=== PATIENT | female | born 1945 | race Caucasian/White ===

== ENCOUNTER 2025-02-18 02:43 | Inpatient (IN) | payer OTHER, MEDICARE, SELFPAY ==
[2025-02-18] VITALS (126 sets, daily range): BP systolic 80–124; BP diastolic 51–85; PULSE 81–142; RESP 12–25; TEMP 35.5–37.1; O2SAT 66–100; BMI 25.2; BMI 28.2
--- NOTE | 2025-02-18 02:51 | EKG_ITS ---
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
--- NOTE | 2025-02-18 03:16 | EDNOTE_ITS ---
ED GI Bleed RME/HPI General Chief complaint: GI Bleed Stated complaint: POSSIBLE GI BLEED Time Seen by Provider: 02/18/25 02:44 Arrival date/time: 02/18/25 02:43 RME / HPI RME / HPI Narrative: Dr. Renae?s Main ED Evaluation: 79yo female with a history of aFib (not on anticoagulants), CHF, HTN BIBA from home presents to the ED for complaints of coffee-ground emesis and rectal bleeding x 1.5 days. Patient states she's been having intermittent episodes of rectal bleeding and coffee-ground emesis for the last day and a half. She denies any abdominal pain, fever, chills or any other associated symptoms. She denies any history of similar symptoms. Related Data Home Medications ?Medication ?Instructions ?Recorded ?Confirmed Cetirizine * (ZYRTEC *) 5 mg PO HS #0 tabs 04/26/16 Chrom Janki/Brindall Mccrary 1 tab PO TID ##0 04/26/16 (Garcinia Cambogia Tablet) Etanercept (Enbrel) 50 mg SQ 2 X WEEKLY ##0 06/04 Fluticasone Propionate 1 spry IH PRN PRN ALLERGY ## 0 04/26/16 amlodipine 5 mg tablet (Norvasc) 5 mg PO QDAY #0 tabs 04/26/16 loratadine 10 mg tablet (Claritin) 10 mg PO QDAY #0 ta bs 04/26/16 triamterene 50 mg capsule 25 mg PO QDAY #0 caps (Dyrenium) Lactobacillus rhamnosus GG 10 1 cap PO QDAY #0 caps billion cell capsule (Culturelle) biotin 800 mcg tablet 800 mcg PO QDAY #0 tabs 01/05 cyanocobalamin (vitamin B-12) 100 100 mcg PO QDAY #0 t abs 09/21/16 mcg tablet (Vitamin B-12) guaifenesin 600 mg tablet, 600 mg PO QDAY ##0 09/21/16 extended release 12 hr (Mucinex) magnesium 30 mg tablet 30 mg PO BID #0 tabs 6 phentermine 37.5 mg capsule 37.5 mg PO QAMAC #0 caps 1 11/21/15 (Adipex-P) prasterone (dhea) 50 mg capsule ##0 09/21/16 (DHEA) thyroid (pork) 195 mg tablet 195 mg PO #0 tabs 6 (Nature-Throid) Allergies Allergy/AdvReac Type Severity Reaction Status Date / Time Dust Allergy Severe ASTHMA Uncoded 08/12/24 10:33 ATTACK Review of Systems Review of Systems Systems Reviewed: All systems reviewed, normal except as documented Past Medical History Past Medical History CARDIAC: Positive Atrial Fibrillation, Congestive Heart Failure and Hypertension; Negative Cardiac Disorders RESPIRATORY: Positive Asthma; Negative Chronic Obstructive Pulmonary Disease (COPD) GENITOURINARY: Negative Renal Disease ENDOCRINE: Negative Diabetes Mellitus Type 1 or Diabetes Mellitus Type 2 HEMATOLOGIC: Negative Sickle Cell Disease OTHER HISTORY: Positive Blood Transfusions Social History SMOKING STATUS: Never smoker ED Exam Narrative Physical exam: GENERAL APPEARANCE: alert and oriented x 4, appears fatigued, no acute distress VITALS: All vitals were reviewed and the pulse ox is 98% on room air, which is normal according to my interpretation. HEENT: Normocephalic, atraumatic; pupils equal, round, reactive to light; EOMI; mucous membranes pink, moist; oropharynx clear NECK: Supple LUNGS: CTABL; no wheezes, no rales, no rhonchi HEART: Irregularly irregular tachycardia, normal S1, S2; no murmurs ABDOMEN: non distended; normal BS; soft, no tenderness, no guarding, no rebound; no masses, no organomegaly, no hernia BACK: no CVA tenderness EXTREMITIES: atraumatic; no edema NEUROLOGIC: awake; alert and oriented x4; cranial nerves II-XII grossly intact; no focal sensory or motor deficits PSYCHIATRIC: appropriate mood and affect SKIN: warm, dry, pale, jaundice; no rashes Course Course Course Narrative: 0252: Sepsis alert initiated. Orders made at this time are congruent with ED Adult Sepsis Order List. Re-evaluation is to be completed. CXR is ordered for determining the etiology of hypothermia. 0437: NS IVF infused. 0507: Sepsis reassessment performed consisting of lab review, vitals, physical exam including auscultation of heart, lungs, and visual evaluation of capillary refills, mucosal membranes and extremities. Quality Measures Possible source: GI tract/intra-abdominal Blood cultures ordered: yes Antibiotic ordered: Yes Pertinent labs: 02/18/25 03:05 Lactic Acid 2.8 H mMol/L (0.4-2.0) Procalcitonin 1.30 H ng/ml (0.0-0.49) sepsis Orders Category Date Time Status Video Editing Internship STAT Care 02/18/25 03:16 Active Continuous Pulse Oximetry STAT Care 02/18/25 03:16 Completed EKG (ED ONLY) *Do not use* NOW Care 02/18/25 02:52 Completed Landa [Urinary Catheter] QS Care 02/18/25 02:59 Active Insert IV STAT Care 02/18/25 03:16 Completed Intake and Output Routine Care 02/18/25 03:16 Ordered NPO STAT Care 02/18/25 03:16 Active Transfuse,blood/blood products NOW Care 02/18/25 03:15 Active Urinary Catheter STAT Care 02/18/25 03:16 Completed Consult to Gastroenterology Stat Cons 02/18/25 05:28 Ordered EKG (ED Only) Stat Exams 02/18/25 02:51 Draft XR chest 1V portable Stat Exams 02/18/25 03:24 Taken Ammonia Stat Lab 02/18/25 03:05 Completed Blood Culture (Lab) Stat Lab 02/18/25 03:40 Received CBC Stat Lab 02/18/25 03:05 Completed Comprehensive Metabolic Panel Stat Lab 02/18/25 03:05 Completed Fresh Frozen Plasma Stat Lab 02/18/25 03:40 Results Lactate (Lactic Acid) Stat Lab 02/18/25 03:05 Results Lipase Stat Lab 02/18/25 03:05 Completed Magnesium Stat Lab 02/18/25 03:05 Completed Partial Thromboplastin Time Stat Lab 02/18/25 03:05 Completed Path Review Blood Smear Stat Lab 02/18/25 03:05 Completed Procalcitonin Stat Lab 02/18/25 03:05 Completed Prothrombin Time with INR Stat Lab 02/18/25 03:05 Completed Troponin I Stat Lab 02/18/25 03:05 Completed Type and Screen Stat Lab 02/18/25 03:40 Results Urinalysis Stat Lab 02/18/25 03:51 Completed Urine Culture Stat Lab 02/18/25 03:51 Received prbc [Red Blood Cells] Stat Lab 02/18/25 03:40 Results Magnesium Sulfate 2 GM Ivpb [Magnesium Sulfate Ivpb] Med 02/18/25 05:04 Active 2 gm in 50 ml IV X1 Octreotide Acet Inj [SandoSTATIN Inj] Med 02/18/25 03:15 Discontinued 50 mcg IV X1 ONE Pantoprazole/Ns 80Mg IV Premix [Protonix/NS 80mg IV Med 02/18/25 03:21 Discontinued Premix] 80 mg in 100 ml IV .Q10H Pantoprazole/Ns 80Mg IV Premix [Protonix/NS 80mg IV Med 02/18/25 03:21 Discontinued Premix] 80 mg in 100 ml IV X1 Sodium Chloride 0.9% 1000 ml [Ns] 1,000 ml Med 02/18/25 03:15 Discontinued IV 999 mls/hr Sodium Chloride 0.9% [Ns] 100 ml Med 02/18/25 03:15 Active Octreotide Acet Inj [SandoSTATIN Inj] 1,000 mcg IV 50 mcg/hr cefTRIAXone/D5w 1gm IV premix [Rocephin/D5w 1gm IV Med 02/18/25 03:23 Discontinued premix] 1 gm in 50 ml IV X1 Vital Signs Vital signs: Vital Signs Temperature 96 F L 02/18/25 02:53 Pulse Rate 130 H 02/18/25 02:53 Respiratory Rate 18 02/18/25 02:53 Blood Pressure 82/66 L 02/18/25 02:53 GI Bleed MDM Narrative MDM Narrative:: Scribe Attestation: 02/18/25 - Susanna Elizondo am scribing for and in the presence of Dr. Renae. 0526: Spoke with the blood bank, who states the patient's FPP and PRBCs will be ready in 6 minutes. Patient data External records reviewed:: [facility] previous records (Per chart review, patient was seen here on 08/12/24 for aortic thrombus.) Clinical information provided by:: patient Social determinants that could affect healthcare access:: none Patient has the following chronic illnesses:: aFib, CHF, HTN How is presenting disease/condition affected by chronic disease/condition?: uneffected by Evaluation data The following diagnostics were reviewed and interpreted by me:: lab results, radiology exam(s) and EKG tracing(s) Lab and/or radiology exams considered but not ordered:: none Interpretation Summary: WBC count is normal, HnH is low at 6.5/19.0, Platelets are low at 76, PT and INR are elevated, PTT is elevated, Sodium is 133, Creatinine is elevated at 2.8, Lactic Acid is elevated at 2.8, Total Bilirubin is 1.9, Troponin is elevated at 0.092, Lipase is normal, Procalcitonin is elevated at 1.30, according to my interpretation. CXR shows left-sided pleural effusion, chronic changes, no air under the diaphragm, cardiomegaly, according to my interpretation. EKG done at 0253, aFib RvR, rate of 132, left axis deviation, Q waves in V1-V4, no STEMI, according to my interpretation. Medications / Prescriptions Medications or Prescriptions considered but not ordered:: none Medication administrations:: Medication Administration History Octreotide Acetate 1,000 mcg/ (Sodium Chloride) 102 mls @ 5.1 mls/hr IV .Q20H ONE; Protocol Stop: 02/18/25 23:14 Last Admin: 02/18/25 03:34 Dose: 50 mcg/hr, 5.1 mls/hr Documented By: EF Magnesium Sulfate (Magnesium Sulfate Ivpb) 2 gm in 50 mls @ 25 mls/hr IV X1 ONE Stop: 02/18/25 07:03 Last Admin: 02/18/25 05:29 Dose: 25 mls/hr Documented By: EF Discontinued Medications Sodium Chloride (Ns) 1,000 mls @ 999 mls/hr IV .Q1H1M ONE Stop: 02/18/25 04:15 Last Infusion: 02/18/25 04:37 Dose: Infused Documented By: Admin: 02/18/25 03:34 Dose: 999 mls/hr Documented By: EF Pantoprazole Sodium (Protonix/Ns 80mg Iv Premix) 80 mg in 100 mls @ 400 mls/hr IV X1 ONE Stop: 02/18/25 03:35 Last Infusion: 02/18/25 04:31 Dose: Infused Documented By: Admin: 02/18/25 04:16 Dose: 400 mls/hr Documented By: EE Pantoprazole Sodium (Protonix/Ns 80mg Iv Premix) 80 mg in 100 mls @ 10 mls/hr IV .Q10H EULALIA Last Admin: 02/18/25 04:57 Dose: 10 mls/hr Documented By: EF Ceftriaxone Sodium/Dextrose (Rocephin/D5w 1gm Iv Premix) 1 gm in 50 mls @ 100 mls/hr IV X1 ONE Stop: 02/18/25 03:52 Last Infusion: 02/18/25 04:46 Dose: Infused Documented By: Admin: 02/18/25 04:16 Dose: 100 mls/hr Documented By: SERGEY Octreotide Acetate (Octreotide Acet Inj 50 Mcg/Ml Vial) 50 mcg IV X1 ONE Stop: 02/18/25 03:16 Last Admin: 02/18/25 03:34 Dose: 50 mcg Documented By: EF see above Consultations Consultation(s) initiated? (list below): Yes Consultation #1 (Physician, Specialty, Details): Discussed case with [the resident ICU physician, attending Dr. Tabares] from Hospitalist service regarding admission. Discussed patients ED course, exam findings, labs, and radiology results. The Hospitalist will evaluate the patient for admission. Time: 04:38 Consultation #2 (Physician, Specialty, Details): Discussed case with [Dr. Mendoza] from [GI] regarding [consultation]. Discussed patients ED course, exam findings, labs, and radiology results. Agrees to consult. Time: 05:27 Diagnosis GI bleed differential diagnosis: esophageal varices, Ramila-Narayan syndrome, Upper gastrointestinal hemorrhage and Lower gastrointestinal hemorrhage Most likely diagnosis given after review of the tests above:: see clinical impression below Admission Indicated Admission indicated?: indicated Admission Request Was there a request for admission?: Yes Admission Attestation Admission request attestation: Discussed case with [] from Hospitalist service regarding admission. Discussed patients ED course, exam findings, labs, and radiology results. The Hospitalist [agrees,declines] to accept the patient for admission. Disposition Plan Disposition Plan: Admit Critical Care Time Critical Care Time Critical Care Time: Yes Total Critical Care Time (min.): 120 Attestation: The high probability of sudden, clinically significant deterioration in the patient?s condition required the highest level of my preparedness to intervene urgently. The services I provided to this patient were to treat and/or prevent clinically significant deterioration. Services included the following: chart data review, reviewing nursing notes and/or old charts, documentation time, senior market intelligence consultant collaboration regarding findings and treatment options, medication orders and management, direct patient care, vital sign assessments and ordering, interpreting and reviewing diagnostic studies and lab tests. Aggregate critical care time includes only time during which I was engaged in work directly related to the patient?s care, as described above, whether at bedside or elsewhere in the Emergency Department. It did not include time spent performing other reported procedures or the services of residents, students, nurses or physician assistants. Discharge Plan Prescriptions/Referrals Prescriptions/Med Rec: No Action amlodipine [Norvasc] 5 MG tablet 5 mg PO QDAY Qty: 0 triamterene [Dyrenium] 50 MG capsule 25 mg PO QDAY Qty: 0 loratadine [Claritin] 10 MG tablet 10 mg PO QDAY Qty: 0 Cetirizine * (ZYRTEC *) 5 MG tablet 5 mg PO HS Qty: 0 Chrom Janki/Brindall Mccrary (Garcinia Cambogia Tablet) 1 EACH tablet 1 tab PO TID Qty: 0 Etanercept (Enbrel) 50 MG/1 ML PEN.INJCTR 50 mg SQ 2 X WEEKLY Qty: 0 Fluticasone Propionate 16 GM SPRAY 1 spry IH PRN PRN (Reason: ALLERGY) Qty: 0 guaifenesin [Mucinex] 600 MG tablet extended release 12hr 600 mg PO QDAY Qty: 0 cyanocobalamin (vitamin B-12) [Vitamin B-12] 100 MCG tablet 100 mcg PO QDAY Qty: 0 biotin 800 MCG tablet 800 mcg PO QDAY Qty: 0 Lactobacillus rhamnosus GG [Culturelle] 1 CAP capsule 1 cap PO QDAY Qty: 0 magnesium 30 MG tablet 30 mg PO BID Qty: 0 phentermine [Adipex-P] 37.5 MG capsule 37.5 mg PO QAMAC Qty: 0 thyroid (pork) [Nature-Throid] 195 MG tablet 195 mg PO Qty: 0 prasterone (dhea) [DHEA] 50 MG capsule Qty: 0 Referrals: Ruth Street MD [Primary Care Provider] - In 1 week Problem List Clinical Impression: Acute renal failure, Hypovolemic shock, Anemia, Coagulopathy, Acidosis, lactic, Acute liver disease, Hypomagnesemia, Non-ST elevation MA (NSTEMI) Patient/Caregiver Discharge Instructions Print Language: Wolof
--- NOTE | 2025-02-18 03:24 | XR_ITS ---
Examination: AP chest single view TECHNIQUE: AP portable upright chest single view Exam date time: February 18, 2025, 0346 hours INDICATIONS: Vomiting and rectal bleeding beginning yesterday FINDINGS: Moderate enlargement cardiac contour Moderate vascular congestion. Pleural-parenchymal opacity left base Left axillary surgical clips Mild pneumonia right base IMPRESSION: Mild heart failure Mild pneumonia right base Pneumonia and pleural disease left base
[2025-02-18 03:28] LABS: Lactate (Lactic Acid) 2.8 mMol/L (0.4-2.0)
[2025-02-18 03:31] LABS: Basophils % (Auto) 0 % (0-2.5); Eosinophils % (Auto) 0 % (0-10); Immature Granulocytes % (Auto) 1 % (0-0); Immature Granulocytes Auto 0.09 Thou/mm3 (0.00-0.00); Lymphocytes # (Auto) 0.6 Thou/mm3 (1.0-4.8); Lymphocytes % (Auto) 6 % (10-50); Mean Corpuscular HGB Conc 34.2 g/dl (31.0-37.0); Mean Corpuscular Hemoglobin 34.2 pg (25.0-35.0); Mean Corpuscular Volume 100 fL (80-100); Monocytes # (Auto) 0.1 Thou/mm3 (0.0-0.8); Monocytes % (Auto) 1 % (0-12); Neutrophils # (Auto) 10.1 Thou/mm3 (1.8-7.7); Neutrophils % (Auto) 92 % (37-80); Nucleated Red Blood Cell # 0.58 Thou/mm3 (0.00-0.00); Nucleated Red Blood Cell % 5 /100 WBC (0); Platelet Count 76 Thou/mm3 (140-440); RDW Standard Deviation 73.3 fL (36.4-46.3); White Blood Count 10.9 Thou/mm3 (3.6-11.0)
[2025-02-18] MEDS: OCTREOTIDE ACET INJ 1,000 MCG in SODIUM CHLORIDE 0.9% 100 ML 5.1 MCG IV ×2 (03:34→23:29)
[2025-02-18] MEDS: SODIUM CHLORIDE 0.9% 1000 ML 1,000 ML 999 ML IV (03:34)
[2025-02-18] MEDS: OCTREOTIDE ACET INJ 50 mCg/ML VIAL IV (03:34)
[2025-02-18 03:36] LABS: Hemoglobin 6.5 g/dL (12.0-16.0)
[2025-02-18 03:49] LABS: INR 1.5 (0.9-1.3); Partial Thromboplastin Time 43.7 Seconds (22.0-36.0); Prothrombin Time 15.8 Seconds (9.0-12.2)
[2025-02-18 03:54] LABS: Ammonia < 10 uMol/L (11-32)
[2025-02-18 04:04] LABS: Collection Type, Urine Catheter
[2025-02-18 04:12] LABS: Alanine Aminotransferase 21 U/L (10-49); Albumin, Serum 2.5 gm/dL (3.4-4.8); Albumin/Globulin Ratio 1.3 (1.2-2.2); Alkaline Phosphatase 98 U/L (46-116); Anion Gap 11 (7-16); Aspartate Amino Transferase 35 U/L (0-34); BUN/Creatinine Ratio 29 Ratio (12-20); Bilirubin,Total 1.9 mg/dL (0.3-1.2); Blood Urea Nitrogen 81 mg/dL (9-23); Calcium 7.8 mg/dL (8.3-10.6); Carbon Dioxide 20.4 mMol/L (20.0-31.0); Chloride 102 mMol/L (98-107); Creatinine (Component) 2.8 mg/dL (0.6-1.3); Estimated Creatinine Clearance 15.6 mL/min (>60); Globulin 1.9 gm/dL (2.3-3.5); Glucose 120 mg/dL (74-106); Lipase 34 U/L (12-53); Magnesium 1.5 mg/dL (1.6-2.6); Osmolality,Calculated 291 (275-295); Potassium 3.5 mMol/L (3.4-5.1); Sodium 133 mMol/L (136-145); Total Protein 4.4 gm/dL (5.7-8.2); eGFR 17 See Note
[2025-02-18 04:13] LABS: Bilirubin,Urine Negative (Negative); Blood,Urine Negative (Negative); Clarity,Urine Clear (Clear/Hazy); Color,Urine Lt-Yellow (Lt Yel-Yel); Glucose, Urine Negative (Negative); Hyaline Casts,Urine 1 /hpf (0-1); Ketones,Urine Negative (Negative); Leukocyte Esterase,Urine Negative (Negative); Nitrite,Urine Negative (Negative); PH,Urine 5.5 (5.0-7.0); Protein,Urine Negative (Neg - Trace); RBC,Urine 1 /hpf (0-3); Specific Gravity,Urine 1.014 (1.001-1.035); Squamous Epithelial Cell,Urine < 1 /hpf (0-5); Urobilinogen,Urine Negative mg/dL (0.0-1.0); WBC,Urine < 1 /hpf (0-5)
[2025-02-18] MEDS: cefTRIAXone/D5w 1gm IV premix 1 GM/50 ML BAG IV (04:16)
[2025-02-18] MEDS: PANTOPRAZOLE/NS 80MG IV PREMIX 80 MG/100 ML BAG 400 MG IV (04:16)
[2025-02-18 04:28] LABS: Troponin I 0.092 ng/mL (0.0-0.045)
[2025-02-18 04:50] LABS: Path Review Blood Smear Sent to Pathologist; Slide Review Platelets confirmed
[2025-02-18] MEDS: PANTOPRAZOLE/NS 80MG IV PREMIX 80 MG/100 ML BAG 10 MG IV (04:57)
[2025-02-18] MEDS: Magnesium Sulfate 2 GM Ivpb 2 GM/50 ML BAG IV ×2 (05:29→12:07)
--- NOTE | 2025-02-18 06:22 | ECHO_ITS ---
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: MAHENDRA Romero^^^^ Indications: Procedure Performed: BP: 95 / 61 HR: 110 Technical Quality: Fair MEASUREMENTS (Male / Female) Normal Values 2D ECHO LV Diastolic Diameter PLAX 4.9 cm 4.2 - 5.9 / 3.9 - 5.3 cm LV Systolic Diameter PLAX 3.2 cm IVS Diastolic Thickness 1.0 cm 0.6 - 1.0 / 0.6 - 0.9 cm LVPW Diastolic Thickness 0.9 cm 0.6 - 1.0 / 0.6 - 0.9 cm LV Relative Wall Thickness 0.4 LVOT Diameter 1.8 cm Aortic Root Diameter 4.0 cm LA Systolic Diameter LX 4.0 cm 3.0 - 4.0 / 2.7 - 3.8 cm Ascending Aorta Diameter 3.2 cm DOPPLER AV Peak Velocity 134.0 cm/s AV Peak Gradient 7.2 mmHg AV Mean Gradient 4.0 mmHg AV Velocity Time Integral 26.0 cm AI Peak Velocity 343.0 cm/s AI Peak Gradient 47.1 mmHg AI Pressure Half Time 404.0 ms LVOT Peak Velocity 89.4 cm/s LVOT Peak Gradient 3.2 mmHg LVOT Velocity Time Integral 20.8 cm LVOT Cardiac Index 3116.0 cm?/min?m? AV Area Cont Eq vti 2.0 cm? AV Area Cont Eq pk 1.7 cm? MV Area PHT 8.1 cm? MR Peak Velocity 478.0 cm/s MR Peak Gradient 91.4 mmHg Mitral E Point Velocity 76.3 cm/s Mitral A Point Velocity 42.5 cm/s Mitral E to A Ratio 1.8 LV E' Lateral Velocity 11.8 cm/s Mitral E to LV E' Lateral Ratio 6.5 LV E' Septal Velocity 9.5 cm/s Mitral E to LV E' Septal Ratio 8.0 TR Peak Velocity 518.7 cm/s TR Peak Gradient 107.6 mmHg PV Peak Velocity 91.2 cm/s PV Peak Gradient 3.3 mmHg RVOT Peak Velocity 65.0 cm/s FINDINGS Left Ventricle The left ventricular ejection fraction is normal, estimated at 55-60%. There is abnormal septal motion. Hypokinetic basal anterior wall motion. There is grade III diastolic dysfunction of the left ventricle (restrictive filling pattern). Right Ventricle The right ventricular size is severely increased. Estimated right ventricular systolic pressure is severely elevated, 135 mmHg. Left Atrium The left atrial cavity size is mildly increased. Right Atrium The right atrial cavity size is severely increased. Atrial Septum The interatrial septum appears normal with no evidence of a shunt. Aorta The aorta is normal by two-dimensional, color flow and Doppler interrogation. Mitral Valve Mild mitral regurgitation. Mild mitral annular calcification. Aortic Valve Aortic valve sclerosis. Mild aortic valve regurgitation. Findings consistent with vegetation on the aortic valve. Tricuspid Valve There is severe tricuspid regurgitation. Pulmonic Valve Trivial pulmonic valve regurgitation. Vessels Dilated inferior vena cava with poor inspiration collapse consistent with elevated right atrial pressure. Pericardium There is a small pericardial effusion. CONCLUSIONS Indication: CHF Normal LV size and function with an ejection fraction of 55 to 60%. Mild LVH Diastolic dysfunction present but cannot be graded. Severely elevated estimated RVSP at around 120-130 mmHg indicating moderate to severe PAH. Moderately dilated RV with significant volume overload Severe open TR. Severely dilated RA. Moderate to severely dilated IVC. Moderate AV sclerosis without stenosis. Mild to moderate MR. Mild MAC. Small pericardial effusion without any evidence of any cardiac tamponade. Pleural effusion present Hector Reyna (Electronically Signed) Final Date: 18 February 2025 19:46
[2025-02-18 06:24] LABS: Reflex Lactate? Y
[2025-02-18] MEDS: ALBUMIN HUMAN 25% IVPB 12.5 GM/50 ML BTL IV ×2 (07:10→10:49)
[2025-02-18] MEDS: AMIODARONE 150 MG IVPB 150 MG/100 ML BAG 600 MG IV (07:11)
[2025-02-18] MEDS: PHYTONADIONE INJ 10 MG/ML AMP SC ×2 (07:11→21:14)
[2025-02-18] MEDS: AMIODARONE 360 MG IVPB 360 MG/200 ML BAG 33.333 MG IV (07:27)
[2025-02-18 08:24] LABS: Lactic Acid, 3 HR 2.7 mMol/L (0.4-2.0)
--- NOTE | 2025-02-18 08:59 | PD.RESHP ---
Documentation for date of: 02/18/25 [facility] History of Present Illness Chief complaint: Diarrhea and weakness History of present illness: Ms. Ayoub is a pleasant 79-year-old female with PMHx of A-fib on ELIQUIS( under Dr. Parrish), CHF, HTN, Hypothyroidism, CKD, RA on Enbrel brought in by ambulance following 1.5 days of dark/watery stool and rectal bleed. She noted 1 week of dark stool, followed by dark and watery diarrhea that approximately 2 days ago. Denied fall or trauma, fever, chills, abnormal weight loss or gain, palpitations, chest pain, shortness of breath, cough, abdominal pain, nausea or vomiting, dysuria or hematuria. She was admitted at [facility] and airlifted to [place] for GLF for which she sustained a right eye injury, currently being followed up by ophthalmology in [place]. She did not report any fracture or other injuries. At the time, endoscopy was done, patient unsure why but state was normal. They had recommended colonoscopy but she states unable to do prep as she lives alone at home. Additionally, she states she takes home LASIX but was discontinued during admission at [facility] for fall risk concerns. She reports 3 weeks of increased bilateral extremity swelling and shortness of breath despite using her home 3 L oxygen. ED COURSE: Afebrile, BP 82/66, HR 121, RR 18, satting 99% on 2 L. Hgb 6.5 (baseline 11.2), HCT 19, WBC 10.9. PT 15.8, INR 1.5, APTT 43.7. Creatinine 2.8 (baseline 1.0), BUN 81, EGFR 15.6 Lactic acid 2.8, troponin 0.092, BNP 1414. Sodium 133, magnesium 1.5, TB 1.9, AST 35, ALT normal 21, ALBUMIN 2.5, ammonia <10. Pro-Calc 1.3. EKG showed A-fib with RVR, HR 132. CXR mild right basilar pneumonia, mild CHF, left-sided pneumonia and pleural disease. ED initiated transfusion with 2 units PRBCs and 1 unit FFP's. Will admit to telemetry, continue OCTREOTIDE and PROTONIX. GI has been consulted. PMHx: A-fib, CHF, HTN PSHx: Unknown MEDS: Pending med rec ALLERGIES: Dust (asthma attacks) FHx: Not relevant. SH: Lives at home. Denies alcohol, drug or tobacco use. Review of Systems Review of Systems Narrative Review of Systems: CONSTITUTIONAL: Patient denies any fever, chills. Complaining of extreme fatigue HEENT: Recent eye trauma. CARDIOVASCULAR: Patient denies any chest pain. c/o shortness of breath, swelling in the lower extremities. PULMONARY: Patient complaining of shortness of breath GASTROINTESTINAL: Patient denies any abdominal pain, constipation, nausea, vomiting++ black stools for the last 1 to 2 weeks GENITOURINARY: Patient denies any urinary symptoms of burning or frequency or hematuria, denies any form in the urine. SKIN: Denies any rash. MUSCULOSKELETAL complaining of gait imbalance NEUROLOGICAL: Denies any neurological problems of strokes, seizures or confusion. Denies any memory problems. PSYCHIATRIC admits depression and anxiety Exam Vital Signs Temp Pulse Resp BP Pulse Ox O2 Del Method O2 Flow Rate 96.6 F L 112 H 18 106/51 L 99 Room Air 2 02/18/25 08:46 02/18/25 08:46 02/18/25 08:46 02/18/25 08:46 02/18/25 08:46 02/18/25 08:40 02/18/25 07:12 Narrative Exam GENERAL Pale appearing elderly female, on 2 L NC, satting well, no apparent distress. In ED HEENT NCAT.?ANA. Oral mucosa is moist. Patent Nares Right eye conjunctivitis with surrounding ecchymosis secondary to GLF 2 months ago. NECK Supple, nontender, no thyromegaly, no meningismus, no JVD, no step offs CHEST Irregularly irregular, tachycardic, no m/g/r Bilateral coarse breath sound with rales, mild wheezing. Symmetrical chest rise. No intercostal subcostal retraction Atraumatic, nontender, no crepitus, symmetrical expansion. ABDOMEN Soft, flat, nontender. No guarding/rebound tenderness/masses. Bowel sounds presents EXTREMITIES Bilateral 3+ lower extremity pitting edema SKIN Pale skin, warm and dry, no jaundice/rashes. NEUROMUSCULAR No lumbar or midline, no CVA, no paraspinal muscle spasm or tenderness. Moves all 4 extremities well, with full ROM and good CSM. WHALEN x4, CN II-XII grossly intact. No focal neurologic deficits. PSYCHIATRY Normal mood and affect, cooperative, no SI or HI or hallucinations. Results: Labs 02/18/25 17:02 02/18/25 17:02 Labs: Short CBC 02/18/25 Range/Units 03:05 WBC 10.9 (3.6-11.0) Thou/mm3 Hgb 6.5 L* (12.0-16.0) g/dL Hct 19.0 L* (36.0-46.0) % Plt Count 76 L (140-440) Thou/mm3 BMP 02/18/25 03:05 Sodium 133 L Potassium 3.5 Chloride 102 Carbon Dioxide 20.4 BUN 81 H Creatinine 2.8 H Glucose 120 H Calcium 7.8 L Cardiac Enzymes 02/18/25 Range/Units 03:05 Troponin I 0.092 H* (0.0-0.045) ng/mL Liver Function 02/18/25 Range/Units 03:05 Total Bilirubin 1.9 H (0.3-1.2) mg/dL AST 35 H (0-34) U/L ALT 21 (10-49) U/L Alkaline Phosphatase 98 (46-116) U/L Albumin 2.5 L (3.4-4.8) gm/dL Urine 02/18/25 Range/Units 03:51 Urine Color Lt-Yellow (Lt Yel-Yel) Urine Clarity Clear (Clear/Hazy) Urine pH 5.5 (5.0-7.0) Ur Specific [place] 1.014 (1.001-1.035) Urine Protein Negative (Neg - Trace) Urine Glucose (UA) Negative (Negative) Quality Measures Quality Measures sepsis Current suspected stage: ruled out Possible source: GI tract/intra-abdominal Blood cultures ordered: yes Antibiotic ordered: No Advance care planning discussed with:: patient Medications Home Medications and Allergies Home Medications ?Medication ?Instructions ?Recorded ?Confirmed ?Type Cetirizine * (ZYRTEC *) 5 mg PO HS #0 tabs 04/26/16 History Chrom Janki/Brindall Mccrary 1 tab PO TID ##0 04/26/16 History (Garcinia Cambogia Tablet) Etanercept (Enbrel) 50 mg SQ 2 X WEEKLY ##0 04/26/16 History Fluticasone Propionate 1 spry IH PRN PRN ALLERGY ##0 04/26/16 History amlodipine 5 mg tablet (Norvasc) 5 mg PO QDAY #0 tabs 04/26/16 History loratadine 10 mg tablet (Claritin) 10 mg PO QDAY #0 tabs 04/26/16 History triamterene 50 mg capsule 25 mg PO QDAY #0 caps 04/26/16 History (Dyrenium) Lactobacillus rhamnosus GG 10 1 cap PO QDAY #0 caps 09/21/16 History billion cell capsule (Culturelle) biotin 800 mcg tablet 800 mcg PO QDAY #0 tabs 09/21/16 History cyanocobalamin (vitamin B-12) 100 100 mcg PO QDAY #0 tabs 09/21/16 History mcg tablet (Vitamin B-12) guaifenesin 600 mg tablet, 600 mg PO QDAY ##0 09/21/16 History extended release 12 hr (Mucinex) magnesium 30 mg tablet 30 mg PO BID #0 tabs 09/21/16 History phentermine 37.5 mg capsule 37.5 mg PO QAMAC #0 caps 09/21/16 History (Adipex-P) prasterone (dhea) 50 mg capsule ##0 09/21/16 History (DHEA) thyroid (pork) 195 mg tablet 195 mg PO #0 tabs 09/21/16 History (Nature-Throid) Allergies Allergy/AdvReac Type Severity Reaction Status Date / Time Dust Allergy Severe ASTHMA Uncoded 08/12/24 10:33 ATTACK Visit Medications Acetaminophen (Acetaminophen Supp 650 Mg Supp) 650 mg NM Q4HR PRN PRN Reason: PAIN SCALE 1-3 (mild Stop: 03/20/25 06:02 Octreotide Acetate 1,000 mcg/ (Sodium Chloride) 102 mls @ 5.1 mls/hr IV .Q20H ONE; Protocol Stop: 02/18/25 23:14 Last Admin: 02/18/25 03:34 Dose: 50 mcg/hr, 5.1 mls/hr Amiodarone HCl/Dextrose (Nexterone Ivpb) 360 mg in 200 mls @ 33.333 mls/hr IV .Q6H ONE Stop: 02/18/25 12:02 Last Admin: 02/18/25 07:27 Dose: 33.333 mls/hr Amiodarone HCl/Dextrose (Nexterone Ivpb) 360 mg in 200 mls @ 16.667 mls/hr IV .Q12H EULALIA Stop: 02/19/25 12:06 Pantoprazole Sodium (Pantoprazole Inj 40 Mg Vial) 40 mg IVP BID EULALIA Stop: 03/20/25 08:59 Discontinued Medications Sodium Chloride (Ns) 1,000 mls @ 999 mls/hr IV .Q1H1M ONE Stop: 02/18/25 04:15 Last Infusion: 02/18/25 04:37 Dose: Infused Pantoprazole Sodium (Protonix/Ns 80mg Iv Premix) 80 mg in 100 mls @ 400 mls/hr IV X1 ONE Stop: 02/18/25 03:35 Last Infusion: 02/18/25 04:31 Dose: Infused Pantoprazole Sodium (Protonix/Ns 80mg Iv Premix) 80 mg in 100 mls @ 10 mls/hr IV .Q10H [facility] Last Admin: 02/18/25 04:57 Dose: 10 mls/hr Ceftriaxone Sodium/Dextrose (Rocephin/D5w 1gm Iv Premix) 1 gm in 50 mls @ 100 mls/hr IV X1 ONE Stop: 02/18/25 03:52 Last Infusion: 02/18/25 04:46 Dose: Infused Magnesium Sulfate (Magnesium Sulfate Ivpb) 2 gm in 50 mls @ 25 mls/hr IV X1 ONE Stop: 02/18/25 07:03 Last Infusion: 02/18/25 07:35 Dose: Infused Amiodarone HCl/Dextrose (Nexterone Ivpb) 150 mg in 100 mls @ 600 mls/hr IV .Q10M ONE Stop: 02/18/25 06:16 Last Infusion: 02/18/25 07:26 Dose: Infused Albumin Human (Albuminar-25 Ivpb) 12.5 gm in 50 mls @ 50 mls/hr IV X1 ONE Stop: 02/18/25 07:07 Last Admin: 02/18/25 07:10 Dose: 50 mls/hr Octreotide Acetate (Octreotide Acet Inj 50 Mcg/Ml Vial) 50 mcg IV X1 ONE Stop: 02/18/25 03:16 Last Admin: 02/18/25 03:34 Dose: 50 mcg Pantoprazole Sodium (Pantoprazole 40 Mg Tablet) 40 mg PO BID [facility] Stop: 03/20/25 08:59 Phytonadione (Phytonadione Inj 10 Mg/Ml Amp) 10 mg SC X1 ONE Stop: 02/18/25 06:21 Last Admin: 02/18/25 07:11 Dose: 10 mg Assessment & Plan Plan In summary: 79-year-old female with PMHx of A-fib, CHF, HTN, presenting with 1 week of dark stool followed by roughly 2 days of black/watery diarrhea. Appreciate recommendations from Cardiology and GI teams. Acute GI bleed anemia Hematochezia Rectal bleed Hypotension, tachycardia Presents with 1 week of rectal bleeding and dark stool. Has 2 days of watery diarrhea that is black, not foul-smelling. Denies fall, trauma, abdominal pain, nausea or vomiting, abnormal weight changes. Had normal endoscopy in December at [facility], recommended colonoscopy but unable to complete prep at home as she lives alone. Hgb 6.5 (baseline 11.2), HCT 19, WBC 10.9. PT 15.8, INR 1.5, APTT 43.7. Patient states she is not on ANTICOAGULANTS. Admission BP 82/163, HR 121. Improving after transfusion and 1 L NS. To complete 2 unit PRBCs and 1 unit FFP. Otherwise asymptomatic, without dizziness, lightheadedness, chest pain, SOB or visual changes. ? Admit to telemetry ? Continue to treat drip ? Continue PROTONIX drip ? Continue n.p.o. ? Posttransfusion H&H ? Transfuse if Hgb less than 8. ? Pending GI recommendations History of CHF, on home 3 L oxygen Lactic acidosis Low suspicion for pneumonia History of CHF, usually takes LASIX at home which was discontinued in December given concern for recurrent falls. Reports 3 weeks of lower extremity edema, has 2/3+ bilateral LE pitting edema and rales on lung exam. Given ALBUMIN X1 in ED. Less likely will tolerate fluids given overload status. Will give another ALBUMEN x1. CXR showed mild CHF, bibasilar pneumonia and left-sided pleural disease. However, low suspicion for pneumonia given she is asymptomatic, afebrile. Elevated PRO-ANGELY likely in setting of ADITYA and decreased clearance. Received CEFTRIAXONE x 1 in ED. Will continue to monitor. Lactic acid 2.8 > 2.7, troponin 0.092, BNP 1414. Likely in settings of volume/blood loss. Anticipate improvement with transfusions and gentle fluids. ? Pending repeat lactic acid Q3H ? Pending echocardiogram ? ANTIBIOTICS NSTEMI, likely type II A-fib with RVR Likely demand ischemia. History of AFIB non ELIQUIS. EKG showed A-fib with RVR, HR 132. Currently HR Currently asymptomatic without chest pain or shortness of breath. ? Hold ELIQUIS in setting of GI bleed. ? Continue AMIODARONE drip. ? Maintain K > 4.0 and Mg > 2.0 ? Pending cardiology recommendations ? Pending repeat troponin Q6H Prerenal ADITYA Secondary to hypotension and acute blood loss. Creatinine 2.8 (baseline 1.0), BUN 81, EGFR 15.6 (baseline 57). ? Continue with transfusion. ? Gentle fluids given volume overload status. ? ALBUMEN as above ? Renally dose meds, avoid overdiuresis and NEPHROTOXINS ? Daily CMP Hypomagnesemia Magnesium 1.5, potassium 3.5, repleted. ? Daily labs, replete as needed. Mild hyponatremia Sodium 133, likely volume loss secondary to diarrhea. ? Daily labs Mild total bilirubinemia Likely secondary to decreased renal clearance. Anticipate improvement with improved renal function. Denies abdominal pain, normal abdominal exam. No scleral icterus or jaundice. ? Daily labs Hypothyroidism Chronic, on home LEVO 200 mcg daily. Currently NPO ? Continue LEVOTHYROXINE 150 mcg IV ACBR Health maintenance Diet: NPO GI prophylaxis: PROTONIX DVT prophylaxis: C/I 2/2 GI bleed, cannot tolerate STDs given LE edema/tenderness. Will monitor closely Antibiotics: Not indicated CODE STATUS: Full Code Disposition: Admitted for GI bleed, ADITYA, CHF exaceration Patient case was discussed with attending, Dr. Street. Belen West DO PGYI Attending Provider Attestation/Addendum Patient seen and examined with the resident physician Dr. Glover. Note reviewed, agree with findings and recommendations with few changes made. Patient admitted with significant weakness, GI bleed and severe blood loss anemia. Received 2 units of blood transfusion. However pressure continues to be hypotensive. So far patient received 5.2 L of fluids and significant amount of blood products. Dr. Mendoza was consulted. Cardiology on board for A-fib and CHF. End of the day-patient continues to have large bloody bowel movements with hemoglobin at 6.7 and hypotension. Spoke to Dr. Oseguera-will upgrade patient to ICU.
[2025-02-18 09:09] LABS: B-Type Natriuretic Peptide 1414 pg/mL (0-100)
[2025-02-18] MEDS: PANTOPRAZOLE INJ 40 MG VIAL IVP ×2 (09:19→21:14)
--- NOTE | 2025-02-18 09:29 | PC.NURSE ---
I spoke to Dr. Brooks pt orders will be change from ICU admit to tele
[2025-02-18 10:37] LABS: Troponin I 0.106 ng/mL (0.0-0.045)
--- NOTE | 2025-02-18 11:21 | PD.IMCONS ---
HPI Data of Consult Requesting Physician: Catherine Tabares MD Primary Care Provider: Ruth Street MD Consult Narrative History of present illness: This is a 79-year-old female with PMHx of A-fib on ELIQUIS, CHF, HTN, Hypothyroidism brought in by ambulance following 1.5 days of dark/watery stool and rectal bleed. H/H dropped 6.5/19 pt denies cardiac symptoms EKG shows afib 132 ; troponin .1 amiodarone started cc:: cc: Catherine Tabares MD Meds Home Medications and Allergies Home Medications ?Medication ?Instructions ?Recorded ?Confirmed ?Type Cetirizine * (ZYRTEC *) 5 mg PO HS #0 tabs 04/26/16 History Chrom Janki/Brindall Mccrary 1 tab PO TID ##0 04/26/16 History (Garcinia Cambogia Tablet) Etanercept (Enbrel) 50 mg SQ 2 X WEEKLY ##0 04/26/16 History Fluticasone Propionate 1 spry IH PRN PRN ALLERGY ##0 04/26/16 History amlodipine 5 mg tablet (Norvasc) 5 mg PO QDAY #0 tabs 04/26/16 History loratadine 10 mg tablet (Claritin) 10 mg PO QDAY #0 tabs 04/26/16 History triamterene 50 mg capsule 25 mg PO QDAY #0 caps 04/26/16 History (Dyrenium) Lactobacillus rhamnosus GG 10 1 cap PO QDAY #0 caps 09/21/16 History billion cell capsule (Culturelle) biotin 800 mcg tablet 800 mcg PO QDAY #0 tabs 09/21/16 History cyanocobalamin (vitamin B-12) 100 100 mcg PO QDAY #0 tabs 09/21/16 History mcg tablet (Vitamin B-12) guaifenesin 600 mg tablet, 600 mg PO QDAY ##0 09/21/16 History extended release 12 hr (Mucinex) magnesium 30 mg tablet 30 mg PO BID #0 tabs 09/21/16 History phentermine 37.5 mg capsule 37.5 mg PO QAMAC #0 caps 09/21/16 History (Adipex-P) prasterone (dhea) 50 mg capsule ##0 09/21/16 History (DHEA) thyroid (pork) 195 mg tablet 195 mg PO #0 tabs 09/21/16 History (Nature-Throid) Allergies Allergy/AdvReac Type Severity Reaction Status Date / Time Dust Allergy Severe ASTHMA Uncoded 08/12/24 10:33 ATTACK Exam Vital Signs Temp Pulse Resp BP Pulse Ox O2 Del Method O2 Flow Rate 97.5 F 99 16 92/59 L 100 Room Air 2 02/18/25 10:59 02/18/25 10:59 02/18/25 10:59 02/18/25 10:59 02/18/25 10:59 02/18/25 10:36 02/18/25 10:59 Routine HEENT Exam Head: Present normocephalic and atraumatic Eye: Present EOMI and PERRL ENT: Present mucous membranes moist Routine Neck Exam Neck: Present supple and trachea midline Routine Respiratory Exam Respiratory: Present chest non-tender, lungs clear, normal breath sounds and no resp distress Routine Cardiovascular Exam Cardiovascular: Present RRR Routine Abdominal Exam Abdominal: Present soft and normoactive bowel sounds Routine Extremities Exam Extremities: Present full ROM Routine Skin Exam Skin: Present intact, dry and warm Routine Neurological Exam Neurological: Present alert, oriented X3 and CN II-XII intact Routine Psychiatric Exam Psychiatric: Present normal affect and normal thought process Results Labs 02/18/25 03:05 02/18/25 03:05 Labs: Short CBC 02/18/25 Range/Units 03:05 WBC 10.9 (3.6-11.0) Thou/mm3 Hgb 6.5 L* (12.0-16.0) g/dL Hct 19.0 L* (36.0-46.0) % Plt Count 76 L (140-440) Thou/mm3 BMP 02/18/25 03:05 Sodium 133 L Potassium 3.5 Chloride 102 Carbon Dioxide 20.4 BUN 81 H Creatinine 2.8 H Glucose 120 H Calcium 7.8 L Cardiac Enzymes 02/18/25 02/18/25 Range/Units 03:05 09:38 Troponin I 0.092 H* 0.106 H* (0.0-0.045) ng/mL Liver Function 02/18/25 Range/Units 03:05 Total Bilirubin 1.9 H (0.3-1.2) mg/dL AST 35 H (0-34) U/L ALT 21 (10-49) U/L Alkaline Phosphatase 98 (46-116) U/L Albumin 2.5 L (3.4-4.8) gm/dL Urine 02/18/25 Range/Units 03:51 Urine Color Lt-Yellow (Lt Yel-Yel) Urine Clarity Clear (Clear/Hazy) Urine pH 5.5 (5.0-7.0) Ur Specific [place] 1.014 (1.001-1.035) Urine Protein Negative (Neg - Trace) Urine Glucose (UA) Negative (Negative) Assessment and Plan Assessment and plan (1) Atrial fibrillation: Status: Acute (2) GI bleed: Status: Acute (3) Elevated troponin: Status: Acute (4) Coagulopathy: Status: Acute Additional Assessment & Plan Additional Plan: Patient was admitted with GI bleed severe anemia Currently being evaluated by gastroenterology Minimal troponin elevation noted No cardiac symptoms reported EKG does not show any acute ST-T wave changes Doubt acute coronary syndrome Agree with amiodarone treatment for rapid atrial fibrillation
[2025-02-18] MEDS: ACETAMINOPHEN 325 MG TABLET 650 MG PO (12:01)
[2025-02-18] MEDS: POTASSIUM CHL 10 mEq IVPB 10 MEQ/100 ML BAG 100 MEQ IV ×2 (12:06→13:08)
--- NOTE | 2025-02-18 12:45 | PC.NURSE ---
Patient brief changed, soiled of dark red stool, clean dry brief applied and patient placed in POC, call light within reach, primary nurse Nelson NICHOLS is aware.
[2025-02-18] MEDS: AMIODARONE 360 MG IVPB 360 MG/200 ML BAG 16.667 MG IV (13:44)
[2025-02-18 15:47] LABS: Hematocrit 19.2 % (36.0-46.0)
[2025-02-18 15:48] LABS: Hemoglobin 6.7 g/dL (12.0-16.0)
--- NOTE | 2025-02-18 15:50 | PC.NURSE ---
Dr. Street aware of pt. H/H after blood products given, COnsulting ICU for transfer for management of bleeding. Pt. will be transferred to ICU 256 with Liz.
--- NOTE | 2025-02-18 16:00 | PD.RESEVENT ---
Documentation for date of: 02/18/25 Event Note Event Note: Post-transfusion Hgb 6.7 after 2 units PRBC and 1 FFP. Nurse reported significant blood per rectum and dark/bloody diarrhea. Patient will transfer to ICU for close monitoring and continued transfusions. Patient case was discussed with attending, Dr. Street. Belen West DO PGYI
--- NOTE | 2025-02-18 16:24 | PC.NURSE ---
Report given to Liz NICHOLS. Pt. is bleeding and h/h is trending down. Pt. to go for EGD tonight, new orders for blood products entered by ICU residents. Pt. reports history of resistance to anesthesia.
--- NOTE | 2025-02-18 16:43 | EKG_ITS ---
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 : 1945 Requested By: Ulises Mendez Order Number: [id number] Reading MD: Ulises Mendez Measurements Intervals [place] Rate: 98 P: IA: QRS: -75 QRSD: 134 T: 121 QT: 384 QTc: 492 Interpretive Statements ATRIAL FIBRILLATION WITH ABERRANT CONDUCTION OR VENTRICULAR PREMATURE COMPLEXES RIGHT BUNDLE BRANCH BLOCK LEFT ANTERIOR FASCICULAR BLOCK ANTEROSEPTAL MYOCARDIAL INFARCTION , OF INDETERMINATE AGE Compared to ECG 02/18/2025 02:53:17 Ventricular premature complex(es) now present Aberrant conduction of supraventricular beat(s) now present Right bundle-branch block now present Myocardial infarct finding still present /store/S0/[id number].pdf
--- NOTE | 2025-02-18 16:45 | PD.IMCONS ---
HPI Data of Consult Requesting Physician: Catherine Tabares MD Primary Care Provider: Ruth Street MD Consult Narrative Reason for consult: Coffee-ground hematemesis History of present illness: 79 years old female presented to the hospital with coffee-ground hematemesis and while on the floor had a very large hematochezic stool Her presenting hemoglobin hematocrit 6.5 and 19.0 and she has been given 2 units of blood her hemoglobin is still at 6.7 and 19.2 with a platelet count of 76,000 and a pro time INR 1.5 Her BUN/creatinine is 81 and 2.8 Patient underlying chronic atrial fibrillation congestive heart failure and hypertension cc:: cc: Catherine Tabares MD Review of Systems Review of Systems Systems Reviewed: All systems reviewed, normal except as documented Past Medical History Surgical History OTHER SURGICAL HX: As in the history of present illness Meds Home Medications and Allergies Home Medications ?Medication ?Instructions ?Recorded ?Confirmed ?Type Cetirizine * (ZYRTEC *) 5 mg PO HS #0 tabs 04/26/16 History Chrom Janki/Brindall Mccrary 1 tab PO TID ##0 04/26/16 History (Garcinia Cambogia Tablet) Etanercept (Enbrel) 50 mg SQ 2 X WEEKLY ##0 04/26/16 History Fluticasone Propionate 1 spry IH PRN PRN ALLERGY ##0 04/26/16 History amlodipine 5 mg tablet (Norvasc) 5 mg PO QDAY #0 tabs 04/26/16 History loratadine 10 mg tablet (Claritin) 10 mg PO QDAY #0 tabs 04/26/16 History triamterene 50 mg capsule 25 mg PO QDAY #0 caps 04/26/16 History (Dyrenium) Lactobacillus rhamnosus GG 10 1 cap PO QDAY #0 caps 09/21/16 History billion cell capsule (Culturelle) biotin 800 mcg tablet 800 mcg PO QDAY #0 tabs 09/21/16 History cyanocobalamin (vitamin B-12) 100 100 mcg PO QDAY #0 tabs 09/21/16 History mcg tablet (Vitamin B-12) guaifenesin 600 mg tablet, 600 mg PO QDAY ##0 09/21/16 History extended release 12 hr (Mucinex) magnesium 30 mg tablet 30 mg PO BID #0 tabs 09/21/16 History phentermine 37.5 mg capsule 37.5 mg PO QAMAC #0 caps 09/21/16 History (Adipex-P) prasterone (dhea) 50 mg capsule ##0 09/21/16 History (DHEA) thyroid (pork) 195 mg tablet 195 mg PO #0 tabs 09/21/16 History (Nature-Throid) Allergies Allergy/AdvReac Type Severity Reaction Status Date / Time Dust Allergy Severe ASTHMA Uncoded 08/12/24 10:33 ATTACK Exam Vital Signs Temp Pulse Resp BP Pulse Ox O2 Del Method O2 Flow Rate 97.4 F 100 22 H 106/68 100 Nasal Cannula 3 02/18/25 15:00 02/18/25 16:00 02/18/25 15:00 02/18/25 15:00 02/18/25 15:00 02/18/25 15:00 02/18/25 15:00 Constitutional Comments: Chronically ill-appearing pale and anemic Routine Respiratory Exam Comments: Scattered rhonchi Routine Abdominal Exam Comments: Soft nontender Results Labs 02/18/25 15:08 02/18/25 03:05 Labs: Short CBC 02/18/25 02/18/25 Range/Units 03:05 15:08 WBC 10.9 (3.6-11.0) Thou/mm3 Hgb 6.5 L* 6.7 L* (12.0-16.0) g/dL Hct 19.0 L* 19.2 L* (36.0-46.0) % Plt Count 76 L (140-440) Thou/mm3 BMP 02/18/25 03:05 Sodium 133 L Potassium 3.5 Chloride 102 Carbon Dioxide 20.4 BUN 81 H Creatinine 2.8 H Glucose 120 H Calcium 7.8 L Cardiac Enzymes 02/18/25 02/18/25 Range/Units 03:05 09:38 Troponin I 0.092 H* 0.106 H* (0.0-0.045) ng/mL Liver Function 02/18/25 Range/Units 03:05 Total Bilirubin 1.9 H (0.3-1.2) mg/dL AST 35 H (0-34) U/L ALT 21 (10-49) U/L Alkaline Phosphatase 98 (46-116) U/L Albumin 2.5 L (3.4-4.8) gm/dL Urine 02/18/25 Range/Units 03:51 Urine Color Lt-Yellow (Lt Yel-Yel) Urine Clarity Clear (Clear/Hazy) Urine pH 5.5 (5.0-7.0) Ur Specific [place] 1.014 (1.001-1.035) Urine Protein Negative (Neg - Trace) Urine Glucose (UA) Negative (Negative) Assessment and Plan Additional Assessment & Plan Additional Plan: # Coffee-ground hematemesis # Hematochezia # Acute posthemorrhagic anemia # Hypotension # Atrial fibrillation with RVR # Chronic liver disease plan Move the patient to ICU as she is on amiodarone drip and critically sick Consent obtained for fiberoptic esophagogastroduodenoscopy for possible therapeutic intervention under intravenous moderate sedation Cannot do a CTA abdomen pelvis because of the elevated BUN/creatinine at 81 and 2.8 If EGD is negative we will consider doing a fiberoptic endoscopy if the patient cannot tolerate the prep Thank you for the opportunity to participate in this patient
--- NOTE | 2025-02-18 16:48 | ESCONSULT_ITS ---
HPI Data of Consult Requesting Physician: Catherine Tabares MD Admitting Provider: Catherine Tabares MD Attending Provider: Catherine Tabares MD Primary Care Provider: Ruth Street MD Consult Narrative Reason for consult: Acute blood loss anemia in the setting of GI bleed History of present illness: 79-year-old female with past medical history of A-fib (on Eliquis), ascending thoracic aorta aneurysm (4 cm on 07/2024), CHF (no echo on file), hypertension, hyperlipidemia, and hypothyroidism was admitted to the hospital on 02/18/2025 due to acute blood loss anemia in the setting of GI bleed. ICU was consulted for closer monitoring of patient's hemoglobin as well as A-fib with RVR. In the ED patient came in with complaints of 1 to 2 weeks of dark stools with worsened to bloody diarrhea for the past 2 days as well as 1 episode of bloody vomiting yesterday. Patient is a very poor historian and stated that in December she was at [facility] due to a ground-level fall and that she had an endoscopy done during this admission, but she does not have any results of these. She mentioned that she was also supposed to have a colonoscopy done, but that she did not have good bowel prep therefore was not done. She denies taking any ibuprofen or any steroids as of recently and has only been taking Tylenol. She did mention that she had a prior endoscopy with a GI specialist, but there is no results from previous endoscopies or colonoscopy. Patient states she had weight gain from 140s to 160s recently. She denied any fever, chest pain, headache, abdominal pain, or history of cancer. In the ED patient was found to have A-fib with RVR on EKG and she was started on amiodarone drip. Patient received a total of 1 FFP, 2 PRBCs, and 2 platelets today, but she had a large bloody bowel movement after the transfusion and on repeat hemoglobin her hemoglobin was 6.7 from 6.5 initially. ED course: Initially was hypotensive, tachycardic, and afebrile. Initial labs were significant for low hemoglobin (6.5), thrombocytopenia (76), increased INR (1.5), ADITYA (BUN 81 and creatinine 2.8), lactic acidosis (2.8), hypomagnesemia (1.5), hyperbilirubinemia (1.9), troponinemia (0.092), elevated BNP (1414), and procalcitonin was elevated to 1.3. Initial imaging included EKG which showed A- fib with RVR and chest x-ray that showed mild heart failure, mild pneumonia of right base, and left pleural effusion. PMH: As above Social Hx: Past smoker and past alcohol use (a few wine glasses every day), denies any drug use Surgical Hx: Heart surgery when she was a child (bad valve) Medications: Eliquis, Bumex, atorvastatin, levothyroxine, and pending other medication reconciliation cc:: cc: Catherine Tabares MD Review of Systems Review of Systems Narrative Review of Systems: Constitutional: Denies sweats, Admits weight gain, Denies fever, Denies chills. HEENT: Denies hearing loss, Denies ear pain, Denies postnasal drip, Denies double vision, Denies blurry vision. Respiratory: Denies shortness of breath, Denies cough, Denies wheezing. Cardiovascular: Denies chest pain, Denies palpitations, Denies sudden loss of consciousness. GI: Admits blood in stool, Denies constipation, Denies abdominal pain, Denies difficulty swallowing, Admits bloody vomit. : Denies urinary incontinence, Denies pain while urinating, Denies increased urinary frequency. MSK: Denies joint pain, Denies joint swelling, Denies numbness. Skin: Denies rash, Denies itching, Denies easy bruising. Neuro: Denies headaches, Denies dizziness, Denies seizures. Past Medical History Past Medical History CARDIAC: Positive Atrial Fibrillation, Congestive Heart Failure and Hypertension; Negative Cardiac Disorders RESPIRATORY: Positive Asthma; Negative Chronic Obstructive Pulmonary Disease (COPD) GENITOURINARY: Negative Renal Disease ENDOCRINE: Negative Diabetes Mellitus Type 1 or Diabetes Mellitus Type 2 HEMATOLOGIC: Negative Sickle Cell Disease OTHER HISTORY: Positive Blood Transfusions Social History SMOKING STATUS: Never smoker Exam Vital Signs Temp Pulse Resp BP Pulse Ox O2 Del Method O2 Flow Rate 97.4 F 100 22 H 106/68 100 Nasal Cannula 3 02/18/25 15:00 02/18/25 16:00 02/18/25 15:02/18/25 15:02/18/25 15:00 02/18/25 15:00 02/18/25 15:00 Narrative Exam General: A/O x3, no acute distress, frail elderly female Eyes: L pupil reactive to light, R pupil unresponsive to light, EOMI. Anicteric, vision grossly intact in L eye, but impaired vision R. Ears: No ear pain, no ear discharge, Hearing grossly intact. Nose: No nasal discharge. Mouth/Throat: Dry mucous membranes, no redness, no lesions. Neck: Neck supple, non-tender, no cervical lymphadenopathy. Lungs: Clear in R side and L upper lobe, but decreased in L lower lobe, No accessory muscle use. Cardio: Normal S1/S2, tachycardic andirregular rhythm, no murmurs, no JVD Abdomen: Soft, but significantly distended with positive fluid wave, no palpable masses, peristalsis present, no guarding or rebound. Extremities: Symmetrical, no significant deformities, 2+ peripheral edema , non-tender, peripheral pulses presents. Skin: No rashes, no lesions, warm to touch. Neuro: No focal neurological deficits. motor and sensory intact Results Labs 03/01/25 04:46 03/01/25 04:46 Labs: Short CBC 02/18/25 02/18/25 Range/Units 03:05 15:08 WBC 10.9 (3.6-11.0) Thou/mm3 Hgb 6.5 L* 6.7 L* (12.0-16.0) g/dL Hct 19.0 L* 19.2 L* (36.0-46.0) % Plt Count 76 L (140-440) Thou/mm3 BMP 02/18/25 03:05 Sodium 133 L Potassium 3.5 Chloride 102 Carbon Dioxide 20.4 BUN 81 H Creatinine 2.8 H Glucose 120 H Calcium 7.8 L Cardiac Enzymes 02/18/25 02/18/25 Range/Units 03:05 09:38 Troponin I 0.092 H* 0.106 H* (0.0-0.045) ng/mL Liver Function 02/18/25 Range/Units 03:05 Total Bilirubin 1.9 H (0.3-1.2) mg/dL AST 35 H (0-34) U/L ALT 21 (10-49) U/L Alkaline Phosphatase 98 (46-116) U/L Albumin 2.5 L (3.4-4.8) gm/dL Urine 02/18/25 Range/Units 03:51 Urine Color Lt-Yellow (Lt Yel-Yel) Urine Clarity Clear (Clear/Hazy) Urine pH 5.5 (5.0-7.0) Ur Specific [place] 1.014 (1.001-1.035) Urine Protein Negative (Neg - Trace) Urine Glucose (UA) Negative (Negative) Quality Measures Quality Measures sepsis Current suspected stage: ruled out Possible source: GI tract/intra- abdominal Blood cultures ordered: yes Antibiotic ordered: Yes Advance care planning discussed with:: patient Medications Home Medications and Allergies Home Medications ?Medication ?Instructions ?Recorded ?Confirmed ?Type Chrom Janki/Brindall Mccrary 1 tab PO TID ##0 04/26/16 H istory (Garcinia Cambogia Tablet) Fluticasone Propionate 1 spry IH PRN PRN ALLERGY ## 0 04/26/16 History amlodipine 5 mg tablet (Norvasc) 5 mg PO QDAY #0 tabs 04/26/16 History loratadine 10 mg tablet (Claritin) 10 mg PO QDAY #0 ta bs 04/26/16 History Lactobacillus rhamnosus GG 10 1 cap PO QDAY #0 caps History billion cell capsule (Culturelle) biotin 800 mcg tablet 800 mcg PO QDAY #0 tabs 01/05 History cyanocobalamin (vitamin B-12) 100 100 mcg PO QDAY #0 t abs 09/21/16 History mcg tablet (Vitamin B-12) Allergies Allergy/AdvReac Type Severity Reaction Status Date / Time Dust Allergy Severe ASTHMA Uncoded 02/27/25 09:44 ATTACK Visit Medications Acetaminophen (Acetaminophen Supp 650 Mg Supp) 650 mg IA Q4HR PRN PRN Reason: PAIN SCALE 1-3 (mild Stop: 03/20/25 06:02 Acetaminophen (Acetaminophen 325 Mg Tablet) 650 mg PO Q6HR PRN PRN Reason: PAIN 1-6 (mild-mod Stop: 03/20/25 09:37 Last Admin: 02/18/25 12:01 Dose: 650 mg Octreotide Acetate 1,000 mcg/ (Sodium Chloride) 102 mls @ 5.1 mls/hr IV .Q20H ONE; Protocol Stop: 02/18/25 23:14 Last Admin: 02/18/25 03:34 Dose: 50 mcg/hr, 5.1 mls/hr Amiodarone HCl/Dextrose (Nexterone Ivpb) 360 mg in 200 mls @ 16.667 mls/hr IV .Q12H [facility] Stop: 02/19/25 12:06 Last Admin: 02/18/25 13:44 Dose: 16.667 mls/hr Octreotide Acetate 1,000 mcg/ (Sodium Chloride) 102 mls @ 5.1 mls/hr IV .Q20H EULALIA; Protocol Stop: 02/23/25 16:47 Levothyroxine Sodium (Levothyroxine Inj 100 Mcg Vial) 150 mcg IV ACBR EULALIA Stop: 03/21/25 05:59 Pantoprazole Sodium (Pantoprazole Inj 40 Mg Vial) 40 mg IVP BID [facility] Stop: 03/20/25 08:59 Last Admin: 02/18/25 09:19 Dose: 40 mg Discontinued Medications Sodium Chloride (Ns) 1,000 mls @ 999 mls/hr IV .Q1H1M ONE Stop: 02/18/25 04:15 Last Infusion: 02/18/25 04:37 Dose: Infused Pantoprazole Sodium (Protonix/Ns 80mg Iv Premix) 80 mg in 100 mls @ 400 mls/hr IV X1 ONE Stop: 02/18/25 03:35 Last Infusion: 02/18/25 04:31 Dose: Infused Pantoprazole Sodium (Protonix/Ns 80mg Iv Premix) 80 mg in 100 mls @ 10 mls/hr IV .Q10H [facility] Last Admin: 02/18/25 04:57 Dose: 10 mls/hr Ceftriaxone Sodium/Dextrose (Rocephin/D5w 1gm Iv Premix) 1 gm in 50 mls @ 100 mls/hr IV X1 ONE Stop: 02/18/25 03:52 Last Infusion: 02/18/25 04:46 Dose: Infused Magnesium Sulfate (Magnesium Sulfate Ivpb) 2 gm in 50 mls @ 25 mls/hr IV X1 ONE Stop: 02/18/25 07:03 Last Infusion: 02/18/25 07:35 Dose: Infused Amiodarone HCl/Dextrose (Nexterone Ivpb) 150 mg in 100 mls @ 600 mls/hr IV .Q10M ONE Stop: 02/18/25 06:16 Last Infusion: 02/18/25 07:26 Dose: Infused Amiodarone HCl/Dextrose (Nexterone Ivpb) 360 mg in 200 mls @ 33.333 mls/hr IV .Q6H ONE Stop: 02/18/25 12:02 Last Infusion: 02/18/25 13:39 Dose: Infused Albumin Human (Albuminar-25 Ivpb) 12.5 gm in 50 mls @ 50 mls/hr IV X1 ONE Stop: 02/18/25 07:07 Last Infusion: 02/18/25 08:15 Dose: Infused Potassium Chloride (Kcl Ivpb) 10 meq in 100 mls @ 100 mls/hr IV Q1H [facility] Stop: 02/18/25 13:59 Last Admin: 02/18/25 11:48 Dose: Not Given Magnesium Sulfate (Magnesium Sulfate Ivpb) 2 gm in 50 mls @ 25 mls/hr IV X1 ONE Stop: 02/18/25 11:59 Last Infusion: 02/18/25 13:45 Dose: Infused Albumin Human (Albuminar-25 Ivpb) 12.5 gm in 50 mls @ 50 mls/hr IV X1 ONE Stop: 02/18/25 11:25 Last Infusion: 02/18/25 11:38 Dose: Infused Potassium Chloride (Kcl Ivpb) 10 meq in 100 mls @ 100 mls/hr IV Q1H [facility] Stop: 02/18/25 13:46 Last Infusion: 02/18/25 14:24 Dose: Infused Octreotide Acetate (Octreotide Acet Inj 50 Mcg/Ml Vial) 50 mcg IV X1 ONE Stop: 02/18/25 03:16 Last Admin: 02/18/25 03:34 Dose: 50 mcg Pantoprazole Sodium (Pantoprazole 40 Mg Tablet) 40 mg PO BID [facility] Stop: 03/20/25 08:59 Phytonadione (Phytonadione Inj 10 Mg/Ml Amp) 10 mg SC X1 ONE Stop: 02/18/25 06:21 Last Admin: 02/18/25 07:11 Dose: 10 mg Assessment & Plan Plan 79-year-old female with past medical history of A-fib (on Eliquis), ascending thoracic aorta aneurysm (4 cm on 07/2024), CHF (no echo on file), hypertension, hyperlipidemia, and hypothyroidism was admitted to the hospital on 02/18/2025 due to acute blood loss anemia in the setting of GI bleed. ICU was consulted for closer monitoring of patient's hemoglobin as well as A-fib with RVR. INVENTORY CHECKER: No active conditions CVS: #A-fib with RVR ? Patient has a history of A-fib with RVR and was on diltiazem as well as Eliquis ? EKG today showed A-fib with RVR in the ER and repeat EKG at this afternoon still showed A-fib with RVR. ?[id number] score of 5 points indicating 7.2% risk of stroke per year ?HAS-BLED score of 4 points indicating high risk of major bleed ?Continue amiodarone drip for now ?Holding off any anticoagulation for now in the setting of active bleed #NSTEMI most likely type II demand ischemia ? Patient came in with troponins of 0.092 and went up to 0.106 ? There is most likely NSTEMI type II in the setting of blood loss ? Nurse Special did not think this is ACS at this time #Hx of CHF ? Patient states that she has a history of heart failure, but there is no echo on file ? Patient appears to be fluid overloaded with bilateral pitting edema ? BNP initially was elevated at 1414 ? Pending echo read ?Holding off diuresis for now to avoid cardiogenic shock at this time in the setting of blood loss #Hx of ascending thoracic aorta aneurysm ? On 07/2024 patient was found to have ascending thoracic aortic aneurysm measuring 4 cm ? Patient states that she follow-up with cardiothoracic surgeon as an outpatient who stated that this could be monitor for now every 6 months to 1-year ?Will order chest CT to monitor aneurysm size #Hx of hypertension ? Patient has been hypotensive likely due to acute blood loss ? Will hold off on antihypertensive medications for now given hypotension and blood loss Respiratory: #Right base pneumonia #Left pleural effusion ? Patient does not have any cough or fevers at this time. ? Chest x-ray that shows some right base pneumonia as well as some left pleural effusion. ? Patient is WBCs are 10.9. ? Will start patient on Rocephin and azithromycin [02/18/2025?] Endo: #Hx of hypothyroidism ? Last TSH was 0.02 on 08/12/2024 ?Order TSH ? Started patient on levothyroxine 150 mcg IV Renal: #ADITYA, prerenal ? Patient came in with creatinine of 2.8 and BUN of 73 from her baseline of creatinine of 1 ?Most likely prerenal in the setting of hypotension and blood loss ? Renally dose medications ? Avoid nephrotoxic agents ? Expect improvement with blood transfusions ? Will hold off on IV fluids given patient's fluid overload status #Hypomagnesemia ? Patient came in with magnesium of 1.5 ? Patient was given 4 g of magnesium GI: #GI bleed #Hematemesis #Hematochezia ?Patient complained of bloody bowel movements and bloody emesis for the past day ? Patient does not know if she has any hemorrhagic gastritis or any esophageal varices in the past. ? GI specialist will perform upper endoscopy this evening ? Continue octreotide drip and pantoprazole 40 mg twice daily #Possible ascites and possible cirrhosis ? Patient's abdomen was significantly distended with positive fluid wave ? Patient does have a history of a few glasses of wine every day in the past ? Patient was not able to tell us if she had any history of cirrhosis or hepatitis in the past ? Ordered liver ultrasound to assess for ascites and cirrhosis Hematology: #Acute blood loss anemia #Thrombocytopenia ? Patient came in with low hemoglobin was 6.5 and platelets of 76 ? This is most likely secondary to GI bleed in the setting of hematochezia and hematemesis ?Patient received 1 FFP, 2 PRBCs and 2 units of platelets ?On repeat hemoglobin this afternoon patient's hemoglobin was still 6.8, but platelets went up to 136. ? Ordered 1 additional PRBC to be transfused today and 1 PRBC to be ready ? Plan for upper endoscopy by GI specialist today #Lactic acidosis, resolved ? Patient came in with lactic acid of 2.8 and down trended to 1.7 Hospital Maintenance: Diet: NPO for procedure DVT ppx: held due to active bleed GI ppx: Pantoprazole 40 mg BID IV lines: PIV Acuña: acuña cath Code status: Full code Dispo: ICU for monitoring A-fib with RVR and Acute blood loss anemia Case disclosed with Attending Dr. Ana Rosa Mendez PGY1 Attending Provider Attestation/Addendum I was contacted by above resident, Ulises Mendez MD on date of service though I did not see the patient on this date myself. Patient transferred due to clinical deterioration due to GI bleed and worsening atrial fibrillation with RVR. Transfusion to maintain her hemoglobin >7 and will hold any AC at this time. GI involved already. Ensure adequate access and will continue on empiric antibiotics for pneumonia and amiodarone for atrial fibrillation. Discussed with primary medicine attending and resident team in ICU. I will be available overnight for any need and assess patient with the team tomorrow on rounds.
[2025-02-18 17:16] LABS: Lactate (Lactic Acid) 1.7 mMol/L (0.4-2.0)
[2025-02-18 17:18] LABS: Basophils % (Auto) 0 % (0-2.5); Eosinophils # (Auto) 0.1 Thou/mm3 (0.0-0.5); Eosinophils % (Auto) 1 % (0-10); Immature Granulocytes % (Auto) 1 % (0-0); Immature Granulocytes Auto 0.05 Thou/mm3 (0.00-0.00); Lymphocytes # (Auto) 0.8 Thou/mm3 (1.0-4.8); Lymphocytes % (Auto) 10 % (10-50); Mean Corpuscular HGB Conc 35.2 g/dl (31.0-37.0); Mean Corpuscular Hemoglobin 31.9 pg (25.0-35.0); Mean Corpuscular Volume 91 fL (80-100); Monocytes # (Auto) 0.1 Thou/mm3 (0.0-0.8); Monocytes % (Auto) 2 % (0-12); Neutrophils # (Auto) 6.5 Thou/mm3 (1.8-7.7); Neutrophils % (Auto) 87 % (37-80); Nucleated Red Blood Cell % 8 /100 WBC (0); Platelet Count 136 Thou/mm3 (140-440); RDW Standard Deviation 62.8 fL (36.4-46.3); Red Blood Count 2.13 Miln/mm3 (4.00-5.20); White Blood Count 7.5 Thou/mm3 (3.6-11.0)
[2025-02-18 17:37] LABS: Alanine Aminotransferase 18 U/L (10-49); Albumin, Serum 2.8 gm/dL (3.4-4.8); Albumin/Globulin Ratio 1.5 (1.2-2.2); Alkaline Phosphatase 79 U/L (46-116); Anion Gap 13 (7-16); Aspartate Amino Transferase 33 U/L (0-34); BUN/Creatinine Ratio 28 Ratio (12-20); Bilirubin,Total 2.2 mg/dL (0.3-1.2); Blood Urea Nitrogen 73 mg/dL (9-23); Calcium 7.6 mg/dL (8.3-10.6); Calcium (Corrected) 8.6 mg/dL (8.5-10.1); Carbon Dioxide 18.8 mMol/L (20.0-31.0); Chloride 102 mMol/L (98-107); Creatinine (Component) 2.6 mg/dL (0.6-1.3); Globulin 1.9 gm/dL (2.3-3.5); Glucose 128 mg/dL (74-106); Osmolality,Calculated 291 (275-295); Potassium 3.9 mMol/L (3.4-5.1); Sodium 134 mMol/L (136-145); Total Protein 4.7 gm/dL (5.7-8.2); eGFR 18 See Note
[2025-02-18 17:51] LABS: Hemoglobin 6.8 g/dL (12.0-16.0)
[2025-02-18 17:52] LABS: Hematocrit 19.3 % (36.0-46.0)
--- NOTE | 2025-02-18 17:53 | XR_ITS ---
Examination: Abdomen sonogram, Limited Date and time of exam: February 18, 2025 at 1829 hours INDICATIONS: Abdominal distention beginning 2 weeks ago Technique: Real-time duran scale transabdominal sonographic images of the upper abdomen obtained. Findings: Abnormally thickened gallbladder wall 12 mm No gallstones Common bile duct 0.6 cm Pancreatic head 2.4 cm Liver 16.8 cm lobular contour fatty infiltration no focal liver lesions, Ascites Normal hepatopedal portal venous flow Patent IVC IMPRESSION: Abnormally thickened gallbladder wall consistent with cholecystitis, consider MRCP follow-up Cirrhosis, no focal liver lesions
[2025-02-18] MEDS: AZITHROMYCIN INJ 500 MG in SODIUM CHLORIDE 0.9% 250 ML 250 ML 250 MG IV (18:50)
--- NOTE | 2025-02-18 19:52 | XR_ITS ---
Examination: Nuclear medicine gastrointestinal bleeding study Exam date and time: February 20, 2025 1504 hours INDICATIONS: Acute blood loss, anemia, clinical diagnosis gastrointestinal bleeding today TECHNIQUE AND FINDINGS: Intravenous administration 22 mCi technetium pertechnetate labeled red blood cells An tear abdomen images obtained 60 frames per second 90 frames Normal heart and vascular activity Normal splenic and liver activity No abnormal isotope activity noted IMPRESSION: No abnormal isotope activity noted
[2025-02-18] MEDS: ONDANSETRON INJ 2 MG/ML INJ 2 ML 4 MG IV (22:20)
--- NOTE | 2025-02-18 23:06 | XR_ITS ---
Examination: Abdomen AP single view Technique: AP portable supine abdomen, single view Exam date and time: February 18, 2025 at 1122 hours INDICATIONS: Abdominal pain today FINDINGS: Mild small bowel ileus Mild colonic ileus No free air Prominent osteopenia 20 mm opacity in the upper right abdomen, clinical correlation is advised IMPRESSION: Mild colonic and small bowel ileus 20 mm opaque foreign body projects in the upper right abdomen, clinical correlation advised
--- NOTE | 2025-02-18 23:18 | XR_ITS ---
Examination: AP chest single view Technique one AP portable upright chest single view Examination time: February 18, 2025 1130 hours Comparison February 18, 2025 0350 hours INDICATIONS: Shortness of breath today. FINDINGS: Acja-tp-[id number] chronic heart failure Moderate enlargement cardiac contour Prominent vascular congestion with perihilar edema Significant left pleural fluid Suspicious for pneumonia at both lung bases IMPRESSION: [id number]-[id number] chronic heart failure. Suspicious for pneumonia both lung bases
[2025-02-18] MEDS: PROMETHAZINE INJ 12.5 MG in SODIUM CHLORIDE 0.9% 50 ML 2.5 MG IV (23:25)
[2025-02-19] VITALS (151 sets, daily range): BP systolic 69–150; BP diastolic 39–103; PULSE 0–139; RESP 6–33; TEMP 33.7–37.2; O2SAT 86–100; BMI 30.1
[2025-02-19 00:36] LABS: Basophils % (Auto) 0 % (0-2.5); Eosinophils # (Auto) 0.1 Thou/mm3 (0.0-0.5); Eosinophils % (Auto) 1 % (0-10); Immature Granulocytes % (Auto) 1 % (0-0); Immature Granulocytes Auto 0.05 Thou/mm3 (0.00-0.00); Lymphocytes # (Auto) 0.7 Thou/mm3 (1.0-4.8); Lymphocytes % (Auto) 11 % (10-50); Mean Corpuscular HGB Conc 36.3 g/dl (31.0-37.0); Mean Corpuscular Hemoglobin 31.8 pg (25.0-35.0); Mean Corpuscular Volume 88 fL (80-100); Monocytes # (Auto) 0.1 Thou/mm3 (0.0-0.8); Monocytes % (Auto) 2 % (0-12); Neutrophils # (Auto) 5.6 Thou/mm3 (1.8-7.7); Neutrophils % (Auto) 85 % (37-80); Nucleated Red Blood Cell # 0.61 Thou/mm3 (0.00-0.00); Nucleated Red Blood Cell % 9 /100 WBC (0); Platelet Count 111 Thou/mm3 (140-440); RDW Standard Deviation 57.7 fL (36.4-46.3); Red Blood Count 1.92 Miln/mm3 (4.00-5.20); White Blood Count 6.5 Thou/mm3 (3.6-11.0)
[2025-02-19 00:39] LABS: Hematocrit 16.8 % (36.0-46.0); Hemoglobin 6.1 g/dL (12.0-16.0)
[2025-02-19] MEDS: AMIODARONE 360 MG IVPB 360 MG/200 ML BAG 16.667 MG IV ×2 (01:11→15:42)
[2025-02-19] MEDS: LORazepam 2 MG/ML VIAL 1 MG IVP (01:28)
[2025-02-19] MEDS: CALCIUM GLUC/NS 1000MG IVPB 1,000 MG/50 ML BAG 50 MG IV (01:29)
[2025-02-19] MEDS: Norepinephrine/D5W 8mg/250ml 8 MG/250 ML BAG 7.656 MG IV (04:01)
[2025-02-19 07:15] LABS: Basophils % (Auto) 0 % (0-2.5); Eosinophils % (Auto) 0 % (0-10); Hematocrit 21.2 % (36.0-46.0); Immature Granulocytes % (Auto) 1 % (0-0); Immature Granulocytes Auto 0.04 Thou/mm3 (0.00-0.00); Lymphocytes # (Auto) 0.4 Thou/mm3 (1.0-4.8); Lymphocytes % (Auto) 7 % (10-50); Mean Corpuscular HGB Conc 35.4 g/dl (31.0-37.0); Mean Corpuscular Volume 85 fL (80-100); Monocytes # (Auto) 0.1 Thou/mm3 (0.0-0.8); Monocytes % (Auto) 1 % (0-12); Neutrophils % (Auto) 91 % (37-80); Nucleated Red Blood Cell # 1.14 Thou/mm3 (0.00-0.00); Nucleated Red Blood Cell % 21 /100 WBC (0); Platelet Count 115 Thou/mm3 (140-440); White Blood Count 5.5 Thou/mm3 (3.6-11.0)
[2025-02-19 07:17] LABS: Hemoglobin 7.5 g/dL (12.0-16.0)
[2025-02-19 07:47] LABS: Alanine Aminotransferase 17 U/L (10-49); Albumin, Serum 2.2 gm/dL (3.4-4.8); Albumin/Globulin Ratio 1.6 (1.2-2.2); Alkaline Phosphatase 52 U/L (46-116); Anion Gap 13 (7-16); Aspartate Amino Transferase 32 U/L (0-34); BUN/Creatinine Ratio 28 Ratio (12-20); Bilirubin,Total 2.8 mg/dL (0.3-1.2); Blood Urea Nitrogen 76 mg/dL (9-23); Calcium 7.5 mg/dL (8.3-10.6); Calcium (Corrected) 8.9 mg/dL (8.5-10.1); Carbon Dioxide 17.8 mMol/L (20.0-31.0); Chloride 105 mMol/L (98-107); Creatinine (Component) 2.7 mg/dL (0.6-1.3); Estimated Creatinine Clearance 18.8 mL/min (>60); Globulin 1.4 gm/dL (2.3-3.5); Glucose 168 mg/dL (74-106); Magnesium 2.1 mg/dL (1.6-2.6); Osmolality,Calculated 298 (275-295); Sodium 136 mMol/L (136-145); Total Protein 3.6 gm/dL (5.7-8.2); eGFR 17 See Note
--- NOTE | 2025-02-19 08:24 | PD.RESEVENT ---
Documentation for date of: 02/19/25 Event Note Event Note: Attempted to reach out to family members for need of Central line placement consent, but was unsuccessful 3 time each member in system. Will have to emergent procedure as patient is actively bleeding and requiring vasopressors to maintain MAp above 65.
--- NOTE | 2025-02-19 08:35 | PD.RESEVENT ---
Documentation for date of: 02/19/25 Event Note Event Note: Attempted to reach out to family members for need of Arterial line placement consent, but was unsuccessful 3 time each member in system. Will have to emergent procedure as patient is actively bleeding and will be on vasopressors, thus requiring close monitoring and more accurate of BP. As well as thoracentesis to r/o esophageal perforation.
[2025-02-19 09:02] LABS: Basophils % (Auto) 0 % (0-2.5); Eosinophils % (Auto) 0 % (0-10); Immature Granulocytes % (Auto) 1 % (0-0); Immature Granulocytes Auto 0.06 Thou/mm3 (0.00-0.00); Lymphocytes # (Auto) 0.4 Thou/mm3 (1.0-4.8); Lymphocytes % (Auto) 9 % (10-50); Mean Corpuscular HGB Conc 36.7 g/dl (31.0-37.0); Mean Corpuscular Hemoglobin 30.3 pg (25.0-35.0); Mean Corpuscular Volume 83 fL (80-100); Monocytes # (Auto) 0.1 Thou/mm3 (0.0-0.8); Monocytes % (Auto) 1 % (0-12); Neutrophils # (Auto) 4.4 Thou/mm3 (1.8-7.7); Neutrophils % (Auto) 89 % (37-80); Nucleated Red Blood Cell # 1.22 Thou/mm3 (0.00-0.00); Nucleated Red Blood Cell % 25 /100 WBC (0); RDW Standard Deviation 41.4 fL (36.4-46.3); Red Blood Count 2.28 Miln/mm3 (4.00-5.20)
[2025-02-19] MEDS: PANTOPRAZOLE INJ 40 MG VIAL IVP ×2 (09:04→21:59)
[2025-02-19] MEDS: PROTHROMBIN COMPLEX CONCENT 2,000 UNIT, Sterile Water 80 ML in CONTAINER,EMPTY 150 ML 1... 320 UNIT IV (09:04)
[2025-02-19 09:10] LABS: Hemoglobin 6.9 g/dL (12.0-16.0)
[2025-02-19 09:11] LABS: Hematocrit 18.8 % (36.0-46.0); Platelet Count 60 Thou/mm3 (140-440)
[2025-02-19 09:42] LABS: INR 1.6 (0.9-1.3); Partial Thromboplastin Time 34.6 Seconds (22.0-36.0); Prothrombin Time 16.6 Seconds (9.0-12.2)
--- NOTE | 2025-02-19 09:47 | XR_ITS ---
Examination: AP chest single view TECHNIQUE: AP portable supine chest single view Exam date and time: February 19, 2025 1009 hours Comparison February 18, 2025 INDICATIONS: Post temporary dialysis catheter placement FINDINGS: Left internal jugular temporary dialysis catheter tip SVC Mild enlargement cardiac contour Significant layering left pleural fluid Prominent vascular congestion Prominent osteopenia Left axillary surgical clips IMPRESSION: Mild heart failure Left internal jugular Tri flow catheter satisfactory position, no pneumothorax Significant left pleural disease
--- NOTE | 2025-02-19 09:53 | PD.RESPROC ---
Procedures Procedure Date / Time 02/19/25 09:18 Procedural Time Out Time out performed: yes Procedure Narrative Procedure Narrative: Attending Attestation: I was present for entire procedure. No immediate complications. Patient tolerated procedure well. Follow up imaging shows adequate placement and no post-procedure PTX. Central Line Placement Left IJ: Indication(s): shock and other (hemodialysis ) Informed consent obtained: other (emergent consent as family members were not reachable ) Time out done, and the following verified: correct patient, side and site, procedure, patient position and implants and/or equipment Patient placed on monitor/pulse ox: Yes Hand Hygiene: alcohol-based hand rub Max Sterile Barrier Techniques used: cap, mask, sterile gown, sterile gloves and sterile full body drape Central line prep: Chlorhexidine scrub Local anesthesia used: lidocaine 1% Amount of anesthesia used (mL): 5 Ultrasound used for placement: Yes Sterile Technique if Ultrasound used, including sterile gel: yes Central line lumen inserted: triple Post procedure: sutured in place, good blood return, all ports aspirated, flushed, capped and sterile dressing applied Post procedure x-ray: tip of catheter in good position and no pneumothorax seen Patient tolerated procedure: well and no complications EBL(ml): 3 Complications: none Procedure comment: The patient was placed in Trendelenburg position. The Left neck was prepped using chlorhexidine scrub ?and draped in sterile fashion. ?Using real-time ultrasound, with sterile probe cover and sterile gel, the introducer needle was inserted into the vein under direct ultrasound visualization. Venous blood was withdrawn. The syringe was removed and a guidewire was advanced into the introducer needle. The guidewire was visualized in the appropriate vein by ultrasound. A small incision was made at the skin surface with a scalpel and the introducer needle was exchanged for a dilator over the guidewire. After appropriate dilation was obtained, the dilator was exchanged over the wire for a central venous catheter. The wire was removed and the catheter was sutured in place. A biopatch was placed at the insertion site. A sterile op-site was placed over the catheter and biopatch. The patient tolerated the procedure without any hemodynamic compromise. At time of procedure completion, all ports aspirated and flushed properly. Chest X Ray afterwards, catheter in good position.? Case disclosed with Attending Dr. Ana Rosa Mendez PGY1
[2025-02-19] MEDS: HEPARIN SOD INJ 1000 UNIT/ML VIAL 10 ML 3000 UNIT INDWELLCAT (10:00)
[2025-02-19 10:02] LABS: Fibrinogen 82 mg/dL (175-375)
[2025-02-19 10:06] LABS: D-Dimer 1690 ng/mL (<600)
--- NOTE | 2025-02-19 10:24 | ESPR_ITS ---
Documentation for date of: 02/19/25 Subjective Subjective Interval history: Ms. Ayoub is a pleasant 79-year-old female with PMHx of A-fib on ELIQUIS( under Dr. Parrish), CHF, HTN, Hypothyroidism, CKD, RA on Enbrel brought in by ambulance following 1.5 days of dark/watery stool and rectal bleed. She noted 1 week of dark stool, followed by dark and watery diarrhea that approximately 2 days ago. Denied fall or trauma, fever, chills, abnormal weight loss or gain, palpitations, chest pain, shortness of breath, cough, abdominal pain, nausea or vomiting, dysuria or hematuria. She was admitted at [facility] and airlifted to [place] for GLF for which she sustained a right eye injury, currently being followed up by ophthalmology in [place]. She did not report any fracture or other injuries. At the time, endoscopy was done, patient unsure why but state was normal. They had recommended colonoscopy but she states unable to do prep as she lives alone at home. Additionally, she states she takes home LASIX but was discontinued during admission at [facility] for fall risk concerns. She reports 3 weeks of increased bilateral extremity swelling and shortness of breath despite using her home 3 L oxygen. ED COURSE: Afebrile, BP 82/66, HR 121, RR 18, satting 99% on 2 L. Hgb 6.5 (baseline 11.2), HCT 19, WBC 10.9. PT 15.8, INR 1.5, APTT 43.7. Creatinine 2.8 (baseline 1.0), BUN 81, EGFR 15.6 Lactic acid 2.8, troponin 0.092, BNP 1414. Sodium 133, magnesium 1.5, TB 1.9, AST 35, ALT normal 21, ALBUMIN 2.5, ammonia <10. Pro-Calc 1.3. EKG showed A-fib with RVR, HR 132. CXR mild right basilar pneumonia, mild CHF, left-sided pneumonia and pleural disease. ED initiated transfusion with 2 units PRBCs and 1 unit FFP's. Will admit to telemetry, continue OCTREOTIDE and PROTONIX. GI has been consulted. 02/19/2025 Patient was seen and examined in the ICU today. EGD was performed yesterday and it showed esophageal ulcers with large amount of blood in the body of the stomach down to the duodenal bulb. With a metallic structure thought to be a safety pin in the duodenal bulb. ICU team made multiple attempts to contact family to discuss goals of care. Patient became hemodynamically unstable needing pressors. Sick looking. Urine output very minimal. BUN and creatinine continues to rise. This morning her hemoglobin was 6.1. Needing more blood transfusions. Renal team decided to proceed with dialysis after talking to Dr. Oseguera. Due to hemodynamic instability decided to proceed with continuous and renal replacement therapy. Medications reviewed. Per Dr. Mendoza- gastrectomy has no role patient has been bleeding from several places. Patient will receive triple-lumen catheter for CRRT. Exam Vital Signs Temp Pulse Resp BP Pulse Ox O2 Del Method O2 Flow Rate 92.7 F L 120 H 20 98/52 L 100 Nasal Cannula 2 02/19/25 08:00 02/19/25 08:08 02/19/25 08:08 02/19/25 08:08 02/19/25 08:08 02/19/25 08:00 02/19/25 08:00 Narrative Exam Constitutional: Elderly female but looks lethargic. Sick looking in ICU. Head: Pale conjunctiva ENMT: Dry mucous Membranes, No trauma or injury. Neck: Supple to palpation, No JVD CVS: Irregular S1 and S2 present, no murmurs, rubs or gallops . RESP: Decreased breath sounds GI: Distended but nontender with no guarding or rebound tenderness. MSK: Full range of motion, No trauma or deformities or masses. 2+ pitting edema bilaterally on lower extremities Skin: Warm to touch, Dry. No rashes or lesions. No hematomas Psych: (AAO) x 1. Barely arousable Objective Labs 02/20/25 06:20 02/19/25 06:40 Labs: Laboratory Results - last 24 hr 02/18/25 02/18/25 02/18/25 03:40 09:38 15:08 WBC RBC Hgb 6.7 L* Hct 19.2 L* MCV MCH MCHC RDW Std Deviation Plt Count Neut % (Auto) Lymph % (Auto) [place] % (Auto) Eos % (Auto) Baso % (Auto) Neut # (Auto) Lymph # (Auto) [place] # (Auto) Eos # (Auto) Baso # (Auto) Immature Gran # (Auto) Absolute Nucleated RBC Immature Gran % Nucleated RBC % PT INR APTT Fibrinogen D-Dimer Sodium Potassium Chloride Carbon Dioxide Anion Gap BUN Creatinine Estim Creat Clear Calc eGFR BUN/Creatinine Ratio Glucose Calculated Osmolality Lactic Acid Calcium Corrected Calcium Magnesium Total Bilirubin AST ALT Alkaline Phosphatase Troponin I 0.106 H* Total Protein Albumin Globulin Albumin/Globulin Ratio Blood Type A Positive Antibody Screen NEGATIVE Crossmatch See Detail Blood Bank Wristband ID Yes Blood Bank Comment PLATP Ready 02/18/25 02/19/25 02/19/25 17:02 00:05 06:40 WBC 7.5 6.5 5.5 RBC 2.13 L 1.92 L* 2.50 L Hgb 6.8 L* 6.1 L* 7.5 L D Hct 19.3 L* 16.8 L* 21.2 L* MCV 91 88 85 MCH 31.9 31.8 30.0 MCHC 35.2 36.3 35.4 RDW Std Deviation 62.8 H 57.7 H 43.0 Plt Count 136 L D 111 L 115 L Neut % (Auto) 87 H 85 H 91 H Lymph % (Auto) 10 11 7 L [place] % (Auto) 2 2 1 Eos % (Auto) 1 1 0 Baso % (Auto) 0 0 0 Neut # (Auto) 6.5 5.6 5.0 Lymph # (Auto) 0.8 L 0.7 L 0.4 L [place] # (Auto) 0.1 0.1 0.1 Eos # (Auto) 0.1 0.1 0.0 Baso # (Auto) 0.0 0.0 0.0 Immature Gran # (Auto) 0.05 H 0.05 H 0.04 H Absolute Nucleated RBC 0.60 H 0.61 H 1.14 H Immature Gran % 1 H 1 H 1 H Nucleated RBC % 8 H 9 H 21 H PT INR APTT Fibrinogen D-Dimer Sodium 134 L 136 Potassium 3.9 4.0 Chloride 102 105 Carbon Dioxide 18.8 L 17.8 L Anion Gap 13 13 BUN 73 H 76 H Creatinine 2.6 H 2.7 H Estim Creat Clear Calc 19.0 L 18.8 L eGFR 18 L 17 L BUN/Creatinine Ratio 28 H 28 H Glucose 128 H 168 H Calculated Osmolality 291 298 H Lactic Acid 1.7 Calcium 7.6 L 7.5 L Corrected Calcium 8.6 8.9 Magnesium 2.1 Total Bilirubin 2.2 H 2.8 H D AST 33 32 ALT 18 17 Alkaline Phosphatase 79 52 D Troponin I Total Protein 4.7 L 3.6 L Albumin 2.8 L 2.2 L D Globulin 1.9 L 1.4 L Albumin/Globulin Ratio 1.5 1.6 Blood Type Antibody Screen Crossmatch Blood Bank Wristband ID Blood Bank Comment 02/19/25 08:40 WBC 5.0 RBC 2.28 L Hgb 6.9 L* Hct 18.8 L* MCV 83 MCH 30.3 MCHC 36.7 RDW Std Deviation 41.4 Plt Count 60 L D Neut % (Auto) 89 H Lymph % (Auto) 9 L [place] % (Auto) 1 Eos % (Auto) 0 Baso % (Auto) 0 Neut # (Auto) 4.4 Lymph # (Auto) 0.4 L [place] # (Auto) 0.1 Eos # (Auto) 0.0 Baso # (Auto) 0.0 Immature Gran # (Auto) 0.06 H Absolute Nucleated RBC 1.22 H Immature Gran % 1 H Nucleated RBC % 25 H PT 16.6 H INR 1.6 H APTT 34.6 Fibrinogen 82 L* D-Dimer 1690 H Sodium Potassium Chloride Carbon Dioxide Anion Gap BUN Creatinine Estim Creat Clear Calc eGFR BUN/Creatinine Ratio Glucose Calculated Osmolality Lactic Acid Calcium Corrected Calcium Magnesium Total Bilirubin AST ALT Alkaline Phosphatase Troponin I Total Protein Albumin Globulin Albumin/Globulin Ratio Blood Type Antibody Screen Crossmatch Blood Bank Wristband ID Blood Bank Comment Quality Measures Quality Measures sepsis Current suspected stage: sepsis Possible source: GI tract/intra-abdominal Blood cultures ordered: yes Antibiotic ordered: Yes Advance care planning discussed with:: patient Assessment & Plan Assessment Current Active Medications: Generic Name Dose Route Start Last Admin Trade Name Freq PRN Reason Stop Dose Admin Acetaminophen 650 mg 02/18/25 06:03 Acetaminophen Supp 650 Mg Supp WA 03/20/25 06:02 Q4HR PRN PAIN SCALE 1-3 (mild Acetaminophen 650 mg 02/18/25 09:38 02/18/25 12:01 Acetaminophen 325 Mg Tablet PO 03/20/25 09:37 650 mg Q6HR PRN Administration PAIN 1-6 (mild-mod Amiodarone HCl/Dextrose 360 mg in 200 mls @ 16.667 mls/hr 02/18/25 12:07 02/19/25 01:11 Nexterone Ivpb IV 02/19/25 12:06 16.667 mls/hr .Q12H EULALIA Administration Octreotide Acetate 1,000 mcg/ 102 mls @ 5.1 mls/hr 02/18/25 23:15 02/18/25 23:29 Sodium Chloride IV 02/23/25 16:47 50 mcg/hr .Q20H EULALIA 5.1 mls/hr Administration Protocol 50 MCG/HR Ceftriaxone Sodium 1 gm/ 50 mls @ 100 mls/hr 02/19/25 09:00 Sodium Chloride IV 02/26/25 08:59 QDAY EULALIA Norepinephrine/Dextrose 8 mg in 250 mls @ 7.656 mls/hr 02/19/25 04:09 02/19/25 07:20 Levophed In D5w 8mg/250ml IV 03/21/25 04:08 0.01 mcg/kg/min .Q24H PRN 1.531 mls/hr PER PROTOCOL Titration Protocol 0.05 MCG/KG/MIN Thiamine HCl 200 mg/ Sodium 52 mls @ 102.97 mls/hr 02/19/25 09:00 Chloride IV 02/22/25 08:59 TID EULALIA Levothyroxine Sodium 150 mcg 02/19/25 06:00 02/19/25 06:25 Levothyroxine Inj 100 Mcg Vial IV 03/21/25 05:59 Not Given ACBR EULALIA Ondansetron HCl 4 mg 02/18/25 22:24 02/18/25 22:20 Ondansetron Inj 2 Mg/Ml Inj 2 Ml IV 03/20/25 22:23 4 mg Q8HR PRN Administration NAUSEA OR VOMITING Protocol Pantoprazole Sodium 40 mg 02/18/25 09:00 02/19/25 09:04 Pantoprazole Inj 40 Mg Vial IVP 03/20/25 08:59 40 mg BID EULALIA Administration Sucralfate 1 gm 02/19/25 14:00 Sucralfate Susp 1 Gm/10 Ml Udc PO 03/21/25 13:59 TID EULALIA Plan In summary: 79-year-old female with PMHx of A-fib, CHF, HTN, presenting with 1 week of dark stool followed by roughly 2 days of black/watery diarrhea. Appreciate recommendations from Cardiology and GI teams. Prerenal ADITYA--ischemic ATN Secondary to hypotension and acute blood loss. Creatinine 2.8 (baseline 1.0), BUN 81, EGFR 15.6 (baseline 57). ? Continue with transfusion. ? Gentle fluids given volume overload status. ? ALBUMEN as above ? Renally dose meds, avoid overdiuresis and NEPHROTOXINS ? Daily CMP ? Azotemia worsens-decreased urinary output. Patient with a significant fluid overload. Decided to proceed with CRRT owing to hemodynamic instability. Triple-lumen line to be inserted for CRRT Acute GI bleed anemia Hematochezia Rectal bleed Hypotension, tachycardia Presents with 1 week of rectal bleeding and dark stool. Has 2 days of watery diarrhea that is black, not foul-smelling. Denies fall, trauma, abdominal pain, nausea or vomiting, abnormal weight changes. Had normal endoscopy in December at [facility], recommended colonoscopy but unable to complete prep at home as she lives alone. A total of 5 units of PRBCs have been transfused with 2 FFP's as well as 3 platelets EGD revealed esophageal ulcers with large amounts of blood as well as a metallic structure embedded in the duodenal bulb. Plan: ? Continue octreotide drip ? Continue PROTONIX drip ? Continue n.p.o. ? Posttransfusion H&H ? Transfuse if Hgb less than 8. ?Appreciate GI recommendations ?Prognosis is guarded History of CHF, on home 3 L oxygen Lactic acidosis Low suspicion for pneumonia History of CHF, usually takes LASIX at home which was discontinued in December given concern for recurrent falls. Reports 3 weeks of lower extremity edema, has 2/3+ bilateral LE pitting edema and rales on lung exam. Given ALBUMIN X1 in ED. Less likely will tolerate fluids given overload status. Will give another ALBUMEN x1. CXR showed mild CHF, bibasilar pneumonia and left-sided pleural disease. However, low suspicion for pneumonia given she is asymptomatic, afebrile. Elevated PRO-ANGELY likely in setting of ADITYA and decreased clearance. Received [id number] x 1 in ED. Will continue to monitor ? Pending repeat lactic acid Q3H ? Pending echocardiogram ? ANTIBIOTICS NSTEMI, likely type II A-fib with RVR Likely demand ischemia. History of AFIB non ELIQUIS. EKG showed A-fib with RVR, HR 132. Currently asymptomatic without chest pain or shortness of breath. ? Hold ELIQUIS in setting of GI bleed. ? Continue AMIODARONE drip. ? Maintain K > 4.0 and Mg > 2.0 ? Pending cardiology recommendations ? Pending repeat troponin Q6H Hypomagnesemia Magnesium 1.5, potassium 3.5, repleted. ? Daily labs, replete as needed. Mild hyponatremia Sodium 133, likely volume loss secondary to diarrhea. ? Daily labs Mild total bilirubinemia Likely secondary to decreased renal clearance. Anticipate improvement with improved renal function. Denies abdominal pain, normal abdominal exam. No scleral icterus or jaundice. ? Daily labs Hypothyroidism Chronic, on home LEVO 200 mcg daily. Currently NPO ? Continue LEVOTHYROXINE 150 mcg IV ACBR Health maintenance Diet: NPO GI prophylaxis: PROTONIX DVT prophylaxis: C/I 2/2 GI bleed, cannot tolerate STDs given LE edema/tenderness. Will monitor closely Antibiotics: Not indicated CODE STATUS: Full Code I discussed patient's care with attending physician, Dr Jad Bourgeois PGY3 Attending Provider Attestation/Addendum Patient seen and examined with resident physician Dr. Bourgeois. Note reviewed, agree with findings and recommendations with the changes made. Extremely sick looking patient currently seen in ICU. Continues blood loss anemia needing blood products. ADITYA in the setting of hypotension needing pressors, Fluid overload. Patient positive by more than 6 L. Hemoglobin this morning 6.1. Needs more blood transfusion. Decided to proceed with CRRT. Unable to find family around. Goals of care to be discussed. Patient barely arousable to make her own decisions. Spoke to ICU team. Dr. Oseguera will do Vas-Cath. CRRT for 12 hours Blood flow 150-200, 2k , 3.5 calcium Dialysate flow 100 Saline flushes 100 Ultrafiltration 1 L Blood products will be given Citrusate+ No heparin. Critical care time spent more than 40 minutes regarding plan of care and disease management. Care discussed with ICU team.
--- NOTE | 2025-02-19 12:03 | PC.SS ---
GEOTHERMAL HEAT PUMP MACHINIST informed by charge nurse need to contact patient's family to obtain consents. Medical team has reached out with no response. GEOTHERMAL HEAT PUMP MACHINIST contacted patient's daughter in law, Nelly Ayoub ; to notify of request. GEOTHERMAL HEAT PUMP MACHINIST transferred daughter in law to ICU medical team.
--- NOTE | 2025-02-19 12:07 | XR_ITS ---
Examination: AP chest single view Technique one AP portable supine chest single view Exam date and time: February 19, 2025 1311 hours Comparison February 19, 2025 10:12 AM INDICATIONS: Post thoracentesis FINDINGS: No pneumothorax Moderate enlargement cardiac contour Left tri flow catheter SVC Left axillary surgical clips Prominent osteopenia IMPRESSION: No pneumothorax post thoracentesis today
--- NOTE | 2025-02-19 12:16 | PC.SS ---
MAKE UP ARTIST conducted phone contact with the patient?s daughter in law, Nelly Ayoub ; to conduct initial assessment. Patient currently admitted to ICU.? Patient resides alone at home.? Patient does not utilize DME to assist with ambulation.? Patient does require the use of oxygen at night.? Patient is able to complete ADL?s independently.? Patient?s surrogate medical decision maker is son, Jerry Ayuob .? Patient?s PCP is Dr. Street.? creative services producer will discuss discharge needs at an appropriate future time.? No further intervention required at this time, social group worker will be available to address any further concerns.? Next of Kin: Uliseslakeshia Anitra D/C Plan: Pending
--- NOTE | 2025-02-19 12:18 | PC.SS ---
Nelly Ayoub is the patient's daugther in law not the patient's daughter. Daughter in law to patient's son, Les Ayoub .
--- NOTE | 2025-02-19 12:20 | EVENTNT_ITS ---
<Statement entered by Ethan Oseguera MD - 03/03/25 05:23> I was notified of and agree with the documentation as per Dr. Jean-Pierre Mendez. No changes. Documentation for date of: 02/19/25 Event Note Event Note: Spoke with patient's son Crispin, to explian the patient's current condition and address the patient's code status as her prognosis remains guarded. I explained procedures and findings that were at hand at the time and answered all his questions. Nurse, Liz, also spoke with the patient's son to confirm his decision on changing the patient's code status from FULL CODE to DNR/DNI. Patient's son stated that he would like to get updates in the afternoon. Case discussed with my attending Dr. Ana Rosa Mendez MD PGY1
--- NOTE | 2025-02-19 12:20 | PD.RESPROC ---
Procedures Procedure Date / Time 02/19/25 10:55 Procedural Time Out Time out performed: yes Procedure Narrative Procedure Narrative: Attending Attestation: I was present for entire procedure. Patient tolerated well with near complete resolution of pleural effusion and no post-procedure PTX on bedside USG. Chest film pending at this time. No significant blood loss. Thoracentesis Indication(s): symptomatic Pleural Effusion and other (r/o esophageal rupture) Informed consent obtained from: other (patient's son ) Time out done, and the following verified: correct patient, side and site, procedure, patient position and implants and/or equipment Ultrasound used: Yes Procedure location: lt. post pleual space Amount pleural fluid removed (ml): 850 EBL(ml): 2 Procedure comment: My hands were washed immediately prior to the procedure. I wore a surgical cap, mask, sterile gown and sterile gloves throughout the procedure. The patient was prepped and draped in a sterile manner using chlorhexidine scrub after the appropriate level was percussed and confirmed by ultrasound. 1% lidocaine was used to anesthesize the skin, subcutaneous tissue, superior aspect of the rib periosteum and parietal pleura. A finder needle was then introduced over the superior aspect of the rib to locate the pleural fluid; straw colored fluid was aspirated. A brant to the skin was made at the insertion site.The thoracentesis catheter was inserted in the same site of finder needle and 850ml of straw colored fluid was removed without difficulty. The catheter was then removed. No immediate complications were noted during the procedure. A post-procedure chest x-ray is pending at the time of this note. Case disclosed with Attending Dr. Ana Rosa Mendez PGY1
--- NOTE | 2025-02-19 12:24 | ESPR_ITS ---
Documentation for date of: 02/19/25 Subjective Subjective Interval history: 79-year-old female with past medical history of A-fib (on Eliquis), ascending thoracic aorta aneurysm (4 cm on 07/2024), CHF (no echo on file), hypertension, hyperlipidemia, and hypothyroidism was admitted to the hospital on 02/18/2025 due to acute blood loss anemia in the setting of GI bleed. ICU was consulted for closer monitoring of patient's hemoglobin as well as A-fib with RVR. In the ED patient came in with complaints of 1 to 2 weeks of dark stools with worsened to bloody diarrhea for the past 2 days as well as 1 episode of bloody vomiting yesterday. Patient is a very poor historian and stated that in December she was at [facility] due to a ground-level fall and that she had an endoscopy done during this admission, but she does not have any results of these. She mentioned that she was also supposed to have a colonoscopy done, but that she did not have good bowel prep therefore was not done. She denies taking any ibuprofen or any steroids as of recently and has only been taking Tylenol. She did mention that she had a prior endoscopy with a GI specialist, but there is no results from previous endoscopies or colonoscopy. Patient states she had weight gain from 140s to 160s recently. She denied any fever, chest pain, headache, abdominal pain, or history of cancer. In the ED patient was found to have A-fib with RVR on EKG and she was started on amiodarone drip. Patient received a total of 1 FFP, 2 PRBCs, and 2 platelets today, but she had a large bloody bowel movement after the transfusion and on repeat hemoglobin her hemoglobin was 6.7 from 6.5 initially. ED course: Initially was hypotensive, tachycardic, and afebrile. Initial labs were significant for low hemoglobin (6.5), thrombocytopenia (76), increased INR (1.5), ADITYA (BUN 81 and creatinine 2.8), lactic acidosis (2.8), hypomagnesemia (1.5), hyperbilirubinemia (1.9), troponinemia (0.092), elevated BNP (1414), and procalcitonin was elevated to 1.3. Initial imaging included EKG which showed A- fib with RVR and chest x-ray that showed mild heart failure, mild pneumonia of right base, and left pleural effusion. 02/19/2025: Patient was seen and examined at bedside this morning. Overnight patient became hypotensive therefore she was placed on low-dose of Levophed peripherally around 4 AM to maintain her MAP above 65. Overnight patient also became a little delirious and combative therefore she was given Ativan 1mg x 1. Upper endoscopy done last night by GI specialist showed that patient had esophageal ulcers, presence of large amounts of blood in the body of the stomach with mucosal oozing of blood as well as a foreign body in the duodenal bulb with ulcer at its base. GI specialist to try to retrieve this foreign body, but it was embedded and was unsuccessful given that there was high risk of perforation. This morning patient was very lethargic and somewhat confused. Given that the patient was on Levophed at this time and that her blood pressures were just hanging around a MAP of 65 and that she had minimal urine output overnight with worsening kidney function, decision was made to place a central line as an access for vasopressors and for CRRT. Given that the patient had ongoing bleed and that it is unknown the last time patient took her Eliquis PCC was given 2000 units x 1, patient also received 10 mg of vitamin K additionally yesterday evening. Given that patient had ongoing bleed DIC panel was ordered and showed elevated D-dimer at 1690, low fibrinogen at 82, and elevated INR at 1.6. At the time of planning to place a central line patient's family members were not reachable to get consent therefore emergent consent was done for central line and central line was successfully placed in the morning. Patient's family members were then reachable and consented to thoracentesis and arterial line. Given that patient had a left pleural effusion and there was suspicion that there could be a esophageal ulcer that had perforated a thoracentesis when needed to rule out. An arterial line at this time was deferred given that patient's blood pressure did improve after central line placement. Account Collector started the patient on CRRT given fluid overload status and worsening kidney function. Throughout the day patient had multiple episodes of bloody emesis as well as bright red blood per rectum. Patient at the time of this note has already had 6 PRBCs, 2 FFP's, and 3 units of platelets transfused and hemoglobin is still below 7 consistently. While patient was undergoing CRRT she will have 1 extra unit of FFP to be transfused. Will plan for PT with INR, fibrinogen, CBC, lactic acid, and VBG at 4 PM today to continue monitoring. Will update patient's family throughout the course. Exam Vital Signs Temp Pulse Resp BP Pulse Ox O2 Del Method O2 Flow Rate 98.5 F 108 H 31 H 107/51 L 100 Nasal Cannula 1 02/19/25 11:55 02/19/25 12:20 02/19/25 11:55 02/19/25 12:20 02/19/25 11:55 02/19/25 08:00 02/19/25 11:55 Narrative Exam General: A/O x2, lethargic, mildly confused pale, frail elderly female Eyes: L pupil reactive to light, R pupil unresponsive to light, EOMI. Anicteric, vision grossly intact in L eye, but impaired vision R. Ears: No ear pain, no ear discharge, Hearing grossly intact. Nose: No nasal discharge. Mouth/Throat: Dry mucous membranes, no redness, no lesions. Neck: Neck supple, non-tender, no cervical lymphadenopathy. Lungs: Clear in R side and L upper lobe, but still decreased in L lower lobe, No accessory muscle use. Cardio: Normal S1/S2, tachycardic and irregular rhythm, no murmurs, no JVD Abdomen: Soft, but significantly distended, no palpable masses, peristalsis present, no guarding or rebound. Extremities: Symmetrical, no significant deformities, 2+ peripheral edema , non-tender, peripheral pulses presents. Skin: Pale, No rashes, no lesions, warm to touch. Neuro: difficult to assess given patient was lethargic likely from blood loss. Objective Labs 03/01/25 04:46 03/01/25 04:46 Labs: Laboratory Results - last 24 hr 02/18/25 02/18/25 02/18/25 03:40 15:08 17:02 WBC 7.5 RBC 2.13 L Hgb 6.7 L* 6.8 L* Hct 19.2 L* 19.3 L* MCV 91 MCH 31.9 MCHC 35.2 RDW Std Deviation 62.8 H Plt Count 136 L D Neut % (Auto) 87 H Lymph % (Auto) 10 [place] % (Auto) 2 Eos % (Auto) 1 Baso % (Auto) 0 Neut # (Auto) 6.5 Lymph # (Auto) 0.8 L [place] # (Auto) 0.1 Eos # (Auto) 0.1 Baso # (Auto) 0.0 Immature Gran # (Auto) 0.05 H Absolute Nucleated RBC 0.60 H Immature Gran % 1 H Nucleated RBC % 8 H PT INR APTT Fibrinogen D-Dimer Sodium 134 L Potassium 3.9 Chloride 102 Carbon Dioxide 18.8 L Anion Gap 13 BUN 73 H Creatinine 2.6 H Estim Creat Clear Calc 19.0 L eGFR 18 L BUN/Creatinine Ratio 28 H Glucose 128 H Calculated Osmolality 291 Lactic Acid 1.7 Calcium 7.6 L Corrected Calcium 8.6 Magnesium Total Bilirubin 2.2 H AST 33 ALT 18 Alkaline Phosphatase 79 Total Protein 4.7 L Albumin 2.8 L Globulin 1.9 L Albumin/Globulin Ratio 1.5 Blood Type A Positive Antibody Screen NEGATIVE Crossmatch See Detail Blood Bank Wristband ID Yes Blood Bank Comment PLATP Ready 02/19/25 02/19/25 02/19/25 00:05 06:40 08:40 WBC 6.5 5.5 5.0 RBC 1.92 L* 2.50 L 2.28 L Hgb 6.1 L* 7.5 L D 6.9 L* Hct 16.8 L* 21.2 L* 18.8 L* MCV 88 85 83 MCH 31.8 30.0 30.3 MCHC 36.3 35.4 36.7 RDW Std Deviation 57.7 H 43.0 41.4 Plt Count 111 L 115 L 60 L D Neut % (Auto) 85 H 91 H 89 H Lymph % (Auto) 11 7 L 9 L [place] % (Auto) 2 1 1 Eos % (Auto) 1 0 0 Baso % (Auto) 0 0 0 Neut # (Auto) 5.6 5.0 4.4 Lymph # (Auto) 0.7 L 0.4 L 0.4 L [place] # (Auto) 0.1 0.1 0.1 Eos # (Auto) 0.1 0.0 0.0 Baso # (Auto) 0.0 0.0 0.0 Immature Gran # (Auto) 0.05 H 0.04 H 0.06 H Absolute Nucleated RBC 0.61 H 1.14 H 1.22 H Immature Gran % 1 H 1 H 1 H Nucleated RBC % 9 H 21 H 25 H PT 16.6 H INR 1.6 H APTT 34.6 Fibrinogen 82 L* D-Dimer 1690 H Sodium 136 Potassium 4.0 Chloride 105 Carbon Dioxide 17.8 L Anion Gap 13 BUN 76 H Creatinine 2.7 H Estim Creat Clear Calc 18.8 L eGFR 17 L BUN/Creatinine Ratio 28 H Glucose 168 H Calculated Osmolality 298 H Lactic Acid Calcium 7.5 L Corrected Calcium 8.9 Magnesium 2.1 Total Bilirubin 2.8 H D AST 32 ALT 17 Alkaline Phosphatase 52 D Total Protein 3.6 L Albumin 2.2 L D Globulin 1.4 L Albumin/Globulin Ratio 1.6 Blood Type Antibody Screen Crossmatch Blood Bank Wristband ID Blood Bank Comment Quality Measures Quality Measures sepsis Current suspected stage: ruled out Possible source: GI tract/intra- abdominal Blood cultures ordered: yes Antibiotic ordered: Yes Advance care planning discussed with:: patient and child Assessment & Plan Assessment Current Active Medications: Generic Name Dose Route Start Last Admin Trade Name Freq PRN Reason Stop Dose Admin Acetaminophen 650 mg 02/18/25 06:03 Acetaminophen Supp 650 Mg Supp MO 03/20/25 06:02 Q4HR PRN PAIN SCALE 1-3 (mild Acetaminophen 650 mg 02/18/25 09:38 02/18/25 12:01 Acetaminophen 325 Mg Tablet PO 03/20/25 09:37 650 mg Q6HR PRN Administration PAIN 1-6 (mild-mod Octreotide Acetate 1,000 mcg/ 102 mls @ 5.1 mls/hr 02/18/25 23:15 02/18/25 23:29 Sodium Chloride IV 02/23/25 16:47 50 mcg/hr .Q20H EULALIA 5.1 mls/hr Administration Protocol 50 MCG/HR Ceftriaxone Sodium 1 gm/ 50 mls @ 100 mls/hr 02/19/25 09:00 Sodium Chloride IV 02/26/25 08:59 QDAY EULALIA Norepinephrine/Dextrose 8 mg in 250 mls @ 7.656 mls/hr 02/19/25 04:09 02/19/25 07:20 Levophed In D5w 8mg/250ml IV 03/21/25 04:08 0.01 mcg/kg/min .Q24H PRN 1.531 mls/hr PER PROTOCOL Titration Protocol 0.05 MCG/KG/MIN Thiamine HCl 200 mg/ Sodium 52 mls @ 102.97 mls/hr 02/19/25 09:00 Chloride IV 02/22/25 08:59 TID EULALIA Levothyroxine Sodium 150 mcg 02/19/25 06:00 02/19/25 06:25 Levothyroxine Inj 100 Mcg Vial IV 03/21/25 05:59 Not Given ACBR EULALIA Ondansetron HCl 4 mg 02/18/25 22:24 02/18/25 22:20 Ondansetron Inj 2 Mg/Ml Inj 2 Ml IV 03/20/25 22:23 4 mg Q8HR PRN Administration NAUSEA OR VOMITING Protocol Pantoprazole Sodium 40 mg 02/18/25 09:00 02/19/25 09:04 Pantoprazole Inj 40 Mg Vial IVP 03/20/25 08:59 40 mg BID EULALIA Administration Sucralfate 1 gm 02/19/25 14:00 Sucralfate Susp 1 Gm/10 Ml Udc PO 03/21/25 13:59 TID EULALIA Plan 79-year-old female with past medical history of A-fib (on Eliquis), ascending thoracic aorta aneurysm (4 cm on 07/2024), CHF (no echo on file), hypertension, hyperlipidemia, and hypothyroidism was admitted to the hospital on 02/18/2025 due to acute blood loss anemia in the setting of GI bleed. ICU was consulted for closer monitoring of patient's hemoglobin as well as A-fib with RVR. CAREER TECHNICAL COUNSELOR: #Delirium ? Patient overnight became a little bit confused, combative, and delirious ? Ativan 1 mg was given x 1 ?Patient AO x 2 today and more lethargic. CVS: #A-fib with RVR ? Patient has a history of A-fib with RVR and was on diltiazem as well as Eliquis ? EKG today showed A-fib with RVR in the ER and repeat EKG at this afternoon still showed A-fib with RVR. ?[id number] score of 5 points indicating 7.2% risk of stroke per year ?HAS-BLED score of 4 points indicating high risk of major bleed ?Continue amiodarone drip for now ?Holding off any anticoagulation for now in the setting of active bleed #NSTEMI most likely type II demand ischemia ? Patient came in with troponins of 0.092 and went up to 0.106 ? There is most likely NSTEMI type II in the setting of blood loss ? Hot Cell Technician did not think this is ACS at this time #Hx of CHF ? Patient states that she has a history of heart failure, but there is no echo on file ? Patient appears to be fluid overloaded with bilateral pitting edema ? BNP initially was elevated at 1414 ? Echo showed EF 55-60% ?Holding off diuresis for now to avoid cardiogenic shock at this time in the setting of blood loss -CRRT to take out fluid #Hypotension -Most likely in the setting of bood loss -Central line inserted for vasopressors -Was placed on Levophed to maintain MAP above 65 #Hx of ascending thoracic aorta aneurysm ? On 07/2024 patient was found to have ascending thoracic aortic aneurysm measuring 4 cm ? Patient states that she follow-up with cardiothoracic surgeon as an outpatient who stated that this could be monitor for now every 6 months to 1-year ?Pending Chest CT #Hx of hypertension ? Patient has been hypotensive likely due to acute blood loss ? Will hold off on antihypertensive medications for now given hypotension and blood loss Respiratory: #Right base pneumonia #Left pleural effusion ? Patient does not have any cough or fevers at this time. ? Chest x-ray that shows some right base pneumonia as well as some left pleural effusion. ? Patient is WBCs are 10.9. ? Will start patient on Rocephin and azithromycin [02/18/2025?] -Successful Thoracentesis today draining 850ml -Ordered cytology and serology. -Ordered serum LDH, but without serum LDH fluid is exudative by light's criteria Endo: #Hx of hypothyroidism ? Last TSH was 0.02 on 08/12/2024 ? Started patient on levothyroxine 150 mcg IV Renal: #ADITYA, prerenal ? Patient came in with creatinine of 2.8 and BUN of 73 from her baseline of creatinine of 1 -Kidney function worsened with Cr 2.7 from 2.6 earlier. Minimal urine output throught out the night ?Most likely prerenal in the setting of hypotension and blood loss vs postrenal due to congestive hepatopathy ? Renally dose medications ? Avoid nephrotoxic agents -Started CRRT #Hypomagnesemia, resolved GI: #Esophageal ulcers #Gastropathy #Unknown foreign body in duodenal bulb with ulcer at base #Hematemesis #Hematochezia ?Patient complained of bloody bowel movements and bloody emesis for the past day -EGD showed esophageal ulcers, bleeding gastropathy, and an unknown foreign body in duodenal bulb with an ulcer at its base. GI specialist tried to retrieve the foreign body, but was unsuccessful as it was embedded in the tissue. ? Continue octreotide drip and pantoprazole 40 mg twice daily #Ascites #Cirrhosis ? Patient's abdomen still significantly distended ? Patient does have a history of a few glasses of wine every day in the past ? Liver ultrasound showed ascites and cirrhosis Hematology: #Acute blood loss anemia #Thrombocytopenia ? Patient came in with low hemoglobin was 6.5 and platelets of 76 ? This is most likely secondary to GI bleed in the setting of hematochezia and hematemesis in the setting of bleeding gastropathy and foreign body in duodenal bulb. ?-Patient continues to lose blood with multiple bowel movements and emesis episodes of bright red blood. Her hemoglobin continues to be below 7. -Patient has received a total of 6 PRBCs, 3 platelets, and 2 FFP as of the time of this note. -Additional FFP is being transfused -Will repeat labs after FFP is transfused. #DIC ? Patient is INR was 1.6, fibrinogen 82, and D-dimer is 1690 ? Patient continues to be uncontrolled will be ? Gave 2000 units of PCC for reversal of Eliquis given that it is unknown time of last dose ? Will repeat INR and fibrinogen after PRBC and FFP are transfused this evening. #Lactic acidosis, resolved ? Patient came in with lactic acid of 2.8 and down trended to 1.7 Hospital Maintenance: Diet: NPO DVT ppx: held due to active bleed GI ppx: Pantoprazole 40 mg BID IV lines: PIV, CIV ([facility]) Acuña: acuña cath Code status: Full code Dispo: ICU for monitoring A-fib with RVR and Acute blood loss anemia Case disclosed with Attending Dr. Ana Rosa Mendez PGY1 Attending Provider Attestation/Addendum Patient seen and examined with the above resident, Ulises Mendez MD. I agree with the findings, assessment, and plan of care as documented except for any differences below. Patient with continue significant hematemesis and hematochezia. Will give PCC to reverse any remaining effect from her Eliquis. Blood products given to ensure appropriate ratio of PRBCs, PLTs, and FFP. Patient remains hemodynamically stable. HR remains elevated in response to pain and nausea/ vomiting/ volume loss from hemorrhage. Tolerating rate with amiodarone on board. Remains on PPI and octreotide. EGD did show foreign object. Will consult general surgery for input as well though too unstable for intervention at this time. Patient will need to be serially assessed and possible repeat attempt at EGD to remove at a later date. She is unable to give meaningful history as she is lethargic and confused. Her children are distant as well and limited at this time but have been agreeable given her guarded prognosis to limit her code status. Patient will continue to be closely monitored in the ICU given risk of instability. Her respiratory status also compromised from all fluid administration, did not respond to diuretics with ADITYA and CRRT initiated to help with ongoing blood product administration. We completed a bedside thoracentesis on th left which also did help with her status though appearance of fluid suggests transudative process. Favor overload of blood products in setting of diastolic dysfunction/ atrial fibrillation as etiology for decompensation overnight more so than brisk bleeding. Total critical care time: I personally spent 55 minutes sonu review of physiologic parameters, directing plan of care, and coordination of care with other specialists. This is exclusive of time spent teaching housestaff or performing any separate billable procedures. Patient remains at significant risk of further morbidity and mortality warranting close monitoring in the ICU. Critical care services for atrail fibrillation with RVR, acte encpehalopathy, GI hemorrhage, and acute renal failure.
[2025-02-19 12:29] LABS: Amylase,Pleural Fluid < 20 IU/L; Glucose,Pleural Fluid 158 mg/dL; LDH,Pleural Fluid 107 IU/L; Protein Total,Pleural Fluid < 2.0 g/dL
[2025-02-19 12:30] LABS: Hepatitis A Antibody IgM Non Reactive (Non React); Hepatitis B Core Antibody IgM Non Reactive (Non React); Hepatitis B Surface Antigen Non Reactive (Non React); Hepatitis C Antibody Non Reactive (Non React)
[2025-02-19] MEDS: THIAMINE INJ 200 MG in SODIUM CHLORIDE 0.9% 50 ML 102.97 MG IV ×2 (12:48→22:00)
[2025-02-19 12:50] LABS: Slide Review Platelets confirmed
--- NOTE | 2025-02-19 12:50 | ESPR_ITS ---
Documentation for date of: 02/19/25 Subjective Subjective Interval history: Patient evaluated continues to bleed Low fibrinogen at 82 High D-dimer patient most likely in DIC Already getting FFP platelets Bleeding scan could not be done as patient is unstable It is mostly mucosal oozing of blood from the entire gastric mucosa and small bowel Clip in the duodenal bulb at the junction descending duodenum is a red lopez and not the source of bleeding although there is an ulcer Exam Vital Signs Temp Pulse Resp BP Pulse Ox O2 Del Method O2 Flow Rate 98.5 F 127 H 31 H 114/54 L 100 Nasal Cannula 1 02/19/25 11:55 02/19/25 12:45 02/19/25 11:55 02/19/25 12:45 02/19/25 11:55 02/19/25 08:00 02/19/25 11:55 Objective Labs 02/19/25 17:02 02/19/25 06:40 Labs: Laboratory Results - last 24 hr 02/18/25 02/18/25 02/18/25 03:40 15:08 17:02 WBC 7.5 RBC 2.13 L Hgb 6.7 L* 6.8 L* Hct 19.2 L* 19.3 L* MCV 91 MCH 31.9 MCHC 35.2 RDW Std Deviation 62.8 H Plt Count 136 L D Neut % (Auto) 87 H Lymph % (Auto) 10 [place] % (Auto) 2 Eos % (Auto) 1 Baso % (Auto) 0 Neut # (Auto) 6.5 Lymph # (Auto) 0.8 L [place] # (Auto) 0.1 Eos # (Auto) 0.1 Baso # (Auto) 0.0 Immature Gran # (Auto) 0.05 H Absolute Nucleated RBC 0.60 H Immature Gran % 1 H Nucleated RBC % 8 H PT INR APTT Fibrinogen D-Dimer Sodium 134 L Potassium 3.9 Chloride 102 Carbon Dioxide 18.8 L Anion Gap 13 BUN 73 H Creatinine 2.6 H Estim Creat Clear Calc 19.0 L eGFR 18 L BUN/Creatinine Ratio 28 H Glucose 128 H Calculated Osmolality 291 Lactic Acid 1.7 Calcium 7.6 L Corrected Calcium 8.6 Magnesium Total Bilirubin 2.2 H AST 33 ALT 18 Alkaline Phosphatase 79 Total Protein 4.7 L Albumin 2.8 L Globulin 1.9 L Albumin/Globulin Ratio 1.5 Pleural Total Protein Pleural LDH Pleural Glucose Pleural Amylase Hepatitis A IgM Ab Hep Bs Antigen Hep B Core IgM Ab Hepatitis C Antibody Misc Test Result Blood Type A Positive Antibody Screen NEGATIVE Crossmatch See Detail Blood Bank Wristband ID Yes Blood Bank Comment PLATP Ready 02/19/25 02/19/25 02/19/25 00:05 06:40 08:40 WBC 6.5 5.5 5.0 RBC 1.92 L* 2.50 L 2.28 L Hgb 6.1 L* 7.5 L D 6.9 L* Hct 16.8 L* 21.2 L* 18.8 L* MCV 88 85 83 MCH 31.8 30.0 30.3 MCHC 36.3 35.4 36.7 RDW Std Deviation 57.7 H 43.0 41.4 Plt Count 111 L 115 L 60 L D Neut % (Auto) 85 H 91 H 89 H Lymph % (Auto) 11 7 L 9 L [place] % (Auto) 2 1 1 Eos % (Auto) 1 0 0 Baso % (Auto) 0 0 0 Neut # (Auto) 5.6 5.0 4.4 Lymph # (Auto) 0.7 L 0.4 L 0.4 L [place] # (Auto) 0.1 0.1 0.1 Eos # (Auto) 0.1 0.0 0.0 Baso # (Auto) 0.0 0.0 0.0 Immature Gran # (Auto) 0.05 H 0.04 H 0.06 H Absolute Nucleated RBC 0.61 H 1.14 H 1.22 H Immature Gran % 1 H 1 H 1 H Nucleated RBC % 9 H 21 H 25 H PT 16.6 H INR 1.6 H APTT 34.6 Fibrinogen 82 L* D-Dimer 1690 H Sodium 136 Potassium 4.0 Chloride 105 Carbon Dioxide 17.8 L Anion Gap 13 BUN 76 H Creatinine 2.7 H Estim Creat Clear Calc 18.8 L eGFR 17 L BUN/Creatinine Ratio 28 H Glucose 168 H Calculated Osmolality 298 H Lactic Acid Calcium 7.5 L Corrected Calcium 8.9 Magnesium 2.1 Total Bilirubin 2.8 H D AST 32 ALT 17 Alkaline Phosphatase 52 D Total Protein 3.6 L Albumin 2.2 L D Globulin 1.4 L Albumin/Globulin Ratio 1.6 Pleural Total Protein Pleural LDH Pleural Glucose Pleural Amylase Hepatitis A IgM Ab Non Reactive Hep Bs Antigen Non Reactive Hep B Core IgM Ab Non Reactive Hepatitis C Antibody Non Reactive Misc Test Result Platelets confirmed Blood Type Antibody Screen Crossmatch Blood Bank Wristband ID Blood Bank Comment 02/19/25 11:50 WBC RBC Hgb Hct MCV MCH MCHC RDW Std Deviation Plt Count Neut % (Auto) Lymph % (Auto) [place] % (Auto) Eos % (Auto) Baso % (Auto) Neut # (Auto) Lymph # (Auto) [place] # (Auto) Eos # (Auto) Baso # (Auto) Immature Gran # (Auto) Absolute Nucleated RBC Immature Gran % Nucleated RBC % PT INR APTT Fibrinogen D-Dimer Sodium Potassium Chloride Carbon Dioxide Anion Gap BUN Creatinine Estim Creat Clear Calc eGFR BUN/Creatinine Ratio Glucose Calculated Osmolality Lactic Acid Calcium Corrected Calcium Magnesium Total Bilirubin AST ALT Alkaline Phosphatase Total Protein Albumin Globulin Albumin/Globulin Ratio Pleural Total Protein < 2.0 Pleural LDH 107 Pleural Glucose 158 Pleural Amylase < 20 Hepatitis A IgM Ab Hep Bs Antigen Hep B Core IgM Ab Hepatitis C Antibody Misc Test Result Blood Type Antibody Screen Crossmatch Blood Bank Wristband ID Blood Bank Comment Impressions Impression: Mucosal oozing of blood Metallic structure at the junction of duodenal bulb and descending duodenum most likely a swallowed safety pin stuck there in this region DIC Renal failure Atrial fibrillation Continue supportive care Patient now DNR/DNI Assessment & Plan A&P Narrative # Coffee-ground hematemesis # Hematochezia # Acute posthemorrhagic anemia # Hypotension # Atrial fibrillation with RVR # Chronic liver disease plan Move the patient to ICU as she is on amiodarone drip and critically sick Consent obtained for fiberoptic esophagogastroduodenoscopy for possible therapeutic intervention under intravenous moderate sedation Cannot do a CTA abdomen pelvis because of the elevated BUN/creatinine at 81 and 2.8 If EGD is negative we will consider doing a fiberoptic endoscopy if the patient cannot tolerate the prep Thank you for the opportunity to participate in this patient Time Spent With Patient Time: Total time spent is greater than 50% in coordination of care (as documented) at patient's floor/unit and/or counseling patient:
[2025-02-19 13:19] LABS: Pleural Fluid Appearance Hazy; Pleural Fluid Color Yellow; Pleural Fluid Mononuclear 30 %; Pleural Fluid Polynuclear 70 %; Pleural Fluid RBC 1000 /cmm; Pleural Fluid WBC 43 /cmm
[2025-02-19] MEDS: cefTRIAXone/D5w 1gm IV premix 1 GM/50 ML BAG IV (14:22)
--- NOTE | 2025-02-19 14:54 | PC.SS ---
Update: Code Status is now DNR. Patient receiving dialysis session today (continuos). Patient is not aligned with outpatient dialysis. Patient transfussed today. Dr. Estrella consulting. Patient receiving IV antibiotics and on pressor support.
--- NOTE | 2025-02-19 16:24 | PC.DIETICIAN ---
Nutrition Prescription: a) If oral intake is feasible, consider clear diet and advance to solids (adjust food/liquids consistency as needed). b) If EN is initiated, consider: Trophic feeds of Vital 1.2 at 20 ml/hr via OG tube. Water flushes of 30 ml every 4 hrs. Once more stable, advance 10 ml every 8 hrs to goal rate of 50 ml/hr x 22 hrs. If no IV fluids, water flushes of 30 ml/hr (or per MD). c) Add Prostat SF TID to meet protein needs. Hold TF for one hour before and after levothyroxine and sucralfate administration Thank you!
[2025-02-19 17:13] LABS: Base Excess, Venous 2 (-3-3); Lactate (Lactic Acid) 1.1 mMol/L (0.4-2.0); O2 Saturation, Venous 95 % (96-97); PCO2, Venous 30 mmHg (36-56); PO2, Venous 65 mmHg (15-58); pH, Venous 7.53 (7.33-7.66)
[2025-02-19 17:17] LABS: Basophils % (Auto) 0 % (0-2.5); Eosinophils % (Auto) 0 % (0-10); Hematocrit 20.6 % (36.0-46.0); Immature Granulocytes % (Auto) 1 % (0-0); Immature Granulocytes Auto 0.06 Thou/mm3 (0.00-0.00); Lymphocytes # (Auto) 0.6 Thou/mm3 (1.0-4.8); Lymphocytes % (Auto) 14 % (10-50); Mean Corpuscular HGB Conc 36.9 g/dl (31.0-37.0); Mean Corpuscular Hemoglobin 30.5 pg (25.0-35.0); Mean Corpuscular Volume 83 fL (80-100); Monocytes # (Auto) 0.1 Thou/mm3 (0.0-0.8); Monocytes % (Auto) 1 % (0-12); Neutrophils # (Auto) 3.6 Thou/mm3 (1.8-7.7); Neutrophils % (Auto) 83 % (37-80); Nucleated Red Blood Cell # 1.14 Thou/mm3 (0.00-0.00); Nucleated Red Blood Cell % 27 /100 WBC (0); RDW Standard Deviation 43.3 fL (36.4-46.3); Red Blood Count 2.49 Miln/mm3 (4.00-5.20); White Blood Count 4.3 Thou/mm3 (3.6-11.0)
[2025-02-19 17:18] LABS: Hemoglobin 7.6 g/dL (12.0-16.0); Platelet Count 64 Thou/mm3 (140-440)
[2025-02-19 17:34] LABS: LDH (Lactate Dehydrogenase) 319 U/L (120-246)
[2025-02-19 17:38] LABS: INR 1.4 (0.9-1.3); Prothrombin Time 14.5 Seconds (9.0-12.2)
[2025-02-19 17:40] LABS: Fibrinogen 98 mg/dL (175-375)
[2025-02-19 17:46] LABS: Slide Review Platelets confirmed
--- NOTE | 2025-02-19 17:52 | PD.SURCONS ---
HPI Consult details Consult date: 02/19/25 Reason for consultation narrative: The patient was seen because of the foreign body in the duodenum History of present illness: Patient apparently has massive upper GI bleed and she was endoscoped and was found to have esophagitis and duodenitis. She was also found to have a foreign body in the duodenum which seems to be stuck in the wall of the duodenum and therefore it was not removed Meds Home Medications and Allergies Home Medications ?Medication ?Instructions ?Recorded ?Confirmed ?Type Cetirizine * (ZYRTEC *) 5 mg PO HS #0 tabs 04/26/16 History Chrom Janki/Brindall Mccrary 1 tab PO TID ##0 04/26/16 History (Garcinia Cambogia Tablet) Etanercept (Enbrel) 50 mg SQ 2 X WEEKLY ##0 04/26/16 History Fluticasone Propionate 1 spry IH PRN PRN ALLERGY ##0 04/26/16 History amlodipine 5 mg tablet (Norvasc) 5 mg PO QDAY #0 tabs 04/26/16 History loratadine 10 mg tablet (Claritin) 10 mg PO QDAY #0 tabs 04/26/16 History triamterene 50 mg capsule 25 mg PO QDAY #0 caps 04/26/16 History (Dyrenium) Lactobacillus rhamnosus GG 10 1 cap PO QDAY #0 caps 09/21/16 History billion cell capsule (Culturelle) biotin 800 mcg tablet 800 mcg PO QDAY #0 tabs 09/21/16 History cyanocobalamin (vitamin B-12) 100 100 mcg PO QDAY #0 tabs 09/21/16 History mcg tablet (Vitamin B-12) guaifenesin 600 mg tablet, 600 mg PO QDAY ##0 09/21/16 History extended release 12 hr (Mucinex) magnesium 30 mg tablet 30 mg PO BID #0 tabs 09/21/16 History phentermine 37.5 mg capsule 37.5 mg PO QAMAC #0 caps 09/21/16 History (Adipex-P) prasterone (dhea) 50 mg capsule ##0 09/21/16 History (DHEA) thyroid (pork) 195 mg tablet 195 mg PO #0 tabs 09/21/16 History (Nature-Throid) Allergies Allergy/AdvReac Type Severity Reaction Status Date / Time Dust Allergy Severe ASTHMA Uncoded 08/12/24 10:33 ATTACK Exam Vital Signs Temp Pulse Resp BP Pulse Ox O2 Del Method O2 Flow Rate 97.2 F 126 H 20 129/56 L 95 Nasal Cannula 2 02/19/25 16:00 02/19/25 17:45 02/19/25 17:00 02/19/25 17:30 02/19/25 17:00 02/19/25 16:00 02/19/25 16:00 Assessment & Plan Additional Assessment Additional comments: Impression: Possible foreign body duodenum Plan Plan: Patient is too sick for any further treatment at this stage including endoscopy. When she stabilizes we can make another attempt by the brine purifier to remove the foreign body. Surgical exploration at this time is not possible and foreign body may not do any harm but exploration would. We would therefore observe and act accordingly
[2025-02-19] MEDS: OCTREOTIDE ACET INJ 1,000 MCG in SODIUM CHLORIDE 0.9% 100 ML 5.1 MCG IV (22:00)
[2025-02-20] VITALS (103 sets, daily range): BP systolic 65–149; BP diastolic 41–109; PULSE 76–123; RESP 6–31; TEMP 36.1–36.8; O2SAT 85–100; BMI 27.9
[2025-02-20] MEDS: HEPARIN SOD INJ 1000 UNIT/ML VIAL 10 ML 3000 UNIT INDWELLCAT (00:37)
[2025-02-20 00:46] LABS: Basophils % (Auto) 0 % (0-2.5); Eosinophils % (Auto) 1 % (0-10); Immature Granulocytes % (Auto) 1 % (0-0); Immature Granulocytes Auto 0.04 Thou/mm3 (0.00-0.00); Lymphocytes # (Auto) 0.4 Thou/mm3 (1.0-4.8); Lymphocytes % (Auto) 13 % (10-50); Mean Corpuscular HGB Conc 37.6 g/dl (31.0-37.0); Mean Corpuscular Hemoglobin 30.9 pg (25.0-35.0); Mean Corpuscular Volume 82 fL (80-100); Monocytes % (Auto) 1 % (0-12); Neutrophils # (Auto) 2.8 Thou/mm3 (1.8-7.7); Neutrophils % (Auto) 84 % (37-80); Nucleated Red Blood Cell # 0.68 Thou/mm3 (0.00-0.00); Nucleated Red Blood Cell % 20 /100 WBC (0); RDW Standard Deviation 43.2 fL (36.4-46.3); White Blood Count 3.3 Thou/mm3 (3.6-11.0)
[2025-02-20 00:55] LABS: Platelet Count 52 Thou/mm3 (140-440)
[2025-02-20 00:56] LABS: Hemoglobin 6.8 g/dL (12.0-16.0)
[2025-02-20 00:57] LABS: Hematocrit 18.1 % (36.0-46.0); Slide Review Platelets confirmed
[2025-02-20] MEDS: AMIODARONE 360 MG IVPB 360 MG/200 ML BAG 16.667 MG IV ×2 (04:16→18:12)
[2025-02-20] MEDS: THIAMINE INJ 200 MG in SODIUM CHLORIDE 0.9% 50 ML 102.97 MG IV ×3 (05:59→23:46)
[2025-02-20] MEDS: LEVOTHYROXINE INJ 100 mCg VIAL 150 MCG IV (06:01)
[2025-02-20 06:43] LABS: Hematocrit 20.7 % (36.0-46.0)
[2025-02-20 06:49] LABS: Hemoglobin 7.4 g/dL (12.0-16.0)
[2025-02-20 07:14] LABS: Alanine Aminotransferase 19 U/L (10-49); Albumin, Serum 2.3 gm/dL (3.4-4.8); Albumin/Globulin Ratio 1.5 (1.2-2.2); Alkaline Phosphatase 54 U/L (46-116); Anion Gap 7 (7-16); Aspartate Amino Transferase 37 U/L (0-34); BUN/Creatinine Ratio 23 Ratio (12-20); Bilirubin,Total 3.4 mg/dL (0.3-1.2); Blood Urea Nitrogen 30 mg/dL (9-23); Calcium 8.1 mg/dL (8.3-10.6); Calcium (Corrected) 9.5 mg/dL (8.5-10.1); Chloride 104 mMol/L (98-107); Creatinine (Component) 1.3 mg/dL (0.6-1.3); Estimated Creatinine Clearance 37.8 mL/min (>60); Globulin 1.5 gm/dL (2.3-3.5); Glucose 123 mg/dL (74-106); Magnesium 1.6 mg/dL (1.6-2.6); Osmolality,Calculated 281 (275-295); Potassium 3.2 mMol/L (3.4-5.1); Sodium 137 mMol/L (136-145); Total Protein 3.8 gm/dL (5.7-8.2); eGFR 42 See Note
--- NOTE | 2025-02-20 07:55 | PC.DIETICIAN ---
*Consider PPN/TPN if the bowel is not functional or cannot be utilized*
--- NOTE | 2025-02-20 08:50 | PD.RESPRO ---
Documentation for date of: 02/20/25 Subjective Subjective Interval history: Ms. Ayoub is a pleasant 79-year-old female with PMHx of A-fib on ELIQUIS( under Dr. Parrish), CHF, HTN, Hypothyroidism, CKD, RA on Enbrel brought in by ambulance following 1.5 days of dark/watery stool and rectal bleed. She noted 1 week of dark stool, followed by dark and watery diarrhea that approximately 2 days ago. Denied fall or trauma, fever, chills, abnormal weight loss or gain, palpitations, chest pain, shortness of breath, cough, abdominal pain, nausea or vomiting, dysuria or hematuria. She was admitted at [facility] and airlifted to [place] for GLF for which she sustained a right eye injury, currently being followed up by ophthalmology in [place]. She did not report any fracture or other injuries. At the time, endoscopy was done, patient unsure why but state was normal. They had recommended colonoscopy but she states unable to do prep as she lives alone at home. Additionally, she states she takes home LASIX but was discontinued during admission at [facility] for fall risk concerns. She reports 3 weeks of increased bilateral extremity swelling and shortness of breath despite using her home 3 L oxygen. ED COURSE: Afebrile, BP 82/66, HR 121, RR 18, satting 99% on 2 L. Hgb 6.5 (baseline 11.2), HCT 19, WBC 10.9. PT 15.8, INR 1.5, APTT 43.7. Creatinine 2.8 (baseline 1.0), BUN 81, EGFR 15.6 Lactic acid 2.8, troponin 0.092, BNP 1414. Sodium 133, magnesium 1.5, TB 1.9, AST 35, ALT normal 21, ALBUMIN 2.5, ammonia <10. Pro-Calc 1.3. EKG showed A-fib with RVR, HR 132. CXR mild right basilar pneumonia, mild CHF, left-sided pneumonia and pleural disease. ED initiated transfusion with 2 units PRBCs and 1 unit FFP's. Will admit to telemetry, continue OCTREOTIDE and PROTONIX. GI has been consulted. 02/19/2025 Patient was seen and examined in the ICU today. EGD was performed yesterday and it showed esophageal ulcers with large amount of blood in the body of the stomach down to the duodenal bulb. With a metallic structure thought to be a safety pin in the duodenal bulb. ICU team made multiple attempts to contact family to discuss goals of care. Patient became hemodynamically unstable needing pressors. Sick looking. Urine output very minimal. BUN and creatinine continues to rise. This morning her hemoglobin was 6.1. Needing more blood transfusions. Renal team decided to proceed with dialysis after talking to Dr. Oseguera. Due to hemodynamic instability decided to proceed with continuous and renal replacement therapy. Medications reviewed. Per Dr. Mendoza-gastrectomy has no role patient has been bleeding from several places. Patient will receive triple-lumen catheter for CRRT. 02/20/25 Patient was seen and examined in the ICU today. Patient tolerated CRRT well yesterday and received an additional 2 units of PRBC and 1 units of FFP. Patient's DIC panel was positive likely from massive blood transfusion. Hgb 7.4 today and patient did not have any more bloody bowel movements overnight. Createnine is 1.3 this morning. Will likely hold off from another session of CRRT for now. Pressor support has decreased. Prognosis is guarded. Patient made a DNR. Family was contacted. Exam Vital Signs Temp Pulse Resp BP Pulse Ox O2 Del Method O2 Flow Rate 97.6 F 98 14 136/108 H 91 L Nasal Cannula 1 02/20/25 02:10 02/20/25 06:15 02/20/25 06:15 02/20/25 06:15 02/20/25 06:15 02/19/25 16:00 02/20/25 06:00 Narrative Exam Constitutional: Elderly female sick looking-more alert today Head: Pale conjunctiva ENMT: Dry mucous Membranes, No trauma or injury. Neck: Supple to palpation, No JVD CVS: Irregular S1 and S2 present, no murmurs, rubs or gallops . RESP: Decreased breath sounds GI: Distended but nontender with no guarding or rebound tenderness. MSK: Full range of motion, No trauma or deformities or masses. 2+ pitting edema bilaterally on lower extremities and upper extremities Skin: Warm to touch, Dry. No rashes or lesions. No hematomas Psych: (AAO) x 2. More awake and alert today, responding to questions. Objective Labs 02/21/25 04:46 02/21/25 04:46 Labs: Laboratory Results - last 24 hr 02/18/25 02/19/25 02/19/25 03:40 06:40 08:40 WBC 5.0 RBC 2.28 L Hgb 6.9 L* Hct 18.8 L* MCV 83 MCH 30.3 MCHC 36.7 RDW Std Deviation 41.4 Plt Count 60 L D Neut % (Auto) 89 H Lymph % (Auto) 9 L [place] % (Auto) 1 Eos % (Auto) 0 Baso % (Auto) 0 Neut # (Auto) 4.4 Lymph # (Auto) 0.4 L [place] # (Auto) 0.1 Eos # (Auto) 0.0 Baso # (Auto) 0.0 Immature Gran # (Auto) 0.06 H Absolute Nucleated RBC 1.22 H Immature Gran % 1 H Nucleated RBC % 25 H PT 16.6 H INR 1.6 H APTT 34.6 Fibrinogen 82 L* D-Dimer 1690 H VBG pH VBG pCO2 VBG pO2 VBG O2 Sat (Pamela) VBG Base Excess Sodium Potassium Chloride Carbon Dioxide Anion Gap BUN Creatinine Estim Creat Clear Calc eGFR BUN/Creatinine Ratio Glucose Calculated Osmolality Lactic Acid Calcium Corrected Calcium Magnesium Total Bilirubin AST ALT Alkaline Phosphatase Lactate Dehydrogenase Total Protein Albumin Globulin Albumin/Globulin Ratio Pleural Color Pleural Appearance Pleural WBC Pleural RBC Pleural Polynuclear WBC Pleural Mononuclear WBC Pleural Total Protein Pleural LDH Pleural Glucose Pleural Amylase Hepatitis A IgM Ab Non Reactive Hep Bs Antigen Non Reactive Hep B Core IgM Ab Non Reactive Hepatitis C Antibody Non Reactive Misc Test Result Platelets confirmed Blood Type A Positive Antibody Screen NEGATIVE Crossmatch See Detail Blood Bank Wristband ID Yes Blood Bank Comment PLATP Ready 02/19/25 02/19/25 02/20/25 11:50 17:02 00:27 WBC 4.3 3.3 L RBC 2.49 L 2.20 L Hgb 7.6 L 6.8 L* Hct 20.6 L* 18.1 L* MCV 83 82 MCH 30.5 30.9 MCHC 36.9 37.6 H RDW Std Deviation 43.3 43.2 Plt Count 64 L 52 L Neut % (Auto) 83 H 84 H Lymph % (Auto) 14 13 [place] % (Auto) 1 1 Eos % (Auto) 0 1 Baso % (Auto) 0 0 Neut # (Auto) 3.6 2.8 Lymph # (Auto) 0.6 L 0.4 L [place] # (Auto) 0.1 0.0 Eos # (Auto) 0.0 0.0 Baso # (Auto) 0.0 0.0 Immature Gran # (Auto) 0.06 H 0.04 H Absolute Nucleated RBC 1.14 H 0.68 H Immature Gran % 1 H 1 H Nucleated RBC % 27 H 20 H PT 14.5 H INR 1.4 H APTT Fibrinogen 98 L* D-Dimer VBG pH 7.53 VBG pCO2 30 L VBG pO2 65 H VBG O2 Sat (Pamela) 95 L VBG Base Excess 2 Sodium Potassium Chloride Carbon Dioxide Anion Gap BUN Creatinine Estim Creat Clear Calc eGFR BUN/Creatinine Ratio Glucose Calculated Osmolality Lactic Acid 1.1 Calcium Corrected Calcium Magnesium Total Bilirubin AST ALT Alkaline Phosphatase Lactate Dehydrogenase 319 H Total Protein Albumin Globulin Albumin/Globulin Ratio Pleural Color Yellow Pleural Appearance Hazy Pleural WBC 43 Pleural RBC 1000 Pleural Polynuclear WBC 70 Pleural Mononuclear WBC 30 Pleural Total Protein < 2.0 Pleural LDH 107 Pleural Glucose 158 Pleural Amylase < 20 Hepatitis A IgM Ab Hep Bs Antigen Hep B Core IgM Ab Hepatitis C Antibody Misc Test Result Platelets confirmed Platelets confirmed Blood Type Antibody Screen Crossmatch Blood Bank Wristband ID Blood Bank Comment 02/20/25 06:20 WBC RBC Hgb 7.4 L Hct 20.7 L* MCV MCH MCHC RDW Std Deviation Plt Count Neut % (Auto) Lymph % (Auto) [place] % (Auto) Eos % (Auto) Baso % (Auto) Neut # (Auto) Lymph # (Auto) [place] # (Auto) Eos # (Auto) Baso # (Auto) Immature Gran # (Auto) Absolute Nucleated RBC Immature Gran % Nucleated RBC % PT INR APTT Fibrinogen D-Dimer VBG pH VBG pCO2 VBG pO2 VBG O2 Sat (Pamela) VBG Base Excess Sodium 137 Potassium 3.2 L D Chloride 104 Carbon Dioxide 26.0 Anion Gap 7 BUN 30 H Creatinine 1.3 D Estim Creat Clear Calc 37.8 L eGFR 42 L BUN/Creatinine Ratio 23 H Glucose 123 H Calculated Osmolality 281 Lactic Acid Calcium 8.1 L Corrected Calcium 9.5 Magnesium 1.6 Total Bilirubin 3.4 H D AST 37 H ALT 19 Alkaline Phosphatase 54 Lactate Dehydrogenase Total Protein 3.8 L Albumin 2.3 L Globulin 1.5 L Albumin/Globulin Ratio 1.5 Pleural Color Pleural Appearance Pleural WBC Pleural RBC Pleural Polynuclear WBC Pleural Mononuclear WBC Pleural Total Protein Pleural LDH Pleural Glucose Pleural Amylase Hepatitis A IgM Ab Hep Bs Antigen Hep B Core IgM Ab Hepatitis C Antibody Misc Test Result Blood Type Antibody Screen Crossmatch Blood Bank Wristband ID Blood Bank Comment ABG Interpretation ABG results: 02/19/25 17:02 VBG pH 7.53 VBG pCO2 30 L VBG pO2 65 H VBG Base Excess 2 Quality Measures Quality Measures sepsis Current suspected stage: sepsis Possible source: GI tract/intra-abdominal Blood cultures ordered: yes Antibiotic ordered: Yes Advance care planning discussed with:: patient Assessment & Plan Assessment Current Active Medications: Generic Name Dose Route Start Last Admin Trade Name Freq PRN Reason Stop Dose Admin Acetaminophen 650 mg 02/18/25 06:03 Acetaminophen Supp 650 Mg Supp [place] 03/20/25 06:02 Q4HR PRN PAIN SCALE 1-3 (mild Acetaminophen 650 mg 02/18/25 09:38 02/18/25 12:01 Acetaminophen 325 Mg Tablet PO 03/20/25 09:37 650 mg Q6HR PRN Administration PAIN 1-6 (mild-mod Heparin Sodium (Porcine) 3,000 unit 02/19/25 12:43 02/20/25 00:37 Heparin Sod Inj 1000 Unit/Ml Vial 10 Ml INDWELLCAT 02/25/25 12:42 3,000 unit X1 PRN Administration DIALYSIS Octreotide Acetate 1,000 mcg/ 102 mls @ 5.1 mls/hr 02/18/25 23:15 02/19/25 22:00 Sodium Chloride IV 02/23/25 16:47 50 mcg/hr .Q20H EULALIA 5.1 mls/hr Administration Protocol 50 MCG/HR Norepinephrine/Dextrose 8 mg in 250 mls @ 7.656 mls/hr 02/19/25 04:09 02/20/25 07:54 Levophed In D5w 8mg/250ml IV 03/21/25 04:08 0.05 mcg/kg/min .Q24H PRN 7.656 mls/hr PER PROTOCOL Titration Protocol 0.05 MCG/KG/MIN Thiamine HCl 200 mg/ Sodium 52 mls @ 102.97 mls/hr 02/19/25 09:00 02/20/25 05:59 Chloride IV 02/22/25 08:59 102.97 mls/hr TID EULALIA Administration Ceftriaxone Sodium/Dextrose 1 gm in 50 mls @ 100 mls/hr 02/19/25 13:00 02/19/25 16:50 Rocephin/D5w 1gm Iv Premix IV 02/26/25 12:59 Infused QDAY EULALIA Infusion Amiodarone HCl/Dextrose 360 mg in 200 mls @ 16.667 mls/hr 02/19/25 15:33 02/20/25 04:16 Nexterone Ivpb IV 02/20/25 15:32 16.667 mls/hr .Q12H EULALIA Administration Potassium Chloride 20 meq in 100 mls @ 50 mls/hr 02/20/25 08:01 Kcl Ivpb IV 02/20/25 12:00 Q2H EULALIA Protocol Levothyroxine Sodium 150 mcg 02/19/25 06:00 02/20/25 06:01 Levothyroxine Inj 100 Mcg Vial IV 03/21/25 05:59 150 mcg ACBR EULALIA Administration Ondansetron HCl 4 mg 02/18/25 22:24 02/18/25 22:20 Ondansetron Inj 2 Mg/Ml Inj 2 Ml IV 03/20/25 22:23 4 mg Q8HR PRN Administration NAUSEA OR VOMITING Protocol Pantoprazole Sodium 40 mg 02/18/25 09:00 02/19/25 21:59 Pantoprazole Inj 40 Mg Vial IVP 03/20/25 08:59 40 mg BID EULALIA Administration Sucralfate 1 gm 02/19/25 14:00 02/20/25 06:00 Sucralfate Susp 1 Gm/10 Ml Udc PO 03/21/25 13:59 Not Given TID EULALIA Plan In summary: 79-year-old female with PMHx of A-fib, CHF, HTN, presenting with 1 week of dark stool followed by roughly 2 days of black/watery diarrhea. Appreciate recommendations from Cardiology and GI teams. Prerenal ADITYA--ischemic ATN Secondary to hypotension and acute blood loss. Creatinine 2.8 (baseline 1.0), BUN 81, EGFR 15.6 (baseline 57). ? Continue with transfusion. ? Gentle fluids given volume overload status. ? ALBUMEN as above ? Renally dose meds, avoid overdiuresis and NEPHROTOXINS ? Daily CMP ? Azotemia worsens-decreased urinary output. Patient with a significant fluid overload. Decided to proceed with CRRT owing to hemodynamic instability. - Triple-lumen line to be inserted for CRRT 02/20/25: Patient did well with CRRT yesterday and Cr improved to 1.3 today. Acute GI bleed anemia Hematochezia Rectal bleed Hypotension, tachycardia Presents with 1 week of rectal bleeding and dark stool. Has 2 days of watery diarrhea that is black, not foul-smelling. Denies fall, trauma, abdominal pain, nausea or vomiting, abnormal weight changes. Had normal endoscopy in December at [facility], recommended colonoscopy but unable to complete prep at home as she lives alone. A total of 5 units of PRBCs have been transfused with 2 FFP's as well as 3 platelets EGD revealed esophageal ulcers with large amounts of blood as well as a metallic structure embedded in the duodenal bulb. Plan: ? Continue octreotide drip ? Continue PROTONIX IV BID ? Continue n.p.o. ? Posttransfusion H&H ? Transfuse if Hgb less than 8. ? Appreciate GI recommendations - Gen surgery does not recommend any intervention at this time until patient is more stable. Will follow up with recommendations ? Prognosis is guarded History of CHF, on home 3 L oxygen Lactic acidosis Low suspicion for pneumonia History of CHF, usually takes LASIX at home which was discontinued in December given concern for recurrent falls. Reports 3 weeks of lower extremity edema, has 2/3+ bilateral LE pitting edema and rales on lung exam. Given ALBUMIN X1 in ED. Less likely will tolerate fluids given overload status. Will give another ALBUMEN x1. CXR showed mild CHF, bibasilar pneumonia and left-sided pleural disease. However, low suspicion for pneumonia given she is asymptomatic, afebrile. Elevated PRO-ANGELY likely in setting of ADITYA and decreased clearance. Received CEFTRIAXONE x 1 in ED. Will continue to monitor ? Pending repeat lactic acid Q3H ? Pending echocardiogram ? ANTIBIOTICS NSTEMI, likely type II A-fib with RVR Likely demand ischemia. History of AFIB non ELIQUIS. EKG showed A-fib with RVR, HR 132. Currently asymptomatic without chest pain or shortness of breath. ? Hold ELIQUIS in setting of GI bleed. ? Continue AMIODARONE drip. ? Maintain K > 4.0 and Mg > 2.0 ? Pending cardiology recommendations ? Pending repeat troponin Q6H Hypomagnesemia Magnesium 1.5, potassium 3.5, repleted. ? Daily labs, replete as needed. Mild hyponatremia Sodium 133, likely volume loss secondary to diarrhea. ? Daily labs Mild total bilirubinemia Likely secondary to decreased renal clearance. Anticipate improvement with improved renal function. Denies abdominal pain, normal abdominal exam. No scleral icterus or jaundice. ? Daily labs Hypothyroidism Chronic, on home LEVO 200 mcg daily. Currently NPO ? Continue LEVOTHYROXINE 150 mcg IV ACBR Health maintenance Diet: NPO GI prophylaxis: PROTONIX DVT prophylaxis: C/I 2/2 GI bleed, cannot tolerate STDs given LE edema/tenderness. Will monitor closely Antibiotics: Not indicated CODE STATUS: Full Code I discussed patient's care with attending physician, Dr Jad Bourgeois PGY3 Attending Provider Attestation/Addendum Patient seen and examined with resident physician Dr. Bourgeois. Note reviewed, agree with findings and recommendations with the changes made. Extremely sick looking patient currently seen in ICU. Continues blood loss anemia needing blood products. ADITYA in the setting of hypotension needing pressors, Fluid overload. Patient positive by more than 6 L. Hemoglobin this morning 7.1. Needs more blood transfusion. Did receive a CRRT yesterday. Noted ICU team discussed goals of care with sons-patient currently DNR. Reviewed labs and medications. Hold dialysis today. Remains on low-dose pressors. Will decide on dialysis in a.m. if needed. Critical care time spent more than 35 minutes regarding plan of care and disease management. Plan of care discussed with ICU team.
[2025-02-20] MEDS: PANTOPRAZOLE INJ 40 MG VIAL IVP ×2 (09:20→21:31)
[2025-02-20] MEDS: cefTRIAXone/D5w 1gm IV premix 1 GM/50 ML BAG IV (09:20)
[2025-02-20] MEDS: POTASSIUM CHL 20 mEq IVPB 20 MEQ/100 ML BAG 50 MEQ IV ×2 (09:21→11:21)
--- NOTE | 2025-02-20 11:14 | ESPR_ITS ---
Documentation for date of: 02/20/25 Subjective Subjective Interval history: 79-year-old female with past medical history of A-fib (on Eliquis), ascending thoracic aorta aneurysm (4 cm on 07/2024), CHF (no echo on file), hypertension, hyperlipidemia, and hypothyroidism was admitted to the hospital on 02/18/2025 due to acute blood loss anemia in the setting of GI bleed. ICU was consulted for closer monitoring of patient's hemoglobin as well as A-fib with RVR. In the ED patient came in with complaints of 1 to 2 weeks of dark stools with worsened to bloody diarrhea for the past 2 days as well as 1 episode of bloody vomiting yesterday. Patient is a very poor historian and stated that in December she was at [facility] due to a ground-level fall and that she had an endoscopy done during this admission, but she does not have any results of these. She mentioned that she was also supposed to have a colonoscopy done, but that she did not have good bowel prep therefore was not done. She denies taking any ibuprofen or any steroids as of recently and has only been taking Tylenol. She did mention that she had a prior endoscopy with a GI specialist, but there is no results from previous endoscopies or colonoscopy. Patient states she had weight gain from 140s to 160s recently. She denied any fever, chest pain, headache, abdominal pain, or history of cancer. In the ED patient was found to have A-fib with RVR on EKG and she was started on amiodarone drip. Patient received a total of 1 FFP, 2 PRBCs, and 2 platelets today, but she had a large bloody bowel movement after the transfusion and on repeat hemoglobin her hemoglobin was 6.7 from 6.5 initially. ED course: Initially was hypotensive, tachycardic, and afebrile. Initial labs were significant for low hemoglobin (6.5), thrombocytopenia (76), increased INR (1.5), ADITYA (BUN 81 and creatinine 2.8), lactic acidosis (2.8), hypomagnesemia (1.5), hyperbilirubinemia (1.9), troponinemia (0.092), elevated BNP (1414), and procalcitonin was elevated to 1.3. Initial imaging included EKG which showed A- fib with RVR and chest x-ray that showed mild heart failure, mild pneumonia of right base, and left pleural effusion. 02/19/2025: Patient was seen and examined at bedside this morning. Overnight patient became hypotensive therefore she was placed on low-dose of Levophed peripherally around 4 AM to maintain her MAP above 65. Overnight patient also became a little delirious and combative therefore she was given Ativan 1mg x 1. Upper endoscopy done last night by GI specialist showed that patient had esophageal ulcers, presence of large amounts of blood in the body of the stomach with mucosal oozing of blood as well as a foreign body in the duodenal bulb with ulcer at its base. GI specialist to try to retrieve this foreign body, but it was embedded and was unsuccessful given that there was high risk of perforation. This morning patient was very lethargic and somewhat confused. Given that the patient was on Levophed at this time and that her blood pressures were just hanging around a MAP of 65 and that she had minimal urine output overnight with worsening kidney function, decision was made to place a central line as an access for vasopressors and for CRRT. Given that the patient had ongoing bleed and that it is unknown the last time patient took her Eliquis PCC was given 2000 units x 1, patient also received 10 mg of vitamin K additionally yesterday evening. Given that patient had ongoing bleed DIC panel was ordered and showed elevated D-dimer at 1690, low fibrinogen at 82, and elevated INR at 1.6. At the time of planning to place a central line patient's family members were not reachable to get consent therefore emergent consent was done for central line and central line was successfully placed in the morning. Patient's family members were then reachable and consented to thoracentesis and arterial line. Given that patient had a left pleural effusion and there was suspicion that there could be a esophageal ulcer that had perforated a thoracentesis when needed to rule out. An arterial line at this time was deferred given that patient's blood pressure did improve after central line placement. 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 Throughout the day patient had multiple episodes of bloody emesis as well as bright red blood per rectum. Patient at the time of this note has already had 6 PRBCs, 2 FFP's, and 3 units of platelets transfused and hemoglobin is still below 7 consistently. While patient was undergoing CRRT she will have 1 extra unit of FFP to be transfused. Will plan for PT with INR, fibrinogen, CBC, lactic acid, and VBG at 4 PM today to continue monitoring. Will update patient's family throughout the course. 02/20/2025: Patient off pressors as of this morning, has one more episode of bloody bowel movement, small yesterday around 7 pm, no more overnight or this AM. Received one more unit of blood last night, totaling 7 thoughout admission, Hemoglobin stable a 7.4, no active signs of bleeding currrently. Upon review of patients medications, realized patient is taking methotrexate for RA, which could be the cause of esophageal ulcers and GI bleed (aggravated by foreign body). 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 We are starting high dose folic acid since the hospital doesnt carry leucovorin. And methorexate needs to be stopped upon DC due to toxicity. DIC yesterday was most likley in the setting of massive transfusions. Exam Vital Signs Temp Pulse Resp BP Pulse Ox O2 Del Method O2 Flow Rate 97.4 F 93 23 H 91/54 L 98 Nasal Cannula 1 02/20/25 08:02 02/20/25 10:15 02/20/25 10:15 02/20/25 10:15 02/20/25 10:15 02/20/25 08:02 02/20/25 08:02 Narrative Exam General: Pale elderly frail woman, Somnolent oriented x2 Eyes: L pupil reactive to light, R pupil unresponsive to light, EOMI. Anicteric, vision grossly intact in L eye, but impaired vision R. Ears: No ear pain, no ear discharge, Hearing grossly intact. Nose: No nasal discharge. Mouth/Throat: Dry mucous membranes, no redness, no lesions. Neck: Neck supple, non-tender, no cervical lymphadenopathy. Lungs: CLTAB Cardio: normal s 1 and 2s, RRR Abdomen: Soft, distended, no palpable masses, peristalsis present, no guarding or rebound. Extremities: Symmetrical, no significant deformities, 1+ peripheral edema , non-tender Skin: Pale, No rashes, no lesions, warm to touch. Objective Labs 03/03/25 04:36 03/03/25 04:36 Labs: Laboratory Results - last 24 hr 02/18/25 02/19/25 02/19/25 03:40 06:40 08:40 WBC RBC Hgb Hct MCV MCH MCHC RDW Std Deviation Plt Count Neut % (Auto) Lymph % (Auto) [place] % (Auto) Eos % (Auto) Baso % (Auto) Neut # (Auto) Lymph # (Auto) [place] # (Auto) Eos # (Auto) Baso # (Auto) Immature Gran # (Auto) Absolute Nucleated RBC Immature Gran % Nucleated RBC % PT INR Fibrinogen VBG pH VBG pCO2 VBG pO2 VBG O2 Sat (Pamela) VBG Base Excess Sodium Potassium Chloride Carbon Dioxide Anion Gap BUN Creatinine Estim Creat Clear Calc eGFR BUN/Creatinine Ratio Glucose Calculated Osmolality Lactic Acid Calcium Corrected Calcium Magnesium Total Bilirubin AST ALT Alkaline Phosphatase Lactate Dehydrogenase Total Protein Albumin Globulin Albumin/Globulin Ratio Pleural Color Pleural Appearance Pleural WBC Pleural RBC Pleural Polynuclear WBC Pleural Mononuclear WBC Pleural Total Protein Pleural LDH Pleural Glucose Pleural Amylase Hepatitis A IgM Ab Non Reactive Hep Bs Antigen Non Reactive Hep B Core IgM Ab Non Reactive Hepatitis C Antibody Non Reactive Misc Test Result Platelets confirmed Blood Type A Positive Antibody Screen NEGATIVE Crossmatch See Detail Blood Bank Wristband ID Yes Blood Bank Comment PLATP Ready 02/19/25 02/19/25 02/20/25 11:50 17:02 00:27 WBC 4.3 3.3 L RBC 2.49 L 2.20 L Hgb 7.6 L 6.8 L* Hct 20.6 L* 18.1 L* MCV 83 82 MCH 30.5 30.9 MCHC 36.9 37.6 H RDW Std Deviation 43.3 43.2 Plt Count 64 L 52 L Neut % (Auto) 83 H 84 H Lymph % (Auto) 14 13 [place] % (Auto) 1 1 Eos % (Auto) 0 1 Baso % (Auto) 0 0 Neut # (Auto) 3.6 2.8 Lymph # (Auto) 0.6 L 0.4 L [place] # (Auto) 0.1 0.0 Eos # (Auto) 0.0 0.0 Baso # (Auto) 0.0 0.0 Immature Gran # (Auto) 0.06 H 0.04 H Absolute Nucleated RBC 1.14 H 0.68 H Immature Gran % 1 H 1 H Nucleated RBC % 27 H 20 H PT 14.5 H INR 1.4 H Fibrinogen 98 L* VBG pH 7.53 VBG pCO2 30 L VBG pO2 65 H VBG O2 Sat (Pamela) 95 L VBG Base Excess 2 Sodium Potassium Chloride Carbon Dioxide Anion Gap BUN Creatinine Estim Creat Clear Calc eGFR BUN/Creatinine Ratio Glucose Calculated Osmolality Lactic Acid 1.1 Calcium Corrected Calcium Magnesium Total Bilirubin AST ALT Alkaline Phosphatase Lactate Dehydrogenase 319 H Total Protein Albumin Globulin Albumin/Globulin Ratio Pleural Color Yellow Pleural Appearance Hazy Pleural WBC 43 Pleural RBC 1000 Pleural Polynuclear WBC 70 Pleural Mononuclear WBC 30 Pleural Total Protein < 2.0 Pleural LDH 107 Pleural Glucose 158 Pleural Amylase < 20 Hepatitis A IgM Ab Hep Bs Antigen Hep B Core IgM Ab Hepatitis C Antibody Misc Test Result Platelets confirmed Platelets confirmed Blood Type Antibody Screen CrossHydrocisiontch Blood Bank Wristband ID Blood Bank Comment 02/20/25 06:20 WBC RBC Hgb 7.4 L Hct 20.7 L* MCV MCH MCHC RDW Std Deviation Plt Count Neut % (Auto) Lymph % (Auto) [place] % (Auto) Eos % (Auto) Baso % (Auto) Neut # (Auto) Lymph # (Auto) [place] # (Auto) Eos # (Auto) Baso # (Auto) Immature Gran # (Auto) Absolute Nucleated RBC Immature Gran % Nucleated RBC % PT INR Fibrinogen VBG pH VBG pCO2 VBG pO2 VBG O2 Sat (Pamela) VBG Base Excess Sodium 137 Potassium 3.2 L D Chloride 104 Carbon Dioxide 26.0 Anion Gap 7 BUN 30 H Creatinine 1.3 D Estim Creat Clear Calc 37.8 L eGFR 42 L BUN/Creatinine Ratio 23 H Glucose 123 H Calculated Osmolality 281 Lactic Acid Calcium 8.1 L Corrected Calcium 9.5 Magnesium 1.6 Total Bilirubin 3.4 H D AST 37 H ALT 19 Alkaline Phosphatase 54 Lactate Dehydrogenase Total Protein 3.8 L Albumin 2.3 L Globulin 1.5 L Albumin/Globulin Ratio 1.5 Pleural Color Pleural Appearance Pleural WBC Pleural RBC Pleural Polynuclear WBC Pleural Mononuclear WBC Pleural Total Protein Pleural LDH Pleural Glucose Pleural Amylase Hepatitis A IgM Ab Hep Bs Antigen Hep B Core IgM Ab Hepatitis C Antibody Misc Test Result Blood Type Antibody Screen CrossHydrocisiontch Blood Bank Wristband ID Blood Bank Comment ABG Interpretation ABG results: 02/19/25 17:02 VBG pH 7.53 VBG pCO2 30 L VBG pO2 65 H VBG Base Excess 2 Quality Measures Quality Measures sepsis Current suspected stage: ruled out Possible source: GI tract/intra- abdominal Blood cultures ordered: yes Antibiotic ordered: No Advance care planning discussed with:: patient Assessment & Plan Assessment Current Active Medications: Generic Name Dose Route Start Last Admin Trade Name Freq PRN Reason Stop Dose Admin Acetaminophen 650 mg 02/18/25 06:03 Acetaminophen Supp 650 Mg Supp NE 03/20/25 06:02 Q4HR PRN PAIN SCALE 1-3 (mild Acetaminophen 650 mg 02/18/25 09:38 02/18/25 12:01 Acetaminophen 325 Mg Tablet PO 03/20/25 09:37 650 mg Q6HR PRN Administration PAIN 1-6 (mild-mod Folic Acid 5 mg 02/20/25 10:30 Folic Acid Inj 1 Mg/0.2 Ml IVP 03/22/25 10:29 QDAY EULALIA Heparin Sodium (Porcine) 3,000 unit 02/19/25 12:43 02/20/25 00:37 Heparin Sod Inj 1000 Unit/Ml Vial 10 Ml INDWELLCAT 02/25/25 12:42 3,000 unit X1 PRN Administration DIALYSIS Octreotide Acetate 1,000 mcg/ 102 mls @ 5.1 mls/hr 02/18/25 23:15 02/19/25 22:00 Sodium Chloride IV 02/23/25 16:47 50 mcg/hr .Q20H EULALIA 5.1 mls/hr Administration Protocol 50 MCG/HR Norepinephrine/Dextrose 8 mg in 250 mls @ 7.656 mls/hr 02/19/25 04:09 02/20/25 10:00 Levophed In D5w 8mg/250ml IV 03/21/25 04:08 0.03 mcg/kg/min .Q24H PRN 4.593 mls/hr PER PROTOCOL Titration Protocol 0.05 MCG/KG/MIN Thiamine HCl 200 mg/ Sodium 52 mls @ 102.97 mls/hr 02/19/25 09:00 02/20/25 05:59 Chloride IV 02/22/25 08:59 102.97 mls/hr TID EULALIA Administration Amiodarone HCl/Dextrose 360 mg in 200 mls @ 16.667 mls/hr 02/19/25 15:33 02/20/25 04:16 Nexterone Ivpb IV 02/20/25 15:32 16.667 mls/hr .Q12H EULALIA Administration Potassium Chloride 20 meq in 100 mls @ 50 mls/hr 02/20/25 08:01 02/20/25 09:21 Kcl Ivpb IV 02/20/25 12:00 50 mls/hr Q2H EULALIA Administration Protocol Levothyroxine Sodium 150 mcg 02/19/25 06:00 02/20/25 06:01 Levothyroxine Inj 100 Mcg Vial IV 03/21/25 05:59 150 mcg ACBR EULALIA Administration Ondansetron HCl 4 mg 02/18/25 22:24 02/18/25 22:20 Ondansetron Inj 2 Mg/Ml Inj 2 Ml IV 03/20/25 22:23 4 mg Q8HR PRN Administration NAUSEA OR VOMITING Protocol Pantoprazole Sodium 40 mg 02/18/25 09:00 02/20/25 09:20 Pantoprazole Inj 40 Mg Vial IVP 03/20/25 08:59 40 mg BID EULALIA Administration Sucralfate 1 gm 02/19/25 14:00 02/20/25 06:00 Sucralfate Susp 1 Gm/10 Ml Udc PO 03/21/25 13:59 Not Given TID EULALIA Plan 79-year-old female with past medical history of A-fib (on Eliquis), ascending thoracic aorta aneurysm (4 cm on 07/2024), CHF (no echo on file), hypertension, hyperlipidemia, and hypothyroidism was admitted to the hospital on 02/18/2025 due to acute blood loss anemia in the setting of GI bleed. 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 s/p CRRT, one liter removed, another liter of fluid removed yesterday from thoracentesis >improved CO #A-fib ? Patient has a history of A-fib, takes Eliquis, stoppped in the setting of acute bleed ?[id number] score of 5 points indicating 7.2% risk of stroke per year - Was on afib with RVR, today she alternates between sinus and rate controlled afib, continue amiodarone drip #Hx of ascending thoracic aorta aneurysm ? On 07/2024 patient was found to have ascending thoracic aortic aneurysm measuring 4 cm ? Patient states that she follow-up with cardiothoracic surgeon as an outpatient who stated that this could be monitor for now every 6 months to 1-year ?Pending Chest CT #Hx of hypertension ? Patient has been hypotensive likely due hypovolemic shock Respiratory: #Pleural effusion ? Patient does not have any cough, fever, leukocytosis at this time -Stop antbiotics as no sgns of infection -Thoracentesis t4/2 draining 850ml -Ordered cytology -Lights criteria: Transudative, likely i the setting of RV failure, as she also has peripheral edema, and ascites likely from hepatic congestion Endo: #Hx of hypothyroidism ? Last TSH was 0.02 on 08/12/2024 ? Started patient on levothyroxine 150 mcg IV Renal: #ADITYA, prerenal ? Patient came in with creatinine of 2.8 and BUN of 73 from her baseline of creatinine of 1 -Minimal urine output, currently negative balance, we will obtain daily weghts ?Most likely prerenal in the setting of shock and blood loss ? Renally dose medications ? Avoid nephrotoxic agents -S/p one session CRRT #Hypomagnesemia, resolved GI: #Esophageal ulcers #Unknown foreign body in duodenal bulb with ulcer at base #Hematemesis #Hematochezia ?Patient complained of bloody bowel movements and bloody emesis for the past day -EGD showed esophageal ulcers, bleeding gastropathy, and an unknown foreign body in duodenal bulb with an ulcer at its base. GI specialist tried to retrieve the foreign body, but was unsuccessful as it was embedded in the tissue. ? Continue octreotide drip and pantoprazole 40 mg twice daily #Ascites #Cirrhosis ? Patient does have a history of a few glasses of wine every day in the past ? Liver ultrasound showed ascites and cirrhosis, evidenced on CT as well Hematology: #Acute blood loss anemia ? Patient came in with low hemoglobin was 6.5 and platelets of 76 ? This is most likely secondary to GI bleed in the setting esophageal ulcers and gastric mucosal bleed from methotrexate toxicity aggravated by duodenal foreign body with ulceration ? Bloody emesis and bowel movements stopped last night, continue to monitor, we will give one mre cryoprecipitate. - Started hgh dose folic acid in abscense of lecovorin availabilty #DIC ? Patient is INR was 1.6, fibrinogen 82, and D-dimer is 1690 -In the setting of massive transfusions #Lactic acidosis, resolved ? Patient came in with lactic acid of 2.8 and down trended to 1.7 Hospital Maintenance: Diet: NPO DVT ppx: held due to active bleed GI ppx: Pantoprazole 40 mg BID IV lines: PIV, CIV ([facility]) Acuña: acuña cath Code status: DNR Dispo: ICU for monitoringcute blood loss anemia Attending Provider Attestation/Addendum Patient seen and examined with the above resident, Deb Kidd MD. I agree with the findings, assessment, and plan of care as documented except for any differences below. Patient with short period of vasopressor requirements. Adequate volume/ blood product resuscitation. Respiratory status improved with thoracentesis ad optimization of cardiac output. Favor mixed cardiac and hypovolemic shocks over true septic shock. Her mentation has significantly improved though her sons have been helping make decisions for her. She continues to rapidly improve and further review of medications suggest that this acute GI bleed may have been related to MTX. She has been on Cosentyx and MTX for years but mucosal disease has been well documented with MTX toxicity. We do not have leucovorin and she has no evidence of gross mucositis or leukopenia warranting rescue therapy but folate supplementation will be done aggressively to help recovery. Suspect that foreign object may not be in fact related to bleed as described by GI. Nonetheless at some point she will need to have this readdressed with improving clinical status in coming days. May need to also transition to HD at some point as well. Favor ADITYA from shock state and hypoperfusion though volume overload lead to acute diastolic dysfunction and congestion. Respiratory status significantly improved now. Total critical care time: I personally spent 40 minutes for review of physiologic parameters, directing plan of care, coordination of care with other subspecialists, and counseling patient at bedside. This is exclusive of time spent teaching housestaff or performing any separate billable procedure. Patient continues to require critical care services for cardiogenic/ hemorrhagic shock, upper GI bleed, and acute renal failure. She remains at significant risk of further morbidity and mortality warranting close monitoring and management only available in the ICU.
[2025-02-20] MEDS: FOLIC ACID INJ 1 MG/0.2 ML 5 MG IVP (11:19)
--- NOTE | 2025-02-20 13:00 | PC.NURSE ---
Notified MD Oseguera of pt dark red bloody stools. Total of 3 since AM. Clarrified if wanted repeat H and H. Per Ana Rosa no need for CBC until AM.
--- NOTE | 2025-02-20 16:03 | PC.SS ---
Update: Patient on 1L nasal cannula. Patient had CT of abdomen today. Patient is NPO. Patient on pressor support. Blood pressure on lower side.
[2025-02-20] MEDS: SUCRALFATE SUSP 1 GM/10 ML UDC PO ×2 (16:28→21:52)
--- NOTE | 2025-02-20 16:43 | XR_ITS ---
Examination: CT chest, without intravenous contrast. CT abdomen, without intravenous contrast. CT pelvis, without intravenous contrast. 2-D sagittal and coronal reconstructions. 3-D reconstructions. Date and time of exam:February 20, 2025 0848 hours Comparison 08/12/2024 INDICATIONS: CT scan chest 08/12/2024 4 cm aneurysmal dilatation ascending thoracic aorta CTDI vol (mgy) 7.71 DLP (MGycm)595 Technique: Multiple CT images, 3.0 mm slice thickness, obtained chest, abdomen, pelvis, with the high-resolution 64 slice scanner.. Sagittal and coronal 2-D reconstructions are obtained. 3-D reconstructions Low dose protocols were performed. One or more of the following dose reduction techniques were used; automated exposure control, adjustment of the mA and/or KV according to patient size, use of iterative reconstruction technique. Findings: AP dimension ascending thoracic aorta 4 cm Again noted fluid around the ascending thoracic aorta measuring up to 12 mm in thickness consistent with intramural hematoma No mediastinal lymphadenopathy Bibasilar opacity consistent with pneumonia with small to moderate right pleural effusion mild left pleural effusion Cirrhosis, liver irregular in contour with moderate ascites Hyperdense gallbladder No pancreatic mass No hydronephrosis IMPRESSION: Mild aneurysmal dilatation ascending thoracic aorta There remains fluid around the ascending thoracic aorta measuring up to 12 mm in thickness, differential again would include intramural hematoma, clinical correlation advised Bibasilar pneumonia with pleural fluid Cirrhosis Moderate ascites
--- NOTE | 2025-02-20 20:39 | PD.IMPROG ---
Documentation for date of: 02/20/25 Subjective Subjective Interval history: Bleeding has slowed down latest hemoglobin 7.4 and 20.7 Exam Vital Signs Temp Pulse Resp BP Pulse Ox O2 Del Method O2 Flow Rate 97.5 F 98 15 106/61 99 Nasal Cannula 1 02/20/25 16:00 02/20/25 18:12 02/20/25 18:00 02/20/25 18:12 02/20/25 18:00 02/20/25 16:00 02/20/25 16:00 Objective Labs 02/20/25 06:20 02/20/25 06:20 Labs: Laboratory Results - last 24 hr 02/18/25 02/20/25 02/20/25 03:40 00:27 06:20 WBC 3.3 L RBC 2.20 L Hgb 6.8 L* 7.4 L Hct 18.1 L* 20.7 L* MCV 82 MCH 30.9 MCHC 37.6 H RDW Std Deviation 43.2 Plt Count 52 L Neut % (Auto) 84 H Lymph % (Auto) 13 [place] % (Auto) 1 Eos % (Auto) 1 Baso % (Auto) 0 Neut # (Auto) 2.8 Lymph # (Auto) 0.4 L [place] # (Auto) 0.0 Eos # (Auto) 0.0 Baso # (Auto) 0.0 Immature Gran # (Auto) 0.04 H Absolute Nucleated RBC 0.68 H Immature Gran % 1 H Nucleated RBC % 20 H Sodium 137 Potassium 3.2 L D Chloride 104 Carbon Dioxide 26.0 Anion Gap 7 BUN 30 H Creatinine 1.3 D Estim Creat Clear Calc 37.8 L eGFR 42 L BUN/Creatinine Ratio 23 H Glucose 123 H Calculated Osmolality 281 Calcium 8.1 L Corrected Calcium 9.5 Magnesium 1.6 Total Bilirubin 3.4 H D AST 37 H ALT 19 Alkaline Phosphatase 54 Total Protein 3.8 L Albumin 2.3 L Globulin 1.5 L Albumin/Globulin Ratio 1.5 Misc Test Result Platelets confirmed Blood Type A Positive Antibody Screen NEGATIVE Crossmatch See Detail Blood Bank Wristband ID Yes Blood Bank Comment PLATP Ready Impressions Impression: Esophageal ulceration Diffuse mucosal oozing of bleeding secondary to DIC improving Continue supportive care ABG Interpretation ABG results: 02/19/25 17:02 VBG pH 7.53 VBG pCO2 30 L VBG pO2 65 H VBG Base Excess 2 Assessment & Plan A&P Narrative # Coffee-ground hematemesis # Hematochezia # Acute posthemorrhagic anemia # Hypotension # Atrial fibrillation with RVR # Chronic liver disease plan Move the patient to ICU as she is on amiodarone drip and critically sick Consent obtained for fiberoptic esophagogastroduodenoscopy for possible therapeutic intervention under intravenous moderate sedation Cannot do a CTA abdomen pelvis because of the elevated BUN/creatinine at 81 and 2.8 If EGD is negative we will consider doing a fiberoptic endoscopy if the patient cannot tolerate the prep Thank you for the opportunity to participate in this patient Time Spent With Patient Time: Total time spent is greater than 50% in coordination of care (as documented) at patient's floor/unit and/or counseling patient:
[2025-02-20] MEDS: OCTREOTIDE ACET INJ 1,000 MCG in SODIUM CHLORIDE 0.9% 100 ML 5.1 MCG IV (21:31)
[2025-02-21] VITALS (103 sets, daily range): BP systolic 91–125; BP diastolic 54–92; PULSE 70–116; RESP 11–32; TEMP 36.1–36.8; O2SAT 95–100; BMI 30.1
[2025-02-21 05:43] LABS: Basophils % (Auto) 0 % (0-2.5); Eosinophils # (Auto) 0.1 Thou/mm3 (0.0-0.5); Eosinophils % (Auto) 3 % (0-10); Hematocrit 20.9 % (36.0-46.0); Immature Granulocytes % (Auto) 1 % (0-0); Immature Granulocytes Auto 0.04 Thou/mm3 (0.00-0.00); Lymphocytes # (Auto) 0.8 Thou/mm3 (1.0-4.8); Lymphocytes % (Auto) 27 % (10-50); Mean Corpuscular HGB Conc 35.9 g/dl (31.0-37.0); Mean Corpuscular Hemoglobin 30.5 pg (25.0-35.0); Mean Corpuscular Volume 85 fL (80-100); Monocytes # (Auto) 0.1 Thou/mm3 (0.0-0.8); Monocytes % (Auto) 2 % (0-12); Neutrophils % (Auto) 67 % (37-80); Nucleated Red Blood Cell # 0.21 Thou/mm3 (0.00-0.00); Nucleated Red Blood Cell % 7 /100 WBC (0); RDW Standard Deviation 46.9 fL (36.4-46.3); Red Blood Count 2.46 Miln/mm3 (4.00-5.20)
[2025-02-21 05:44] LABS: Hemoglobin 7.5 g/dL (12.0-16.0); Platelet Count 35 Thou/mm3 (140-440)
[2025-02-21 05:45] LABS: White Blood Count 2.9 Thou/mm3 (3.6-11.0)
[2025-02-21 05:46] LABS: Slide Review Platelets confirmed
[2025-02-21 06:19] LABS: Alanine Aminotransferase 20 U/L (10-49); Albumin, Serum 2.5 gm/dL (3.4-4.8); Albumin/Globulin Ratio 1.5 (1.2-2.2); Alkaline Phosphatase 61 U/L (46-116); Anion Gap 9 (7-16); Aspartate Amino Transferase 34 U/L (0-34); BUN/Creatinine Ratio 23 Ratio (12-20); Bilirubin,Total 1.9 mg/dL (0.3-1.2); Blood Urea Nitrogen 42 mg/dL (9-23); Calcium 8.1 mg/dL (8.3-10.6); Calcium (Corrected) 9.3 mg/dL (8.5-10.1); Carbon Dioxide 24.9 mMol/L (20.0-31.0); Chloride 102 mMol/L (98-107); Creatinine (Component) 1.8 mg/dL (0.6-1.3); Estimated Creatinine Clearance 26.4 mL/min (>60); Globulin 1.7 gm/dL (2.3-3.5); Glucose 128 mg/dL (74-106); Magnesium 1.6 mg/dL (1.6-2.6); Osmolality,Calculated 284 (275-295); Potassium 3.7 mMol/L (3.4-5.1); Sodium 136 mMol/L (136-145); Total Protein 4.2 gm/dL (5.7-8.2); eGFR 28 See Note
[2025-02-21] MEDS: LEVOTHYROXINE INJ 100 mCg VIAL 150 MCG IV (06:43)
[2025-02-21] MEDS: SUCRALFATE SUSP 1 GM/10 ML UDC PO ×3 (06:44→21:07)
[2025-02-21] MEDS: THIAMINE INJ 200 MG in SODIUM CHLORIDE 0.9% 50 ML 102.97 MG IV ×3 (06:44→21:07)
[2025-02-21] MEDS: AMIODARONE 360 MG IVPB 360 MG/200 ML BAG 16.667 MG IV (07:43)
--- NOTE | 2025-02-21 08:47 | PD.RESPRO ---
Documentation for date of: 02/21/25 Subjective Subjective Interval history: 79-year-old female with past medical history of A-fib (on Eliquis), ascending thoracic aorta aneurysm (4 cm on 07/2024), CHF (no echo on file), hypertension, hyperlipidemia, and hypothyroidism was admitted to the hospital on 02/18/2025 due to acute blood loss anemia in the setting of GI bleed. ICU was consulted for closer monitoring of patient's hemoglobin as well as A-fib with RVR. In the ED patient came in with complaints of 1 to 2 weeks of dark stools with worsened to bloody diarrhea for the past 2 days as well as 1 episode of bloody vomiting yesterday. Patient is a very poor historian and stated that in December she was at [facility] due to a ground-level fall and that she had an endoscopy done during this admission, but she does not have any results of these. She mentioned that she was also supposed to have a colonoscopy done, but that she did not have good bowel prep therefore was not done. She denies taking any ibuprofen or any steroids as of recently and has only been taking Tylenol. She did mention that she had a prior endoscopy with a GI specialist, but there is no results from previous endoscopies or colonoscopy. Patient states she had weight gain from 140s to 160s recently. She denied any fever, chest pain, headache, abdominal pain, or history of cancer. In the ED patient was found to have A-fib with RVR on EKG and she was started on amiodarone drip. Patient received a total of 1 FFP, 2 PRBCs, and 2 platelets today, but she had a large bloody bowel movement after the transfusion and on repeat hemoglobin her hemoglobin was 6.7 from 6.5 initially. ED course: Initially was hypotensive, tachycardic, and afebrile. Initial labs were significant for low hemoglobin (6.5), thrombocytopenia (76), increased INR (1.5), ADITYA (BUN 81 and creatinine 2.8), lactic acidosis (2.8), hypomagnesemia (1.5), hyperbilirubinemia (1.9), troponinemia (0.092), elevated BNP (1414), and procalcitonin was elevated to 1.3. Initial imaging included EKG which showed A-fib with RVR and chest x-ray that showed mild heart failure, mild pneumonia of right base, and left pleural effusion. 02/19/2025: Patient was seen and examined at bedside this morning. Overnight patient became hypotensive therefore she was placed on low-dose of Levophed peripherally around 4 AM to maintain her MAP above 65. Overnight patient also became a little delirious and combative therefore she was given Ativan 1mg x 1. Upper endoscopy done last night by GI specialist showed that patient had esophageal ulcers, presence of large amounts of blood in the body of the stomach with mucosal oozing of blood as well as a foreign body in the duodenal bulb with ulcer at its base. GI specialist to try to retrieve this foreign body, but it was embedded and was unsuccessful given that there was high risk of perforation. This morning patient was very lethargic and somewhat confused. Given that the patient was on Levophed at this time and that her blood pressures were just hanging around a MAP of 65 and that she had minimal urine output overnight with worsening kidney function, decision was made to place a central line as an access for vasopressors and for CRRT. Given that the patient had ongoing bleed and that it is unknown the last time patient took her Eliquis PCC was given 2000 units x 1, patient also received 10 mg of vitamin K additionally yesterday evening. Given that patient had ongoing bleed DIC panel was ordered and showed elevated D-dimer at 1690, low fibrinogen at 82, and elevated INR at 1.6. At the time of planning to place a central line patient's family members were not reachable to get consent therefore emergent consent was done for central line and central line was successfully placed in the morning. Patient's family members were then reachable and consented to thoracentesis and arterial line. Given that patient had a left pleural effusion and there was suspicion that there could be a esophageal ulcer that had perforated a thoracentesis when needed to rule out. An arterial line at this time was deferred given that patient's blood pressure did improve after central line placement. Sweeper Brush Maker Machine started the patient on CRRT given fluid overload status and worsening kidney function. Throughout the day patient had multiple episodes of bloody emesis as well as bright red blood per rectum. Patient at the time of this note has already had 6 PRBCs, 2 FFP's, and 3 units of platelets transfused and hemoglobin is still below 7 consistently. While patient was undergoing CRRT she will have 1 extra unit of FFP to be transfused. Will plan for PT with INR, fibrinogen, CBC, lactic acid, and VBG at 4 PM today to continue monitoring. Will update patient's family throughout the course. 02/20/2025: Patient off pressors as of this morning, has one more episode of bloody bowel movement, small yesterday around 7 pm, no more overnight or this AM. Received one more unit of blood last night, totaling 7 thoughout admission, Hemoglobin stable a 7.4, no active signs of bleeding currrently. Upon review of patients medications, realized patient is taking methotrexate for RA, which could be the cause of esophageal ulcers and GI bleed (aggravated by foreign body). 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 We are starting high dose folic acid since the hospital doesnt carry leucovorin. And methorexate needs to be stopped upon DC due to toxicity. DIC yesterday was most likley in the setting of massive transfusions. 02/21/2025: Patient seen and examined at bedside this morning. Patient was doing a lot better today and was more communicative and was AO x 3. She did have 2 small bowel movements which were bloody today in the morning and notes stated that yesterday she had a total of 4 bowel movements. Hemoglobin was stable today at 7.5 and platelets were low at 35. Otherwise patient's blood pressure has been stable and she has been off pressors since yesterday. Will transfuse 1 unit of PRBC and 1 units of platelets, but at the same time we gave patient Lasix 80 mg to diurese. Patient unfortunately did not produce much urine and therefore will require hemodialysis. Will discontinue amiodarone, octreotide, and will transition to p.o. amiodarone 200 twice daily. Also started patient on diet full liquid diet. Ordered CXR to asses pleural effusion and Abd XR to see if foreign body moved. Exam Vital Signs Temp Pulse Resp BP Pulse Ox O2 Del Method O2 Flow Rate 98.1 F 95 19 107/66 100 Nasal Cannula 2 02/21/25 04:00 02/21/25 07:43 02/21/25 07:15 02/21/25 07:43 02/21/25 07:15 02/21/25 04:00 02/21/25 04:00 Narrative Exam General: A/O x3, pale, frail elderly female Eyes: L pupil reactive to light, R pupil unresponsive to light, EOMI. Anicteric, vision grossly intact in L eye, but impaired vision R. Ears: No ear pain, no ear discharge, Hearing grossly intact. Nose: No nasal discharge. Mouth/Throat: Dry mucous membranes, no redness, no lesions. Neck: Neck supple, non-tender, no cervical lymphadenopathy. Lungs: Clear in R side and L upper lobe, mild crackles in L lower lobe, No accessory muscle use. Cardio: Normal S1/S2, irregular rhythm, no murmurs, no JVD Abdomen: Soft, but significantly distended still, no palpable masses, peristalsis present, no guarding or rebound. Extremities: Symmetrical, no significant deformities, 2+ peripheral edema , non-tender, peripheral pulses presents. Skin: Pale, No rashes, no lesions, warm to touch. Neuro: no focal neurological deficits. motor and sensory intact. Objective Labs 03/03/25 04:36 03/03/25 04:36 Labs: Laboratory Results - last 24 hr 02/18/25 02/20/25 02/21/25 03:40 09:19 04:46 WBC 2.9 L RBC 2.46 L Hgb 7.5 L Hct 20.9 L* MCV 85 MCH 30.5 MCHC 35.9 RDW Std Deviation 46.9 H Plt Count 35 L D Neut % (Auto) 67 Lymph % (Auto) 27 Dewey % (Auto) 2 Eos % (Auto) 3 Baso % (Auto) 0 Neut # (Auto) 2.0 Lymph # (Auto) 0.8 L Dewey # (Auto) 0.1 Eos # (Auto) 0.1 Baso # (Auto) 0.0 Immature Gran # (Auto) 0.04 H Absolute Nucleated RBC 0.21 H Immature Gran % 1 H Nucleated RBC % 7 H Sodium 136 Potassium 3.7 D Chloride 102 Carbon Dioxide 24.9 Anion Gap 9 BUN 42 H Creatinine 1.8 H D Estim Creat Clear Calc 26.4 L eGFR 28 L BUN/Creatinine Ratio 23 H Glucose 128 H Calculated Osmolality 284 Calcium 8.1 L Corrected Calcium 9.3 Magnesium 1.6 Total Bilirubin 1.9 H D AST 34 ALT 20 Alkaline Phosphatase 61 Total Protein 4.2 L Albumin 2.5 L Globulin 1.7 L Albumin/Globulin Ratio 1.5 Misc Test Result Platelets confirmed Blood Type Cancelled Antibody Screen Cancelled Crossmatch See Detail Blood Bank Wristband ID Cancelled Blood Bank Comment PLATP Ready Cancelled ABG Interpretation ABG results: 02/19/25 17:02 VBG pH 7.53 VBG pCO2 30 L VBG pO2 65 H VBG Base Excess 2 Quality Measures Quality Measures sepsis Current suspected stage: ruled out Possible source: GI tract/intra-abdominal Blood cultures ordered: yes Antibiotic ordered: No Advance care planning discussed with:: patient Assessment & Plan Assessment Current Active Medications: Generic Name Dose Route Start Last Admin Trade Name Freq PRN Reason Stop Dose Admin Acetaminophen 650 mg 02/18/25 06:03 Acetaminophen Supp 650 Mg Supp NV 03/20/25 06:02 Q4HR PRN PAIN SCALE 1-3 (mild Acetaminophen 650 mg 02/18/25 09:38 02/18/25 12:01 Acetaminophen 325 Mg Tablet PO 03/20/25 09:37 650 mg Q6HR PRN Administration PAIN 1-6 (mild-mod Folic Acid 5 mg 02/20/25 10:30 02/20/25 11:19 Folic Acid Inj 1 Mg/0.2 Ml IVP 03/22/25 10:29 5 mg QDAY EULALIA Administration Heparin Sodium (Porcine) 3,000 unit 02/19/25 12:43 02/20/25 00:37 Heparin Sod Inj 1000 Unit/Ml Vial 10 Ml INDWELLCAT 02/25/25 12:42 3,000 unit X1 PRN Administration DIALYSIS Octreotide Acetate 1,000 mcg/ 102 mls @ 5.1 mls/hr 02/18/25 23:15 02/20/25 21:31 Sodium Chloride IV 02/23/25 16:47 50 mcg/hr .Q20H EULALIA 5.1 mls/hr Administration Protocol 50 MCG/HR Norepinephrine/Dextrose 8 mg in 250 mls @ 7.656 mls/hr 02/19/25 04:09 02/21/25 04:45 Levophed In D5w 8mg/250ml IV 03/21/25 04:08 0 mcg/kg/min .Q24H PRN 0 mls/hr PER PROTOCOL Titration Protocol 0.05 MCG/KG/MIN Thiamine HCl 200 mg/ Sodium 52 mls @ 102.97 mls/hr 02/19/25 09:00 02/21/25 06:44 Chloride IV 02/22/25 08:59 102.97 mls/hr TID EULALIA Administration Amiodarone HCl/Dextrose 360 mg in 200 mls @ 16.667 mls/hr 02/20/25 16:55 02/21/25 07:43 Nexterone Ivpb IV 02/21/25 16:54 16.667 mls/hr .Q12H EULALIA Administration Albumin Human 12.5 gm in 50 mls @ 100 mls/hr 02/21/25 08:29 Albuminar-25 Ivpb IV 02/23/25 09:29 QDAY EULALIA Levothyroxine Sodium 150 mcg 02/19/25 06:00 02/21/25 06:43 Levothyroxine Inj 100 Mcg Vial IV 03/21/25 05:59 150 mcg ACBR EULALIA Administration Ondansetron HCl 4 mg 02/18/25 22:24 02/18/25 22:20 Ondansetron Inj 2 Mg/Ml Inj 2 Ml IV 03/20/25 22:23 4 mg Q8HR PRN Administration NAUSEA OR VOMITING Protocol Pantoprazole Sodium 40 mg 02/18/25 09:00 02/20/25 21:31 Pantoprazole Inj 40 Mg Vial IVP 03/20/25 08:59 40 mg BID EULALIA Administration Sucralfate 1 gm 02/19/25 14:00 02/21/25 06:44 Sucralfate Susp 1 Gm/10 Ml Udc PO 03/21/25 13:59 1 gm TID EULALIA Administration Plan 79-year-old female with past medical history of A-fib (on Eliquis), ascending thoracic aorta aneurysm (4 cm on 07/2024), CHF (no echo on file), hypertension, hyperlipidemia, and hypothyroidism was admitted to the hospital on 02/18/2025 due to acute blood loss anemia in the setting of GI bleed. ICU was consulted for closer monitoring of patient's hemoglobin as well as A-fib with RVR. 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 -Required levophed for 24 hrs, but now off pressors for the last 24 hours -Low cardiac otput state from RV failure in the setting of volume overload from massive transfusions, and fluids which improved after CRRT 1 L was removed as well as thoracentesis was removed around 1 L as well.. #A-fib with RVR ? Patient has a history of A-fib with RVR and was on diltiazem as well as Eliquis ? EKG today showed A-fib with RVR in the ER and repeat EKG at this afternoon still showed A-fib with RVR. ?[id number] score of 5 points indicating 7.2% risk of stroke per year ?HAS-BLED score of 4 points indicating high risk of major bleed ?Holding off any anticoagulation for now in the setting of active bleed ?Transition to p.o. amiodarone 200 twice daily, but need to reevaluate prior to discharge #NSTEMI most likely type II demand ischemia ? Patient came in with troponins of 0.092 and went up to 0.106 ? There is most likely NSTEMI type II in the setting of blood loss ? Conduit Installer did not think this is ACS at this time #Hx of CHF ? Patient states that she has a history of heart failure, but there is no echo on file ? Patient appears to be fluid overloaded with bilateral pitting edema ? BNP initially was elevated at 1414 ? Echo showed EF 55-60% -CRRT on 02/19/2025 to take out fluid ?Will get hemodialysis to address fluid overload status as patient is not producing urine #Hx of ascending thoracic aorta aneurysm ? On 07/2024 patient was found to have ascending thoracic aortic aneurysm measuring 4 cm ? Patient states that she follow-up with cardiothoracic surgeon as an outpatient who stated that this could be monitor for now every 6 months to 1-year ?CT showed stable aneuryms -Recommend outpatient F/U #Hx of hypertension ? Patient has been hypotensive likely due to acute blood loss ? Will hold off on antihypertensive medications for now given hypotension and blood loss Respiratory: #Right base pneumonia #Left pleural effusion ? Patient does not have any cough or fevers at this time. ? Initial Chest x-ray that shows some right base pneumonia as well as some left pleural effusion. ?Rocephin and azithromycin [02/18/2025?02/20/2025] -Successful Thoracentesis 02/19/2025 draining 850ml -Pending cultures Endo: #Hx of hypothyroidism ? Last TSH was 0.02 on 08/12/2024 ? Continue patient on levothyroxine 150 mcg IV Renal: #ADITYA, prerenal ? Patient came in with creatinine of 2.8 and BUN of 73 from her baseline of creatinine of 1 ?Most likely prerenal in the setting of hypotension and blood loss vs postrenal due to congestive hepatopathy - minimal urine output ? Renally dose medications ? Avoid nephrotoxic agents -S/P CRRT 02/19/2025 ?Patient will undergo hemodialysis today [02/21/2025] #Hypomagnesemia, resolved GI: #Esophageal ulcers #Gastropathy #Unknown foreign body in duodenal bulb with ulcer at base #Hematemesis #Hematochezia ?Patient complained of bloody bowel movements and bloody emesis for the past day -EGD showed esophageal ulcers, bleeding gastropathy, and an unknown foreign body in duodenal bulb with an ulcer at its base. GI specialist tried to retrieve the foreign body, but was unsuccessful as it was embedded in the tissue. ? Continue pantoprazole 40 mg twice daily #Ascites #Cirrhosis ? Patient's abdomen still significantly distended ? Patient does have a history of a few glasses of wine every day in the past ? Liver ultrasound showed ascites and cirrhosis Hematology: #Acute blood loss anemia #Thrombocytopenia ? Patient came in with low hemoglobin was 6.5 and platelets of 76 ? This is most likely secondary to GI bleed in the setting of methotrexate toxicity ?-Patient continues to have some bloody BM, but no more emesis. -Patient has received a total of 7 PRBCs, 3 platelets, and 3 FFP at the time of this note. -Will be transfused 1 platelet and 1 PRBC today #DIC ? Patient is INR was 1.6, fibrinogen 82, and D-dimer is 1690 ? Likely in the setting of massive transfusion #Lactic acidosis, resolved Hospital Maintenance: Diet: full liquid diet DVT ppx: held due to active bleed GI ppx: Pantoprazole 40 mg BID IV lines: PIV, CIV ([facility]) Acuña: acuña cath Code status: DNR Dispo: ICU for monitoring Acute blood loss anemia Case disclosed with Attending Dr. Ana Rosa Mendez PGY1 Attending Provider Attestation/Addendum Patient seen and examined with the above resident, Ulises Mendez MD. I agree with the findings, assessment, and plan of care as documented except for any difference below. Patient with continued slow improvement. Remains off MTX, continue on folate replacement. No further transfusion required at this time. PLTs above 20K with no active bleeding, hold transfusion for now. Allow for BM to replenish. Can give iron supplementation as well now that infection effectively excluded. Start on liquid diet today, tolerated clear liquids this AM. Dark stools still but no BRBPR anymore. Patient off octreotide now, 72 hours and though cirrhosis suggested on imaging clinically less likely. PPI to be continued. Foreign object to be followed by serial imaging now. Atrial fibrillation also improved with ability to transition from gtt to PO amiodarone now. Now lingering EOD appears to be renal, we did challenge today with lasix, second dose given after nephrology attempted this AM. In short-term for fluid management, she will likely remain on intermittent HD. Will perform session in ICU prior to transfer to floor. Best to give blood products during treatments. Off pressors eliminating need for Tablo now. Total critical care time: I personally spent 40 minutes for review of physiologic parameters, directing plan of care, coordination of care with other specialists, and counseling patient at the bedside. This is exclusive of time spent teaching housestaff or performing any seperate billable procedures. Patient continues to require critical care services for atrial fibrillation with RVR, GI hemorrhage, and acute renal failure. She remains at significant risk for further morbidity and mortality warranting close monitoring in the ICU.
[2025-02-21] MEDS: DiphenhydrAMINE 25 MG CAPSULE PO (09:04)
[2025-02-21] MEDS: FUROSEMIDE INJ 10 MG/ML VIAL 2 ML 20 MG IVP (09:04)
[2025-02-21] MEDS: ACETAMINOPHEN 325 MG TABLET 650 MG PO (09:04)
[2025-02-21] MEDS: ALBUMIN HUMAN 25% IVPB 12.5 GM/50 ML BTL IV (09:05)
[2025-02-21] MEDS: PANTOPRAZOLE INJ 40 MG VIAL IVP ×2 (09:05→21:04)
--- NOTE | 2025-02-21 09:59 | XR_ITS ---
Examination: AP chest single view Technique one AP portable upright chest single view Exam date and time: February 21, 2025 1041 hours Comparison February 19, 2025 INDICATIONS: Shortness of breath today. FINDINGS: Mild CHF Mild to moderate enlargement cardiac contour Left internal jugular dialysis catheter tip SVC Opacity right base, consider superimposed pneumonia Prominent osteopenia Left axillary surgical clips IMPRESSION: Mild CHF Probable pneumonia, mild right base
--- NOTE | 2025-02-21 09:59 | XR_ITS ---
Examination: Abdomen AP single view Technique: AP portable supine abdomen, single view Exam date and time: 10/23/2025 1040 hours INDICATIONS: Ingestion foreign body history IMPRESSION: Foreign body remains in the right abdomen Mild small bowel ileus No free air IMPRESSION: Positive for 21 mm opaque foreign body in the right abdomen
[2025-02-21 10:55] LABS: Ferritin 228 ng/mL (7.3-270.7); Iron 175 mcg/dL (50-170); Percent Iron Saturation 75 % (20-55); Total Iron Binding Capacity 233 mcg/dL (250-425); Unsaturated Iron Binding 58 (225-295)
[2025-02-21] MEDS: FOLIC ACID INJ 1 MG/0.2 ML 5 MG IVP (11:42)
[2025-02-21] MEDS: FUROSEMIDE INJ 10 MG/ML 4ML VIAL 80 MG IVP (11:42)
--- NOTE | 2025-02-21 13:15 | PD.RESPRO ---
Documentation for date of: 02/21/25 Subjective Subjective Interval history: Ms. Ayoub is a pleasant 79-year-old female with PMHx of A-fib on ELIQUIS( under Dr. Parrish), CHF, HTN, Hypothyroidism, CKD, RA on Enbrel brought in by ambulance following 1.5 days of dark/watery stool and rectal bleed. She noted 1 week of dark stool, followed by dark and watery diarrhea that approximately 2 days ago. Denied fall or trauma, fever, chills, abnormal weight loss or gain, palpitations, chest pain, shortness of breath, cough, abdominal pain, nausea or vomiting, dysuria or hematuria. She was admitted at [facility] and airlifted to [place] for GLF for which she sustained a right eye injury, currently being followed up by ophthalmology in [place]. She did not report any fracture or other injuries. At the time, endoscopy was done, patient unsure why but state was normal. They had recommended colonoscopy but she states unable to do prep as she lives alone at home. Additionally, she states she takes home LASIX but was discontinued during admission at [facility] for fall risk concerns. She reports 3 weeks of increased bilateral extremity swelling and shortness of breath despite using her home 3 L oxygen. ED COURSE: Afebrile, BP 82/66, HR 121, RR 18, satting 99% on 2 L. Hgb 6.5 (baseline 11.2), HCT 19, WBC 10.9. PT 15.8, INR 1.5, APTT 43.7. Creatinine 2.8 (baseline 1.0), BUN 81, EGFR 15.6 Lactic acid 2.8, troponin 0.092, BNP 1414. Sodium 133, magnesium 1.5, TB 1.9, AST 35, ALT normal 21, ALBUMIN 2.5, ammonia <10. Pro-Calc 1.3. EKG showed A-fib with RVR, HR 132. CXR mild right basilar pneumonia, mild CHF, left-sided pneumonia and pleural disease. ED initiated transfusion with 2 units PRBCs and 1 unit FFP's. Will admit to telemetry, continue OCTREOTIDE and PROTONIX. GI has been consulted. 02/19/2025 Patient was seen and examined in the ICU today. EGD was performed yesterday and it showed esophageal ulcers with large amount of blood in the body of the stomach down to the duodenal bulb. With a metallic structure thought to be a safety pin in the duodenal bulb. ICU team made multiple attempts to contact family to discuss goals of care. Patient became hemodynamically unstable needing pressors. Sick looking. Urine output very minimal. BUN and creatinine continues to rise. This morning her hemoglobin was 6.1. Needing more blood transfusions. Renal team decided to proceed with dialysis after talking to Dr. Oseguera. Due to hemodynamic instability decided to proceed with continuous and renal replacement therapy. Medications reviewed. Per Dr. Mendoza-gastrectomy has no role patient has been bleeding from several places. Patient will receive triple-lumen catheter for CRRT. 02/20/25 Patient was seen and examined in the ICU today. Patient tolerated CRRT well yesterday and received an additional 2 units of PRBC and 1 units of FFP. Patient's DIC panel was positive likely from massive blood transfusion. Hgb 7.4 today and patient did not have any more bloody bowel movements overnight. Createnine is 1.3 this morning. Will likely hold off from another session of CRRT for now. Pressor support has decreased. Prognosis is guarded. Patient made a DNR. Family was contacted. 02/21/2025 Examined at bedside in ICU. Renal function worsening overnight. eGFR 28 and CR 1.8. Likely related to poor perfusion secondary to anemia. Appears euvolemic on exam. Will give 1 unit pRBC, 1 unit PLT, ALBUMEN X1 and LASIX 20 mg X1. Will likely give another unit albumen tomorrow. Remains hemodynamically stable. D/C acuña and continue with purewick. Denies fever, chills, headaches, chest pain, sob, cough, GI or urinary symptoms. Exam Vital Signs Temp Pulse Resp BP Pulse Ox O2 Del Method O2 Flow Rate 97.5 F 95 18 121/71 99 Nasal Cannula 1 02/21/25 12:19 02/21/25 12:19 02/21/25 12:19 02/21/25 12:19 02/21/25 12:19 02/21/25 08:00 02/21/25 12:19 Narrative Exam Constitutional: Elderly female sick looking-more alert today Head: Pale conjunctiva ENMT: Dry mucous Membranes, No trauma or injury. Neck: Supple to palpation, No JVD CVS: Irregular S1 and S2 present, no murmurs, rubs or gallops . RESP: Decreased breath sounds GI: Distended but nontender with no guarding or rebound tenderness. MSK: Full range of motion, No trauma or deformities or masses. trace pitting edema bilaterally on lower extremities and upper extremities Skin: Warm to touch, Dry. No rashes or lesions. No hematomas Psych: (AAO) x 2. More awake and alert today, responding to questions. Objective Labs 02/23/25 04:29 02/23/25 04:29 Labs: Laboratory Results - last 24 hr 02/18/25 02/20/25 02/21/25 03:40 09:19 04:46 WBC 2.9 L RBC 2.46 L Hgb 7.5 L Hct 20.9 L* MCV 85 MCH 30.5 MCHC 35.9 RDW Std Deviation 46.9 H Plt Count 35 L D Neut % (Auto) 67 Lymph % (Auto) 27 [place] % (Auto) 2 Eos % (Auto) 3 Baso % (Auto) 0 Neut # (Auto) 2.0 Lymph # (Auto) 0.8 L [place] # (Auto) 0.1 Eos # (Auto) 0.1 Baso # (Auto) 0.0 Immature Gran # (Auto) 0.04 H Absolute Nucleated RBC 0.21 H Immature Gran % 1 H Nucleated RBC % 7 H Sodium 136 Potassium 3.7 D Chloride 102 Carbon Dioxide 24.9 Anion Gap 9 BUN 42 H Creatinine 1.8 H D Estim Creat Clear Calc 26.4 L eGFR 28 L BUN/Creatinine Ratio 23 H Glucose 128 H Calculated Osmolality 284 Calcium 8.1 L Corrected Calcium 9.3 Magnesium 1.6 Iron 175 H TIBC 233 L Iron Saturation 75 H Unsat Iron Binding 58 L Ferritin 228 Total Bilirubin 1.9 H D AST 34 ALT 20 Alkaline Phosphatase 61 Total Protein 4.2 L Albumin 2.5 L Globulin 1.7 L Albumin/Globulin Ratio 1.5 Misc Test Result Platelets confirmed Blood Type Cancelled Antibody Screen Cancelled Crossmatch See Detail Blood Bank Wristband ID Cancelled Blood Bank Comment PLATP Ready Cancelled 02/21/25 08:50 WBC RBC Hgb Hct MCV MCH MCHC RDW Std Deviation Plt Count Neut % (Auto) Lymph % (Auto) [place] % (Auto) Eos % (Auto) Baso % (Auto) Neut # (Auto) Lymph # (Auto) [place] # (Auto) Eos # (Auto) Baso # (Auto) Immature Gran # (Auto) Absolute Nucleated RBC Immature Gran % Nucleated RBC % Sodium Potassium Chloride Carbon Dioxide Anion Gap BUN Creatinine Estim Creat Clear Calc eGFR BUN/Creatinine Ratio Glucose Calculated Osmolality Calcium Corrected Calcium Magnesium Iron TIBC Iron Saturation Unsat Iron Binding Ferritin Total Bilirubin AST ALT Alkaline Phosphatase Total Protein Albumin Globulin Albumin/Globulin Ratio Misc Test Result Blood Type A Positive Antibody Screen NEGATIVE Crossmatch See Detail Blood Bank Wristband ID Yes Blood Bank Comment PLATP Ready ABG Interpretation ABG results: 02/19/25 17:02 VBG pH 7.53 VBG pCO2 30 L VBG pO2 65 H VBG Base Excess 2 Quality Measures Quality Measures sepsis Current suspected stage: ruled out Possible source: GI tract/intra-abdominal Blood cultures ordered: yes Antibiotic ordered: No Advance care planning discussed with:: patient Assessment & Plan Assessment Current Active Medications: Generic Name Dose Route Start Last Admin Trade Name Freq PRN Reason Stop Dose Admin Acetaminophen 650 mg 02/18/25 06:03 Acetaminophen Supp 650 Mg Supp [place] 03/20/25 06:02 Q4HR PRN PAIN SCALE 1-3 (mild Acetaminophen 650 mg 02/18/25 09:38 02/18/25 12:01 Acetaminophen 325 Mg Tablet PO 03/20/25 09:37 650 mg Q6HR PRN Administration PAIN 1-6 (mild-mod Amiodarone HCl 200 mg 02/21/25 21:00 Amiodarone Hcl 200 Mg Tablet PO 03/23/25 20:59 BID EULALIA Folic Acid 5 mg 02/20/25 10:30 02/21/25 11:42 Folic Acid Inj 1 Mg/0.2 Ml IVP 03/22/25 10:29 5 mg QDAY EULALIA Administration Heparin Sodium (Porcine) 3,000 unit 02/19/25 12:43 02/20/25 00:37 Heparin Sod Inj 1000 Unit/Ml Vial 10 Ml INDWELLCAT 02/25/25 12:42 3,000 unit X1 PRN Administration DIALYSIS Norepinephrine/Dextrose 8 mg in 250 mls @ 7.656 mls/hr 02/19/25 04:09 02/21/25 04:45 Levophed In D5w 8mg/250ml IV 03/21/25 04:08 0 mcg/kg/min .Q24H PRN 0 mls/hr PER PROTOCOL Titration Protocol 0.05 MCG/KG/MIN Thiamine HCl 200 mg/ Sodium 52 mls @ 102.97 mls/hr 02/19/25 09:00 02/21/25 06:44 Chloride IV 02/22/25 08:59 102.97 mls/hr TID EULALIA Administration Albumin Human 12.5 gm in 50 mls @ 100 mls/hr 02/21/25 08:29 02/21/25 09:05 Albuminar-25 Ivpb IV 02/23/25 09:29 100 mls/hr QDAY EULALIA Administration Levothyroxine Sodium 150 mcg 02/19/25 06:00 02/21/25 06:43 Levothyroxine Inj 100 Mcg Vial IV 03/21/25 05:59 150 mcg ACBR EULALIA Administration Ondansetron HCl 4 mg 02/18/25 22:24 02/18/25 22:20 Ondansetron Inj 2 Mg/Ml Inj 2 Ml IV 03/20/25 22:23 4 mg Q8HR PRN Administration NAUSEA OR VOMITING Protocol Pantoprazole Sodium 40 mg 02/18/25 09:00 02/21/25 09:05 Pantoprazole Inj 40 Mg Vial IVP 03/20/25 08:59 40 mg BID EULALIA Administration Sucralfate 1 gm 02/19/25 14:00 02/21/25 06:44 Sucralfate Susp 1 Gm/10 Ml Udc PO 03/21/25 13:59 1 gm TID EULALIA Administration Plan In summary: 79-year-old female with PMHx of A-fib, CHF, HTN, presenting with 1 week of dark stool followed by roughly 2 days of black/watery diarrhea. Appreciate recommendations from Cardiology and GI teams. Worsening renal function today likely low perfusion 2/2 anemia. Will give 1 unit PRBC, 1 unit PLT, ALBUMEN x1, and LASIX 20 mg X1. Continue monitoring renal function. No HD today. Prerenal ADITYA--ischemic ATN Secondary to hypotension and acute blood loss. Creatinine 2.8 (baseline 1.0), BUN 81, EGFR 15.6 (baseline 57). ? Continue with transfusion. ? Gentle fluids given volume overload status. ? ALBUMEN as above ? Renally dose meds, avoid overdiuresis and NEPHROTOXINS ? Daily CMP ? Azotemia worsens-decreased urinary output. Patient with a significant fluid overload. Decided to proceed with CRRT owing to hemodynamic instability. - Triple-lumen line to be inserted for CRRT 02/21/25: Euvolemic on exam, CR slightly up at 1.8. Urine output 600 cc overnight. Will give 1 unit PRBC, 1 unit PLT, ALBUMEN x1, and LASIX 20 mg X1. Continue monitoring renal function. No HD today. Acute GI bleed anemia Hematochezia Rectal bleed Hypotension, tachycardia Presents with 1 week of rectal bleeding and dark stool. Has 2 days of watery diarrhea that is black, not foul-smelling. Denies fall, trauma, abdominal pain, nausea or vomiting, abnormal weight changes. Had normal endoscopy in December at [facility], recommended colonoscopy but unable to complete prep at home as she lives alone. A total of7 units of PRBCs have been transfused with 3 FFP's as well as 3 platelets EGD revealed esophageal ulcers with large amounts of blood as well as a metallic structure embedded in the duodenal bulb. CT showed intramural hematoma near thoracic aortic, old finding. Plan: ? Continue PROTONIX IV BID ? Continue n.p.o. ? Given 1 unit PRBC, 1 unit PLT, and ALBUMEN x1 ? Posttransfusion H&H ? Transfuse if Hgb less than 8. - Gen surgery does not recommend any intervention at this time until patient is more stable. Will follow up with recommendations ? Prognosis is guarded History of CHF, on home 3 L oxygen Lactic acidosis Low suspicion for pneumonia History of CHF, usually takes LASIX at home which was discontinued in December given concern for recurrent falls. Reports 3 weeks of lower extremity edema, has 2/3+ bilateral LE pitting edema and rales on lung exam. Given ALBUMIN X1 in ED. Less likely will tolerate fluids given overload status. Will give another ALBUMEN x1. CXR showed mild CHF, bibasilar pneumonia and left-sided pleural disease. However, low suspicion for pneumonia given she is asymptomatic, afebrile. Elevated PRO-ANGELY likely in setting of ADITYA and decreased clearance. Received CEFTRIAXONE x 1 in ED. Will continue to monitor ? Pending repeat lactic acid Q3H ? Pending echocardiogram ? ANTIBIOTICS NSTEMI, likely type II A-fib with RVR Likely demand ischemia. History of AFIB non ELIQUIS. EKG showed A-fib with RVR, HR 132. Currently asymptomatic without chest pain or shortness of breath. Vitals stable ? Hold ELIQUIS in setting of GI bleed. ? Continue AMIODARONE drip. ? Maintain K > 4.0 and Mg > 2.0 ? Pending cardiology recommendations ? Pending repeat troponin Q6H Hypomagnesemia Magnesium 1.5, potassium 3.5, repleted. ? Daily labs, replete as needed. Mild hyponatremia Sodium 133, likely volume loss secondary to diarrhea. ? Daily labs Mild total bilirubinemia Likely secondary to decreased renal clearance. Anticipate improvement with improved renal function. Denies abdominal pain, normal abdominal exam. No scleral icterus or jaundice. ? Daily labs Hypothyroidism Chronic, on home LEVO 200 mcg daily. Currently NPO ? Continue LEVOTHYROXINE 150 mcg IV ACBR Health maintenance Diet: NPO GI prophylaxis: PROTONIX DVT prophylaxis: C/I 2/2 GI bleed, cannot tolerate STDs given LE edema/tenderness. Will monitor closely Antibiotics: Not indicated CODE STATUS: Full Code Patient case was discussed with attending, Dr. Street. Belen West DO PGYI Attending Provider Attestation/Addendum Patient seen and examined with resident physician Dr. Bourgoeis. Note reviewed, agree with findings and recommendations with the changes made. Extremely sick looking patient currently seen in ICU. Continues blood loss anemia needing blood products. ADITYA in the setting of hypotension needing pressors, Fluid overload. Patient positive by more than 6 L. Hemoglobin this morning 7.1. Needs more blood transfusion. Did receive a CRRT yesterday. Noted ICU team discussed goals of care with sons-patient currently DNR. Reviewed labs and medications. With all the blood products patient went into fluid overload Urine output very minimal. Decided to proceed with the conventional dialysis. Critical care time spent more than 40 minutes regarding plan of care and disease management. Plan of care discussed with ICU team. 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 Patient on many minimal dose of pressor. Patient currently seen on dialysis. Tolerating dialysis without any problems. Hemodialysis for 3 hours, 2K, ultrafiltration 2-3 L, Epogen 6000, no heparin ordered. Plan of care discussed with the dialysis nurse. Please see dialysis flowsheet for further details.
--- NOTE | 2025-02-21 15:47 | PC.SS ---
Update: Patient receiving dialysis today. Patient on full liquid diet, tolerating. Patient is not receiving pressor support.
--- NOTE | 2025-02-21 15:52 | PC.NURSE ---
Toilet overflowing in room 257. Pt rinsed back and moved to room 252.
[2025-02-21 17:07] LABS: Basophils % (Auto) 0 % (0-2.5); Eosinophils # (Auto) 0.1 Thou/mm3 (0.0-0.5); Eosinophils % (Auto) 3 % (0-10); Hematocrit 25.1 % (36.0-46.0); Immature Granulocytes % (Auto) 3 % (0-0); Lymphocytes # (Auto) 0.5 Thou/mm3 (1.0-4.8); Lymphocytes % (Auto) 15 % (10-50); Mean Corpuscular HGB Conc 35.9 g/dl (31.0-37.0); Mean Corpuscular Hemoglobin 29.9 pg (25.0-35.0); Mean Corpuscular Volume 83 fL (80-100); Monocytes % (Auto) 1 % (0-12); Neutrophils # (Auto) 2.5 Thou/mm3 (1.8-7.7); Neutrophils % (Auto) 78 % (37-80); Nucleated Red Blood Cell # 0.16 Thou/mm3 (0.00-0.00); Nucleated Red Blood Cell % 5 /100 WBC (0); RDW Standard Deviation 45.5 fL (36.4-46.3); Red Blood Count 3.01 Miln/mm3 (4.00-5.20); White Blood Count 3.2 Thou/mm3 (3.6-11.0)
[2025-02-21 17:19] LABS: Platelet Count 32 Thou/mm3 (140-440)
[2025-02-21 17:20] LABS: Slide Review Platelets confirmed
[2025-02-21 17:29] LABS: Alanine Aminotransferase 19 U/L (10-49); Albumin, Serum 2.9 gm/dL (3.4-4.8); Albumin/Globulin Ratio 1.6 (1.2-2.2); Alkaline Phosphatase 68 U/L (46-116); Anion Gap 7 (7-16); Aspartate Amino Transferase 31 U/L (0-34); BUN/Creatinine Ratio 20 Ratio (12-20); Bilirubin,Total 2.5 mg/dL (0.3-1.2); Blood Urea Nitrogen 18 mg/dL (9-23); Calcium 7.9 mg/dL (8.3-10.6); Calcium (Corrected) 8.8 mg/dL (8.5-10.1); Carbon Dioxide 29.8 mMol/L (20.0-31.0); Chloride 101 mMol/L (98-107); Creatinine (Component) 0.9 mg/dL (0.6-1.3); Estimated Creatinine Clearance 55.4 mL/min (>60); Globulin 1.8 gm/dL (2.3-3.5); Glucose 125 mg/dL (74-106); Osmolality,Calculated 278 (275-295); Potassium 3.2 mMol/L (3.4-5.1); Sodium 138 mMol/L (136-145); Total Protein 4.7 gm/dL (5.7-8.2); eGFR > 60 See Note
[2025-02-21] MEDS: HEPARIN SOD INJ 1000 UNIT/ML VIAL 10 ML 3000 UNIT INDWELLCAT (17:44)
--- NOTE | 2025-02-21 19:11 | PD.IMPROG ---
Documentation for date of: 02/21/25 Subjective Subjective Interval history: Hemoglobin hematocrit 9.0 and 25.1 Exam Vital Signs Temp Pulse Resp BP Pulse Ox O2 Del Method O2 Flow Rate 97.3 F 90 18 103/64 99 Nasal Cannula 1 02/21/25 18:56 02/21/25 18:56 02/21/25 18:56 02/21/25 18:56 02/21/25 18:56 02/21/25 16:00 02/21/25 16:00 Objective Labs 02/21/25 16:54 02/21/25 16:54 Labs: Laboratory Results - last 24 hr 02/18/25 02/20/25 02/21/25 03:40 09:19 04:46 WBC 2.9 L RBC 2.46 L Hgb 7.5 L Hct 20.9 L* MCV 85 MCH 30.5 MCHC 35.9 RDW Std Deviation 46.9 H Plt Count 35 L D Neut % (Auto) 67 Lymph % (Auto) 27 [place] % (Auto) 2 Eos % (Auto) 3 Baso % (Auto) 0 Neut # (Auto) 2.0 Lymph # (Auto) 0.8 L [place] # (Auto) 0.1 Eos # (Auto) 0.1 Baso # (Auto) 0.0 Immature Gran # (Auto) 0.04 H Absolute Nucleated RBC 0.21 H Immature Gran % 1 H Nucleated RBC % 7 H Sodium 136 Potassium 3.7 D Chloride 102 Carbon Dioxide 24.9 Anion Gap 9 BUN 42 H Creatinine 1.8 H D Estim Creat Clear Calc 26.4 L eGFR 28 L BUN/Creatinine Ratio 23 H Glucose 128 H Calculated Osmolality 284 Calcium 8.1 L Corrected Calcium 9.3 Magnesium 1.6 Iron 175 H TIBC 233 L Iron Saturation 75 H Unsat Iron Binding 58 L Ferritin 228 Total Bilirubin 1.9 H D AST 34 ALT 20 Alkaline Phosphatase 61 Total Protein 4.2 L Albumin 2.5 L Globulin 1.7 L Albumin/Globulin Ratio 1.5 Misc Test Result Platelets confirmed Blood Type Cancelled Antibody Screen Cancelled Crossmatch See Detail Blood Bank Wristband ID Cancelled Blood Bank Comment PLATP Ready Cancelled 02/21/25 02/21/25 08:50 16:54 WBC 3.2 L RBC 3.01 L Hgb 9.0 L Hct 25.1 L MCV 83 MCH 29.9 MCHC 35.9 RDW Std Deviation 45.5 Plt Count 32 L Neut % (Auto) 78 Lymph % (Auto) 15 [place] % (Auto) 1 Eos % (Auto) 3 Baso % (Auto) 0 Neut # (Auto) 2.5 Lymph # (Auto) 0.5 L [place] # (Auto) 0.0 Eos # (Auto) 0.1 Baso # (Auto) 0.0 Immature Gran # (Auto) 0.10 H Absolute Nucleated RBC 0.16 H Immature Gran % 3 H Nucleated RBC % 5 H Sodium 138 Potassium 3.2 L D Chloride 101 Carbon Dioxide 29.8 Anion Gap 7 BUN 18 Creatinine 0.9 D Estim Creat Clear Calc 55.4 L eGFR > 60 BUN/Creatinine Ratio 20 Glucose 125 H Calculated Osmolality 278 Calcium 7.9 L Corrected Calcium 8.8 Magnesium Iron TIBC Iron Saturation Unsat Iron Binding Ferritin Total Bilirubin 2.5 H D AST 31 ALT 19 Alkaline Phosphatase 68 Total Protein 4.7 L Albumin 2.9 L Globulin 1.8 L Albumin/Globulin Ratio 1.6 Misc Test Result Platelets confirmed Blood Type A Positive Antibody Screen NEGATIVE Crossmatch See Detail Blood Bank Wristband ID Yes Blood Bank Comment PLATP Ready Impressions Impression: # Mucosal oozing of blood somewhat stabilizing # DIC Continue to monitor CBC and as needed transfusion if hemoglobin drops below 7 g ABG Interpretation ABG results: 02/19/25 17:02 VBG pH 7.53 VBG pCO2 30 L VBG pO2 65 H VBG Base Excess 2 Assessment & Plan A&P Narrative # Coffee-ground hematemesis # Hematochezia # Acute posthemorrhagic anemia # Hypotension # Atrial fibrillation with RVR # Chronic liver disease plan Move the patient to ICU as she is on amiodarone drip and critically sick Consent obtained for fiberoptic esophagogastroduodenoscopy for possible therapeutic intervention under intravenous moderate sedation Cannot do a CTA abdomen pelvis because of the elevated BUN/creatinine at 81 and 2.8 If EGD is negative we will consider doing a fiberoptic endoscopy if the patient cannot tolerate the prep Thank you for the opportunity to participate in this patient Time Spent With Patient Time: Total time spent is greater than 50% in coordination of care (as documented) at patient's floor/unit and/or counseling patient:
[2025-02-21] MEDS: AMIODARONE HCL 200 MG TABLET PO (21:03)
[2025-02-22] VITALS (56 sets, daily range): BP systolic 93–127; BP diastolic 53–88; PULSE 82–201; RESP 13–29; TEMP 35.9–36.9; O2SAT 96–100; BMI 27.0
[2025-02-22] MEDS: LEVOTHYROXINE INJ 100 mCg VIAL 150 MCG IV (05:35)
[2025-02-22] MEDS: THIAMINE INJ 200 MG in SODIUM CHLORIDE 0.9% 50 ML 102.97 MG IV (05:35)
[2025-02-22] MEDS: SUCRALFATE SUSP 1 GM/10 ML UDC PO ×3 (05:35→21:23)
[2025-02-22 06:32] LABS: Basophils % (Auto) 1 % (0-2.5); Eosinophils # (Auto) 0.2 Thou/mm3 (0.0-0.5); Eosinophils % (Auto) 5 % (0-10); Hematocrit 23.7 % (36.0-46.0); Immature Granulocytes % (Auto) 2 % (0-0); Immature Granulocytes Auto 0.09 Thou/mm3 (0.00-0.00); Lymphocytes # (Auto) 0.7 Thou/mm3 (1.0-4.8); Lymphocytes % (Auto) 17 % (10-50); Mean Corpuscular HGB Conc 34.6 g/dl (31.0-37.0); Mean Corpuscular Hemoglobin 29.9 pg (25.0-35.0); Mean Corpuscular Volume 87 fL (80-100); Monocytes % (Auto) 1 % (0-12); Neutrophils # (Auto) 3.1 Thou/mm3 (1.8-7.7); Neutrophils % (Auto) 75 % (37-80); Nucleated Red Blood Cell % 2 /100 WBC (0); RDW Standard Deviation 48.9 fL (36.4-46.3); Red Blood Count 2.74 Miln/mm3 (4.00-5.20); White Blood Count 4.1 Thou/mm3 (3.6-11.0)
[2025-02-22 06:37] LABS: Hemoglobin 8.2 g/dL (12.0-16.0); Platelet Count 64 Thou/mm3 (140-440)
[2025-02-22 06:55] LABS: Alanine Aminotransferase 17 U/L (10-49); Albumin, Serum 2.7 gm/dL (3.4-4.8); Albumin/Globulin Ratio 1.5 (1.2-2.2); Alkaline Phosphatase 65 U/L (46-116); Anion Gap 8 (7-16); Aspartate Amino Transferase 26 U/L (0-34); BUN/Creatinine Ratio 17 Ratio (12-20); Bilirubin,Total 1.9 mg/dL (0.3-1.2); Blood Urea Nitrogen 27 mg/dL (9-23); Calcium 7.7 mg/dL (8.3-10.6); Calcium (Corrected) 8.7 mg/dL (8.5-10.1); Carbon Dioxide 26.9 mMol/L (20.0-31.0); Chloride 102 mMol/L (98-107); Creatinine (Component) 1.6 mg/dL (0.6-1.3); Estimated Creatinine Clearance 30.2 mL/min (>60); Globulin 1.8 gm/dL (2.3-3.5); Glucose 111 mg/dL (74-106); Magnesium 1.7 mg/dL (1.6-2.6); Osmolality,Calculated 279 (275-295); Potassium 3.8 mMol/L (3.4-5.1); Sodium 137 mMol/L (136-145); Total Protein 4.5 gm/dL (5.7-8.2); eGFR 32 See Note
[2025-02-22 07:08] LABS: Slide Review Platelets confirmed
[2025-02-22] MEDS: AMIODARONE HCL 200 MG TABLET PO ×2 (09:53→21:23)
[2025-02-22] MEDS: PANTOPRAZOLE INJ 40 MG VIAL IVP ×2 (09:53→21:23)
[2025-02-22] MEDS: ALBUMIN HUMAN 25% IVPB 12.5 GM/50 ML BTL IV (09:53)
[2025-02-22] MEDS: FOLIC ACID INJ 1 MG/0.2 ML 5 MG IVP (09:53)
--- NOTE | 2025-02-22 09:58 | PD.RESPRO ---
Documentation for date of: 02/22/25 Subjective Subjective Interval history: 79-year-old female with past medical history of A-fib (on Eliquis), ascending thoracic aorta aneurysm (4 cm on 07/2024), CHF (no echo on file), hypertension, hyperlipidemia, and hypothyroidism was admitted to the hospital on 02/18/2025 due to acute blood loss anemia in the setting of GI bleed. ICU was consulted for closer monitoring of patient's hemoglobin as well as A-fib with RVR. In the ED patient came in with complaints of 1 to 2 weeks of dark stools with worsened to bloody diarrhea for the past 2 days as well as 1 episode of bloody vomiting yesterday. Patient is a very poor historian and stated that in December she was at [facility] due to a ground-level fall and that she had an endoscopy done during this admission, but she does not have any results of these. She mentioned that she was also supposed to have a colonoscopy done, but that she did not have good bowel prep therefore was not done. She denies taking any ibuprofen or any steroids as of recently and has only been taking Tylenol. She did mention that she had a prior endoscopy with a GI specialist, but there is no results from previous endoscopies or colonoscopy. Patient states she had weight gain from 140s to 160s recently. She denied any fever, chest pain, headache, abdominal pain, or history of cancer. In the ED patient was found to have A-fib with RVR on EKG and she was started on amiodarone drip. Patient received a total of 1 FFP, 2 PRBCs, and 2 platelets today, but she had a large bloody bowel movement after the transfusion and on repeat hemoglobin her hemoglobin was 6.7 from 6.5 initially. ED course: Initially was hypotensive, tachycardic, and afebrile. Initial labs were significant for low hemoglobin (6.5), thrombocytopenia (76), increased INR (1.5), ADITYA (BUN 81 and creatinine 2.8), lactic acidosis (2.8), hypomagnesemia (1.5), hyperbilirubinemia (1.9), troponinemia (0.092), elevated BNP (1414), and procalcitonin was elevated to 1.3. Initial imaging included EKG which showed A-fib with RVR and chest x-ray that showed mild heart failure, mild pneumonia of right base, and left pleural effusion. 02/19/2025: Patient was seen and examined at bedside this morning. Overnight patient became hypotensive therefore she was placed on low-dose of Levophed peripherally around 4 AM to maintain her MAP above 65. Overnight patient also became a little delirious and combative therefore she was given Ativan 1mg x 1. Upper endoscopy done last night by GI specialist showed that patient had esophageal ulcers, presence of large amounts of blood in the body of the stomach with mucosal oozing of blood as well as a foreign body in the duodenal bulb with ulcer at its base. GI specialist to try to retrieve this foreign body, but it was embedded and was unsuccessful given that there was high risk of perforation. This morning patient was very lethargic and somewhat confused. Given that the patient was on Levophed at this time and that her blood pressures were just hanging around a MAP of 65 and that she had minimal urine output overnight with worsening kidney function, decision was made to place a central line as an access for vasopressors and for CRRT. Given that the patient had ongoing bleed and that it is unknown the last time patient took her Eliquis PCC was given 2000 units x 1, patient also received 10 mg of vitamin K additionally yesterday evening. Given that patient had ongoing bleed DIC panel was ordered and showed elevated D-dimer at 1690, low fibrinogen at 82, and elevated INR at 1.6. At the time of planning to place a central line patient's family members were not reachable to get consent therefore emergent consent was done for central line and central line was successfully placed in the morning. Patient's family members were then reachable and consented to thoracentesis and arterial line. Given that patient had a left pleural effusion and there was suspicion that there could be a esophageal ulcer that had perforated a thoracentesis when needed to rule out. An arterial line at this time was deferred given that patient's blood pressure did improve after central line placement. Buffing Machine Operator Semiautomatic started the patient on CRRT given fluid overload status and worsening kidney function. Throughout the day patient had multiple episodes of bloody emesis as well as bright red blood per rectum. Patient at the time of this note has already had 6 PRBCs, 2 FFP's, and 3 units of platelets transfused and hemoglobin is still below 7 consistently. While patient was undergoing CRRT she will have 1 extra unit of FFP to be transfused. Will plan for PT with INR, fibrinogen, CBC, lactic acid, and VBG at 4 PM today to continue monitoring. Will update patient's family throughout the course. 02/20/2025: Patient off pressors as of this morning, has one more episode of bloody bowel movement, small yesterday around 7 pm, no more overnight or this AM. Received one more unit of blood last night, totaling 7 thoughout admission, Hemoglobin stable a 7.4, no active signs of bleeding currrently. Upon review of patients medications, realized patient is taking methotrexate for RA, which could be the cause of esophageal ulcers and GI bleed (aggravated by foreign body). 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 We are starting high dose folic acid since the hospital doesnt carry leucovorin. And methorexate needs to be stopped upon DC due to toxicity. DIC yesterday was most likley in the setting of massive transfusions. 02/21/2025: Patient seen and examined at bedside this morning. Patient was doing a lot better today and was more communicative and was AO x 3. She did have 2 small bowel movements which were bloody today in the morning and notes stated that yesterday she had a total of 4 bowel movements. Hemoglobin was stable today at 7.5 and platelets were low at 35. Otherwise patient's blood pressure has been stable and she has been off pressors since yesterday. Will transfuse 1 unit of PRBC and 1 units of platelets, but at the same time we gave patient Lasix 80 mg to diurese. Patient unfortunately did not produce much urine and therefore will require hemodialysis. Will discontinue amiodarone, octreotide, and will transition to p.o. amiodarone 200 twice daily. Also started patient on diet full liquid diet. Ordered CXR to asses pleural effusion and Abd XR to see if foreign body moved. 02/22/2025: Patient was seen and examined at bedside this morning. No acute overnight events. Yesterday patient tolerated hemodialysis well therefore she will get hemodialysis again today. Patient is doing a lot better and only had 1 dark stool yesterday. At this time patient is stable enough to be downgraded to the medical floors. Would recommend to speak with patient's enterprise software developer to see if any further imaging is needed to address her right eye trauma. Also recommend to speak with cardiology for possibility of right heart cath in the future to assess patient's right heart function and pressures as well. Would also recommend to speak with construction site crossing guard to stop methotrexate for now and see monoclonal antibody for patient psoriatic arthritis. Exam Vital Signs Temp Pulse Resp BP Pulse Ox O2 Del Method O2 Flow Rate 98.5 F 94 16 115/70 97 Room Air 2 02/22/25 08:00 02/22/25 09:53 02/22/25 08:30 02/22/25 09:53 02/22/25 08:30 02/22/25 08:00 02/22/25 04:01 Narrative Exam General: A/O x3, pale, frail elderly female Eyes: L pupil reactive to light, R pupil unresponsive to light, EOMI. Anicteric, vision grossly intact in L eye, but impaired vision R. Ears: No ear pain, no ear discharge, Hearing grossly intact. Nose: No nasal discharge. Mouth/Throat: Dry mucous membranes, no redness, no lesions. Neck: Neck supple, non-tender, no cervical lymphadenopathy. Lungs: Clear in R side and L upper lobe, still mild crackles in L lower lobe, No accessory muscle use. Cardio: Normal S1/S2, irregular rhythm, no murmurs, no JVD Abdomen: Soft, but significantly distended still, no palpable masses, peristalsis present, no guarding or rebound. Extremities: Symmetrical, no significant deformities, 2+ peripheral edema , non-tender, peripheral pulses presents. Skin: Pale, No rashes, no lesions, warm to touch. Neuro: no focal neurological deficits. motor and sensory intact. Objective Labs 03/03/25 04:36 03/03/25 04:36 Labs: Laboratory Results - last 24 hr 02/18/25 02/21/25 02/21/25 03:40 04:46 08:50 WBC RBC Hgb Hct MCV MCH MCHC RDW Std Deviation Plt Count Neut % (Auto) Lymph % (Auto) Forest % (Auto) Eos % (Auto) Baso % (Auto) Neut # (Auto) Lymph # (Auto) Forest # (Auto) Eos # (Auto) Baso # (Auto) Immature Gran # (Auto) Absolute Nucleated RBC Immature Gran % Nucleated RBC % Sodium Potassium Chloride Carbon Dioxide Anion Gap BUN Creatinine Estim Creat Clear Calc eGFR BUN/Creatinine Ratio Glucose Calculated Osmolality Calcium Corrected Calcium Magnesium Iron 175 H TIBC 233 L Iron Saturation 75 H Unsat Iron Binding 58 L Ferritin 228 Total Bilirubin AST ALT Alkaline Phosphatase Total Protein Albumin Globulin Albumin/Globulin Ratio Misc Test Result Blood Type A Positive Antibody Screen NEGATIVE Crossmatch See Detail See Detail Blood Bank Wristband ID Yes Blood Bank Comment PLATP Ready PLATP Ready 02/21/25 02/22/25 16:54 05:10 WBC 3.2 L 4.1 RBC 3.01 L 2.74 L Hgb 9.0 L 8.2 L Hct 25.1 L 23.7 L MCV 83 87 MCH 29.9 29.9 MCHC 35.9 34.6 RDW Std Deviation 45.5 48.9 H Plt Count 32 L 64 L D Neut % (Auto) 78 75 Lymph % (Auto) 15 17 Forest % (Auto) 1 1 Eos % (Auto) 3 5 Baso % (Auto) 0 1 Neut # (Auto) 2.5 3.1 Lymph # (Auto) 0.5 L 0.7 L Forest # (Auto) 0.0 0.0 Eos # (Auto) 0.1 0.2 Baso # (Auto) 0.0 0.0 Immature Gran # (Auto) 0.10 H 0.09 H Absolute Nucleated RBC 0.16 H 0.10 H Immature Gran % 3 H 2 H Nucleated RBC % 5 H 2 H Sodium 138 137 Potassium 3.2 L D 3.8 D Chloride 101 102 Carbon Dioxide 29.8 26.9 Anion Gap 7 8 BUN 18 27 H Creatinine 0.9 D 1.6 H D Estim Creat Clear Calc 55.4 L 30.2 L eGFR > 60 32 L BUN/Creatinine Ratio 20 17 Glucose 125 H 111 H Calculated Osmolality 278 279 Calcium 7.9 L 7.7 L Corrected Calcium 8.8 8.7 Magnesium 1.7 Iron TIBC Iron Saturation Unsat Iron Binding Ferritin Total Bilirubin 2.5 H D 1.9 H D AST 31 26 ALT 19 17 Alkaline Phosphatase 68 65 Total Protein 4.7 L 4.5 L Albumin 2.9 L 2.7 L Globulin 1.8 L 1.8 L Albumin/Globulin Ratio 1.6 1.5 Misc Test Result Platelets confirmed Platelets confirmed Blood Type Antibody Screen Crossmatch Blood Bank Wristband ID Blood Bank Comment ABG Interpretation ABG results: 02/19/25 17:02 VBG pH 7.53 VBG pCO2 30 L VBG pO2 65 H VBG Base Excess 2 Quality Measures Quality Measures sepsis Current suspected stage: ruled out Possible source: GI tract/intra-abdominal Blood cultures ordered: yes Antibiotic ordered: No Advance care planning discussed with:: patient Assessment & Plan Assessment Current Active Medications: Generic Name Dose Route Start Last Admin Trade Name Freq PRN Reason Stop Dose Admin Acetaminophen 650 mg 02/18/25 06:03 Acetaminophen Supp 650 Mg Supp GA 03/20/25 06:02 Q4HR PRN PAIN SCALE 1-3 (mild Acetaminophen 650 mg 02/18/25 09:38 02/18/25 12:01 Acetaminophen 325 Mg Tablet PO 03/20/25 09:37 650 mg Q6HR PRN Administration PAIN 1-6 (mild-mod Amiodarone HCl 200 mg 02/21/25 21:00 02/22/25 09:53 Amiodarone Hcl 200 Mg Tablet PO 03/23/25 20:59 200 mg BID EULALIA Administration Epoetin [place]y 10,000 unit 02/22/25 15:00 Epoetin Timothy-Epbx Inj 10,000 Unit/Ml Vial (Esrd) SC 02/22/25 15:01 X1 ONE Folic Acid 5 mg 02/20/25 10:30 02/22/25 09:53 Folic Acid Inj 1 Mg/0.2 Ml IVP 03/22/25 10:29 5 mg QDAY EULALIA Administration Heparin Sodium (Porcine) 3,000 unit 02/19/25 12:43 02/21/25 17:44 Heparin Sod Inj 1000 Unit/Ml Vial 10 Ml INDWELLCAT 02/25/25 12:42 3,000 unit X1 PRN Administration DIALYSIS Norepinephrine/Dextrose 8 mg in 250 mls @ 7.656 mls/hr 02/19/25 04:09 02/21/25 04:45 Levophed In D5w 8mg/250ml IV 03/21/25 04:08 0 mcg/kg/min .Q24H PRN 0 mls/hr PER PROTOCOL Titration Protocol 0.05 MCG/KG/MIN Albumin Human 12.5 gm in 50 mls @ 100 mls/hr 02/21/25 08:29 02/22/25 09:53 Albuminar-25 Ivpb IV 02/23/25 09:29 100 mls/hr QDAY EULALIA Administration Levothyroxine Sodium 150 mcg 02/19/25 06:00 02/22/25 05:35 Levothyroxine Inj 100 Mcg Vial IV 03/21/25 05:59 150 mcg ACBR EULALIA Administration Ondansetron HCl 4 mg 02/18/25 22:24 02/18/25 22:20 Ondansetron Inj 2 Mg/Ml Inj 2 Ml IV 03/20/25 22:23 4 mg Q8HR PRN Administration NAUSEA OR VOMITING Protocol Pantoprazole Sodium 40 mg 02/18/25 09:00 02/22/25 09:53 Pantoprazole Inj 40 Mg Vial IVP 03/20/25 08:59 40 mg BID EULALIA Administration Sucralfate 1 gm 02/19/25 14:00 02/22/25 05:35 Sucralfate Susp 1 Gm/10 Ml Udc PO 03/21/25 13:59 1 gm TID EULALIA Administration Plan 79-year-old female with past medical history of A-fib (on Eliquis), ascending thoracic aorta aneurysm (4 cm on 07/2024), CHF (no echo on file), hypertension, hyperlipidemia, and hypothyroidism was admitted to the hospital on 02/18/2025 due to acute blood loss anemia in the setting of GI bleed. ICU was consulted for closer monitoring of patient's hemoglobin as well as A-fib with RVR. CODING TEAM LEAD: #Delirium, resolved -A/O x3 CVS: #Hypovolemic Shock, Resolved #RV failure -Patient presented with acute GI bleed, bright red blood per rectum and hematochezia, hisotry of 2 weeks back stools before that -Bleeding could be due to methotrexate toxicity aggravated by the foreign body in duodenum. -Required levophed for 24 hrs, but now off pressors for the last 24 hours -Low cardiac output state from RV failure in the setting of volume overload from massive transfusions, and fluids which improved after CRRT 1 L was removed as well as thoracentesis was removed around 1 L as well. -Recommend to continue hemodialysis for now 2 to achieve euvolemic state. -Recommend to follow-up patient's convention manager for possible right heart cath in the future to assess right heart function. #A-fib with RVR ? Patient has a history of A-fib with RVR and was on diltiazem as well as Eliquis ? EKG today showed A-fib with RVR in the ER and repeat EKG at this afternoon still showed A-fib with RVR. ?[id number] score of 5 points indicating 7.2% risk of stroke per year ?HAS-BLED score of 4 points indicating high risk of major bleed ?Holding off any anticoagulation for now in the setting of active bleed ?Transition to p.o. amiodarone 200 twice daily, but need to reevaluate prior to discharge #NSTEMI most likely type II demand ischemia ? Patient came in with troponins of 0.092 and went up to 0.106 ? There is most likely NSTEMI type II in the setting of blood loss ? Grease Remover did not think this is ACS at this time #Hx of CHF ? Patient states that she has a history of heart failure, but there is no echo on file ? Patient appears to be fluid overloaded with bilateral pitting edema ? BNP initially was elevated at 1414 ? Echo showed EF 55-60% -CRRT on 02/19/2025 to take out fluid ?Continue with HD to achieve euvolemic state #Hx of ascending thoracic aorta aneurysm ? On 07/2024 patient was found to have ascending thoracic aortic aneurysm measuring 4 cm ? Patient states that she follow-up with cardiothoracic surgeon as an outpatient who stated that this could be monitor for now every 6 months to 1-year ?CT showed stable aneuryms -Recommend outpatient F/U #Hx of hypertension ? Will hold off on antihypertensive medications for now given hypotension and blood loss Respiratory: #Right base pneumonia #Left pleural effusion ? Patient does not have any cough or fevers at this time. ? Initial Chest x-ray that shows some right base pneumonia as well as some left pleural effusion. ?Rocephin and azithromycin [02/18/2025?02/20/2025] -Successful Thoracentesis 02/19/2025 draining 850ml -Pending cultures Endo: #Hx of hypothyroidism ? Last TSH was 0.02 on 08/12/2024 ? Continue patient on levothyroxine 150 mcg IV Renal: #ADITYA, prerenal ? Patient came in with creatinine of 2.8 and BUN of 73 from her baseline of creatinine of 1 ?Most likely prerenal in the setting of hypotension and blood loss vs postrenal due to congestive hepatopathy - minimal urine output ? Renally dose medications ? Avoid nephrotoxic agents -S/P CRRT 02/19/2025 ?Continue HD #Hypomagnesemia, resolved GI: #Esophageal ulcers #Gastropathy #Unknown foreign body in duodenal bulb with ulcer at base #Hematemesis #Hematochezia ?Patient complained of bloody bowel movements and bloody emesis for the past day -EGD showed esophageal ulcers, bleeding gastropathy, and an unknown foreign body in duodenal bulb with an ulcer at its base. GI specialist tried to retrieve the foreign body, but was unsuccessful as it was embedded in the tissue. ?Continue protonix 40 BID #Ascites #Cirrhosis ? Patient's abdomen still significantly distended ? Patient does have a history of a few glasses of wine every day in the past ? Liver ultrasound showed ascites and cirrhosis Hematology: #Acute blood loss anemia #Thrombocytopenia ? Patient came in with low hemoglobin was 6.5 and platelets of 76 ? This is most likely secondary to GI bleed in the setting of methotrexate toxicity ?-Patient continues to have some bloody BM, but no more emesis. -Patient has received a total of 8 PRBCs, 4 platelets, and 3 FFP at the time of this note. #DIC ? Patient is INR was 1.6, fibrinogen 82, and D-dimer is 1690 ? Likely in the setting of massive transfusion #Lactic acidosis, resolved Hospital Maintenance: Diet: Pureed diet DVT ppx: held due to active bleed GI ppx: Pantoprazole 40 mg BID IV lines: PIV, CIV ([facility]) Landa: purewick cath Code status: DNR Dispo: Downgraded to medical floors Case disclosed with Attending Dr. Ana Rosa Mendez PGY1 Attending Provider Attestation/Addendum Patient seen and examined with the above resident, Ulises Mendez MD. I agree with the findings, assessment, and plan of care as documented. Patient hemodynamically stable. Fluid removal went well with HD. Will plan to transfer to the floor today. Remaining issues to be addressed as use of MTX and Cosentyx. I favor stopping MTX completely but this should be discussed with her construction site crossing guard prior to discharge. In interim she will remain off and can resume on Cosentyx. Also needs to follow up with opthalmology for right eye trauma, can facilitate imaging if required prior to her discharge. Lastly, to be determined short term need for HD or longer standing need for tunneled catheter placement. No need for repeat transfusion at this time. Plan for continued PPI BID with completion of octreotide as no significant varices form liver disease. Patient is tolerating a diet now, advance as able. Patient counseled on plan of care and agreeable. Will transfer back to Dr. Street who is also her PCP and core manager. Total critical care time: I personally spent 30 minutes for review pf physiologic parameters, directing plan of care, coordination of care with other specialists, and counseling patient at bedside. This is exclusive of time spent teaching housestaff or performing any separate billable procedures. Patient remained at significant risk of further morbidity and mortality warranting close monitoring and care only available in the ICU. Critical care services required for acute renal failure, hemorrhagic/ hypovolemic shock, upper GI bleed.
--- NOTE | 2025-02-22 12:30 | ESPR_ITS ---
Documentation for date of: 02/22/25 Subjective Subjective Interval history: Ms. Ayoub is a pleasant 79-year-old female with PMHx of A-fib on ELIQUIS( under Dr. Parrish), CHF, HTN, Hypothyroidism, CKD, RA on Enbrel brought in by ambulance following 1.5 days of dark/watery stool and rectal bleed. She noted 1 week of dark stool, followed by dark and watery diarrhea that approximately 2 days ago. Denied fall or trauma, fever, chills, abnormal weight loss or gain, palpitations, chest pain, shortness of breath, cough, abdominal pain, nausea or vomiting, dysuria or hematuria. She was admitted at [facility] and airlifted to [place] for GLF for which she sustained a right eye injury, currently being followed up by ophthalmology in [place]. She did not report any fracture or other injuries. At the time, endoscopy was done, patient unsure why but state was normal. They had recommended colonoscopy but she states unable to do prep as she lives alone at home. Additionally, she states she takes home LASIX but was discontinued during admission at [facility] for fall risk concerns. She reports 3 weeks of increased bilateral extremity swelling and shortness of breath despite using her home 3 L oxygen. ED COURSE: Afebrile, BP 82/66, HR 121, RR 18, satting 99% on 2 L. Hgb 6.5 (baseline 11.2), HCT 19, WBC 10.9. PT 15.8, INR 1.5, APTT 43.7. Creatinine 2.8 (baseline 1.0), BUN 81, EGFR 15.6 Lactic acid 2.8, troponin 0.092, BNP 1414. Sodium 133, magnesium 1.5, TB 1.9, AST 35, ALT normal 21, ALBUMIN 2.5, ammonia <10. Pro-Calc 1.3. EKG showed A-fib with RVR, HR 132. CXR mild right basilar pneumonia, mild CHF, left-sided pneumonia and pleural disease. ED initiated transfusion with 2 units PRBCs and 1 unit FFP's. Will admit to telemetry, continue OCTREOTIDE and PROTONIX. GI has been consulted. 02/19/2025 Patient was seen and examined in the ICU today. EGD was performed yesterday and it showed esophageal ulcers with large amount of blood in the body of the stomach down to the duodenal bulb. With a metallic structure thought to be a safety pin in the duodenal bulb. ICU team made multiple attempts to contact family to discuss goals of care. Patient became hemodynamically unstable needing pressors. Sick looking. Urine output very minimal. BUN and creatinine continues to rise. This morning her hemoglobin was 6.1. Needing more blood transfusions. Renal team decided to proceed with dialysis after talking to Dr. Oseguera. Due to hemodynamic instability decided to proceed with continuous and renal replacement therapy. Medications reviewed. Per Dr. Mendoza- gastrectomy has no role patient has been bleeding from several places. Patient will receive triple-lumen catheter for CRRT. 02/20/25 Patient was seen and examined in the ICU today. Patient tolerated CRRT well yesterday and received an additional 2 units of PRBC and 1 units of FFP. Patient's DIC panel was positive likely from massive blood transfusion. Hgb 7.4 today and patient did not have any more bloody bowel movements overnight. Createnine is 1.3 this morning. Will likely hold off from another session of CRRT for now. Pressor support has decreased. Prognosis is guarded. Patient made a DNR. Family was contacted. 02/21/2025 Examined at bedside in ICU. Renal function worsening overnight. eGFR 28 and CR 1.8. Likely related to poor perfusion secondary to anemia. Appears euvolemic on exam. Will give 1 unit pRBC, 1 unit PLT, ALBUMEN X1 and LASIX 20 mg X1. Will likely give another unit albumen tomorrow. Remains hemodynamically stable. D/C acuña and continue with purewick. Denies fever, chills, headaches, chest pain, sob, cough, GI or urinary symptoms. 02/22/25 examined at bedside in ICU. No acute overnight events. Renal function showing creatinine 1.6, BUN 27, GFR 32. In total she has received PRBCs 8 units, FFP 3 units, PLT 4 units, with Hgb currently stable at 8.2, although still having dark/bloody bowel movements. Remains asymptomatic. Vitals stable. Denies fever, chills, headaches, chest pain, sob, cough, GI or urinary symptoms. Will plan for hemodialysis today, goal to remove 2-3 L of fluids. If tolerating, will order 1 unit PRBCs as well. Exam Vital Signs Temp Pulse Resp BP Pulse Ox O2 Del Method O2 Flow Rate 98.5 F 114 H 29 H 111/75 99 Nasal Cannula 2 02/22/25 08:00 02/22/25 11:00 02/22/25 11:00 02/22/25 11:00 02/22/25 11:00 02/22/25 11:00 02/22/25 11:00 Narrative Exam Constitutional: Elderly female sick looking-more alert today Head: Pale conjunctiva ENMT: Dry mucous Membranes, No trauma or injury. Neck: Supple to palpation, No JVD CVS: Irregular S1 and S2 present, no murmurs, rubs or gallops . RESP: Decreased breath sounds GI: Distended but nontender with no guarding or rebound tenderness. MSK: Full range of motion, No trauma or deformities or masses. 2+ pitting edema bilaterally on lower extremities and upper extremities Skin: Warm to touch, Dry. No rashes or lesions. No hematomas Psych: (AAO) x 2. More awake and alert today, responding to questions. Objective Labs 02/23/25 04:29 02/23/25 04:29 Labs: Laboratory Results - last 24 hr 02/21/25 02/21/25 02/22/25 08:50 16:54 05:10 WBC 3.2 L 4.1 RBC 3.01 L 2.74 L Hgb 9.0 L 8.2 L Hct 25.1 L 23.7 L MCV 83 87 MCH 29.9 29.9 MCHC 35.9 34.6 RDW Std Deviation 45.5 48.9 H Plt Count 32 L 64 L D Neut % (Auto) 78 75 Lymph % (Auto) 15 17 [place] % (Auto) 1 1 Eos % (Auto) 3 5 Baso % (Auto) 0 1 Neut # (Auto) 2.5 3.1 Lymph # (Auto) 0.5 L 0.7 L [place] # (Auto) 0.0 0.0 Eos # (Auto) 0.1 0.2 Baso # (Auto) 0.0 0.0 Immature Gran # (Auto) 0.10 H 0.09 H Absolute Nucleated RBC 0.16 H 0.10 H Immature Gran % 3 H 2 H Nucleated RBC % 5 H 2 H Sodium 138 137 Potassium 3.2 L D 3.8 D Chloride 101 102 Carbon Dioxide 29.8 26.9 Anion Gap 7 8 BUN 18 27 H Creatinine 0.9 D 1.6 H D Estim Creat Clear Calc 55.4 L 30.2 L eGFR > 60 32 L BUN/Creatinine Ratio 20 17 Glucose 125 H 111 H Calculated Osmolality 278 279 Calcium 7.9 L 7.7 L Corrected Calcium 8.8 8.7 Magnesium 1.7 Total Bilirubin 2.5 H D 1.9 H D AST 31 26 ALT 19 17 Alkaline Phosphatase 68 65 Total Protein 4.7 L 4.5 L Albumin 2.9 L 2.7 L Globulin 1.8 L 1.8 L Albumin/Globulin Ratio 1.6 1.5 Misc Test Result Platelets confirmed Platelets confirmed Blood Type A Positive Antibody Screen NEGATIVE Crossmatch See Detail Blood Bank Wristband ID Yes Blood Bank Comment PLATP Ready ABG Interpretation ABG results: 02/19/25 17:02 VBG pH 7.53 VBG pCO2 30 L VBG pO2 65 H VBG Base Excess 2 Quality Measures Quality Measures sepsis Current suspected stage: ruled out Possible source: GI tract/intra- abdominal Blood cultures ordered: yes Antibiotic ordered: Yes Advance care planning discussed with:: patient Assessment & Plan Assessment Current Active Medications: Generic Name Dose Route Start Last Admin Trade Name Freq PRN Reason Stop Dose Admin Acetaminophen 650 mg 02/18/25 06:03 Acetaminophen Supp 650 Mg Supp SD 03/20/25 06:02 Q4HR PRN PAIN SCALE 1-3 (mild Acetaminophen 650 mg 02/18/25 09:38 02/18/25 12:01 Acetaminophen 325 Mg Tablet PO 03/20/25 09:37 650 mg Q6HR PRN Administration PAIN 1-6 (mild-mod Amiodarone HCl 200 mg 02/21/25 21:00 02/22/25 09:53 Amiodarone Hcl 200 Mg Tablet PO 03/23/25 20:59 200 mg BID EULALIA Administration Epoetin Timothy 10,000 unit 02/22/25 15:00 Epoetin Timothy-Epbx Inj 10,000 Unit/Ml Vial (Esrd) SC 02/22/25 15:01 X1 ONE Folic Acid 5 mg 02/20/25 10:30 02/22/25 09:53 Folic Acid Inj 1 Mg/0.2 Ml IVP 03/22/25 10:29 5 mg QDAY EULALIA Administration Heparin Sodium (Porcine) 3,000 unit 02/19/25 12:43 04/04/25 17:44 Heparin Sod Inj 1000 Unit/Ml Vial 10 Ml INDWELLCAT 02/25/25 12:42 3,000 unit X1 PRN Administration DIALYSIS Norepinephrine/Dextrose 8 mg in 250 mls @ 7.656 mls/hr 02/19/25 04:09 02/21/25 04:45 Levophed In D5w 8mg/250ml IV 03/21/25 04:08 0 mcg/kg/min .Q24H PRN 0 mls/hr PER PROTOCOL Titration Protocol 0.05 MCG/KG/MIN Albumin Human 12.5 gm in 50 mls @ 100 mls/hr 02/21/25 08:29 02/22/25 09:53 Albuminar-25 Ivpb IV 02/23/25 09:29 100 mls/hr QDAY EULALIA Administration Levothyroxine Sodium 150 mcg 02/19/25 06:00 02/22/25 05:35 Levothyroxine Inj 100 Mcg Vial IV 03/21/25 05:59 150 mcg ACBR EULALIA Administration Ondansetron HCl 4 mg 02/18/25 22:24 02/18/25 22:20 Ondansetron Inj 2 Mg/Ml Inj 2 Ml IV 03/20/25 22:23 4 mg Q8HR PRN Administration NAUSEA OR VOMITING Protocol Pantoprazole Sodium 40 mg 02/18/25 09:00 02/22/25 09:53 Pantoprazole Inj 40 Mg Vial IVP 03/20/25 08:59 40 mg BID EULALIA Administration Sucralfate 1 gm 02/19/25 14:00 02/22/25 05:35 Sucralfate Susp 1 Gm/10 Ml Udc PO 03/21/25 13:59 1 gm TID EULALIA Administration Plan In summary: 79-year-old female with PMHx of A-fib, CHF, HTN, presenting with 1 week of dark stool followed by roughly 2 days of black/watery diarrhea. Appreciate recommendations from Cardiology, GI, and bank worker team. Renal function is steady but not much improved. Appears volume overloaded today with 2+ pitting edema. Lung exam is clear. Vital stable. Will plan for hemodialysis today with goal to remove 2-3 L of fluids if tolerated. Will also give 1 unit PRBCs given persistent bloody stool. Prerenal ADITYA--ischemic ATN Secondary to hypotension and acute blood loss. Creatinine 2.8 (baseline 1.0), BUN 81, EGFR 15.6 (baseline 57). ? Continue with transfusion. ? Gentle fluids given volume overload status. ? ALBUMEN as above ? Renally dose meds, avoid overdiuresis and NEPHROTOXINS ? Daily CMP ? Azotemia worsens-decreased urinary output. Patient with a significant fluid overload. Decided to proceed with CRRT owing to hemodynamic instability. - Triple-lumen line to be inserted for CRRT 02/21/25: Hypervolemic on exam, CR 1.6, EGFR 32, BUN 27. Continue ALBUMIN for now. Plan for HD today to remove 2-3 L of fluids. Will give 1 PRBC during HD. Acute GI bleed anemia Hematochezia Rectal bleed Hypotension, tachycardia Presents with 1 week of rectal bleeding and dark stool. Has 2 days of watery diarrhea that is black, not foul-smelling. Denies fall, trauma, abdominal pain, nausea or vomiting, abnormal weight changes. Had normal endoscopy in December at [facility], recommended colonoscopy but unable to complete prep at home as she lives alone. A total of 8 units of PRBCs have been transfused with 3 FFP's as well as 4 platelets. EGD revealed esophageal ulcers with large amounts of blood as well as a metallic structure embedded in the duodenal bulb. CT showed intramural hematoma near thoracic aortic, old finding. Plan: ? Ordered 1 unit PRBCs with HD today/ ? Continue PROTONIX IV BID ? Continue n.p.o. ? Posttransfusion H&H ? Transfuse if Hgb less than 8. - Gen surgery does not recommend any intervention at this time until patient is more stable. Will follow up with recommendations ? Prognosis is guarded History of CHF, on home 3 L oxygen Lactic acidosis (resolved) Low suspicion for pneumonia History of CHF, usually takes LASIX at home which was discontinued in December given concern for recurrent falls. Reports 3 weeks of lower extremity edema, has 2/3+ bilateral LE pitting edema and rales on lung exam. Given ALBUMIN X1 in ED. Less likely will tolerate fluids given overload status. Will give another ALBUMEN x1. CXR showed mild CHF, bibasilar pneumonia and left-sided pleural disease. However, low suspicion for pneumonia given she is asymptomatic, afebrile. Elevated PRO-ANGELY likely in setting of ADITYA and decreased clearance. Received [id number] x 1 in ED. Will continue to monitor Echo showed EF 55 to 60%, mild LVH. CXR showing RV dilation. ? Continue LEVAQUIN (02/19 to present) NSTEMI, likely type II A-fib with RVR Likely demand ischemia. History of AFIB non ELIQUIS. EKG showed A-fib with RVR, HR 132. Currently asymptomatic without chest pain or shortness of breath. Vitals stable Troponin peaked at 0.106 ? Hold ELIQUIS in setting of GI bleed. ? Continue AMIODARONE drip. ? Maintain K > 4.0 and Mg > 2.0 ? May benefit from right heart cath. Hypomagnesemia (resolved) Magnesium 1.5, potassium 3.5, repleted. ? Daily labs, replete as needed. Mild hyponatremia (resolved) Sodium 133, likely volume loss secondary to diarrhea. ? Daily labs Mild total bilirubinemia Likely secondary to decreased renal clearance. Anticipate improvement with improved renal function. Denies abdominal pain, normal abdominal exam. No scleral icterus or jaundice. ? Daily labs Hypothyroidism Chronic, on home LEVO 200 mcg daily. Currently NPO ? Continue LEVOTHYROXINE 150 mcg IV ACBR Health maintenance Diet: NPO GI prophylaxis: PROTONIX DVT prophylaxis: C/I 2/2 GI bleed, cannot tolerate STDs given LE edema/tenderness. Will monitor closely Antibiotics: Not indicated CODE STATUS: Full Code Patient case was discussed with attending, Dr. Street. Belen West DO PGYI Attending Provider Attestation/Addendum Patient seen and examined with resident physician Dr. Bourgeois. Note reviewed, agree with findings and recommendations with the changes made. Extremely sick looking patient currently seen in ICU. Continues blood loss anemia needing blood products. ADITYA in the setting of hypotension needing pressors, Fluid overload. Patient positive by more than 6 L. Hemoglobin this morning 7.1. Needs more blood transfusion. Did receive a CRRT yesterday. 02/22/2025 Noted ICU team discussed goals of care with sons-patient currently DNR. Reviewed labs and medications. With all the blood products patient went into fluid overload Urine output very minimal. Decided to proceed with the conventional dialysis. Critical care time spent more than 40 minutes regarding plan of care and disease management. Plan of care discussed with ICU team. 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 Patient off pressors Patient currently seen on dialysis. Tolerating dialysis without any problems. Hemodialysis for 3 hours, 2K, ultrafiltration 2-3 L, Epogen 6000, no heparin ordered. Plan of care discussed with the dialysis nurse. Please see dialysis flowsheet for further details.
--- NOTE | 2025-02-22 12:45 | PD.SURPROG ---
Documentation for date of: 02/22/25 Subjective Subjective Brief History: Patient apparently has massive upper GI bleed and she was endoscoped and was found to have esophagitis and duodenitis. She was also found to have a foreign body in the duodenum which seems to be stuck in the wall of the duodenum and therefore it was not removed Exam Vital Signs Temp Pulse Resp BP Pulse Ox O2 Del Method O2 Flow Rate 98.5 F 114 H 29 H 111/75 99 Nasal Cannula 2 02/22/25 08:00 02/22/25 11:02/22/25 11:02/22/25 11:00 02/22/25 11:00 02/22/25 11:00 02/22/25 11:00 Assessment & Plan Assessment Additional comments: Patient does not seem to have any bleeding now. An x-ray of the abdomen showed foreign body on the right side of the abdomen which is most likely lodged in the duodenum Plan Plan: This foreign body is not going to do any harm. If it is in the lumen it would pass down into the GI tract if it is scratch that. If it is lodged in the duodenum there is no need for any attempt to remove it because it may be doing more harm than good. Whether endoscopically could be removed will be left to the GI specialist
--- NOTE | 2025-02-22 13:47 | PC.NURSE ---
TRANSFUSED I UNIT OF PRBC PER MD ORDER. UF GOAL INCREASED TO ACCOUNT FOR TRANSFUSION TOLERATED WILL CONT. TO MONITOR
--- NOTE | 2025-02-22 13:50 | ESPR_ITS ---
Documentation for date of: 02/22/25 Subjective Subjective Interval history: Patient evaluated Hemoglobin hematocrit 8.2 and 23.7 Exam Vital Signs Temp Pulse Resp BP Pulse Ox O2 Del Method O2 Flow Rate 97.0 F 99 16 107/68 99 Nasal Cannula 2 02/22/25 13:48 02/22/25 13:48 02/22/25 13:48 02/22/25 13:48 02/22/25 13:48 02/22/25 11:00 02/22/25 11:00 Objective Labs 02/22/25 05:10 02/22/25 05:10 Labs: Laboratory Results - last 24 hr 02/21/25 02/21/25 02/22/25 08:50 16:54 05:10 WBC 3.2 L 4.1 RBC 3.01 L 2.74 L Hgb 9.0 L 8.2 L Hct 25.1 L 23.7 L MCV 83 87 MCH 29.9 29.9 MCHC 35.9 34.6 RDW Std Deviation 45.5 48.9 H Plt Count 32 L 64 L D Neut % (Auto) 78 75 Lymph % (Auto) 15 17 [place] % (Auto) 1 1 Eos % (Auto) 3 5 Baso % (Auto) 0 1 Neut # (Auto) 2.5 3.1 Lymph # (Auto) 0.5 L 0.7 L [place] # (Auto) 0.0 0.0 Eos # (Auto) 0.1 0.2 Baso # (Auto) 0.0 0.0 Immature Gran # (Auto) 0.10 H 0.09 H Absolute Nucleated RBC 0.16 H 0.10 H Immature Gran % 3 H 2 H Nucleated RBC % 5 H 2 H Sodium 138 137 Potassium 3.2 L D 3.8 D Chloride 101 102 Carbon Dioxide 29.8 26.9 Anion Gap 7 8 BUN 18 27 H Creatinine 0.9 D 1.6 H D Estim Creat Clear Calc 55.4 L 30.2 L eGFR > 60 32 L BUN/Creatinine Ratio 20 17 Glucose 125 H 111 H Calculated Osmolality 278 279 Calcium 7.9 L 7.7 L Corrected Calcium 8.8 8.7 Magnesium 1.7 Total Bilirubin 2.5 H D 1.9 H D AST 31 26 ALT 19 17 Alkaline Phosphatase 68 65 Total Protein 4.7 L 4.5 L Albumin 2.9 L 2.7 L Globulin 1.8 L 1.8 L Albumin/Globulin Ratio 1.6 1.5 Misc Test Result Platelets confirmed Platelets confirmed Blood Type A Positive Antibody Screen NEGATIVE Crossmatch See Detail Blood Bank Wristband ID Yes Blood Bank Comment PLATP Ready Impressions Impression: # Mucosal oozing of blood as a source of bleeding # DIC complicated the picture # Downward trending hemoglobin hematocrit Continue to monitor CBC Continue Protonix ABG Interpretation ABG results: 02/19/25 17:02 VBG pH 7.53 VBG pCO2 30 L VBG pO2 65 H VBG Base Excess 2 Assessment & Plan A&P Narrative # Coffee-ground hematemesis # Hematochezia # Acute posthemorrhagic anemia # Hypotension # Atrial fibrillation with RVR # Chronic liver disease plan Move the patient to ICU as she is on amiodarone drip and critically sick Consent obtained for fiberoptic esophagogastroduodenoscopy for possible therapeutic intervention under intravenous moderate sedation Cannot do a CTA abdomen pelvis because of the elevated BUN/creatinine at 81 and 2.8 If EGD is negative we will consider doing a fiberoptic endoscopy if the patient cannot tolerate the prep Thank you for the opportunity to participate in this patient Time Spent With Patient Time: Total time spent is greater than 50% in coordination of care (as documented) at patient's floor/unit and/or counseling patient:
[2025-02-22] MEDS: EPOETIN ALFA INJ 1,000 UNIT/0.05 ML UNIT 10000 UNIT SC (15:50)
[2025-02-22] MEDS: HEPARIN SOD INJ 1000 UNIT/ML VIAL 10 ML 3000 UNIT INDWELLCAT (16:05)
--- NOTE | 2025-02-22 18:19 | PC.NURSE ---
report was received from ICU nurse and pt was transferred to [facility], she is alert and oriented, no complaints at this time
[2025-02-22] MEDS: ACETAMINOPHEN 325 MG TABLET 650 MG PO (23:47)
[2025-02-23] VITALS (13 sets, daily range): BP systolic 102–122; BP diastolic 66–75; PULSE 81–113; RESP 15–97; TEMP 35.9–36.4; O2SAT 93–100; BMI 26.9
[2025-02-23] MEDS: SUCRALFATE SUSP 1 GM/10 ML UDC PO ×3 (05:36→22:17)
[2025-02-23] MEDS: LEVOTHYROXINE INJ 100 mCg VIAL 150 MCG IV (05:36)
[2025-02-23 05:39] LABS: Basophils % (Auto) 0 % (0-2.5); Eosinophils # (Auto) 0.3 Thou/mm3 (0.0-0.5); Eosinophils % (Auto) 6 % (0-10); Hematocrit 27.9 % (36.0-46.0); Hemoglobin 9.7 g/dL (12.0-16.0); Immature Granulocytes % (Auto) 2 % (0-0); Immature Granulocytes Auto 0.08 Thou/mm3 (0.00-0.00); Lymphocytes # (Auto) 0.8 Thou/mm3 (1.0-4.8); Lymphocytes % (Auto) 18 % (10-50); Mean Corpuscular HGB Conc 34.8 g/dl (31.0-37.0); Mean Corpuscular Hemoglobin 30.1 pg (25.0-35.0); Mean Corpuscular Volume 87 fL (80-100); Monocytes % (Auto) 1 % (0-12); Neutrophils # (Auto) 3.3 Thou/mm3 (1.8-7.7); Neutrophils % (Auto) 73 % (37-80); Nucleated Red Blood Cell # 0.09 Thou/mm3 (0.00-0.00); Nucleated Red Blood Cell % 2 /100 WBC (0); RDW Standard Deviation 49.7 fL (36.4-46.3); Red Blood Count 3.22 Miln/mm3 (4.00-5.20); White Blood Count 4.5 Thou/mm3 (3.6-11.0)
[2025-02-23 05:40] LABS: Platelet Count 41 Thou/mm3 (140-440); Slide Review Platelets confirmed
[2025-02-23 05:59] LABS: Alanine Aminotransferase 15 U/L (10-49); Albumin, Serum 2.8 gm/dL (3.4-4.8); Albumin/Globulin Ratio 1.4 (1.2-2.2); Alkaline Phosphatase 72 U/L (46-116); Anion Gap 8 (7-16); Aspartate Amino Transferase 22 U/L (0-34); BUN/Creatinine Ratio 15 Ratio (12-20); Bilirubin,Total 2.4 mg/dL (0.3-1.2); Blood Urea Nitrogen 22 mg/dL (9-23); Calcium 7.8 mg/dL (8.3-10.6); Calcium (Corrected) 8.8 mg/dL (8.5-10.1); Chloride 100 mMol/L (98-107); Creatinine (Component) 1.5 mg/dL (0.6-1.3); Estimated Creatinine Clearance 32.2 mL/min (>60); Glucose 103 mg/dL (74-106); Magnesium 1.5 mg/dL (1.6-2.6); Osmolality,Calculated 277 (275-295); Potassium 3.9 mMol/L (3.4-5.1); Sodium 137 mMol/L (136-145); Total Protein 4.8 gm/dL (5.7-8.2); eGFR 35 See Note
[2025-02-23] MEDS: PANTOPRAZOLE INJ 40 MG VIAL IVP ×2 (08:39→22:17)
[2025-02-23] MEDS: FOLIC ACID INJ 1 MG/0.2 ML 5 MG IVP (08:39)
[2025-02-23] MEDS: AMIODARONE HCL 200 MG TABLET PO ×2 (08:46→22:16)
[2025-02-23] MEDS: ALBUMIN HUMAN 25% IVPB 12.5 GM/50 ML BTL IV (08:47)
--- NOTE | 2025-02-23 11:09 | ESPR_ITS ---
Documentation for date of: 02/23/25 Subjective Subjective Interval history: Ms. Ayoub is a pleasant 79-year-old female with PMHx of A-fib on ELIQUIS( under Dr. Parrish), CHF, HTN, Hypothyroidism, CKD, RA on Enbrel brought in by ambulance following 1.5 days of dark/watery stool and rectal bleed. She noted 1 week of dark stool, followed by dark and watery diarrhea that approximately 2 days ago. Denied fall or trauma, fever, chills, abnormal weight loss or gain, palpitations, chest pain, shortness of breath, cough, abdominal pain, nausea or vomiting, dysuria or hematuria. She was admitted at [facility] and airlifted to [place] for GLF for which she sustained a right eye injury, currently being followed up by ophthalmology in [place]. She did not report any fracture or other injuries. At the time, endoscopy was done, patient unsure why but state was normal. They had recommended colonoscopy but she states unable to do prep as she lives alone at home. Additionally, she states she takes home LASIX but was discontinued during admission at [facility] for fall risk concerns. She reports 3 weeks of increased bilateral extremity swelling and shortness of breath despite using her home 3 L oxygen. 02/19/2025 Patient was seen and examined in the ICU today. EGD was performed yesterday and it showed esophageal ulcers with large amount of blood in the body of the stomach down to the duodenal bulb. With a metallic structure thought to be a safety pin in the duodenal bulb. ICU team made multiple attempts to contact family to discuss goals of care. Patient became hemodynamically unstable needing pressors. Sick looking. Urine output very minimal. BUN and creatinine continues to rise. This morning her hemoglobin was 6.1. Needing more blood transfusions. Renal team decided to proceed with dialysis after talking to Dr. Oseguera. Due to hemodynamic instability decided to proceed with continuous and renal replacement therapy. Medications reviewed. Per Dr. Mendoza- gastrectomy has no role patient has been bleeding from several places. Patient will receive triple-lumen catheter for CRRT. 02/20/25 Patient was seen and examined in the ICU today. Patient tolerated CRRT well yesterday and received an additional 2 units of PRBC and 1 units of FFP. Patient's DIC panel was positive likely from massive blood transfusion. Hgb 7.4 today and patient did not have any more bloody bowel movements overnight. Createnine is 1.3 this morning. Will likely hold off from another session of CRRT for now. Pressor support has decreased. Prognosis is guarded. Patient made a DNR. Family was contacted. 02/21/2025 Examined at bedside in ICU. Renal function worsening overnight. eGFR 28 and CR 1.8. Likely related to poor perfusion secondary to anemia. Appears euvolemic on exam. Will give 1 unit pRBC, 1 unit PLT, ALBUMEN X1 and LASIX 20 mg X1. Will likely give another unit albumen tomorrow. Remains hemodynamically stable. D/C acuña and continue with purewick. Denies fever, chills, headaches, chest pain, sob, cough, GI or urinary symptoms. 02/22/25 examined at bedside in ICU. No acute overnight events. Renal function showing creatinine 1.6, BUN 27, GFR 32. In total she has received PRBCs 8 units, FFP 3 units, PLT 4 units, with Hgb currently stable at 8.2, although still having dark/bloody bowel movements. Remains asymptomatic. Vitals stable. Denies fever, chills, headaches, chest pain, sob, cough, GI or urinary symptoms. Will plan for hemodialysis today, goal to remove 2-3 L of fluids. If tolerating, will order 1 unit PRBCs as well. 02/23/2025 patient got downgraded from ICU to telemetry. Patient had 1 black stool. Denies any chest pain. Requesting to get physical therapy. Blood pressure 115/73, heart rate 84. Hemoglobin stable at 9.7, platelets 41,000. Sodium 137, potassium 3.9, bicarbonate 29, BUN 22, creatinine 1.5, glucose 103, calcium 8.8, magnesium 1.5, total bilirubin 2.4, albumin 2.8. Urine output still seems marginal. Review of Systems Review of Systems Narrative Review of Systems: CONSTITUTIONAL: Patient denies any fever, chills. Complaining of fatigue HEENT: Right eye blind CARDIOVASCULAR: Patient denies any chest pain, shortness of breath. c/o swelling in the lower extremities. PULMONARY: Patient denies any shortness of breath, cough. GASTROINTESTINAL: Patient denies any abdominal pain, constipation, nausea, vomiting. Complaining of black stool GENITOURINARY: Patient denies any urinary symptoms of burning or frequency or hematuria, denies any foam in the urine. Decreased urination SKIN: Denies any rash. MUSCULOSKELETAL: Complaining of gait imbalance NEUROLOGICAL: Denies any neurological problems of strokes, seizures or confusion. Denies any memory problems. Exam Vital Signs Temp Pulse Resp BP Pulse Ox O2 Del Method O2 Flow Rate 36.3 C 106 H 20 111/70 97 Room Air 2 02/23/25 08:00 02/23/25 08:46 02/23/25 08:00 02/23/25 08:46 02/23/25 08:00 02/23/25 08:00 02/22/25 16:00 Narrative Exam GENERAL APPEARANCE: Patient seems to be comfortable, adequately hydrated and nourished. HEENT: Right eyelid patched. Cannot see from the right eye. Pale conjunctiva. NECK: Neck supple, no JVD or bruit CARDIOVASCULAR: Heart regular, no murmurs LUNGS/CHEST: Chest clear to auscultation. No rales, rhonchi, wheezing ABDOMEN: Soft, nontender, nondistended. No masses. Normal bowel sounds. EXTREMITIES 2+ edema in the lower extremities SKIN: Skin exam normal without any rashes MUSCULOSKELETAL: in bed NEUROLOGICAL : No neurological deficits. Alert and awake Objective Labs 02/23/25 04:29 02/23/25 04:29 Labs: Laboratory Results - last 24 hr 02/21/25 02/23/25 08:50 04:29 WBC 4.5 RBC 3.22 L Hgb 9.7 L Hct 27.9 L MCV 87 MCH 30.1 MCHC 34.8 RDW Std Deviation 49.7 H Plt Count 41 L D Neut % (Auto) 73 Lymph % (Auto) 18 [place] % (Auto) 1 Eos % (Auto) 6 Baso % (Auto) 0 Neut # (Auto) 3.3 Lymph # (Auto) 0.8 L [place] # (Auto) 0.0 Eos # (Auto) 0.3 Baso # (Auto) 0.0 Immature Gran # (Auto) 0.08 H Absolute Nucleated RBC 0.09 H Immature Gran % 2 H Nucleated RBC % 2 H Sodium 137 Potassium 3.9 Chloride 100 Carbon Dioxide 29.0 Anion Gap 8 BUN 22 Creatinine 1.5 H Estim Creat Clear Calc 32.2 L eGFR 35 L BUN/Creatinine Ratio 15 Glucose 103 Calculated Osmolality 277 Calcium 7.8 L Corrected Calcium 8.8 Magnesium 1.5 L Total Bilirubin 2.4 H D AST 22 ALT 15 Alkaline Phosphatase 72 Total Protein 4.8 L Albumin 2.8 L Globulin 2.0 L Albumin/Globulin Ratio 1.4 Misc Test Result Platelets confirmed Blood Type A Positive Antibody Screen NEGATIVE Crossmatch See Detail Blood Bank Wristband ID Yes Blood Bank Comment PLATP Ready ABG Interpretation ABG results: 02/19/25 17:02 VBG pH 7.53 VBG pCO2 30 L VBG pO2 65 H VBG Base Excess 2 Assessment & Plan Assessment and plan (1) Atrial fibrillation: Status: Acute (2) GI bleed: Status: Acute (3) Elevated troponin: Status: Acute (4) Coagulopathy: Status: Acute Additional Assessment & Plan Additional Plan: 79-year-old female with PMHx of A-fib, CHF, HTN, presenting with 1 week of dark stool followed by roughly 2 days of black/watery diarrhea. Prerenal ADITYA--ischemic ATN-needing dialysis. Hold dialysis today. Noted edema- 1 dose of Lasix given. Acute GI bleed anemia Hematochezia Rectal bleed A total of 9 units of PRBCs have been transfused with 3 FFP's as well as 4 platelets. EGD revealed esophageal ulcers with large amounts of blood as well as a metallic structure embedded in the duodenal bulb. CT showed intramural hematoma near thoracic aortic, old finding. Noted Dr hTomas did not recommend any surgical intervention. History of CHF, on home 3 L oxygen Lactic acidosis (resolved) Low suspicion for pneumonia History of CHF, usually takes LASIX at home which was discontinued in December given concern for recurrent falls. Reports 3 weeks of lower extremity edema, has 2/3+ bilateral LE pitting edema and rales on lung exam. Given ALBUMIN X1 in ED. Less likely will tolerate fluids given overload status. Will give another ALBUMEN x1. CXR showed mild CHF, bibasilar pneumonia and left-sided pleural disease. However, low suspicion for pneumonia given she is asymptomatic, afebrile. Elevated PRO-ANGELY likely in setting of ADITYA and decreased clearance. Received CEFTRIAXONE x 1 in ED. Will continue to monitor Echo showed EF 55 to 60%, mild LVH. CXR showing RV dilation. ? Continue LEVAQUIN (02/19 to present) NSTEMI, likely type II A-fib with RVR Likely demand ischemia. History of AFIB non ELIQUIS. EKG showed A-fib with RVR, HR 132. Currently asymptomatic without chest pain or shortness of breath. Vitals stable Troponin peaked at 0.106 ? Hold ELIQUIS in setting of GI bleed. ? Continue AMIODARONE drip. ? Maintain K > 4.0 and Mg > 2.0 ? May benefit from right heart cath. Hypomagnesemia (resolved) Magnesium 1.5, potassium 3.5, repleted. ? Daily labs, replete as needed. Hypothyroidism Chronic, on home LEVO 200 mcg daily. ? Continue LEVOTHYROXINE 150 mcg IV ACBR
[2025-02-23] MEDS: ACETAMINOPHEN 325 MG TABLET 650 MG PO (19:31)
--- NOTE | 2025-02-23 19:39 | PC.NURSE ---
Pt seen and examined by Dr. Mendoza.
--- NOTE | 2025-02-23 20:22 | ESPR_ITS ---
Documentation for date of: 02/23/25 Subjective Subjective Interval history: Patient evaluated Hemoglobin hematocrit 9.7 and 27.9 No active bleeding at this time Exam Vital Signs Temp Pulse Resp BP Pulse Ox O2 Del Method O2 Flow Rate 96.6 F L 84 20 115/75 98 Room Air 2 02/23/25 19:34 02/23/25 19:34 02/23/25 19:34 02/23/25 19:34 02/23/25 19:34 02/23/25 19:34 02/22/25 16:00 Objective Labs 02/23/25 04:29 02/23/25 04:29 Labs: Laboratory Results - last 24 hr 02/23/25 04:29 WBC 4.5 RBC 3.22 L Hgb 9.7 L Hct 27.9 L MCV 87 MCH 30.1 MCHC 34.8 RDW Std Deviation 49.7 H Plt Count 41 L D Neut % (Auto) 73 Lymph % (Auto) 18 [place] % (Auto) 1 Eos % (Auto) 6 Baso % (Auto) 0 Neut # (Auto) 3.3 Lymph # (Auto) 0.8 L [place] # (Auto) 0.0 Eos # (Auto) 0.3 Baso # (Auto) 0.0 Immature Gran # (Auto) 0.08 H Absolute Nucleated RBC 0.09 H Immature Gran % 2 H Nucleated RBC % 2 H Sodium 137 Potassium 3.9 Chloride 100 Carbon Dioxide 29.0 Anion Gap 8 BUN 22 Creatinine 1.5 H Estim Creat Clear Calc 32.2 L eGFR 35 L BUN/Creatinine Ratio 15 Glucose 103 Calculated Osmolality 277 Calcium 7.8 L Corrected Calcium 8.8 Magnesium 1.5 L Total Bilirubin 2.4 H D AST 22 ALT 15 Alkaline Phosphatase 72 Total Protein 4.8 L Albumin 2.8 L Globulin 2.0 L Albumin/Globulin Ratio 1.4 Misc Test Result Platelets confirmed Impressions Impression: # mucosal oozing of blood improved # DIC resolved Continue current treatment ABG Interpretation ABG results: 02/19/25 17:02 VBG pH 7.53 VBG pCO2 30 L VBG pO2 65 H VBG Base Excess 2 Assessment & Plan A&P Narrative # Coffee-ground hematemesis # Hematochezia # Acute posthemorrhagic anemia # Hypotension # Atrial fibrillation with RVR # Chronic liver disease plan Move the patient to ICU as she is on amiodarone drip and critically sick Consent obtained for fiberoptic esophagogastroduodenoscopy for possible therapeutic intervention under intravenous moderate sedation Cannot do a CTA abdomen pelvis because of the elevated BUN/creatinine at 81 and 2.8 If EGD is negative we will consider doing a fiberoptic endoscopy if the patient cannot tolerate the prep Thank you for the opportunity to participate in this patient Time Spent With Patient Time: Total time spent is greater than 50% in coordination of care (as documented) at patient's floor/unit and/or counseling patient:
[2025-02-23] MEDS: FUROSEMIDE INJ 10 MG/ML 4ML VIAL 40 MG IVP (22:17)
[2025-02-23] MEDS: Magnesium Sulfate 2 GM Ivpb 2 GM/50 ML BAG IV (22:17)
--- NOTE | 2025-02-23 23:19 | PC.NURSE ---
530ml urine via bladder scan- Per pt does not have the urge to void. Applied warm compress on bladder area.
--- NOTE | 2025-02-23 23:46 | PC.NURSE ---
Pt refused acuña cath insertion at this time. Why do I need a acuña, it will eventually come out. Pt wants to wait.
[2025-02-24] VITALS (26 sets, daily range): BP systolic 92–120; BP diastolic 61–79; PULSE 75–99; RESP 14–96; TEMP 35.9–37; O2SAT 94–100; BMI 26.7
--- NOTE | 2025-02-24 00:20 | PC.NURSE ---
has not voided- applied cold compress to bladder area.
[2025-02-24 05:55] LABS: Basophils % (Auto) 0 % (0-2.5); Eosinophils # (Auto) 0.2 Thou/mm3 (0.0-0.5); Eosinophils % (Auto) 5 % (0-10); Hematocrit 27.4 % (36.0-46.0); Hemoglobin 9.2 g/dL (12.0-16.0); Immature Granulocytes % (Auto) 1 % (0-0); Immature Granulocytes Auto 0.02 Thou/mm3 (0.00-0.00); Lymphocytes # (Auto) 0.7 Thou/mm3 (1.0-4.8); Lymphocytes % (Auto) 18 % (10-50); Mean Corpuscular HGB Conc 33.6 g/dl (31.0-37.0); Mean Corpuscular Hemoglobin 29.6 pg (25.0-35.0); Mean Corpuscular Volume 88 fL (80-100); Monocytes # (Auto) 0.1 Thou/mm3 (0.0-0.8); Monocytes % (Auto) 2 % (0-12); Neutrophils # (Auto) 2.8 Thou/mm3 (1.8-7.7); Neutrophils % (Auto) 75 % (37-80); Nucleated Red Blood Cell # 0.07 Thou/mm3 (0.00-0.00); Nucleated Red Blood Cell % 2 /100 WBC (0); RDW Standard Deviation 51.3 fL (36.4-46.3); Red Blood Count 3.11 Miln/mm3 (4.00-5.20); White Blood Count 3.7 Thou/mm3 (3.6-11.0)
[2025-02-24 06:10] LABS: Alanine Aminotransferase 15 U/L (10-49); Albumin, Serum 2.8 gm/dL (3.4-4.8); Albumin/Globulin Ratio 1.5 (1.2-2.2); Alkaline Phosphatase 75 U/L (46-116); Anion Gap 8 (7-16); Aspartate Amino Transferase 18 U/L (0-34); BUN/Creatinine Ratio 19 Ratio (12-20); Bilirubin,Total 2.3 mg/dL (0.3-1.2); Blood Urea Nitrogen 30 mg/dL (9-23); Calcium 8.2 mg/dL (8.3-10.6); Calcium (Corrected) 9.2 mg/dL (8.5-10.1); Carbon Dioxide 28.8 mMol/L (20.0-31.0); Chloride 101 mMol/L (98-107); Creatinine (Component) 1.6 mg/dL (0.6-1.3); Estimated Creatinine Clearance 30.5 mL/min (>60); Globulin 1.9 gm/dL (2.3-3.5); Glucose 90 mg/dL (74-106); Magnesium 1.7 mg/dL (1.6-2.6); Osmolality,Calculated 281 (275-295); Potassium 3.5 mMol/L (3.4-5.1); Sodium 138 mMol/L (136-145); Total Protein 4.7 gm/dL (5.7-8.2); eGFR 32 See Note
[2025-02-24 06:19] LABS: Platelet Count 37 Thou/mm3 (140-440)
[2025-02-24] MEDS: SUCRALFATE SUSP 1 GM/10 ML UDC PO ×2 (06:26→21:10)
[2025-02-24] MEDS: LEVOTHYROXINE INJ 100 mCg VIAL 150 MCG IV (06:26)
--- NOTE | 2025-02-24 07:15 | PC.NURSE ---
cleansed with wound cleanser, pat dry, zinc paste applied to incontinent dermatitis to medial buttocks and perineal area.
[2025-02-24 08:10] LABS: Slide Review Platelets confirmed
--- NOTE | 2025-02-24 08:24 | ESPR_ITS ---
Documentation for date of: 02/24/25 Subjective Subjective Interval history: echo shows sever Pulmonary HTN will plan for right heart cath Exam Vital Signs Temp Pulse Resp BP Pulse Ox O2 Del Method O2 Flow Rate 97.4 F 83 14 100/66 98 Room Air 2 02/24/25 04:00 02/24/25 04:00 02/24/25 04:00 02/24/25 04:00 02/24/25 04:00 02/24/25 04:00 02/22/25 16:00 Routine HEENT Exam Head: Present normocephalic and atraumatic Eye: Present EOMI and PERRL ENT: Present mucous membranes moist Routine Neck Exam Neck: Present supple and trachea midline Routine Respiratory Exam Respiratory: Present chest non-tender, lungs clear, normal breath sounds and no resp distress Routine Cardiovascular Exam Cardiovascular: Present RRR Routine Abdominal Exam Abdominal: Present soft and normoactive bowel sounds Routine Extremities Exam Extremities: Present full ROM Routine Skin Exam Skin: Present intact, dry and warm Routine Neurological Exam Neurological: Present alert, oriented X3 and CN II-XII intact Routine Psychiatric Exam Psychiatric: Present normal affect and normal thought process Objective Labs 02/24/25 05:20 02/24/25 05:20 Labs: Laboratory Results - last 24 hr 02/24/25 05:20 WBC 3.7 RBC 3.11 L Hgb 9.2 L Hct 27.4 L MCV 88 MCH 29.6 MCHC 33.6 RDW Std Deviation 51.3 H Plt Count 37 L Neut % (Auto) 75 Lymph % (Auto) 18 [place] % (Auto) 2 Eos % (Auto) 5 Baso % (Auto) 0 Neut # (Auto) 2.8 Lymph # (Auto) 0.7 L [place] # (Auto) 0.1 Eos # (Auto) 0.2 Baso # (Auto) 0.0 Immature Gran # (Auto) 0.02 H Absolute Nucleated RBC 0.07 H Immature Gran % 1 H Nucleated RBC % 2 H Sodium 138 Potassium 3.5 Chloride 101 Carbon Dioxide 28.8 Anion Gap 8 BUN 30 H Creatinine 1.6 H Estim Creat Clear Calc 30.5 L eGFR 32 L BUN/Creatinine Ratio 19 Glucose 90 Calculated Osmolality 281 Calcium 8.2 L Corrected Calcium 9.2 Magnesium 1.7 Total Bilirubin 2.3 H AST 18 ALT 15 Alkaline Phosphatase 75 Total Protein 4.7 L Albumin 2.8 L Globulin 1.9 L Albumin/Globulin Ratio 1.5 Misc Test Result Platelets confirmed ABG Interpretation ABG results: 02/19/25 17:02 VBG pH 7.53 VBG pCO2 30 L VBG pO2 65 H VBG Base Excess 2 Assessment & Plan A&P Narrative pulmonary HTN plan for Right heart cath stable hemodynamics Time Spent With Patient Time: Total time spent is greater than 50% in coordination of care (as documented) at patient's floor/unit and/or counseling patient:
[2025-02-24] MEDS: AMIODARONE HCL 200 MG TABLET PO ×2 (08:26→20:28)
[2025-02-24] MEDS: PANTOPRAZOLE INJ 40 MG VIAL IVP ×2 (08:27→20:28)
[2025-02-24] MEDS: FOLIC ACID INJ 1 MG/0.2 ML 5 MG IVP (08:27)
[2025-02-24] MEDS: ACETAMINOPHEN 325 MG TABLET 650 MG PO ×2 (08:37→20:28)
--- NOTE | 2025-02-24 08:45 | ESPR_ITS ---
Documentation for date of: 02/24/25 Subjective Subjective Interval history: Ms. Ayoub is a pleasant 79-year-old female with PMHx of A-fib on ELIQUIS( under Dr. Parrish), CHF, HTN, Hypothyroidism, CKD, RA on Enbrel brought in by ambulance following 1.5 days of dark/watery stool and rectal bleed. She noted 1 week of dark stool, followed by dark and watery diarrhea that approximately 2 days ago. Denied fall or trauma, fever, chills, abnormal weight loss or gain, palpitations, chest pain, shortness of breath, cough, abdominal pain, nausea or vomiting, dysuria or hematuria. She was admitted at [facility] and airlifted to [place] for GLF for which she sustained a right eye injury, currently being followed up by ophthalmology in [place]. She did not report any fracture or other injuries. At the time, endoscopy was done, patient unsure why but state was normal. They had recommended colonoscopy but she states unable to do prep as she lives alone at home. Additionally, she states she takes home LASIX but was discontinued during admission at [facility] for fall risk concerns. She reports 3 weeks of increased bilateral extremity swelling and shortness of breath despite using her home 3 L oxygen. ED COURSE: Afebrile, BP 82/66, HR 121, RR 18, satting 99% on 2 L. Hgb 6.5 (baseline 11.2), HCT 19, WBC 10.9. PT 15.8, INR 1.5, APTT 43.7. Creatinine 2.8 (baseline 1.0), BUN 81, EGFR 15.6 Lactic acid 2.8, troponin 0.092, BNP 1414. Sodium 133, magnesium 1.5, TB 1.9, AST 35, ALT normal 21, ALBUMIN 2.5, ammonia <10. Pro-Calc 1.3. EKG showed A-fib with RVR, HR 132. CXR mild right basilar pneumonia, mild CHF, left-sided pneumonia and pleural disease. ED initiated transfusion with 2 units PRBCs and 1 unit FFP's. Will admit to telemetry, continue OCTREOTIDE and PROTONIX. GI has been consulted. 02/19/2025 Patient was seen and examined in the ICU today. EGD was performed yesterday and it showed esophageal ulcers with large amount of blood in the body of the stomach down to the duodenal bulb. With a metallic structure thought to be a safety pin in the duodenal bulb. ICU team made multiple attempts to contact family to discuss goals of care. Patient became hemodynamically unstable needing pressors. Sick looking. Urine output very minimal. BUN and creatinine continues to rise. This morning her hemoglobin was 6.1. Needing more blood transfusions. Renal team decided to proceed with dialysis after talking to Dr. Oseguera. Due to hemodynamic instability decided to proceed with continuous and renal replacement therapy. Medications reviewed. Per Dr. Mendoza- gastrectomy has no role patient has been bleeding from several places. Patient will receive triple-lumen catheter for CRRT. 02/20/25 Patient was seen and examined in the ICU today. Patient tolerated CRRT well yesterday and received an additional 2 units of PRBC and 1 units of FFP. Patient's DIC panel was positive likely from massive blood transfusion. Hgb 7.4 today and patient did not have any more bloody bowel movements overnight. Createnine is 1.3 this morning. Will likely hold off from another session of CRRT for now. Pressor support has decreased. Prognosis is guarded. Patient made a DNR. Family was contacted. 02/21/2025 Examined at bedside in ICU. Renal function worsening overnight. eGFR 28 and CR 1.8. Likely related to poor perfusion secondary to anemia. Appears euvolemic on exam. Will give 1 unit pRBC, 1 unit PLT, ALBUMEN X1 and LASIX 20 mg X1. Will likely give another unit albumen tomorrow. Remains hemodynamically stable. D/C acuña and continue with purewick. Denies fever, chills, headaches, chest pain, sob, cough, GI or urinary symptoms. 02/22/25 examined at bedside in ICU. No acute overnight events. Renal function showing creatinine 1.6, BUN 27, GFR 32. In total she has received PRBCs 8 units, FFP 3 units, PLT 4 units, with Hgb currently stable at 8.2, although still having dark/bloody bowel movements. Remains asymptomatic. Vitals stable. Denies fever, chills, headaches, chest pain, sob, cough, GI or urinary symptoms. Will plan for hemodialysis today, goal to remove 2-3 L of fluids. If tolerating, will order 1 unit PRBCs as well. 02/23/2025 patient got downgraded from ICU to telemetry. Patient had 1 black stool. Denies any chest pain. Requesting to get physical therapy. Blood pressure 115/73, heart rate 84. Hemoglobin stable at 9.7, platelets 41,000. Sodium 137, potassium 3.9, bicarbonate 29, BUN 22, creatinine 1.5, glucose 103, calcium 8.8, magnesium 1.5, total bilirubin 2.4, albumin 2.8. Urine output still seems marginal. 02/2025 examined at bedside, on telemetry. GI bleed appears to be controlled, currently brown stools, hemoglobin stable at 9.2 today. PLT 37. Vital stable. Renal function stable with CR 1.6, BUN 30, GFR 32. Electrolytes are normal. She had 400 cc urine output overnight. Bladder scan showed residual 700 cc. Will need Acuña catheter. 2+ bilateral LE edema on exam. Dr. Urena following, echo showing severe pulmonary hypertension. Planning for right heart cath. Exam Vital Signs Temp Pulse Resp BP Pulse Ox O2 Del Method O2 Flow Rate 97.2 F 94 16 105/72 98 Room Air 2 02/24/25 08:00 02/24/25 08:26 02/24/25 08:00 02/24/25 08:26 02/24/25 08:00 02/24/25 08:00 02/22/25 16:00 Narrative Exam GENERAL APPEARANCE: Patient seems to be comfortable, adequately hydrated and nourished. HEENT: Right eyelid patched. Cannot see from the right eye. Pale conjunctiva. NECK: Neck supple, no JVD or bruit CARDIOVASCULAR: Heart regular, no murmurs LUNGS/CHEST: Chest clear to auscultation. No rales, rhonchi, wheezing ABDOMEN: Soft, nontender, nondistended. No masses. Normal bowel sounds. EXTREMITIES 2+ edema in the lower extremities SKIN: Skin exam normal without any rashes MUSCULOSKELETAL: in bed NEUROLOGICAL : No neurological deficits. Alert and awake Objective Labs 02/25/25 17:30 02/25/25 04:44 Labs: Laboratory Results - last 24 hr 02/24/25 05:20 WBC 3.7 RBC 3.11 L Hgb 9.2 L Hct 27.4 L MCV 88 MCH 29.6 MCHC 33.6 RDW Std Deviation 51.3 H Plt Count 37 L Neut % (Auto) 75 Lymph % (Auto) 18 [place] % (Auto) 2 Eos % (Auto) 5 Baso % (Auto) 0 Neut # (Auto) 2.8 Lymph # (Auto) 0.7 L [place] # (Auto) 0.1 Eos # (Auto) 0.2 Baso # (Auto) 0.0 Immature Gran # (Auto) 0.02 H Absolute Nucleated RBC 0.07 H Immature Gran % 1 H Nucleated RBC % 2 H Sodium 138 Potassium 3.5 Chloride 101 Carbon Dioxide 28.8 Anion Gap 8 BUN 30 H Creatinine 1.6 H Estim Creat Clear Calc 30.5 L eGFR 32 L BUN/Creatinine Ratio 19 Glucose 90 Calculated Osmolality 281 Calcium 8.2 L Corrected Calcium 9.2 Magnesium 1.7 Total Bilirubin 2.3 H AST 18 ALT 15 Alkaline Phosphatase 75 Total Protein 4.7 L Albumin 2.8 L Globulin 1.9 L Albumin/Globulin Ratio 1.5 Misc Test Result Platelets confirmed ABG Interpretation ABG results: 02/19/25 17:02 VBG pH 7.53 VBG pCO2 30 L VBG pO2 65 H VBG Base Excess 2 Quality Measures Quality Measures sepsis Current suspected stage: ruled out Possible source: GI tract/intra- abdominal Blood cultures ordered: yes Antibiotic ordered: No Advance care planning discussed with:: patient Assessment & Plan Assessment Current Active Medications: Generic Name Dose Route Start Last Admin Trade Name Freq PRN Reason Stop Dose Admin Acetaminophen 650 mg 02/18/25 06:03 Acetaminophen Supp 650 Mg Supp NM 03/20/25 06:02 Q4HR PRN PAIN SCALE 1-3 (mild Acetaminophen 650 mg 02/18/25 09:38 02/24/25 08:37 Acetaminophen 325 Mg Tablet PO 03/20/25 09:37 650 mg Q6HR PRN Administration PAIN 1-6 (mild-mod Amiodarone HCl 200 mg 02/21/25 21:00 02/24/25 08:26 Amiodarone Hcl 200 Mg Tablet PO 03/23/25 20:59 200 mg BID EULALIA Administration Folic Acid 5 mg 02/20/25 10:30 02/24/25 08:27 Folic Acid Inj 1 Mg/0.2 Ml IVP 03/22/25 10:29 5 mg QDAY EULALIA Administration Heparin Sodium (Porcine) 3,000 unit 02/19/25 12:43 02/22/25 16:05 Heparin Sod Inj 1000 Unit/Ml Vial 10 Ml INDWELLCAT 02/25/25 12:42 3,000 unit X1 PRN Administration DIALYSIS Norepinephrine/Dextrose 8 mg in 250 mls @ 7.656 mls/hr 02/19/25 04:09 02/21/25 04:45 Levophed In D5w 8mg/250ml IV 03/21/25 04:08 0 mcg/kg/min .Q24H PRN 0 mls/hr PER PROTOCOL Titration Protocol 0.05 MCG/KG/MIN Albumin Human 25 gm in 100 mls @ 100 mls/min 02/22/25 13:52 Albuminar-25 Ivpb IV PRN PRN DIALYSIS Levothyroxine Sodium 150 mcg 02/19/25 06:00 02/24/25 06:26 Levothyroxine Inj 100 Mcg Vial IV 03/21/25 05:59 150 mcg ACBR EULALIA Administration Ondansetron HCl 4 mg 02/18/25 22:24 02/18/25 22:20 Ondansetron Inj 2 Mg/Ml Inj 2 Ml IV 03/20/25 22:23 4 mg Q8HR PRN Administration NAUSEA OR VOMITING Protocol Pantoprazole Sodium 40 mg 02/18/25 09:00 02/24/25 08:27 Pantoprazole Inj 40 Mg Vial IVP 03/20/25 08:59 40 mg BID EULALIA Administration Sucralfate 1 gm 02/19/25 14:00 02/24/25 06:26 Sucralfate Susp 1 Gm/10 Ml Udc PO 03/21/25 13:59 1 gm TID EULALIA Administration Plan 79-year-old female with PMHx of A-fib, CHF, HTN, presenting with 1 week of dark stool followed by roughly 2 days of black/watery diarrhea. Prerenal ADITYA Ischemic ATN Needing HD 2+ kenan LE edema on exam. Marginal urine output 400cc despite LASIX x1, bladder scan 700 cc, will proceed with Acuña. ? Will consider another HD session if indicated ? Renally dose meds, avoid overdiuresis and NEPHROTOXINS ? Daily CMP Acute GI bleed anemia Hematochezia Rectal bleed A total of 9 units of PRBCs have been transfused with 3 FFP's as well as 4 platelets. EGD revealed esophageal ulcers with large amounts of blood as well as a metallic structure embedded in the duodenal bulb. CT showed intramural hematoma near thoracic aortic, old finding. Noted Dr Thomas did not recommend any surgical intervention. Hemoglobin stable, currently 9.2. No signs of active GI bleed, having brown stools. ? Transfusion if Hgb less than 8 ? Daily labs History of CHF, on home 3 L oxygen Severe pulmonary hypertension Echo showing severe pulmonary hypertension. Recurrent bilateral extremity edema, currently 2+. Dr. Urena following, appreciate recommendations. Currently asymptomatic without chest pain or shortness of breath. ? Plan for right heart cath. Lactic acidosis (resolved) Low suspicion for pneumonia History of CHF, usually takes LASIX at home which was discontinued in December given concern for recurrent falls. Reports 3 weeks of lower extremity edema, has 2/3+ bilateral LE pitting edema and rales on lung exam. Given ALBUMIN X1 in ED. Less likely will tolerate fluids given overload status. Will give another ALBUMEN x1. CXR showed mild CHF, bibasilar pneumonia and left-sided pleural disease. However, low suspicion for pneumonia given she is asymptomatic, afebrile. Elevated PRO-ANGELY likely in setting of ADITYA and decreased clearance. Received CEFTRIAXONE x 1 in ED. Will continue to monitor Echo showed EF 55 to 60%, mild LVH. CXR showing RV dilation. ? Continue LEVAQUIN (02/19 to present) NSTEMI, likely type II A-fib with RVR Likely demand ischemia. History of AFIB non ELIQUIS. EKG showed A-fib with RVR, HR 132. Currently asymptomatic without chest pain or shortness of breath. Vitals stable Troponin peaked at 0.106 ? Hold ELIQUIS in setting of GI bleed. ? Continue AMIODARONE 200 BID. ? Maintain K > 4.0 and Mg > 2.0 ? May benefit from right heart cath. Hypomagnesemia (resolved) ? Daily labs, replete as needed. Hypothyroidism Chronic, on home LEVO 200 mcg daily. ? Continue LEVOTHYROXINE 150 mcg IV ACBR Health maintenance Diet: NPO GI prophylaxis: PROTONIX DVT prophylaxis: C/I 2/2 GI bleed, cannot tolerate STDs given LE edema/tenderness. Will monitor closely Antibiotics: Not indicated CODE STATUS: Full Code Attending Provider Attestation/Addendum Patient seen and examined with resident physician Dr. Glover. Note reviewed, agree with findings and recommendations with the changes made. Noted ICU team discussed goals of care with sons-patient currently DNR. Reviewed labs and medications. Urine output very minimal. Patient currently seems to be ischemic ATN from hypotension. Noted to have significant fluid overload. Sequential ultrafiltration ordered. 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 Patient currently seen on dialysis. Tolerating dialysis without any problems. Sequential ultrafiltration 2-3 L, Epogen 6000, no heparin ordered. Plan of care discussed with the dialysis nurse. Please see dialysis flowsheet for further details. Outpatient dialysis will be arranged. Hemoglobin stable. Still having black bowel movements
[2025-02-24] MEDS: POTASSIUM CHLORIDE 20 mEq TABCR 40 MEQ PO (10:09)
[2025-02-24] MEDS: Magnesium Sulfate 2 GM Ivpb 2 GM/50 ML BAG IV (10:09)
--- NOTE | 2025-02-24 11:55 | PC.SS ---
Follow up note: Patient last dialysis treatment was on 02/22. Patient is an ICU downgrade. Cardiology consulted and mentioned patient will need right heart cath. PT eval pending for patient. Patient resides alone. Possible d/c to SNF once stable. PT recommendations pending.
[2025-02-24] MEDS: ALBUMIN HUMAN 25% IVPB 25 GM/100 ML BTL IV (13:06)
--- NOTE | 2025-02-24 13:08 | PC.NURSE ---
BP TRENDING DOWN PT REMAINS RECLINED AND DENIES ALL S/S OF HYPOTENSION WILL ADMIN PRN ALBUMIN AND CONT. TO MONITOR
--- NOTE | 2025-02-24 13:21 | PC.NURSE ---
Addendum entered by Yazmin Livingston RN 02/24/25 13:45: CORRECTION UF GOAL LOWERED TO 1.5L TOLERATED WILL MONITOR Original Note: BP CONT. TO DROP PT REMAINS ASYMPTOMATIC. UF GOAL LOWERED TO 1L TOLERATED PER MD NGUYEN, WILL CONT. TO MONITOR
--- NOTE | 2025-02-24 14:47 | PC.NURSE ---
BP TRENDING DOWN, PT REMAINS ASYMPTOMATIC. UF GOAL LOWERED TO 1.3L TOLERATED WILL CONT. TO MONITOR
[2025-02-24] MEDS: HEPARIN SOD INJ 1000 UNIT/ML VIAL 10 ML 3000 UNIT INDWELLCAT (16:27)
[2025-02-24] MEDS: TUBERCULIN PPD INJ 5 UNIT/0.1 ML DOSE ID (17:07)
[2025-02-24] MEDS: DiphenhydrAMINE 25 MG CAPSULE PO ×2 (17:31→23:40)
--- NOTE | 2025-02-24 17:53 | PC.NURSE ---
1700- patient is complaining of generalized itching, patient developed generalized rashes to chest and back, called dr. santiago and made aware, new order to give benadryl 25mg po [id number] prn for itching first dose now.
--- NOTE | 2025-02-24 18:51 | PD.IMPROG ---
Documentation for date of: 02/24/25 Subjective Subjective Interval history: Patient evaluated hemoglobin hematocrit 9.2 and 27.4 Platelet count is 37,000 Exam Vital Signs Temp Pulse Resp BP Pulse Ox O2 Del Method O2 Flow Rate 98.6 F 88 19 113/70 97 Room Air 2 02/24/25 16:15 02/24/25 16:15 02/24/25 16:15 02/24/25 16:15 02/24/25 16:15 02/24/25 16:15 02/22/25 16:00 Objective Labs 02/24/25 05:20 02/24/25 05:20 Labs: Laboratory Results - last 24 hr 02/24/25 05:20 WBC 3.7 RBC 3.11 L Hgb 9.2 L Hct 27.4 L MCV 88 MCH 29.6 MCHC 33.6 RDW Std Deviation 51.3 H Plt Count 37 L Neut % (Auto) 75 Lymph % (Auto) 18 [place] % (Auto) 2 Eos % (Auto) 5 Baso % (Auto) 0 Neut # (Auto) 2.8 Lymph # (Auto) 0.7 L [place] # (Auto) 0.1 Eos # (Auto) 0.2 Baso # (Auto) 0.0 Immature Gran # (Auto) 0.02 H Absolute Nucleated RBC 0.07 H Immature Gran % 1 H Nucleated RBC % 2 H Sodium 138 Potassium 3.5 Chloride 101 Carbon Dioxide 28.8 Anion Gap 8 BUN 30 H Creatinine 1.6 H Estim Creat Clear Calc 30.5 L eGFR 32 L BUN/Creatinine Ratio 19 Glucose 90 Calculated Osmolality 281 Calcium 8.2 L Corrected Calcium 9.2 Magnesium 1.7 Total Bilirubin 2.3 H AST 18 ALT 15 Alkaline Phosphatase 75 Total Protein 4.7 L Albumin 2.8 L Globulin 1.9 L Albumin/Globulin Ratio 1.5 Misc Test Result Platelets confirmed Impressions Impression: Mucosal oozing of blood due to DIC improving continue to monitor CBC ABG Interpretation ABG results: 02/19/25 17:02 VBG pH 7.53 VBG pCO2 30 L VBG pO2 65 H VBG Base Excess 2 Assessment & Plan A&P Narrative pulmonary HTN plan for Right heart cath stable hemodynamics Time Spent With Patient Time: Total time spent is greater than 50% in coordination of care (as documented) at patient's floor/unit and/or counseling patient:
[2025-02-25] VITALS (17 sets, daily range): BP systolic 99–132; BP diastolic 63–84; PULSE 83–118; RESP 13–26; TEMP 36.1–36.6; O2SAT 95–100; BMI 26.9
[2025-02-25] MEDS: LEVOTHYROXINE INJ 100 mCg VIAL 150 MCG IV (05:24)
[2025-02-25 05:53] LABS: Basophils % (Auto) 0 % (0-2.5); Eosinophils # (Auto) 0.1 Thou/mm3 (0.0-0.5); Eosinophils % (Auto) 3 % (0-10); Hematocrit 25.2 % (36.0-46.0); Immature Granulocytes % (Auto) 1 % (0-0); Immature Granulocytes Auto 0.03 Thou/mm3 (0.00-0.00); Lymphocytes # (Auto) 0.4 Thou/mm3 (1.0-4.8); Lymphocytes % (Auto) 16 % (10-50); Mean Corpuscular HGB Conc 34.1 g/dl (31.0-37.0); Mean Corpuscular Hemoglobin 29.8 pg (25.0-35.0); Mean Corpuscular Volume 87 fL (80-100); Monocytes # (Auto) 0.1 Thou/mm3 (0.0-0.8); Monocytes % (Auto) 3 % (0-12); Neutrophils # (Auto) 2.2 Thou/mm3 (1.8-7.7); Neutrophils % (Auto) 78 % (37-80); Nucleated Red Blood Cell # 0.05 Thou/mm3 (0.00-0.00); Nucleated Red Blood Cell % 2 /100 WBC (0); RDW Standard Deviation 49.9 fL (36.4-46.3); Red Blood Count 2.89 Miln/mm3 (4.00-5.20)
[2025-02-25 05:56] LABS: Hemoglobin 8.6 g/dL (12.0-16.0)
[2025-02-25 05:57] LABS: Platelet Count 30 Thou/mm3 (140-440)
[2025-02-25 05:58] LABS: White Blood Count 2.8 Thou/mm3 (3.6-11.0)
[2025-02-25 06:25] LABS: Alanine Aminotransferase 11 U/L (10-49); Albumin, Serum 2.7 gm/dL (3.4-4.8); Albumin/Globulin Ratio 1.6 (1.2-2.2); Alkaline Phosphatase 83 U/L (46-116); Anion Gap 8 (7-16); Aspartate Amino Transferase 16 U/L (0-34); BUN/Creatinine Ratio 18 Ratio (12-20); Bilirubin,Total 2.1 mg/dL (0.3-1.2); Blood Urea Nitrogen 31 mg/dL (9-23); Calcium 7.5 mg/dL (8.3-10.6); Calcium (Corrected) 8.5 mg/dL (8.5-10.1); Carbon Dioxide 23.9 mMol/L (20.0-31.0); Chloride 102 mMol/L (98-107); Creatinine (Component) 1.7 mg/dL (0.6-1.3); Estimated Creatinine Clearance 28.4 mL/min (>60); Globulin 1.7 gm/dL (2.3-3.5); Glucose 116 mg/dL (74-106); Magnesium 1.9 mg/dL (1.6-2.6); Osmolality,Calculated 275 (275-295); Potassium 3.9 mMol/L (3.4-5.1); Sodium 134 mMol/L (136-145); Total Protein 4.4 gm/dL (5.7-8.2); eGFR 30 See Note
--- NOTE | 2025-02-25 07:40 | PD.IMPROG ---
Documentation for date of: 02/25/25 Subjective Subjective Interval history: No further bleeding Stable hemodynamics Right heart catheter Today Exam Vital Signs Temp Pulse Resp BP Pulse Ox O2 Del Method O2 Flow Rate 97.1 F 84 14 109/63 96 Room Air 2 02/25/25 04:00 02/25/25 04:00 02/25/25 04:00 02/25/25 04:00 02/25/25 04:00 02/24/25 20:00 02/22/25 16:00 Routine HEENT Exam Head: Present normocephalic and atraumatic Eye: Present EOMI and PERRL ENT: Present mucous membranes moist Routine Neck Exam Neck: Present supple and trachea midline Routine Respiratory Exam Respiratory: Present chest non-tender, lungs clear, normal breath sounds and no resp distress Routine Cardiovascular Exam Cardiovascular: Present RRR Routine Abdominal Exam Abdominal: Present soft and normoactive bowel sounds Routine Extremities Exam Extremities: Present full ROM Routine Skin Exam Skin: Present intact, dry and warm Routine Neurological Exam Neurological: Present alert, oriented X3 and CN II-XII intact Routine Psychiatric Exam Psychiatric: Present normal affect and normal thought process Objective Labs 02/25/25 04:44 02/25/25 04:44 Labs: Laboratory Results - last 24 hr 02/24/25 02/25/25 05:20 04:44 WBC 2.8 L RBC 2.89 L Hgb 8.6 L Hct 25.2 L MCV 87 MCH 29.8 MCHC 34.1 RDW Std Deviation 49.9 H Plt Count 30 L Neut % (Auto) 78 Lymph % (Auto) 16 [place] % (Auto) 3 Eos % (Auto) 3 Baso % (Auto) 0 Neut # (Auto) 2.2 Lymph # (Auto) 0.4 L [place] # (Auto) 0.1 Eos # (Auto) 0.1 Baso # (Auto) 0.0 Immature Gran # (Auto) 0.03 H Absolute Nucleated RBC 0.05 H Immature Gran % 1 H Nucleated RBC % 2 H Sodium 134 L Potassium 3.9 Chloride 102 Carbon Dioxide 23.9 Anion Gap 8 BUN 31 H Creatinine 1.7 H Estim Creat Clear Calc 28.4 L eGFR 30 L BUN/Creatinine Ratio 18 Glucose 116 H Calculated Osmolality 275 Calcium 7.5 L Corrected Calcium 8.5 Magnesium 1.9 Total Bilirubin 2.1 H AST 16 ALT 11 Alkaline Phosphatase 83 Total Protein 4.4 L Albumin 2.7 L Globulin 1.7 L Albumin/Globulin Ratio 1.6 Misc Test Result Platelets confirmed ABG Interpretation ABG results: 02/19/25 17:02 VBG pH 7.53 VBG pCO2 30 L VBG pO2 65 H VBG Base Excess 2 Assessment & Plan A&P Narrative pulmonary HTN plan for Right heart cath stable hemodynamics Time Spent With Patient Time: Total time spent is greater than 50% in coordination of care (as documented) at patient's floor/unit and/or counseling patient:
[2025-02-25 08:32] LABS: Slide Review Platelets confirmed
[2025-02-25] MEDS: PANTOPRAZOLE INJ 40 MG VIAL IVP ×2 (08:51→21:21)
[2025-02-25] MEDS: FOLIC ACID INJ 1 MG/0.2 ML 5 MG IVP (08:52)
--- NOTE | 2025-02-25 09:09 | ESPR_ITS ---
Documentation for date of: 02/25/25 Subjective Subjective Interval history: Ms. Ayoub is a pleasant 79-year-old female with PMHx of A-fib on ELIQUIS( under Dr. Parrish), CHF, HTN, Hypothyroidism, CKD, RA on Enbrel brought in by ambulance following 1.5 days of dark/watery stool and rectal bleed. She noted 1 week of dark stool, followed by dark and watery diarrhea that approximately 2 days ago. Denied fall or trauma, fever, chills, abnormal weight loss or gain, palpitations, chest pain, shortness of breath, cough, abdominal pain, nausea or vomiting, dysuria or hematuria. She was admitted at [facility] and airlifted to [place] for GLF for which she sustained a right eye injury, currently being followed up by ophthalmology in [place]. She did not report any fracture or other injuries. At the time, endoscopy was done, patient unsure why but state was normal. They had recommended colonoscopy but she states unable to do prep as she lives alone at home. Additionally, she states she takes home LASIX but was discontinued during admission at [facility] for fall risk concerns. She reports 3 weeks of increased bilateral extremity swelling and shortness of breath despite using her home 3 L oxygen. ED COURSE: Afebrile, BP 82/66, HR 121, RR 18, satting 99% on 2 L. Hgb 6.5 (baseline 11.2), HCT 19, WBC 10.9. PT 15.8, INR 1.5, APTT 43.7. Creatinine 2.8 (baseline 1.0), BUN 81, EGFR 15.6 Lactic acid 2.8, troponin 0.092, BNP 1414. Sodium 133, magnesium 1.5, TB 1.9, AST 35, ALT normal 21, ALBUMIN 2.5, ammonia <10. Pro-Calc 1.3. EKG showed A-fib with RVR, HR 132. CXR mild right basilar pneumonia, mild CHF, left-sided pneumonia and pleural disease. ED initiated transfusion with 2 units PRBCs and 1 unit FFP's. Will admit to telemetry, continue OCTREOTIDE and PROTONIX. GI has been consulted. 02/19/2025 Patient was seen and examined in the ICU today. EGD was performed yesterday and it showed esophageal ulcers with large amount of blood in the body of the stomach down to the duodenal bulb. With a metallic structure thought to be a safety pin in the duodenal bulb. ICU team made multiple attempts to contact family to discuss goals of care. Patient became hemodynamically unstable needing pressors. Sick looking. Urine output very minimal. BUN and creatinine continues to rise. This morning her hemoglobin was 6.1. Needing more blood transfusions. Renal team decided to proceed with dialysis after talking to Dr. Oseguera. Due to hemodynamic instability decided to proceed with continuous and renal replacement therapy. Medications reviewed. Per Dr. Mendoza- gastrectomy has no role patient has been bleeding from several places. Patient will receive triple-lumen catheter for CRRT. 02/20/25 Patient was seen and examined in the ICU today. Patient tolerated CRRT well yesterday and received an additional 2 units of PRBC and 1 units of FFP. Patient's DIC panel was positive likely from massive blood transfusion. Hgb 7.4 today and patient did not have any more bloody bowel movements overnight. Createnine is 1.3 this morning. Will likely hold off from another session of CRRT for now. Pressor support has decreased. Prognosis is guarded. Patient made a DNR. Family was contacted. 02/21/2025 Examined at bedside in ICU. Renal function worsening overnight. eGFR 28 and CR 1.8. Likely related to poor perfusion secondary to anemia. Appears euvolemic on exam. Will give 1 unit pRBC, 1 unit PLT, ALBUMEN X1 and LASIX 20 mg X1. Will likely give another unit albumen tomorrow. Remains hemodynamically stable. D/C acuña and continue with purewick. Denies fever, chills, headaches, chest pain, sob, cough, GI or urinary symptoms. 02/22/25 examined at bedside in ICU. No acute overnight events. Renal function showing creatinine 1.6, BUN 27, GFR 32. In total she has received PRBCs 8 units, FFP 3 units, PLT 4 units, with Hgb currently stable at 8.2, although still having dark/bloody bowel movements. Remains asymptomatic. Vitals stable. Denies fever, chills, headaches, chest pain, sob, cough, GI or urinary symptoms. Will plan for hemodialysis today, goal to remove 2-3 L of fluids. If tolerating, will order 1 unit PRBCs as well. 02/23/2025 patient got downgraded from ICU to telemetry. Patient had 1 black stool. Denies any chest pain. Requesting to get physical therapy. Blood pressure 115/73, heart rate 84. Hemoglobin stable at 9.7, platelets 41,000. Sodium 137, potassium 3.9, bicarbonate 29, BUN 22, creatinine 1.5, glucose 103, calcium 8.8, magnesium 1.5, total bilirubin 2.4, albumin 2.8. Urine output still seems marginal. 02/24/2025 examined at bedside, on telemetry. GI bleed appears to be controlled, currently brown stools, hemoglobin stable at 9.2 today. PLT 37. Vital stable. Renal function stable with CR 1.6, BUN 30, GFR 32. Electrolytes are normal. She had 400 cc urine output overnight. Bladder scan showed residual 700 cc. Will need Acuña catheter. 2+ bilateral LE edema on exam. Dr. Romel granda, echo showing severe pulmonary hypertension. Planning for right heart cath. 02/25/2025 examined at bedside. No new symptoms or worsening of symptoms. Denies fever, chills, headaches, chest pain, sob, cough, GI or urinary symptoms. Has been n.p.o. for cath today which apparently postponed given low platelets. Ordered 1 unit platelets to be transfused today. Will need PermCath for outpatient hemodialysis. Hemoglobin 8.6, has black stool today as well. Ordered 1 unit pRBC. Exam Vital Signs Temp Pulse Resp BP Pulse Ox O2 Del Method O2 Flow Rate 97.1 F 102 H 14 99/73 96 Room Air 2 02/25/25 04:00 02/25/25 08:16 02/25/25 04:00 02/25/25 08:16 02/25/25 04:00 02/24/25 20:00 02/22/25 16:00 Narrative Exam GENERAL APPEARANCE: Patient seems to be comfortable, adequately hydrated and nourished. HEENT: Right eyelid patched. Cannot see from the right eye. Pale conjunctiva. NECK: Neck supple, no JVD or bruit CARDIOVASCULAR: Heart regular, no murmurs LUNGS/CHEST: Chest clear to auscultation. No rales, rhonchi, wheezing ABDOMEN: Soft, nontender, nondistended. No masses. Normal bowel sounds. EXTREMITIES 2+ edema in the lower extremities SKIN: Skin exam normal without any rashes MUSCULOSKELETAL: in bed NEUROLOGICAL : No neurological deficits. Alert and awake Objective Labs 02/25/25 17:30 02/25/25 04:44 Labs: Laboratory Results - last 24 hr 02/25/25 04:44 WBC 2.8 L RBC 2.89 L Hgb 8.6 L Hct 25.2 L MCV 87 MCH 29.8 MCHC 34.1 RDW Std Deviation 49.9 H Plt Count 30 L Neut % (Auto) 78 Lymph % (Auto) 16 [place] % (Auto) 3 Eos % (Auto) 3 Baso % (Auto) 0 Neut # (Auto) 2.2 Lymph # (Auto) 0.4 L [place] # (Auto) 0.1 Eos # (Auto) 0.1 Baso # (Auto) 0.0 Immature Gran # (Auto) 0.03 H Absolute Nucleated RBC 0.05 H Immature Gran % 1 H Nucleated RBC % 2 H Sodium 134 L Potassium 3.9 Chloride 102 Carbon Dioxide 23.9 Anion Gap 8 BUN 31 H Creatinine 1.7 H Estim Creat Clear Calc 28.4 L eGFR 30 L BUN/Creatinine Ratio 18 Glucose 116 H Calculated Osmolality 275 Calcium 7.5 L Corrected Calcium 8.5 Magnesium 1.9 Total Bilirubin 2.1 H AST 16 ALT 11 Alkaline Phosphatase 83 Total Protein 4.4 L Albumin 2.7 L Globulin 1.7 L Albumin/Globulin Ratio 1.6 Misc Test Result Platelets confirmed ABG Interpretation ABG results: 02/19/25 17:02 VBG pH 7.53 VBG pCO2 30 L VBG pO2 65 H VBG Base Excess 2 Quality Measures Quality Measures sepsis Current suspected stage: ruled out Possible source: GI tract/intra- abdominal Blood cultures ordered: yes Antibiotic ordered: No Advance care planning discussed with:: patient Assessment & Plan Assessment Current Active Medications: Generic Name Dose Route Start Last Admin Trade Name Freq PRN Reason Stop Dose Admin Acetaminophen 650 mg 02/18/25 06:03 Acetaminophen Supp 650 Mg Supp RI 03/20/25 06:02 Q4HR PRN PAIN SCALE 1-3 (mild Acetaminophen 650 mg 02/18/25 09:38 02/24/25 20:28 Acetaminophen 325 Mg Tablet PO 03/20/25 09:37 650 mg Q6HR PRN Administration PAIN 1-6 (mild-mod Amiodarone HCl 200 mg 02/21/25 21:00 02/25/25 08:16 Amiodarone Hcl 200 Mg Tablet PO 03/23/25 20:59 Not Given BID EULALIA Diphenhydramine HCl 25 mg 02/24/25 17:21 02/24/25 23:40 Diphenhydramine 25 Mg Capsule PO 03/26/25 17:20 25 mg Q6HR PRN Administration ITCHING Folic Acid 5 mg 02/20/25 10:30 02/25/25 08:52 Folic Acid Inj 1 Mg/0.2 Ml IVP 03/22/25 10:29 5 mg QDAY EULALIA Administration Heparin Sodium (Porcine) 3,000 unit 02/19/25 12:43 02/24/25 16:27 Heparin Sod Inj 1000 Unit/Ml Vial 10 Ml INDWELLCAT 02/25/25 12:42 3,000 unit X1 PRN Administration DIALYSIS Norepinephrine/Dextrose 8 mg in 250 mls @ 7.656 mls/hr 02/19/25 04:09 02/21/25 04:45 Levophed In D5w 8mg/250ml IV 03/21/25 04:08 0 mcg/kg/min .Q24H PRN 0 mls/hr PER PROTOCOL Titration Protocol 0.05 MCG/KG/MIN Albumin Human 25 gm in 100 mls @ 100 mls/min 02/22/25 13:52 02/24/25 13:06 Albuminar-25 Ivpb IV 100 mls/min PRN PRN Administration DIALYSIS Levothyroxine Sodium 150 mcg 02/19/25 06:00 02/25/25 05:24 Levothyroxine Inj 100 Mcg Vial IV 03/21/25 05:59 150 mcg ACBR EULALIA Administration Ondansetron HCl 4 mg 02/18/25 22:24 02/18/25 22:20 Ondansetron Inj 2 Mg/Ml Inj 2 Ml IV 03/20/25 22:23 4 mg Q8HR PRN Administration NAUSEA OR VOMITING Protocol Pantoprazole Sodium 40 mg 02/18/25 09:00 02/25/25 08:51 Pantoprazole Inj 40 Mg Vial IVP 03/20/25 08:59 40 mg BID EULALIA Administration Sucralfate 1 gm 02/19/25 14:00 02/25/25 05:08 Sucralfate Susp 1 Gm/10 Ml Udc PO 03/21/25 13:59 Not Given TID EULALIA Plan 79-year-old female with PMHx of A-fib, CHF, HTN, presenting with 1 week of dark stool followed by roughly 2 days of black/watery diarrhea. Apprecaite recommendations from cardiology. Cath was delayed today secondary to low PLT. Had 1 dark BM this AM. Hgb slightly down 9.4 > 8.6. Overall stable, no new symptoms or worsening of symptoms. Will give 1 unit PLT and 1 unit pRBC. Attempt cath and perm-cath tomorrow. Prerenal ADITYA Ischemic ATN Needing HD 2+ kenan LE edema on exam. Urine output improved. Renal function stable. Will need temp renal replacement therapy outpatient. ? Ordered perm-cath to be done during cath tomorrow ? Renally dose meds, avoid overdiuresis and NEPHROTOXINS ? Daily CMP Acute GI bleed anemia Hematochezia Rectal bleed A total of 9 units of PRBCs have been transfused with 3 FFP's as well as 4 platelets. EGD revealed esophageal ulcers with large amounts of blood as well as a metallic structure embedded in the duodenal bulb. CT showed intramural hematoma near thoracic aortic, old finding. Noted Dr Thomas did not recommend any surgical intervention. Hemoglobin stable, currently 8.6. Had 1 dark BM this morning. ? Ordere 1 unit PLT and 1 unit PRBC ? Transfusion if Hgb less than 8 ? Daily labs History of CHF, on home 3 L oxygen Severe pulmonary hypertension Echo showing severe pulmonary hypertension. Recurrent bilateral extremity edema, currently 2+. Dr. Urena following, appreciate recommendations. Currently asymptomatic without chest pain or shortness of breath. ? Plan for right heart cath tomrrow Lactic acidosis (resolved) Low suspicion for pneumonia History of CHF, usually takes LASIX at home which was discontinued in December given concern for recurrent falls. Reports 3 weeks of lower extremity edema, has 2/3+ bilateral LE pitting edema and rales on lung exam. Given ALBUMIN X1 in ED. Less likely will tolerate fluids given overload status. Will give another ALBUMEN x1. CXR showed mild CHF, bibasilar pneumonia and left-sided pleural disease. However, low suspicion for pneumonia given she is asymptomatic, afebrile. Elevated PRO-ANGELY likely in setting of ADITYA and decreased clearance. Received CEFTRIAXONE x 1 in ED. Will continue to monitor Echo showed EF 55 to 60%, mild LVH. CXR showing RV dilation. ? Continue LEVAQUIN (02/19 to present) NSTEMI, likely type II A-fib with RVR Likely demand ischemia. History of AFIB non ELIQUIS. EKG showed A-fib with RVR, HR 132. Troponin peaked at 0.106 Currently asymptomatic without chest pain or shortness of breath. Vitals stable. ? Hold ELIQUIS in setting of GI bleed. ? Continue AMIODARONE 200 BID. ? Maintain K > 4.0 and Mg > 2.0 ? May benefit from right heart cath. Hypomagnesemia (resolved) ? Daily labs, replete as needed. Hypothyroidism Chronic, on home LEVO 200 mcg daily. ? Continue LEVOTHYROXINE 150 mcg IV ACBR Health maintenance Diet: NPO midnight GI prophylaxis: PROTONIX DVT prophylaxis: SCDs Antibiotics: Not indicated CODE STATUS: DNR Patient case was discussed with attending, Dr. Jad West DO PGYI Attending Provider Attestation/Addendum Patient seen and examined with resident physician Dr. Glover. Note reviewed, agree with findings and recommendations with the changes made. Noted ICU team discussed goals of care with sons-patient currently DNR. Reviewed labs and medications. Urine output very minimal. Patient currently seems to be ischemic ATN from hypotension. Noted to have significant fluid overload. Sequential ultrafiltration ordered. 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 Patient received dialysis yesterday. Outpatient dialysis will be arranged. Hemoglobin still on the lower side along with platelets. Will give packed red blood cells and platelets. Right heart catheterization, right IJ permanent dialysis catheter pending. Still having black bowel movements
[2025-02-25 09:10] LABS: INR 1.1 (0.9-1.3); Partial Thromboplastin Time 37.6 Seconds (22.0-36.0); Prothrombin Time 12.4 Seconds (9.0-12.2)
[2025-02-25] MEDS: DiphenhydrAMINE 25 MG CAPSULE PO (10:14)
[2025-02-25] MEDS: ACETAMINOPHEN 325 MG TABLET 650 MG PO ×2 (10:14→21:26)
[2025-02-25] MEDS: FUROSEMIDE INJ 10 MG/ML VIAL 2 ML 40 MG IVP (12:20)
[2025-02-25] MEDS: SUCRALFATE SUSP 1 GM/10 ML UDC PO ×2 (14:26→21:22)
[2025-02-25 17:48] LABS: Hematocrit 27.6 % (36.0-46.0); Hemoglobin 9.3 g/dL (12.0-16.0)
--- NOTE | 2025-02-25 20:31 | ESPR_ITS ---
Documentation for date of: 02/25/25 Subjective Subjective Interval history: Patient evaluated Hemoglobin hematocrit 9.3 and 27.6 Exam Vital Signs Temp Pulse Resp BP Pulse Ox O2 Del Method O2 Flow Rate 97.8 F 104 H 16 122/79 100 Nasal Cannula 1 02/25/25 18:35 02/25/25 18:35 02/25/25 18:35 02/25/25 18:35 02/25/25 18:35 02/25/25 16:00 02/25/25 18:35 Objective Labs 02/25/25 17:30 02/25/25 04:44 Labs: Laboratory Results - last 24 hr 02/21/25 02/25/25 02/25/25 08:50 04:44 08:34 WBC 2.8 L RBC 2.89 L Hgb 8.6 L Hct 25.2 L MCV 87 MCH 29.8 MCHC 34.1 RDW Std Deviation 49.9 H Plt Count 30 L Neut % (Auto) 78 Lymph % (Auto) 16 [place] % (Auto) 3 Eos % (Auto) 3 Baso % (Auto) 0 Neut # (Auto) 2.2 Lymph # (Auto) 0.4 L [place] # (Auto) 0.1 Eos # (Auto) 0.1 Baso # (Auto) 0.0 Immature Gran # (Auto) 0.03 H Absolute Nucleated RBC 0.05 H Immature Gran % 1 H Nucleated RBC % 2 H PT 12.4 H INR 1.1 APTT 37.6 H Sodium 134 L Potassium 3.9 Chloride 102 Carbon Dioxide 23.9 Anion Gap 8 BUN 31 H Creatinine 1.7 H Estim Creat Clear Calc 28.4 L eGFR 30 L BUN/Creatinine Ratio 18 Glucose 116 H Calculated Osmolality 275 Calcium 7.5 L Corrected Calcium 8.5 Magnesium 1.9 Total Bilirubin 2.1 H AST 16 ALT 11 Alkaline Phosphatase 83 Total Protein 4.4 L Albumin 2.7 L Globulin 1.7 L Albumin/Globulin Ratio 1.6 Misc Test Result Platelets confirmed Blood Type Antibody Screen Crossmatch See Detail Blood Bank Wristband ID Blood Bank Comment 02/25/25 02/25/25 10:51 17:30 WBC RBC Hgb 9.3 L Hct 27.6 L MCV MCH MCHC RDW Std Deviation Plt Count Neut % (Auto) Lymph % (Auto) [place] % (Auto) Eos % (Auto) Baso % (Auto) Neut # (Auto) Lymph # (Auto) [place] # (Auto) Eos # (Auto) Baso # (Auto) Immature Gran # (Auto) Absolute Nucleated RBC Immature Gran % Nucleated RBC % PT INR APTT Sodium Potassium Chloride Carbon Dioxide Anion Gap BUN Creatinine Estim Creat Clear Calc eGFR BUN/Creatinine Ratio Glucose Calculated Osmolality Calcium Corrected Calcium Magnesium Total Bilirubin AST ALT Alkaline Phosphatase Total Protein Albumin Globulin Albumin/Globulin Ratio Misc Test Result Blood Type A Positive Antibody Screen NEGATIVE Crossmatch See Detail Blood Bank Wristband ID Yes Blood Bank Comment PLATP Ready Impressions Impression: Mucosal oozing of blood while patient was in DIC Hemoglobin hematocrit stabilized Continue current management ABG Interpretation ABG results: 02/19/25 17:02 VBG pH 7.53 VBG pCO2 30 L VBG pO2 65 H VBG Base Excess 2 Assessment & Plan A&P Narrative pulmonary HTN plan for Right heart cath stable hemodynamics Time Spent With Patient Time: Total time spent is greater than 50% in coordination of care (as documented) at patient's floor/unit and/or counseling patient:
[2025-02-25] MEDS: AMIODARONE HCL 200 MG TABLET PO (21:22)
--- NOTE | 2025-02-25 21:50 | PC.NURSE ---
attempted to do central line dressing change left neck, pt refused to complete it. partial removal of tegaderm dressing done, reinforced with window dressing. pt tolerated fairly.
[2025-02-26] VITALS (34 sets, daily range): BP systolic 96–126; BP diastolic 63–87; PULSE 60–115; RESP 13–20; TEMP 35.8–36.8; O2SAT 95–99; BMI 26.9
--- NOTE | 2025-02-26 | XR_ITS ---
. Exam: Fluoroscopic and ultrasound-guided right internal jugular vein dual-lumen tunneled dialysis catheter placement. Date: 02/26/2025, 1:16 PM Indication: Renal failure. Fluoroscopy time: 5.4 minutes Dose: 26.54 mGy Technique: After a discussion of risks and benefits informed consent was obtained. Patient was brought to the angiography suite and placed supine on the exam table. Preliminary ultrasound evaluation demonstrated right internal jugular vein to be patent. This was targeted for dialysis catheter placement. The skin overlying the right IJ was cleaned and draped in normal sterile surgical fashion.20 cc's of 1% lidocaine was used for local anesthesia. Conscious sedation was begun with direct continuous nursing supervision. Using ultrasound guidance access to the right internal jugular vein was obtained with a micropuncture needle. An 0.018 wire was advanced through the needle into the SVC and the needle was withdrawn. A 5 [place] micropuncture change sheath was advanced over the wire, and the wire removed. The sheath was capped. A 5 cm subcutaneous tunnel was created from the right anterior lateral chest wall and exiting at the right IJ access site. . A 23 cm cuff to tip, 15.5 [place] dual lumen dialysis catheter was attached to the tunneling device and pulled through the tunnel exiting the skin at the right IJ vein access site. A 0.035 stiff Amplatz wire was advanced through the IJ sheath into the IVC. The 5 [place] sheath was removed. The tract was serially dilated and a 16 [place] peel-away sheath was placed. Catheter was advanced through the peel-away sheath and peel-away sheath removed. Distal catheter tips were appropriately positioned in the right atrium. Both ports flushed and aspirated normally and were filled with the appropriate amount of 1000:1 heparinize saline. Catheter was sutured in place with a 2-0 silk suture and covered with sterile dressing. The IJ access site was closed with 2-0 Vicryl suture and Dermabond glue and Steri-Strips. There were no immediate complications. Impression: Successful placement of right IJ vein 23 cm cuff to tip dual-lumen dialysis catheter as above. Catheter is ready for use.
[2025-02-26 05:12] LABS: Basophils % (Auto) 1 % (0-2.5); Eosinophils # (Auto) 0.1 Thou/mm3 (0.0-0.5); Eosinophils % (Auto) 2 % (0-10); Monocytes # (Auto) 0.1 Thou/mm3 (0.0-0.8)
[2025-02-26 05:14] LABS: Hematocrit 28.8 % (36.0-46.0); Hemoglobin 9.4 g/dL (12.0-16.0); Immature Granulocytes % (Auto) 1 % (0-0); Immature Granulocytes Auto 0.02 Thou/mm3 (0.00-0.00); Lymphocytes # (Auto) 0.3 Thou/mm3 (1.0-4.8); Lymphocytes % (Auto) 15 % (10-50); Mean Corpuscular HGB Conc 32.6 g/dl (31.0-37.0); Mean Corpuscular Hemoglobin 29.2 pg (25.0-35.0); Mean Corpuscular Volume 89 fL (80-100); Monocytes % (Auto) 4 % (0-12); Neutrophils # (Auto) 1.6 Thou/mm3 (1.8-7.7); Neutrophils % (Auto) 77 % (37-80); Nucleated Red Blood Cell # 0.05 Thou/mm3 (0.00-0.00); Nucleated Red Blood Cell % 2 /100 WBC (0); RDW Standard Deviation 54.1 fL (36.4-46.3); Red Blood Count 3.22 Miln/mm3 (4.00-5.20)
[2025-02-26 05:25] LABS: Platelet Count 73 Thou/mm3 (140-440); White Blood Count 2.1 Thou/mm3 (3.6-11.0)
[2025-02-26 05:28] LABS: INR 1.2 (0.9-1.3); Partial Thromboplastin Time 36.7 Seconds (22.0-36.0); Prothrombin Time 12.5 Seconds (9.0-12.2)
[2025-02-26 05:48] LABS: Alanine Aminotransferase 10 U/L (10-49); Albumin, Serum 2.9 gm/dL (3.4-4.8); Albumin/Globulin Ratio 1.6 (1.2-2.2); Alkaline Phosphatase 102 U/L (46-116); Anion Gap 7 (7-16); Aspartate Amino Transferase 15 U/L (0-34); BUN/Creatinine Ratio 19 Ratio (12-20); Bilirubin,Total 2.7 mg/dL (0.3-1.2); Blood Urea Nitrogen 34 mg/dL (9-23); Calcium 7.5 mg/dL (8.3-10.6); Calcium (Corrected) 8.4 mg/dL (8.5-10.1); Carbon Dioxide 28.1 mMol/L (20.0-31.0); Chloride 101 mMol/L (98-107); Creatinine (Component) 1.8 mg/dL (0.6-1.3); Estimated Creatinine Clearance 26.8 mL/min (>60); Globulin 1.8 gm/dL (2.3-3.5); Glucose 95 mg/dL (74-106); Magnesium 1.7 mg/dL (1.6-2.6); Osmolality,Calculated 279 (275-295); Potassium 3.7 mMol/L (3.4-5.1); Sodium 136 mMol/L (136-145); Total Protein 4.7 gm/dL (5.7-8.2); eGFR 28 See Note
--- NOTE | 2025-02-26 06:35 | PD.RESPRO ---
Documentation for date of: 02/26/25 Subjective Subjective Interval history: Ms. Ayoub is a pleasant 79-year-old female with PMHx of A-fib on ELIQUIS( under Dr. Parrish), CHF, HTN, Hypothyroidism, CKD, RA on Enbrel brought in by ambulance following 1.5 days of dark/watery stool and rectal bleed. She noted 1 week of dark stool, followed by dark and watery diarrhea that approximately 2 days ago. Denied fall or trauma, fever, chills, abnormal weight loss or gain, palpitations, chest pain, shortness of breath, cough, abdominal pain, nausea or vomiting, dysuria or hematuria. She was admitted at [facility] and airlifted to [place] for GLF for which she sustained a right eye injury, currently being followed up by ophthalmology in [place]. She did not report any fracture or other injuries. At the time, endoscopy was done, patient unsure why but state was normal. They had recommended colonoscopy but she states unable to do prep as she lives alone at home. Additionally, she states she takes home LASIX but was discontinued during admission at [facility] for fall risk concerns. She reports 3 weeks of increased bilateral extremity swelling and shortness of breath despite using her home 3 L oxygen. ED COURSE: Afebrile, BP 82/66, HR 121, RR 18, satting 99% on 2 L. Hgb 6.5 (baseline 11.2), HCT 19, WBC 10.9. PT 15.8, INR 1.5, APTT 43.7. Creatinine 2.8 (baseline 1.0), BUN 81, EGFR 15.6 Lactic acid 2.8, troponin 0.092, BNP 1414. Sodium 133, magnesium 1.5, TB 1.9, AST 35, ALT normal 21, ALBUMIN 2.5, ammonia <10. Pro-Calc 1.3. EKG showed A-fib with RVR, HR 132. CXR mild right basilar pneumonia, mild CHF, left-sided pneumonia and pleural disease. ED initiated transfusion with 2 units PRBCs and 1 unit FFP's. Will admit to telemetry, continue OCTREOTIDE and PROTONIX. GI has been consulted. 02/19/2025 Patient was seen and examined in the ICU today. EGD was performed yesterday and it showed esophageal ulcers with large amount of blood in the body of the stomach down to the duodenal bulb. With a metallic structure thought to be a safety pin in the duodenal bulb. ICU team made multiple attempts to contact family to discuss goals of care. Patient became hemodynamically unstable needing pressors. Sick looking. Urine output very minimal. BUN and creatinine continues to rise. This morning her hemoglobin was 6.1. Needing more blood transfusions. Renal team decided to proceed with dialysis after talking to Dr. Oseguera. Due to hemodynamic instability decided to proceed with continuous and renal replacement therapy. Medications reviewed. Per Dr. Mendoza-gastrectomy has no role patient has been bleeding from several places. Patient will receive triple-lumen catheter for CRRT. 02/25/2025 examined at bedside. No new symptoms or worsening of symptoms. Denies fever, chills, headaches, chest pain, sob, cough, GI or urinary symptoms. Has been n.p.o. for cath today which apparently postponed given low platelets. Ordered 1 unit platelets to be transfused today. Will need PermCath for outpatient hemodialysis. Hemoglobin 8.6, has black stool today as well. Ordered 1 unit pRBC. 02/26/2025 Patient is seen and examined in telemetry. There were no major overnight events and patient is doing okay well this morning. The catheter will be replaced today as her Plts was 73 this morning. Patient produced one litter of urine overnight. Will order another unit of platelets and attempt dialysis today again. Patient also has a pruritic rash throughout her torso and abdomen, Gave one time dose of Dexamethasone 6mg IV. Exam Vital Signs Temp Pulse Resp BP Pulse Ox O2 Del Method O2 Flow Rate 97.3 F 93 16 106/73 97 Nasal Cannula 2 02/26/25 04:00 02/26/25 04:00 02/26/25 04:00 02/26/25 04:00 02/26/25 04:00 02/26/25 04:00 02/26/25 04:00 Narrative Exam Constitutional: Elderly female in no acute distress Head: Pale conjunctiva ENMT: Dry mucous Membranes, No trauma or injury. Neck: Supple to palpation, No JVD CVS: RRR, S1 and S2 present, no murmurs, rubs or gallops . RESP: Decreased breath sounds GI: Distended but nontender with no guarding or rebound tenderness. MSK: Full range of motion, No trauma or deformities or masses. 2+ pitting edema bilaterally on lower extremities and upper extremities Skin: Warm to touch, Dry. There is a diffused erythematous rash that is blanching throughout her trunk and abdomen and on her back Psych: (AAO) x 3. awkae and alert and answering questions Objective Labs 02/27/25 04:30 02/27/25 04:30 Labs: Laboratory Results - last 24 hr 02/21/25 02/25/25 02/25/25 08:50 04:44 08:34 WBC RBC Hgb Hct MCV MCH MCHC RDW Std Deviation Plt Count PT 12.4 H INR 1.1 APTT 37.6 H Sodium Potassium Chloride Carbon Dioxide Anion Gap BUN Creatinine Estim Creat Clear Calc eGFR BUN/Creatinine Ratio Glucose Calculated Osmolality Calcium Corrected Calcium Phosphorus Magnesium Total Bilirubin AST ALT Alkaline Phosphatase Total Protein Albumin Globulin Albumin/Globulin Ratio Misc Test Result Platelets confirmed Blood Type Antibody Screen Crossmatch See Detail Blood Bank Wristband ID Blood Bank Comment 02/25/25 02/25/25 02/26/25 10:51 17:30 04:23 WBC 2.1 L RBC 3.22 L Hgb 9.3 L 9.4 L Hct 27.6 L 28.8 L MCV 89 MCH 29.2 MCHC 32.6 RDW Std Deviation 54.1 H Plt Count 73 L D PT 12.5 H INR 1.2 APTT 36.7 H Sodium 136 Potassium 3.7 Chloride 101 Carbon Dioxide 28.1 Anion Gap 7 BUN 34 H Creatinine 1.8 H Estim Creat Clear Calc 26.8 L eGFR 28 L BUN/Creatinine Ratio 19 Glucose 95 Calculated Osmolality 279 Calcium 7.5 L Corrected Calcium 8.4 L Phosphorus 1.0 L Magnesium 1.7 Total Bilirubin 2.7 H D AST 15 ALT 10 Alkaline Phosphatase 102 D Total Protein 4.7 L Albumin 2.9 L Globulin 1.8 L Albumin/Globulin Ratio 1.6 Misc Test Result Blood Type A Positive Antibody Screen NEGATIVE Crossmatch See Detail Blood Bank Wristband ID Yes Blood Bank Comment PLATP Ready ABG Interpretation ABG results: 02/19/25 17:02 VBG pH 7.53 VBG pCO2 30 L VBG pO2 65 H VBG Base Excess 2 Quality Measures Quality Measures sepsis Current suspected stage: ruled out Possible source: GI tract/intra-abdominal Blood cultures ordered: yes Antibiotic ordered: No Advance care planning discussed with:: patient Assessment & Plan Assessment Current Active Medications: Generic Name Dose Route Start Last Admin Trade Name Freq PRN Reason Stop Dose Admin Acetaminophen 650 mg 02/18/25 06:03 Acetaminophen Supp 650 Mg Supp ME 03/20/25 06:02 Q4HR PRN PAIN SCALE 1-3 (mild Acetaminophen 650 mg 02/18/25 09:38 02/25/25 21:26 Acetaminophen 325 Mg Tablet PO 03/20/25 09:37 650 mg Q6HR PRN Administration PAIN 1-6 (mild-mod Amiodarone HCl 200 mg 02/21/25 21:00 02/25/25 21:22 Amiodarone Hcl 200 Mg Tablet PO 03/23/25 20:59 200 mg BID EULALIA Administration Diphenhydramine HCl 25 mg 02/24/25 17:21 02/25/25 10:14 Diphenhydramine 25 Mg Capsule PO 03/26/25 17:20 25 mg Q6HR PRN Administration ITCHING Folic Acid 5 mg 02/20/25 10:30 02/25/25 08:52 Folic Acid Inj 1 Mg/0.2 Ml IVP 03/22/25 10:29 5 mg QDAY EULALIA Administration Norepinephrine/Dextrose 8 mg in 250 mls @ 7.656 mls/hr 02/19/25 04:09 02/21/25 04:45 Levophed In D5w 8mg/250ml IV 03/21/25 04:08 0 mcg/kg/min .Q24H PRN 0 mls/hr PER PROTOCOL Titration Protocol 0.05 MCG/KG/MIN Albumin Human 25 gm in 100 mls @ 100 mls/min 02/22/25 13:52 02/24/25 13:06 Albuminar-25 Ivpb IV 100 mls/min PRN PRN Administration DIALYSIS Levothyroxine Sodium 150 mcg 02/19/25 06:00 02/26/25 05:38 Levothyroxine Inj 100 Mcg Vial IV 03/21/25 05:59 Not Given ACBR EULALIA Ondansetron HCl 4 mg 02/18/25 22:24 02/18/25 22:20 Ondansetron Inj 2 Mg/Ml Inj 2 Ml IV 03/20/25 22:23 4 mg Q8HR PRN Administration NAUSEA OR VOMITING Protocol Pantoprazole Sodium 40 mg 02/18/25 09:00 04/08/25 21:21 Pantoprazole Inj 40 Mg Vial IVP 03/20/25 08:59 40 mg BID EULALIA Administration Sucralfate 1 gm 02/19/25 14:00 02/26/25 05:39 Sucralfate Susp 1 Gm/10 Ml Udc PO 03/21/25 13:59 Not Given TID EULALIA Plan 79-year-old female with PMHx of A-fib, CHF, HTN, presenting with 1 week of dark stool followed by roughly 2 days of black/watery diarrhea. Apprecaite recommendations from cardiology. Cath was delayed today secondary to low PLT. Had 1 dark BM this AM. Hgb slightly down 9.4 > 8.6. Overall stable, no new symptoms or worsening of symptoms. Will give 1 unit PLT and 1 unit pRBC. Attempt cath and perm-cath tomorrow. Prerenal ADITYA Ischemic ATN Needing HD 2+ kenan LE edema on exam. Urine output improved. Renal function stable. Will need temp renal replacement therapy outpatient. ? Ordered perm-cath to be placed today ? Renally dose meds, avoid overdiuresis and NEPHROTOXINS ? Daily CMP Acute GI bleed anemia - Stable Hematochezia Rectal bleed A total of 9 units of PRBCs have been transfused with 3 FFP's as well as 4 platelets. EGD revealed esophageal ulcers with large amounts of blood as well as a metallic structure embedded in the duodenal bulb. CT showed intramural hematoma near thoracic aortic, old finding. Noted Dr Thomas did not recommend any surgical intervention. Hemoglobin stable, currently 8.6. Had 1 dark BM this morning. ? Ordere 1 unit PLT and 1 unit PRBC ? Transfusion if Hgb less than 8 ? Daily labs History of CHF, on home 3 L oxygen Severe pulmonary hypertension Echo showing severe pulmonary hypertension. Recurrent bilateral extremity edema, currently 2+. Dr. Urena following, appreciate recommendations. Currently asymptomatic without chest pain or shortness of breath. ? Plan for right heart cath tomrrow Lactic acidosis (resolved) Low suspicion for pneumonia History of CHF, usually takes LASIX at home which was discontinued in December given concern for recurrent falls. Reports 3 weeks of lower extremity edema, has 2/3+ bilateral LE pitting edema and rales on lung exam. Given ALBUMIN X1 in ED. Less likely will tolerate fluids given overload status. Will give another ALBUMEN x1. CXR showed mild CHF, bibasilar pneumonia and left-sided pleural disease. However, low suspicion for pneumonia given she is asymptomatic, afebrile. Elevated PRO-ANGELY likely in setting of ADITYA and decreased clearance. Received CEFTRIAXONE x 1 in ED. Will continue to monitor Echo showed EF 55 to 60%, mild LVH. CXR showing RV dilation. ? Continue LEVAQUIN (02/19 to present) NSTEMI, likely type II A-fib with RVR Likely demand ischemia. History of AFIB non ELIQUIS. EKG showed A-fib with RVR, HR 132. Troponin peaked at 0.106 Currently asymptomatic without chest pain or shortness of breath. Vitals stable. ? Hold ELIQUIS in setting of GI bleed. ? Continue AMIODARONE 200 BID. ? Maintain K > 4.0 and Mg > 2.0 ? May benefit from right heart cath. Hypomagnesemia (resolved) ? Daily labs, replete as needed. Hypothyroidism Chronic, on home LEVO 200 mcg daily. ? Continue LEVOTHYROXINE 150 mcg IV ACBR Health maintenance Diet: NPO midnight GI prophylaxis: PROTONIX DVT prophylaxis: SCDs Antibiotics: Not indicated CODE STATUS: DNR I discussed patient's care with attending physician, Dr Jad Bourgeois PGY3 Attending Provider Attestation/Addendum Patient seen and examined with resident physician Dr. Bourgeois. Note reviewed, agree with findings and recommendations with the changes made. Noted ICU team discussed goals of care with sons-patient currently DNR. Reviewed labs and medications. Urine output very minimal. Patient currently seems to be ischemic ATN from hypotension. Noted to have significant fluid overload. 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 Outpatient dialysis will be arranged. Hemoglobin still on the lower side along with platelets. Will give packed red blood cells and platelets. s/p right IJ permanent dialysis catheter .Still having black bowel movements Significant edema noted. Patient currently seen on dialysis. Tolerating dialysis without any problems. Sequential ultrafiltration for 3 hours, UF 2-3 L, Epogen 6000, no heparin ordered. Plan of care discussed with the dialysis nurse. Please see dialysis flowsheet for further details. Pending right heart catheterization,
[2025-02-26 08:03] LABS: Slide Review Platelets confirmed
--- NOTE | 2025-02-26 08:10 | PC.SS ---
MIKE confirmed with [facility] dialysis staff, Divya; that dialysis center has obtained documentation to initiate patient's outpatient dialysis schedule. Following are pending: TB reading and dialysis cath placement. Cath placement planned for today. Unable to obtain on 02-25-25 due to the patient's low platelet count.
[2025-02-26] MEDS: FOLIC ACID INJ 1 MG/0.2 ML 5 MG IVP (08:30)
[2025-02-26] MEDS: DEXAMETHASONE SOD PHOS INJ 10 MG/ML VIAL 6 MG IV (08:30)
[2025-02-26] MEDS: PANTOPRAZOLE INJ 40 MG VIAL IVP ×2 (08:30→20:33)
--- NOTE | 2025-02-26 08:39 | PC.SS ---
[facility] confirmed with patient, discharge plan is for the patient to transition to SNF. No preferred SNF identified. In addition patient has changed her point of contact to step son, Crispin Alonzo; cell and home. Patient's biological son's are Jerry (Y[place]) and Les (MD).
--- NOTE | 2025-02-26 13:37 | PC.SS ---
SNF referral submitted on [facility] platform. Responses are pending.
[2025-02-26] MEDS: ceFAZolin 1 GM in SODIUM CHLORIDE 0.9% 100 ML IV (14:00)
[2025-02-26] MEDS: HEPARIN SOD LOCK SYR 100 UNIT/ML 500 UNIT STFIELD (14:00)
[2025-02-26] MEDS: LIDOCAINE INJ PF 1% 5 ML VIAL 30 ML INFL (14:15)
[2025-02-26] MEDS: MIDAZOLAM INJ 1 MG/ML VIAL 2 ML 0.5 MG IV (14:15)
[2025-02-26] MEDS: fentaNYL CIT INJ 50 mCg/ML AMP 2ML 75 MCG IVP (14:15)
[2025-02-26] MEDS: HEPARIN SOD INJ 1000 UNIT/ML VIAL 3500 UNIT INDWELLCAT (14:50)
--- NOTE | 2025-02-26 15:23 | PC.SS ---
Patient received permanent dialysis catheter. Patient to participate with dialysis session today.
[2025-02-26] MEDS: EPOETIN ALFA INJ 1,000 UNIT/0.05 ML UNIT 10000 UNIT SC (17:05)
[2025-02-26] MEDS: DiphenhydrAMINE 25 MG CAPSULE PO (20:32)
[2025-02-26] MEDS: AMIODARONE HCL 200 MG TABLET PO (20:33)
[2025-02-26] MEDS: ACETAMINOPHEN 325 MG TABLET 650 MG PO (20:34)
--- NOTE | 2025-02-26 22:19 | ESPR_ITS ---
Documentation for date of: 02/26/25 Subjective Subjective Interval history: Hemoglobin hematocrit 9.4 and 28.8 Exam Vital Signs Temp Pulse Resp BP Pulse Ox O2 Del Method O2 Flow Rate 97.2 F 90 19 114/78 97 Nasal Cannula 3 02/26/25 20:00 02/26/25 20:33 02/26/25 20:00 02/26/25 20:33 02/26/25 20:00 02/26/25 20:00 02/26/25 20:00 Objective Labs 02/26/25 04:23 02/26/25 04:23 Labs: Laboratory Results - last 24 hr 02/25/25 02/26/25 10:51 04:23 WBC 2.1 L RBC 3.22 L Hgb 9.4 L Hct 28.8 L MCV 89 MCH 29.2 MCHC 32.6 RDW Std Deviation 54.1 H Plt Count 73 L D Neut % (Auto) 77 Lymph % (Auto) 15 [place] % (Auto) 4 Eos % (Auto) 2 Baso % (Auto) 1 Neut # (Auto) 1.6 L Lymph # (Auto) 0.3 L [place] # (Auto) 0.1 Eos # (Auto) 0.1 Baso # (Auto) 0.0 Immature Gran # (Auto) 0.02 H Absolute Nucleated RBC 0.05 H Immature Gran % 1 H Nucleated RBC % 2 H PT 12.5 H INR 1.2 APTT 36.7 H Sodium 136 Potassium 3.7 Chloride 101 Carbon Dioxide 28.1 Anion Gap 7 BUN 34 H Creatinine 1.8 H Estim Creat Clear Calc 26.8 L eGFR 28 L BUN/Creatinine Ratio 19 Glucose 95 Calculated Osmolality 279 Calcium 7.5 L Corrected Calcium 8.4 L Phosphorus 1.0 L Magnesium 1.7 Total Bilirubin 2.7 H D AST 15 ALT 10 Alkaline Phosphatase 102 D Total Protein 4.7 L Albumin 2.9 L Globulin 1.8 L Albumin/Globulin Ratio 1.6 Misc Test Result Platelets confirmed Blood Type A Positive Antibody Screen NEGATIVE Crossmatch See Detail Blood Bank Wristband ID Yes Blood Bank Comment PLATP Ready Impressions Impression: Upper GI bleed secondary to mucosal oozing of blood Continue current management ABG Interpretation ABG results: 02/19/25 17:02 VBG pH 7.53 VBG pCO2 30 L VBG pO2 65 H VBG Base Excess 2 Assessment & Plan A&P Narrative pulmonary HTN plan for Right heart cath stable hemodynamics Time Spent With Patient Time: Total time spent is greater than 50% in coordination of care (as documented) at patient's floor/unit and/or counseling patient:
[2025-02-27] VITALS (19 sets, daily range): BP systolic 93–113; BP diastolic 57–95; PULSE 79–99; RESP 10–97; TEMP 35.9–36.6; O2SAT 93–100; BMI 26.9
[2025-02-27] MEDS: SUCRALFATE SUSP 1 GM/10 ML UDC PO ×3 (05:07→21:08)
[2025-02-27] MEDS: LEVOTHYROXINE INJ 100 mCg VIAL 150 MCG IV (05:07)
[2025-02-27] MEDS: ACETAMINOPHEN 325 MG TABLET 650 MG PO ×2 (05:15→20:06)
[2025-02-27 05:39] LABS: Basophils % (Auto) 0 % (0-2.5); Eosinophils % (Auto) 0 % (0-10); Hematocrit 27.7 % (36.0-46.0); Hemoglobin 9.3 g/dL (12.0-16.0); Immature Granulocytes % (Auto) 1 % (0-0); Immature Granulocytes Auto 0.03 Thou/mm3 (0.00-0.00); Lymphocytes # (Auto) 0.5 Thou/mm3 (1.0-4.8); Lymphocytes % (Auto) 20 % (10-50); Mean Corpuscular HGB Conc 33.6 g/dl (31.0-37.0); Mean Corpuscular Hemoglobin 29.6 pg (25.0-35.0); Mean Corpuscular Volume 88 fL (80-100); Monocytes # (Auto) 0.1 Thou/mm3 (0.0-0.8); Monocytes % (Auto) 6 % (0-12); Neutrophils # (Auto) 1.8 Thou/mm3 (1.8-7.7); Neutrophils % (Auto) 72 % (37-80); Nucleated Red Blood Cell # 0.03 Thou/mm3 (0.00-0.00); Nucleated Red Blood Cell % 1 /100 WBC (0); Platelet Count 110 Thou/mm3 (140-440); RDW Standard Deviation 53.6 fL (36.4-46.3); Red Blood Count 3.14 Miln/mm3 (4.00-5.20)
[2025-02-27 05:42] LABS: White Blood Count 2.4 Thou/mm3 (3.6-11.0)
[2025-02-27 06:27] LABS: Alanine Aminotransferase 7 U/L (10-49); Albumin, Serum 2.8 gm/dL (3.4-4.8); Albumin/Globulin Ratio 1.4 (1.2-2.2); Alkaline Phosphatase 95 U/L (46-116); Anion Gap 8 (7-16); Aspartate Amino Transferase 14 U/L (0-34); BUN/Creatinine Ratio 20 Ratio (12-20); Bilirubin,Total 2.2 mg/dL (0.3-1.2); Blood Urea Nitrogen 36 mg/dL (9-23); Calcium 7.6 mg/dL (8.3-10.6); Calcium (Corrected) 8.6 mg/dL (8.5-10.1); Carbon Dioxide 23.8 mMol/L (20.0-31.0); Chloride 102 mMol/L (98-107); Creatinine (Component) 1.8 mg/dL (0.6-1.3); Estimated Creatinine Clearance 26.3 mL/min (>60); Glucose 142 mg/dL (74-106); Magnesium 1.7 mg/dL (1.6-2.6); Osmolality,Calculated 278 (275-295); Phosphorous 1.3 mg/dL (2.4-5.1); Sodium 134 mMol/L (136-145); Total Protein 4.8 gm/dL (5.7-8.2); eGFR 28 See Note
--- NOTE | 2025-02-27 08:38 | PC.NURSE ---
Patient taken to labor custodian via gurney.
--- NOTE | 2025-02-27 08:40 | ESPR_ITS ---
Documentation for date of: 02/27/25 Subjective Subjective Interval history: Ms. Ayoub is a pleasant 79-year-old female with PMHx of A-fib on ELIQUIS( under Dr. Parrish), CHF, HTN, Hypothyroidism, CKD, RA on Enbrel brought in by ambulance following 1.5 days of dark/watery stool and rectal bleed. She noted 1 week of dark stool, followed by dark and watery diarrhea that approximately 2 days ago. Denied fall or trauma, fever, chills, abnormal weight loss or gain, palpitations, chest pain, shortness of breath, cough, abdominal pain, nausea or vomiting, dysuria or hematuria. She was admitted at [facility] and airlifted to [place] for GLF for which she sustained a right eye injury, currently being followed up by ophthalmology in [place]. She did not report any fracture or other injuries. At the time, endoscopy was done, patient unsure why but state was normal. They had recommended colonoscopy but she states unable to do prep as she lives alone at home. Additionally, she states she takes home LASIX but was discontinued during admission at [facility] for fall risk concerns. She reports 3 weeks of increased bilateral extremity swelling and shortness of breath despite using her home 3 L oxygen. ED COURSE: Afebrile, BP 82/66, HR 121, RR 18, satting 99% on 2 L. Hgb 6.5 (baseline 11.2), HCT 19, WBC 10.9. PT 15.8, INR 1.5, APTT 43.7. Creatinine 2.8 (baseline 1.0), BUN 81, EGFR 15.6 Lactic acid 2.8, troponin 0.092, BNP 1414. Sodium 133, magnesium 1.5, TB 1.9, AST 35, ALT normal 21, ALBUMIN 2.5, ammonia <10. Pro-Calc 1.3. EKG showed A-fib with RVR, HR 132. CXR mild right basilar pneumonia, mild CHF, left-sided pneumonia and pleural disease. ED initiated transfusion with 2 units PRBCs and 1 unit FFP's. Will admit to telemetry, continue OCTREOTIDE and PROTONIX. GI has been consulted. 02/19/2025 Patient was seen and examined in the ICU today. EGD was performed yesterday and it showed esophageal ulcers with large amount of blood in the body of the stomach down to the duodenal bulb. With a metallic structure thought to be a safety pin in the duodenal bulb. ICU team made multiple attempts to contact family to discuss goals of care. Patient became hemodynamically unstable needing pressors. Sick looking. Urine output very minimal. BUN and creatinine continues to rise. This morning her hemoglobin was 6.1. Needing more blood transfusions. Renal team decided to proceed with dialysis after talking to Dr. Oseguera. Due to hemodynamic instability decided to proceed with continuous and renal replacement therapy. Medications reviewed. Per Dr. Mendoza- gastrectomy has no role patient has been bleeding from several places. Patient will receive triple-lumen catheter for CRRT. 02/20/25 Patient was seen and examined in the ICU today. Patient tolerated CRRT well yesterday and received an additional 2 units of PRBC and 1 units of FFP. Patient's DIC panel was positive likely from massive blood transfusion. Hgb 7.4 today and patient did not have any more bloody bowel movements overnight. Createnine is 1.3 this morning. Will likely hold off from another session of CRRT for now. Pressor support has decreased. Prognosis is guarded. Patient made a DNR. Family was contacted. 02/25/2025 examined at bedside. No new symptoms or worsening of symptoms. Denies fever, chills, headaches, chest pain, sob, cough, GI or urinary symptoms. Has been n.p.o. for cath today which apparently postponed given low platelets. Ordered 1 unit platelets to be transfused today. Will need PermCath for outpatient hemodialysis. Hemoglobin 8.6, has black stool today as well. Ordered 1 unit pRBC. 02/27/2025 Patient seen and examined in telemetry. There were no major overnight events and patient feels well this morning. Tunneled catheter is on the right chest well without tenderness and she received dialysis and removed 2.1 L of fluids. She will receive heart cath today with Dr Urena today. Will follow up with the results and plan for likely dc tomorrow. The rash on her body is much better today. Exam Vital Signs Temp Pulse Resp BP Pulse Ox O2 Del Method O2 Flow Rate 97.0 F 94 20 110/72 97 Room Air 2 02/27/25 08:00 02/27/25 08:00 02/27/25 08:00 02/27/25 08:00 02/27/25 08:00 02/27/25 08:00 02/27/25 07:59 Narrative Exam Constitutional: Elderly female in no acute distress Head: Pale conjunctiva CVS: RRR, S1 and S2 present, no murmurs, rubs or gallops . Tunneled cath on the right chest wall. RESP: Decreased breath sounds GI: Distended but nontender with no guarding or rebound tenderness. MSK: Full range of motion, No trauma or deformities or masses. trace pitting edema bilaterally on lower extremities and upper extremities Skin: Warm to touch, Dry. There is a diffused erythematous rash that has improved Psych: (AAO) x 3. awake and alert and answering questions Objective Labs 02/27/25 04:30 02/27/25 04:30 Labs: Laboratory Results - last 24 hr 02/25/25 02/27/25 10:51 04:30 WBC 2.4 L RBC 3.14 L Hgb 9.3 L Hct 27.7 L MCV 88 MCH 29.6 MCHC 33.6 RDW Std Deviation 53.6 H Plt Count 110 L D Neut % (Auto) 72 Lymph % (Auto) 20 [place] % (Auto) 6 Eos % (Auto) 0 Baso % (Auto) 0 Neut # (Auto) 1.8 Lymph # (Auto) 0.5 L [place] # (Auto) 0.1 Eos # (Auto) 0.0 Baso # (Auto) 0.0 Immature Gran # (Auto) 0.03 H Absolute Nucleated RBC 0.03 H Immature Gran % 1 H Nucleated RBC % 1 H Sodium 134 L Potassium 4.0 Chloride 102 Carbon Dioxide 23.8 Anion Gap 8 BUN 36 H Creatinine 1.8 H Estim Creat Clear Calc 26.3 L eGFR 28 L BUN/Creatinine Ratio 20 Glucose 142 H Calculated Osmolality 278 Calcium 7.6 L Corrected Calcium 8.6 Phosphorus 1.3 L Magnesium 1.7 Total Bilirubin 2.2 H D AST 14 ALT 7 L Alkaline Phosphatase 95 Total Protein 4.8 L Albumin 2.8 L Globulin 2.0 L Albumin/Globulin Ratio 1.4 Blood Type A Positive Antibody Screen NEGATIVE Crossmatch See Detail Blood Bank Wristband ID Yes Blood Bank Comment PLATP Ready ABG Interpretation ABG results: 02/19/25 17:02 VBG pH 7.53 VBG pCO2 30 L VBG pO2 65 H VBG Base Excess 2 Quality Measures Quality Measures sepsis Current suspected stage: ruled out Possible source: GI tract/intra- abdominal Blood cultures ordered: yes Antibiotic ordered: No Advance care planning discussed with:: patient Assessment & Plan Assessment Current Active Medications: Generic Name Dose Route Start Last Admin Trade Name Freq PRN Reason Stop Dose Admin Acetaminophen 650 mg 02/18/25 06:03 Acetaminophen Supp 650 Mg Supp OH 03/20/25 06:02 Q4HR PRN PAIN SCALE 1-3 (mild Acetaminophen 650 mg 02/18/25 09:38 02/27/25 05:15 Acetaminophen 325 Mg Tablet PO 03/20/25 09:37 650 mg Q6HR PRN Administration PAIN 1-6 (mild-mod Amiodarone HCl 200 mg 02/21/25 21:00 02/26/25 20:33 Amiodarone Hcl 200 Mg Tablet PO 03/23/25 20:59 200 mg BID EULALIA Administration Diphenhydramine HCl 25 mg 02/24/25 17:21 02/26/25 20:32 Diphenhydramine 25 Mg Capsule PO 03/26/25 17:20 25 mg Q6HR PRN Administration ITCHING Folic Acid 5 mg 02/20/25 10:30 02/26/25 08:30 Folic Acid Inj 1 Mg/0.2 Ml IVP 03/22/25 10:29 5 mg QDAY EULALIA Administration Heparin Sodium (Porcine) 3,500 unit 02/26/25 17:48 Heparin Sod Inj 1000 Unit/Ml Vial 10 Ml INDWELLCAT 03/12/25 17:47 X1 PRN DIALYSIS Albumin Human 25 gm in 100 mls @ 100 mls/min 02/22/25 13:52 02/24/25 13:06 Albuminar-25 Ivpb IV 100 mls/min PRN PRN Administration DIALYSIS Sodium Phosphate 30 mmol/ 510 mls @ 62.5 mls/hr 02/27/25 07:20 Sodium Chloride IV 02/27/25 15:29 X1 ONE Levothyroxine Sodium 150 mcg 02/19/25 06:00 02/27/25 05:07 Levothyroxine Inj 100 Mcg Vial IV 03/21/25 05:59 150 mcg ACBR EULALIA Administration Ondansetron HCl 4 mg 02/18/25 22:24 02/18/25 22:20 Ondansetron Inj 2 Mg/Ml Inj 2 Ml IV 03/20/25 22:23 4 mg Q8HR PRN Administration NAUSEA OR VOMITING Protocol Pantoprazole Sodium 40 mg 02/18/25 09:00 02/26/25 20:33 Pantoprazole Inj 40 Mg Vial IVP 03/20/25 08:59 40 mg BID EULALIA Administration Sucralfate 1 gm 02/19/25 14:00 02/27/25 05:07 Sucralfate Susp 1 Gm/10 Ml Udc PO 03/21/25 13:59 1 gm TID EULALIA Administration Plan 79-year-old female with PMHx of A-fib, CHF, HTN, presenting with 1 week of dark stool followed by roughly 2 days of black/watery diarrhea. Apprecaite recommendations from cardiology. Prerenal ADITYA Ischemic ATN Needing HD 2+ kenan LE edema on exam. Urine output improved. Renal function stable. Will need temp renal replacement therapy outpatient. Perm-cath in place on right chest wall and received HD ? Renally dose meds, avoid overdiuresis and NEPHROTOXINS ? Daily CMP Acute GI bleed anemia - Stable Hematochezia Rectal bleed A total of 9 units of PRBCs have been transfused with 3 FFP's as well as 4 platelets. EGD revealed esophageal ulcers with large amounts of blood as well as a metallic structure embedded in the duodenal bulb. CT showed intramural hematoma near thoracic aortic, old finding. Noted Dr Thomas did not recommend any surgical intervention. Hemoglobin stable, currently 8.6. Had 1 dark BM this morning. ? Transfusion if Hgb less than 8 ? Daily labs History of CHF, on home 3 L oxygen Severe pulmonary hypertension Echo showing severe pulmonary hypertension. Recurrent bilateral extremity edema, currently 2+. Dr. Urena following, appreciate recommendations. Currently asymptomatic without chest pain or shortness of breath. ? Plan for right heart cath today Lactic acidosis (resolved) Low suspicion for pneumonia History of CHF, usually takes LASIX at home which was discontinued in December given concern for recurrent falls. Reports 3 weeks of lower extremity edema, has 2/3+ bilateral LE pitting edema and rales on lung exam. Given ALBUMIN X1 in ED. Less likely will tolerate fluids given overload status. Will give another ALBUMEN x1. CXR showed mild CHF, bibasilar pneumonia and left-sided pleural disease. However, low suspicion for pneumonia given she is asymptomatic, afebrile. Elevated PRO-ANGELY likely in setting of ADITYA and decreased clearance. Received CEFTRIAXONE x 1 in ED. Will continue to monitor Echo showed EF 55 to 60%, mild LVH. CXR showing RV dilation. Completed 3 days of antibiotics for suspected underlying pneumonia NSTEMI, likely type II A-fib with RVR Likely demand ischemia. History of AFIB non ELIQUIS. EKG showed A-fib with RVR, HR 132. Troponin peaked at 0.106 Currently asymptomatic without chest pain or shortness of breath. Vitals stable. ? Hold ELIQUIS in setting of GI bleed. ? Continue AMIODARONE 200 BID. ? Maintain K > 4.0 and Mg > 2.0 ? Receiving heart cath today with Dr Urena Hypomagnesemia (resolved) ? Daily labs, replete as needed. Hypothyroidism Chronic, on home LEVO 200 mcg daily. ? Continue LEVOTHYROXINE 150 mcg IV ACBR Health maintenance Diet: Will restart diet after heart cath today GI prophylaxis: PROTONIX DVT prophylaxis: SCDs Antibiotics: Not indicated CODE STATUS: DNR I discussed patient's care with attending physician, Dr Jad Bourgeois PGY3 Attending Provider Attestation/Addendum Patient seen and examined with resident physician Dr. Bourgeois. Note reviewed, agree with findings and recommendations with the changes made. Noted ICU team discussed goals of care with sons-patient currently DNR. Reviewed labs and medications. Urine output very minimal. Patient currently seems to be ischemic ATN from hypotension. Noted to have significant fluid overload. 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 Outpatient dialysis will be arranged. Hemoglobin stable status post packed red blood cells and platelets. s/p right IJ permanent dialysis catheter .Still having black bowel movements Significant edema noted. Next dialysis scheduled for tomorrow. Right heart catheterization showed moderate pulmonary hypertension. Will DC temporary dialysis catheter and plan for discharge tomorrow to rehab.
--- NOTE | 2025-02-27 08:57 | ESOP_ITS ---
Cardiac Cath Procedure Procedure Narrative Procedure date 02/27/2025 Title of the procedure Right heart catheterization Indication for procedure Evaluate right-sided pressures Procedure This is done in the cardiac lab under current electrocardiographic monitoring intermittent blood pressure monitoring right femoral arterial access using modified Seldinger technique and 7 [place] sheath was placed Subsequently Wheeler-Aris catheter was placed in the right atrial right ventricular pulmonary artery positions and pressures were measured Findings Pulmonary artery pressure was 62/35 Right ventricular pressure was 63/12 Right atrial pressure was 14/5 Conclusion Moderate to severe pulmonary hypertension
--- NOTE | 2025-02-27 10:41 | PC.SS ---
Patient have heart cath placed today.
--- NOTE | 2025-02-27 11:11 | PC.NURSE ---
0911 patient is sleepy and arousable, breathing unlabored. S/P RHC by Dr Urena, dressing to right groin dry with no bleeding or hematoma. Report received from Alaina NICHOLS, patient to recovery for 2hrs then go back to tele room. 1015 patient is more awake, drank sips of water with no nausea or vomiting. 1047 report given to María NICHOLS 1111 patient is awake, alert, breathing unlabored, dressing to right groin dry with no bleeding or hematoma, patient transfered back to [place] [id number] with tele box
[2025-02-27] MEDS: SOD PHOS ADDITIVE 30 MMOL in SODIUM CHLORIDE 0.9% 500 ML 500 ML 62.5 MMOL IV (11:55)
[2025-02-27] MEDS: PANTOPRAZOLE INJ 40 MG VIAL IVP ×2 (11:56→20:06)
[2025-02-27] MEDS: AMIODARONE HCL 200 MG TABLET PO ×2 (11:56→20:05)
[2025-02-27] MEDS: FOLIC ACID INJ 1 MG/0.2 ML 5 MG IVP (11:56)
--- NOTE | 2025-02-27 12:31 | PC.PT ---
PT eval witheld, patient had a procedure today in the labor utilization superintendent.
--- NOTE | 2025-02-27 15:47 | PC.SS ---
REGULATORY AFFAIRS ASSOCIATE contacted [facility] Benedict) to confirm chair time for the patient. Chair time pending per staff.
[2025-02-27] MEDS: ONDANSETRON INJ 2 MG/ML INJ 2 ML 4 MG IV (18:06)
--- NOTE | 2025-02-27 18:18 | PC.NURSE ---
Pt had episode of emesis, she stated that she was eating her dinner that contains meat that was too tough and threw up.
--- NOTE | 2025-02-27 19:23 | PD.IMPROG ---
Documentation for date of: 02/27/25 Subjective Subjective Interval history: Hemoglobin hematocrit 29.3 and 27.7 Exam Vital Signs Temp Pulse Resp BP Pulse Ox O2 Del Method O2 Flow Rate 96.7 F L 81 17 105/67 97 Room Air 2 02/27/25 16:00 02/27/25 16:00 02/27/25 16:00 02/27/25 16:00 02/27/25 16:00 02/27/25 16:00 02/27/25 07:59 Objective Labs 02/27/25 04:30 02/27/25 04:30 Labs: Laboratory Results - last 24 hr 02/27/25 04:30 WBC 2.4 L RBC 3.14 L Hgb 9.3 L Hct 27.7 L MCV 88 MCH 29.6 MCHC 33.6 RDW Std Deviation 53.6 H Plt Count 110 L D Neut % (Auto) 72 Lymph % (Auto) 20 [place] % (Auto) 6 Eos % (Auto) 0 Baso % (Auto) 0 Neut # (Auto) 1.8 Lymph # (Auto) 0.5 L [place] # (Auto) 0.1 Eos # (Auto) 0.0 Baso # (Auto) 0.0 Immature Gran # (Auto) 0.03 H Absolute Nucleated RBC 0.03 H Immature Gran % 1 H Nucleated RBC % 1 H Sodium 134 L Potassium 4.0 Chloride 102 Carbon Dioxide 23.8 Anion Gap 8 BUN 36 H Creatinine 1.8 H Estim Creat Clear Calc 26.3 L eGFR 28 L BUN/Creatinine Ratio 20 Glucose 142 H Calculated Osmolality 278 Calcium 7.6 L Corrected Calcium 8.6 Phosphorus 1.3 L Magnesium 1.7 Total Bilirubin 2.2 H D AST 14 ALT 7 L Alkaline Phosphatase 95 Total Protein 4.8 L Albumin 2.8 L Globulin 2.0 L Albumin/Globulin Ratio 1.4 Impressions Impression: Hemorrhagic gastritis with mucosal oozing of blood. hemoglobin hematocrit stabilized Continue to monitor CBC ABG Interpretation ABG results: 02/19/25 17:02 VBG pH 7.53 VBG pCO2 30 L VBG pO2 65 H VBG Base Excess 2 Assessment & Plan A&P Narrative pulmonary HTN plan for Right heart cath stable hemodynamics Time Spent With Patient Time: Total time spent is greater than 50% in coordination of care (as documented) at patient's floor/unit and/or counseling patient:
[2025-02-27] MEDS: DiphenhydrAMINE 25 MG CAPSULE PO (20:05)
[2025-02-28] VITALS (24 sets, daily range): BP systolic 98–142; BP diastolic 57–120; PULSE 68–105; RESP 12–19; TEMP 36.1–36.5; O2SAT 96–100; BMI 26.8
[2025-02-28] MEDS: LEVOTHYROXINE INJ 100 mCg VIAL 150 MCG IV (05:15)
[2025-02-28 05:41] LABS: Basophils % (Auto) 1 % (0-2.5); Eosinophils # (Auto) 0.2 Thou/mm3 (0.0-0.5); Eosinophils % (Auto) 9 % (0-10); Hematocrit 28.5 % (36.0-46.0); Hemoglobin 9.3 g/dL (12.0-16.0); Immature Granulocytes % (Auto) 1 % (0-0); Immature Granulocytes Auto 0.02 Thou/mm3 (0.00-0.00); Lymphocytes # (Auto) 0.9 Thou/mm3 (1.0-4.8); Lymphocytes % (Auto) 40 % (10-50); Mean Corpuscular HGB Conc 32.6 g/dl (31.0-37.0); Mean Corpuscular Hemoglobin 29.2 pg (25.0-35.0); Mean Corpuscular Volume 89 fL (80-100); Monocytes # (Auto) 0.2 Thou/mm3 (0.0-0.8); Monocytes % (Auto) 9 % (0-12); Neutrophils # (Auto) 0.9 Thou/mm3 (1.8-7.7); Neutrophils % (Auto) 40 % (37-80); Nucleated Red Blood Cell # 0.03 Thou/mm3 (0.00-0.00); Nucleated Red Blood Cell % 1 /100 WBC (0); Platelet Count 168 Thou/mm3 (140-440); RDW Standard Deviation 55.4 fL (36.4-46.3); Red Blood Count 3.19 Miln/mm3 (4.00-5.20)
[2025-02-28 05:42] LABS: White Blood Count 2.2 Thou/mm3 (3.6-11.0)
[2025-02-28 06:22] LABS: Alanine Aminotransferase < 7 U/L (10-49); Albumin, Serum 2.8 gm/dL (3.4-4.8); Albumin/Globulin Ratio 1.6 (1.2-2.2); Alkaline Phosphatase 104 U/L (46-116); Anion Gap 9 (7-16); Aspartate Amino Transferase 14 U/L (0-34); BUN/Creatinine Ratio 20 Ratio (12-20); Blood Urea Nitrogen 34 mg/dL (9-23); Calcium 7.7 mg/dL (8.3-10.6); Calcium (Corrected) 8.7 mg/dL (8.5-10.1); Carbon Dioxide 23.8 mMol/L (20.0-31.0); Chloride 102 mMol/L (98-107); Creatinine (Component) 1.7 mg/dL (0.6-1.3); Estimated Creatinine Clearance 27.8 mL/min (>60); Globulin 1.8 gm/dL (2.3-3.5); Glucose 86 mg/dL (74-106); Magnesium 1.6 mg/dL (1.6-2.6); Osmolality,Calculated 276 (275-295); Phosphorous 2.2 mg/dL (2.4-5.1); Potassium 3.9 mMol/L (3.4-5.1); Sodium 135 mMol/L (136-145); Total Protein 4.6 gm/dL (5.7-8.2); eGFR 30 See Note
--- NOTE | 2025-02-28 07:17 | PC.SS ---
CONCRETE ENGINEERING TECHNICIAN conducted phone contact with [facility] dialysis ([facility]) staff, Karime to inquire about chair time. Per staffKarime; no chair time scheduled for the patient. CONCRETE ENGINEERING TECHNICIAN informed that charge nurse that schedules chair times will not be in until Monday. Second shift requested to allow for SNF to provide transport on behalf of the patient.
--- NOTE | 2025-02-28 09:05 | PC.SS ---
BUSINESS SERVICES SPECIALIST SALES received phone call from [facility] staff, Karime; informing BUSINESS SERVICES SPECIALIST SALES that chair schedule for patient is T, TH, S first shift (5:00 am). BUSINESS SERVICES SPECIALIST SALES informed [facility] staff that request was for M,W,F due to patient transitioning to SNF upon discharge. Per staff, only available schedule.
--- NOTE | 2025-02-28 09:30 | PC.NURSE ---
BP TRENDING DOWN PT DENIES ALL S/S OF HYPOTENSION WILL ADMIN PRN ALBUMIN PER MD ORDERS AND CONT. TO MONITOR
[2025-02-28] MEDS: ALBUMIN HUMAN 25% IVPB 25 GM/100 ML BTL IV (09:31)
--- NOTE | 2025-02-28 10:37 | ESPR_ITS ---
Documentation for date of: 02/28/25 Subjective Subjective Interval history: Ms. Ayoub is a pleasant 79-year-old female with PMHx of A-fib on ELIQUIS( under Dr. Parrish), CHF, HTN, Hypothyroidism, CKD, RA on Enbrel brought in by ambulance following 1.5 days of dark/watery stool and rectal bleed. She noted 1 week of dark stool, followed by dark and watery diarrhea that approximately 2 days ago. Denied fall or trauma, fever, chills, abnormal weight loss or gain, palpitations, chest pain, shortness of breath, cough, abdominal pain, nausea or vomiting, dysuria or hematuria. She was admitted at [facility] and airlifted to [place] for GLF for which she sustained a right eye injury, currently being followed up by ophthalmology in [place]. She did not report any fracture or other injuries. At the time, endoscopy was done, patient unsure why but state was normal. They had recommended colonoscopy but she states unable to do prep as she lives alone at home. Additionally, she states she takes home LASIX but was discontinued during admission at [facility] for fall risk concerns. She reports 3 weeks of increased bilateral extremity swelling and shortness of breath despite using her home 3 L oxygen. ED COURSE: Afebrile, BP 82/66, HR 121, RR 18, satting 99% on 2 L. Hgb 6.5 (baseline 11.2), HCT 19, WBC 10.9. PT 15.8, INR 1.5, APTT 43.7. Creatinine 2.8 (baseline 1.0), BUN 81, EGFR 15.6 Lactic acid 2.8, troponin 0.092, BNP 1414. Sodium 133, magnesium 1.5, TB 1.9, AST 35, ALT normal 21, ALBUMIN 2.5, ammonia <10. Pro-Calc 1.3. EKG showed A-fib with RVR, HR 132. CXR mild right basilar pneumonia, mild CHF, left-sided pneumonia and pleural disease. ED initiated transfusion with 2 units PRBCs and 1 unit FFP's. Will admit to telemetry, continue OCTREOTIDE and PROTONIX. GI has been consulted. 02/19/2025 Patient was seen and examined in the ICU today. EGD was performed yesterday and it showed esophageal ulcers with large amount of blood in the body of the stomach down to the duodenal bulb. With a metallic structure thought to be a safety pin in the duodenal bulb. ICU team made multiple attempts to contact family to discuss goals of care. Patient became hemodynamically unstable needing pressors. Sick looking. Urine output very minimal. BUN and creatinine continues to rise. This morning her hemoglobin was 6.1. Needing more blood transfusions. Renal team decided to proceed with dialysis after talking to Dr. Oseguera. Due to hemodynamic instability decided to proceed with continuous and renal replacement therapy. Medications reviewed. Per Dr. Mendoza- gastrectomy has no role patient has been bleeding from several places. Patient will receive triple-lumen catheter for CRRT. 02/20/25 Patient was seen and examined in the ICU today. Patient tolerated CRRT well yesterday and received an additional 2 units of PRBC and 1 units of FFP. Patient's DIC panel was positive likely from massive blood transfusion. Hgb 7.4 today and patient did not have any more bloody bowel movements overnight. Createnine is 1.3 this morning. Will likely hold off from another session of CRRT for now. Pressor support has decreased. Prognosis is guarded. Patient made a DNR. Family was contacted. 02/25/2025 examined at bedside. No new symptoms or worsening of symptoms. Denies fever, chills, headaches, chest pain, sob, cough, GI or urinary symptoms. Has been n.p.o. for cath today which apparently postponed given low platelets. Ordered 1 unit platelets to be transfused today. Will need PermCath for outpatient hemodialysis. Hemoglobin 8.6, has black stool today as well. Ordered 1 unit pRBC. 02/27/2025 Patient seen and examined in telemetry. There were no major overnight events and patient feels well this morning. Tunneled catheter is on the right chest well without tenderness and she received dialysis and removed 2.1 L of fluids. She will receive heart cath today with Dr Urena today. Will follow up with the results and plan for likely dc tomorrow. The rash on her body is much better today. 02/28/2025 examined at bedside in dialysis room. Feels well today. Denies new symptoms or worsening of symptoms. Cath was done yesterday showing moderate pulmonary hypertension. Cardiology recommended discharging on diuresis, oxygen. Currently coordinating SNF placement with outpatient hemodialysis. Exam Vital Signs Temp Pulse Resp BP Pulse Ox O2 Del Method O2 Flow Rate 97.3 F 83 16 104/57 L 100 Nasal Cannula 1 02/28/25 10:06 02/28/25 10:30 02/28/25 10:06 02/28/25 10:30 02/28/25 10:06 02/28/25 07:20 02/28/25 10:06 Narrative Exam Constitutional: Elderly female in no acute distress Head: Pale conjunctiva CVS: RRR, S1 and S2 present, no murmurs, rubs or gallops . Tunneled cath on the right chest wall. RESP: Decreased breath sounds GI: Distended but nontender with no guarding or rebound tenderness. MSK: Full range of motion, No trauma or deformities or masses. trace pitting edema bilaterally on lower extremities and upper extremities Skin: Warm to touch, Dry. There is a diffused erythematous rash that has improved Psych: (AAO) x 3. awake and alert and answering questions Objective Labs 03/01/25 04:46 03/01/25 04:46 Labs: Laboratory Results - last 24 hr 02/28/25 04:34 WBC 2.2 L RBC 3.19 L Hgb 9.3 L Hct 28.5 L MCV 89 MCH 29.2 MCHC 32.6 RDW Std Deviation 55.4 H Plt Count 168 D Neut % (Auto) 40 Lymph % (Auto) 40 [place] % (Auto) 9 Eos % (Auto) 9 Baso % (Auto) 1 Neut # (Auto) 0.9 L Lymph # (Auto) 0.9 L [place] # (Auto) 0.2 Eos # (Auto) 0.2 Baso # (Auto) 0.0 Immature Gran # (Auto) 0.02 H Absolute Nucleated RBC 0.03 H Immature Gran % 1 H Nucleated RBC % 1 H Sodium 135 L Potassium 3.9 Chloride 102 Carbon Dioxide 23.8 Anion Gap 9 BUN 34 H Creatinine 1.7 H Estim Creat Clear Calc 27.8 L eGFR 30 L BUN/Creatinine Ratio 20 Glucose 86 D Calculated Osmolality 276 Calcium 7.7 L Corrected Calcium 8.7 Phosphorus 2.2 L Magnesium 1.6 Total Bilirubin 2.0 H AST 14 ALT < 7 L Alkaline Phosphatase 104 Total Protein 4.6 L Albumin 2.8 L Globulin 1.8 L Albumin/Globulin Ratio 1.6 ABG Interpretation ABG results: 02/19/25 17:02 VBG pH 7.53 VBG pCO2 30 L VBG pO2 65 H VBG Base Excess 2 Quality Measures Quality Measures sepsis Current suspected stage: ruled out Possible source: GI tract/intra- abdominal Blood cultures ordered: yes Antibiotic ordered: No Advance care planning discussed with:: patient Assessment & Plan Assessment Current Active Medications: Generic Name Dose Route Start Last Admin Trade Name Freq PRN Reason Stop Dose Admin Acetaminophen 650 mg 02/18/25 06:03 Acetaminophen Supp 650 Mg Supp MT 03/20/25 06:02 Q4HR PRN PAIN SCALE 1-3 (mild Acetaminophen 650 mg 02/18/25 09:38 02/27/25 20:06 Acetaminophen 325 Mg Tablet PO 03/20/25 09:37 650 mg Q6HR PRN Administration PAIN 1-6 (mild-mod Amiodarone HCl 200 mg 02/21/25 21:00 02/27/25 20:05 Amiodarone Hcl 200 Mg Tablet PO 03/23/25 20:59 200 mg BID EULALIA Administration Diphenhydramine HCl 25 mg 02/24/25 17:21 02/27/25 20:05 Diphenhydramine 25 Mg Capsule PO 03/26/25 17:20 25 mg Q6HR PRN Administration ITCHING Folic Acid 5 mg 02/28/25 09:00 Folic Acid 1 Mg Tablet PO 03/22/25 10:29 QDAY EULALIA Heparin Sodium (Porcine) 3,500 unit 02/26/25 17:48 Heparin Sod Inj 1000 Unit/Ml Vial 10 Ml INDWELLCAT 03/12/25 17:47 X1 PRN DIALYSIS Albumin Human 25 gm in 100 mls @ 100 mls/min 02/22/25 13:52 02/28/25 09:31 Albuminar-25 Ivpb IV 100 mls/min PRN PRN Administration DIALYSIS Levothyroxine Sodium 150 mcg 02/19/25 06:00 02/28/25 05:15 Levothyroxine Inj 100 Mcg Vial IV 03/21/25 05:59 150 mcg ACBR EULALIA Administration Ondansetron HCl 4 mg 02/18/25 22:24 02/27/25 18:06 Ondansetron Inj 2 Mg/Ml Inj 2 Ml IV 03/20/25 22:23 4 mg Q8HR PRN Administration NAUSEA OR VOMITING Protocol Pantoprazole Sodium 40 mg 02/18/25 09:00 02/27/25 20:06 Pantoprazole Inj 40 Mg Vial IVP 03/20/25 08:59 40 mg BID EULALIA Administration Sucralfate 1 gm 02/27/25 22:00 02/27/25 21:08 Sucralfate Susp 1 Gm/10 Ml Udc PO 03/21/25 13:59 1 gm AC EULALIA Administration Plan 79-year-old female with PMHx of A-fib, CHF, HTN, presenting with 1 week of dark stool followed by roughly 2 days of black/watery diarrhea. Apprecaite recommendations from cardiology. Pending SNF placement. Outpatient dialysis organized. Prerenal ADITYA Ischemic ATN Needing HD 2+ kenan LE edema on exam. Urine output improved. Renal function stable. Will need temp renal replacement therapy outpatient. Perm-cath in place on right chest wall and received HD ? Hemodialysis today ? Renally dose meds, avoid overdiuresis and NEPHROTOXINS ? Daily CMP Acute GI bleed anemia - Stable Hematochezia Rectal bleed A total of 9 units of PRBCs have been transfused with 3 FFP's as well as 4 platelets. EGD revealed esophageal ulcers with large amounts of blood as well as a metallic structure embedded in the duodenal bulb. CT showed intramural hematoma near thoracic aortic, old finding. Noted Dr Thomas did not recommend any surgical intervention. Hemoglobin stable, currently 8.6. Had 1 dark BM this morning. ? Transfusion if Hgb less than 8 ? Daily labs History of CHF, on home 3 L oxygen Severe pulmonary hypertension Echo showing severe pulmonary hypertension. Recurrent bilateral extremity edema, currently 2+. Dr. Urena following, appreciate recommendations. Currently asymptomatic without chest pain or shortness of breath. Cath showed severe pulmonary hypertension again. Cardiology recommended diuresis, oxygen and SILDENAFIL. ? Follow-up with cardiology outpatient Lactic acidosis (resolved) Low suspicion for pneumonia History of CHF, usually takes LASIX at home which was discontinued in December given concern for recurrent falls. Reports 3 weeks of lower extremity edema, has 2/3+ bilateral LE pitting edema and rales on lung exam. Given ALBUMIN X1 in ED. Less likely will tolerate fluids given overload status. Will give another ALBUMEN x1. CXR showed mild CHF, bibasilar pneumonia and left-sided pleural disease. However, low suspicion for pneumonia given she is asymptomatic, afebrile. Elevated PRO-ANGELY likely in setting of ADITYA and decreased clearance. Received CEFTRIAXONE x 1 in ED. Will continue to monitor Echo showed EF 55 to 60%, mild LVH. CXR showing RV dilation. Completed 3 days of antibiotics for suspected underlying pneumonia NSTEMI, likely type II A-fib with RVR Likely demand ischemia. History of AFIB non ELIQUIS. EKG showed A-fib with RVR, HR 132. Troponin peaked at 0.106 Currently asymptomatic without chest pain or shortness of breath. Vitals stable. ? Hold ELIQUIS in setting of GI bleed. ? Continue AMIODARONE 200 BID. ? Maintain K > 4.0 and Mg > 2.0 ? Receiving heart cath today with Dr Urena Hypomagnesemia (resolved) ? Daily labs, replete as needed. Hypothyroidism Chronic, on home LEVO 200 mcg daily. ? Continue LEVOTHYROXINE 150 mcg IV ACBR Health maintenance Diet: Will restart diet after heart cath today GI prophylaxis: PROTONIX DVT prophylaxis: SCDs Antibiotics: Not indicated CODE STATUS: DNR I discussed patient's care with attending physician, Dr Jad Bourgeois PGY3 Attending Provider Attestation/Addendum Patient seen and examined with resident physician Dr. Glover. Note reviewed, agree with findings and recommendations with the changes made. Noted ICU team discussed goals of care with sons-patient currently DNR. Reviewed labs and medications. Urine output very minimal. Patient currently seems to be ischemic ATN from hypotension. Noted to have significant fluid overload. 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 Outpatient dialysis arrangements made. Hemoglobin stable status post packed red blood cells and platelets. s/p right IJ permanent dialysis catheter .Still having black bowel movements Significant edema noted. Patient currently seen on dialysis. Tolerating dialysis without any problems. Hemodialysis (sequential ultrafiltration) for 3 hours, 2K, ultrafiltration 2-3 L, Epogen 6000, no heparin ordered. Plan of care discussed with the dialysis nurse. Please see dialysis flowsheet for further details. Right heart catheterization showed moderate pulmonary hypertension. Will DC temporary dialysis catheter and plan for discharge tomorrow to rehab close to short run of dialysis
--- NOTE | 2025-02-28 11:03 | PC.SS ---
Following SNF's informed LETTUCE TRIMMER inability to accommodate T, TH, Sat; dialysis schedule for the patient due to staffing issues on the weekend. [facility] and [facility]. M,W, F preferred days. [facility] unable to accommodate patient. [facility] pending response.
[2025-02-28] MEDS: ACETAMINOPHEN 325 MG TABLET 650 MG PO ×2 (12:31→20:14)
[2025-02-28] MEDS: HEPARIN SOD INJ 1000 UNIT/ML VIAL 10 ML 3500 UNIT INDWELLCAT (12:55)
[2025-02-28] MEDS: SUCRALFATE SUSP 1 GM/10 ML UDC PO ×2 (13:32→16:19)
--- NOTE | 2025-02-28 14:44 | PC.SS ---
AIR QUALITY CHEMIST confirmed with resident (Dr. West) that Dr. Nettles will address need for patient to obtain M,W,F dialysis schedule. AIR QUALITY CHEMIST relayed to resident that SNF's cannot accommodate transportation for T, TH, Sat schedule.
--- NOTE | 2025-02-28 16:11 | PC.SS ---
[facility] can accept the patient for placement. [facility] can accommodate T, TH, Sat dialysis sessions. Sessions begin at 05:30 am. Plan is for patient to participate with inpatient dialysis tomorrow and then transition to SNF. Patient acknowledged plan. DAIRY POWDER MIXER OPERATOR updated Dr. Street and bedside nurse.
[2025-02-28] MEDS: DiphenhydrAMINE 25 MG CAPSULE PO (16:19)
--- NOTE | 2025-02-28 19:18 | PD.IMPROG ---
Documentation for date of: 02/28/25 Subjective Subjective Interval history: Patient evaluated hemoglobin hematocrit 9.3 and 28.5 Exam Vital Signs Temp Pulse Resp BP Pulse Ox O2 Del Method O2 Flow Rate 97.4 F 85 17 107/77 97 Nasal Cannula 1 02/28/25 16:00 02/28/25 16:00 02/28/25 16:00 02/28/25 16:00 02/28/25 16:00 02/28/25 16:00 02/28/25 16:00 Objective Labs 02/28/25 04:34 02/28/25 04:34 Labs: Laboratory Results - last 24 hr 02/28/25 04:34 WBC 2.2 L RBC 3.19 L Hgb 9.3 L Hct 28.5 L MCV 89 MCH 29.2 MCHC 32.6 RDW Std Deviation 55.4 H Plt Count 168 D Neut % (Auto) 40 Lymph % (Auto) 40 [place] % (Auto) 9 Eos % (Auto) 9 Baso % (Auto) 1 Neut # (Auto) 0.9 L Lymph # (Auto) 0.9 L [place] # (Auto) 0.2 Eos # (Auto) 0.2 Baso # (Auto) 0.0 Immature Gran # (Auto) 0.02 H Absolute Nucleated RBC 0.03 H Immature Gran % 1 H Nucleated RBC % 1 H Sodium 135 L Potassium 3.9 Chloride 102 Carbon Dioxide 23.8 Anion Gap 9 BUN 34 H Creatinine 1.7 H Estim Creat Clear Calc 27.8 L eGFR 30 L BUN/Creatinine Ratio 20 Glucose 86 D Calculated Osmolality 276 Calcium 7.7 L Corrected Calcium 8.7 Phosphorus 2.2 L Magnesium 1.6 Total Bilirubin 2.0 H AST 14 ALT < 7 L Alkaline Phosphatase 104 Total Protein 4.6 L Albumin 2.8 L Globulin 1.8 L Albumin/Globulin Ratio 1.6 Impressions Impression: Mucosal oozing of blood patient stable hemoglobin hematocrit Continue current management ABG Interpretation ABG results: 02/19/25 17:02 VBG pH 7.53 VBG pCO2 30 L VBG pO2 65 H VBG Base Excess 2 Assessment & Plan A&P Narrative pulmonary HTN plan for Right heart cath stable hemodynamics Time Spent With Patient Time: Total time spent is greater than 50% in coordination of care (as documented) at patient's floor/unit and/or counseling patient:
[2025-02-28] MEDS: AMIODARONE HCL 200 MG TABLET PO (20:13)
[2025-02-28] MEDS: PANTOPRAZOLE INJ 40 MG VIAL IVP (20:14)
[2025-02-28] MEDS: MELATONIN 3 MG TABLET PO (22:52)
[2025-03-01] VITALS (19 sets, daily range): BP systolic 101–128; BP diastolic 54–78; PULSE 77–108; RESP 15–18; TEMP 35.9–36.7; O2SAT 97–100; BMI 26.0
[2025-03-01] MEDS: ACETAMINOPHEN 325 MG TABLET 650 MG PO ×3 (04:19→18:19)
[2025-03-01] MEDS: LEVOTHYROXINE INJ 100 mCg VIAL 150 MCG IV (05:17)
[2025-03-01 05:34] LABS: Basophils % (Auto) 1 % (0-2.5); Eosinophils # (Auto) 0.2 Thou/mm3 (0.0-0.5); Eosinophils % (Auto) 7 % (0-10); Hematocrit 29.2 % (36.0-46.0); Hemoglobin 9.3 g/dL (12.0-16.0); Immature Granulocytes % (Auto) 1 % (0-0); Immature Granulocytes Auto 0.04 Thou/mm3 (0.00-0.00); Lymphocytes # (Auto) 1.5 Thou/mm3 (1.0-4.8); Lymphocytes % (Auto) 43 % (10-50); Mean Corpuscular HGB Conc 31.8 g/dl (31.0-37.0); Mean Corpuscular Hemoglobin 29.8 pg (25.0-35.0); Mean Corpuscular Volume 94 fL (80-100); Monocytes # (Auto) 0.6 Thou/mm3 (0.0-0.8); Monocytes % (Auto) 17 % (0-12); Neutrophils # (Auto) 1.1 Thou/mm3 (1.8-7.7); Neutrophils % (Auto) 31 % (37-80); Nucleated Red Blood Cell # 0.02 Thou/mm3 (0.00-0.00); Nucleated Red Blood Cell % 1 /100 WBC (0); Platelet Count 240 Thou/mm3 (140-440); RDW Standard Deviation 57.7 fL (36.4-46.3); Red Blood Count 3.12 Miln/mm3 (4.00-5.20); White Blood Count 3.4 Thou/mm3 (3.6-11.0)
[2025-03-01 06:12] LABS: Alanine Aminotransferase < 7 U/L (10-49); Albumin/Globulin Ratio 1.4 (1.2-2.2); Alkaline Phosphatase 141 U/L (46-116); Anion Gap 8 (7-16); Aspartate Amino Transferase 14 U/L (0-34); BUN/Creatinine Ratio 20 Ratio (12-20); Bilirubin,Total 2.3 mg/dL (0.3-1.2); Blood Urea Nitrogen 36 mg/dL (9-23); Calcium 7.9 mg/dL (8.3-10.6); Calcium (Corrected) 8.7 mg/dL (8.5-10.1); Carbon Dioxide 25.9 mMol/L (20.0-31.0); Chloride 102 mMol/L (98-107); Creatinine (Component) 1.8 mg/dL (0.6-1.3); Estimated Creatinine Clearance 25.9 mL/min (>60); Globulin 2.1 gm/dL (2.3-3.5); Glucose 94 mg/dL (74-106); Magnesium 1.5 mg/dL (1.6-2.6); Osmolality,Calculated 280 (275-295); Phosphorous 1.3 mg/dL (2.4-5.1); Potassium 3.4 mMol/L (3.4-5.1); Sodium 136 mMol/L (136-145); Total Protein 5.1 gm/dL (5.7-8.2); eGFR 28 See Note
[2025-03-01] MEDS: PANTOPRAZOLE INJ 40 MG VIAL IVP ×2 (09:10→20:29)
[2025-03-01] MEDS: AMIODARONE HCL 200 MG TABLET PO ×2 (09:10→20:31)
[2025-03-01] MEDS: SUCRALFATE SUSP 1 GM/10 ML UDC PO ×3 (09:10→18:20)
[2025-03-01] MEDS: FOLIC ACID 1 MG TABLET 5 MG PO (09:11)
[2025-03-01] MEDS: DiphenhydrAMINE 25 MG CAPSULE PO ×2 (09:19→20:33)
--- NOTE | 2025-03-01 11:37 | ESDS_ITS ---
Planned Discharge Date 03/01/25 DS: Providers Provider Date of admission: 02/18/25 06:03 Primary care physician: Ruth Street MD Admitting Provider: Catherine Tabares MD Attending Provider on Admission: Catherine Tabares MD Consults: 02/18/25 05:28 Consult to Gastroenterology Stat Comment: Consulting Provider: Kimmy Mendoza 02/18/25 10:25 Consult to Cardiology Routine Comment: AFIB RVR, CHF, ECHO ordered Consulting Provider: Raeann Urena 02/26/25 15:02 Referral Physical Therapy Stat Comment: Physician Instructions: Attending Provider on DC: Ruth Street MD Discharging Provider: Ruth Street MD DS: Diagnosis Problem List Completed Was Problem List Reviewed/Reconciled?: Yes Hospital Course Hospital Course Hospital course: This is a pleasant 79 year-old female with PMHx of A-fib on ELIQUIS, CHF, HTN, Hypothyroidism, CKD, RA on Enbrel and METHOTREXATE, presented on 02/18/2025 with dark stool, with hemoglobin 6.5 and INR 1.6, LA 2.8 (reseolved with fluids), and trop 0.106. Initially blood transfusions were initiated, however GI bleed appear to have persisted for which she was admitted to ICU for close monitoring. GI bleed nuclear, abdominal x-ray, CT CAB showed no evidence of active bleed. EGD showed esophageal ulcers, large amount of blood in the stomach, mucosal oozing. Of note, a foreign object resembling a safety plan was found on EGD due to duodenal bulb, also seen on x-ray, attempt to retrieve the object with EGD was unsuccessful as it was firmly embedded. During his admission she was started on OCTREOTIDE and PROTONIX. She received a total of PRBC 10 units, FFP 3 units, platelets 6 units. The source of bleeding believed to be related to METHOTREXATE which was discontinued, after which bleeding was stopped. On discharge, Hgb was stable at 9.3. She remained asymptomatic and hemodynamically stable with stable vital throughout the stay. Although, she developed a decline in renal function likely related to poor perfusion. She had required multiple sessions of hemodialysis, and will continue temporary hemodialysis at SNF. Other findings include troponin peak 0.106, EKG showed a-fib with RVR. She was otherwise asymptomatic. She was initiated on Amio drip, and transition to 200 mg BID. She underwent right heart cath given ECHO findings of RA/RV dilation, showing moderate to severe pulmonary hypertension. She will follow-up outpatient with cardiology for continued management. OTHER DIAGNOSTIC FINDINGS: * CXR mild heart failure, mild pneumonia of right base, pneumonia and pleural disease of the left base. * Echocardiogram showed EF 50-60%, mild LVH, presence of diastolic dysfunction which cannot be graded, moderately dilated RV with volume overload, severe open TR, severely dilated RA, mild to severe, dilated IVC, moderate AV sclerosis with stenosis, mild to moderate MR, mild MAC, small pericardial effusion without evidence of tamponade, and pleural effusion. * Liver ultrasound showed cirrhosis, abnormal gallbladder thickening, no focal liver lesions. * Abdominal x-ray showed mild colonic and small bowel ileus, 20 mm opaque foreign object in the upper right abdomen. * CT CAP showed mild aneurysmal dilation of ascending thoracic aorta, fluid around the ascending thoracic aorta measuring 12 mm in thickness, bibasilar pneumonia with pleural effusion, cirrhosis, moderate ascites. PATIENT INSTRUCTIONS: Follow-up with PCP within 1-2 weeks of discharge. Continue outpatient hemodialysis Return to Emergency Room if symptoms persist, worsen, or new symptoms develop. Continue taking medications as prescribed below: ? AMIODARONE 200 mg BID ? FOLIC ACID 5 mg daily ? LEVOTHYROXINE 175 mcg daily ? SUCRALFATE 1 g 3 times daily ? PANTOPRAZOLE 40 mg BID ? AMLODIPINE 5 mg daily ? BIOTIN 800 mcg daily ? Garcinia Cabogia 1 tablet daily ? VITAMIN B12 100 mcg daily ? FLUTICASONE PROPIONATE spray as needed for allergies ? Lactobacillus 1 capsule daily ? LORATADINE 10 mg daily Discontinue the following medications: ? TRIAMTERENE 50 mg ? CETIRIZINE 5 mg ? ETANERCEPT 5 mg ? GUAIFENESIN 600 mg ? Magnesium 30 mg ? PHENTERMINE 37.5 mg ? Nature-Throi 195 mg ? DHEA 50 mg ADMISSION DIAGNOSES: Prerenal ADITYA Ischemic ATN Needing HD Acute GI bleed anemia - Stable Hematochezia Rectal bleed History of CHF, on home 3 L oxygen Severe pulmonary hypertension Lactic acidosis (resolved) Low suspicion for pneumonia NSTEMI, likely type II A-fib with RVR Hypomagnesemia (resolved) Hypothyroidism Thank you for the opportunity to participate in the patient's care. Case was discussed with attending, Dr. Vemuri. Belen West DO PGYI Time Spent with Patient Time attestation: Total time spent providing and/or coordinating discharge services: Greater than 35 minutes. Time spent: Greater than 30 minutes Exam Vital Signs Temp Pulse Resp BP Pulse Ox O2 Del Method O2 Flow Rate 97.3 F 77 18 107/71 98 Nasal Cannula 2 03/01/25 08:00 03/01/25 09:10 03/01/25 08:00 03/01/25 09:10 03/01/25 08:00 03/01/25 08:00 03/01/25 08:00 Narrative Exam Constitutional: Elderly female in no acute distress Head: Pale conjunctiva CVS: RRR, S1 and S2 present, no murmurs, rubs or gallops . Tunneled cath on the right chest wall. RESP: Decreased breath sounds GI: Distended but nontender with no guarding or rebound tenderness. MSK: Full range of motion, No trauma or deformities or masses. mild pitting edema bilaterally on lower extremities and upper extremities Skin: Warm to touch, Dry. There is a diffused erythematous rash that has improved Psych: (AAO) x 3. awake and alert and answering questions Discharge Plan Plan Patient Disposition: Xfer Skilled Nsg Fac (SNF) Care Plan Goals: Follow-up with PCP within 1-2 weeks of discharge. Follow-up with cardiology within 1-2 weeks of discharge Continue hemodialysis outpatient. Continue oxygen (at SNF) as needed. Return to Emergency Room if symptoms persist, worsen, or new symptoms develop. Continue taking medications as prescribed below: ? AMIODARONE 200 mg BID ? FOLIC ACID 5 mg daily ? LEVOTHYROXINE 175 mcg daily ? SUCRALFATE 1 g 3 times daily ? PANTOPRAZOLE 40 mg BID ? AMLODIPINE 5 mg daily ? BIOTIN 800 mcg daily ? Garcinia Cabog[place] 1 tablet daily ? VITAMIN B12 100 mcg daily ? FLUTICASONE PROPIONATE spray as needed for allergies ? Lactobacillus 1 capsule daily ? LORATADINE 10 mg daily Discontinue the following medications: ? TRIAMTERENE 50 mg ? CETIRIZINE 5 mg ? ETANERCEPT 5 mg ? GUAIFENESIN 600 mg ? Magnesium 30 mg ? PHENTERMINE 37.5 mg ? Nature-Throi 195 mg ? DHEA 50 mg Prescriptions/Referrals Prescriptions/Med Rec: New amiodarone 200 mg Tablet 200 mg PO BID Qty: 1 0RF sucralfate 100 mg/mL Suspension 1 g PO TID Qty: 1 0RF folic acid 1 mg Tablet 5 mg PO QDAY Qty: 1 0RF levothyroxine 175 mcg capsule 175 mcg PO QDAY Qty: 1 0RF pantoprazole [Protonix] 40 mg tablet,delayed release (DR/EC) 40 mg PO BID Qty: 1 0RF Continued amlodipine [Norvasc] 5 MG tablet 5 mg PO QDAY Qty: 0 loratadine [Claritin] 10 MG tablet 10 mg PO QDAY Qty: 0 Chrom Janki/Brindall Mccrary (Garcinia Cambogia Tablet) 1 EACH tablet 1 tab PO TID Qty: 0 Fluticasone Propionate 16 GM SPRAY 1 spry IH PRN PRN (Reason: ALLERGY) Qty: 0 cyanocobalamin (vitamin B-12) [Vitamin B-12] 100 MCG tablet 100 mcg PO QDAY Qty: 0 biotin 800 MCG tablet 800 mcg PO QDAY Qty: 0 Lactobacillus rhamnosus GG [Culturelle] 1 CAP capsule 1 cap PO QDAY Qty: 0 Discontinued triamterene [Dyrenium] 50 MG capsule 25 mg PO QDAY Qty: 0 Cetirizine * (ZYRTEC *) 5 MG tablet 5 mg PO HS Qty: 0 Etanercept (Enbrel) 50 MG/1 ML PEN.INJCTR 50 mg SQ 2 X WEEKLY Qty: 0 guaifenesin [Mucinex] 600 MG tablet extended release 12hr 600 mg PO QDAY Qty: 0 magnesium 30 MG tablet 30 mg PO BID Qty: 0 phentermine [Adipex-P] 37.5 MG capsule 37.5 mg PO QAMAC Qty: 0 Nature-Throid 195 MG tablet 195 mg PO Qty: 0 DHEA 50 MG capsule Qty: 0 Referrals: Ruth Street MD [Primary Care Provider] - Patient/Caregiver Discharge Instructions Discharge Activity: activity as tolerated Education Materials: Bleeding Gastrointestinal, Anemia, AFL/Afib, Acute Kidney Failure Dc Print Language: Yi Activity Restrictions/Additional Instructions: PT/OT CMP, CBC, TSH in 1 week Follow-up with Dr. Mendoza in 1 to 2 weeks Follow-up with Dr. Urena in 1 to 2 weeks Stand Alone Forms: Shandra Award Info., Patient Portal Info Letter Discharge Order Discharge Orders: Discharge (Routine); Ordered 03/01/25 Ordered By: Belen West Quality Discharge Quality Measures VTE prophylaxis Attestestation MD Attestation Patient seen and examined with resident physician Dr. Glover. Note reviewed, agree with findings and recommendations. Patient currently seen on dialysis. Tolerating dialysis without any problems. Hemodialysis for 2 hours, 2K, sequential ultrafiltration 2-3 L, Epogen 6000, no heparin ordered. Plan of care discussed with the dialysis nurse. Please see dialysis flowsheet for further details. Unfortunately patient was not able to be discharged due to transportation issues. Will plan for discharge on Monday.
--- NOTE | 2025-03-01 16:42 | PC.SS ---
[employer] Salesperson (KAYCEE) Carla met with patient to inform that she was going to discharge to [facility]. Patient is in agreement. She declined for SW to contact any family to provide an update. Patient provided with IMM. KAYCEE scheduled EMS transportation for 1800. MAGDALENA-Adonay avila.
--- NOTE | 2025-03-01 17:23 | ESPR_ITS ---
Documentation for date of: 03/01/25 Subjective Subjective Interval history: Hemoglobin hematocrit 9.3 and 29.2 Exam Vital Signs Temp Pulse Resp BP Pulse Ox O2 Del Method O2 Flow Rate 96.6 F L 85 18 108/66 100 Nasal Cannula 2 03/01/25 16:00 03/01/25 16:00 03/01/25 16:00 03/01/25 16:00 03/01/25 16:00 03/01/25 16:00 03/01/25 16:00 Objective Labs 03/01/25 04:46 03/01/25 04:46 Labs: Laboratory Results - last 24 hr 03/01/25 04:46 WBC 3.4 L D RBC 3.12 L Hgb 9.3 L Hct 29.2 L MCV 94 MCH 29.8 MCHC 31.8 RDW Std Deviation 57.7 H Plt Count 240 D Neut % (Auto) 31 L Lymph % (Auto) 43 [place] % (Auto) 17 H Eos % (Auto) 7 Baso % (Auto) 1 Neut # (Auto) 1.1 L Lymph # (Auto) 1.5 [place] # (Auto) 0.6 Eos # (Auto) 0.2 Baso # (Auto) 0.0 Immature Gran # (Auto) 0.04 H Absolute Nucleated RBC 0.02 H Immature Gran % 1 H Nucleated RBC % 1 H Sodium 136 Potassium 3.4 D Chloride 102 Carbon Dioxide 25.9 Anion Gap 8 BUN 36 H Creatinine 1.8 H Estim Creat Clear Calc 25.9 L eGFR 28 L BUN/Creatinine Ratio 20 Glucose 94 Calculated Osmolality 280 Calcium 7.9 L Corrected Calcium 8.7 Phosphorus 1.3 L Magnesium 1.5 L Total Bilirubin 2.3 H AST 14 ALT < 7 L Alkaline Phosphatase 141 H D Total Protein 5.1 L Albumin 3.0 L Globulin 2.1 L Albumin/Globulin Ratio 1.4 Impressions Impression: Mucosal oozing of blood stabilized continue to monitor CBC ABG Interpretation ABG results: 02/19/25 17:02 VBG pH 7.53 VBG pCO2 30 L VBG pO2 65 H VBG Base Excess 2 Assessment & Plan A&P Narrative pulmonary HTN plan for Right heart cath stable hemodynamics Time Spent With Patient Time: Total time spent is greater than 50% in coordination of care (as documented) at patient's floor/unit and/or counseling patient:
--- NOTE | 2025-03-01 19:01 | PC.NURSE ---
KAVYA Aguirre called, pt still pending auth and transporation cancelled and discharge held until insurance auth approved.
[2025-03-01] MEDS: MELATONIN 3 MG TABLET PO (20:29)
[2025-03-02] VITALS (10 sets, daily range): BP systolic 110–126; BP diastolic 70–84; PULSE 78–100; RESP 15–19; TEMP 36–36.4; O2SAT 99–100; BMI 25.8
[2025-03-02] MEDS: ACETAMINOPHEN 325 MG TABLET 650 MG PO ×4 (00:17→18:34)
[2025-03-02] MEDS: LEVOTHYROXINE INJ 100 mCg VIAL 150 MCG IV (05:22)
[2025-03-02] MEDS: DiphenhydrAMINE 25 MG CAPSULE PO ×2 (05:22→18:23)
[2025-03-02] MEDS: SUCRALFATE SUSP 1 GM/10 ML UDC PO ×3 (07:27→16:57)
[2025-03-02] MEDS: AMIODARONE HCL 200 MG TABLET PO ×2 (08:21→20:20)
[2025-03-02] MEDS: FOLIC ACID 1 MG TABLET 5 MG PO (08:22)
[2025-03-02] MEDS: PANTOPRAZOLE INJ 40 MG VIAL IVP (08:22)
--- NOTE | 2025-03-02 09:59 | PD.NEPHPROG ---
Documentation for date of: 03/02/25 Subjective Subjective Interval history: Ms. Ayoub is a pleasant 79-year-old female with PMHx of A-fib on ELIQUIS( under Dr. Parrish), CHF, HTN, Hypothyroidism, CKD, RA on Enbrel brought in by ambulance following 1.5 days of dark/watery stool and rectal bleed. She noted 1 week of dark stool, followed by dark and watery diarrhea that approximately 2 days ago. Denied fall or trauma, fever, chills, abnormal weight loss or gain, palpitations, chest pain, shortness of breath, cough, abdominal pain, nausea or vomiting, dysuria or hematuria. She was admitted at [facility] and airlifted to [place] for GLF for which she sustained a right eye injury, currently being followed up by ophthalmology in [place]. She did not report any fracture or other injuries. At the time, endoscopy was done, patient unsure why but state was normal. They had recommended colonoscopy but she states unable to do prep as she lives alone at home. Additionally, she states she takes home LASIX but was discontinued during admission at [facility] for fall risk concerns. She reports 3 weeks of increased bilateral extremity swelling and shortness of breath despite using her home 3 L oxygen. 02/22/25 examined at bedside in ICU. No acute overnight events. Renal function showing creatinine 1.6, BUN 27, GFR 32. In total she has received PRBCs 8 units, FFP 3 units, PLT 4 units, with Hgb currently stable at 8.2, although still having dark/bloody bowel movements. Remains asymptomatic. Vitals stable. Denies fever, chills, headaches, chest pain, sob, cough, GI or urinary symptoms. Will plan for hemodialysis today, goal to remove 2-3 L of fluids. If tolerating, will order 1 unit PRBCs as well. 02/23/2025 patient got downgraded from ICU to telemetry. Patient had 1 black stool. Denies any chest pain. Requesting to get physical therapy. Blood pressure 115/73, heart rate 84. Hemoglobin stable at 9.7, platelets 41,000. Sodium 137, potassium 3.9, bicarbonate 29, BUN 22, creatinine 1.5, glucose 103, calcium 8.8, magnesium 1.5, total bilirubin 2.4, albumin 2.8. Urine output still seems marginal. 03/02/2025 patient currently seen in telemetry. Denies any bowel movements for the last 2 days. Blood pressure stable at 111/72, heart rate 84. No new labs today. Labs for tomorrow ordered. Supposed to be discharged yesterday postdialysis, unfortunately could not get transportation and discharge was held. Will plan for discharge on Monday. Lactulose ordered for her constipation Review of Systems Review of Systems Narrative Review of Systems: CONSTITUTIONAL: Patient denies any fever, chills. Complaining of fatigue HEENT: Denies any visual disturbances or hearing problems. CARDIOVASCULAR: Patient denies any chest pain, shortness of breath, swelling in the lower extremities. PULMONARY: Patient denies any shortness of breath, cough. GASTROINTESTINAL: Patient denies any abdominal pain, nausea, vomiting, diarrhea. Complaining of constipation GENITOURINARY: Had urinary retention and Landa catheter SKIN: Denies any rash. MUSCULOSKELETAL: Complaining of gait imbalance NEUROLOGICAL: Denies any neurological problems of strokes, seizures or confusion. Denies any memory problems. PSYCHIATRIC: Denies any depression or anxiety. LYMPHATICS : No lymphadenopathy Exam Vital Signs Temp Pulse Resp BP Pulse Ox O2 Del Method O2 Flow Rate 36.2 C 83 18 114/70 99 Nasal Cannula 1 03/02/25 07:38 03/02/25 08:21 03/02/25 07:38 03/02/25 08:21 03/02/25 07:38 03/02/25 07:38 03/02/25 07:38 Narrative Exam GENERAL APPEARANCE: Patient seems to be comfortable, adequately hydrated and nourished. HEENT: EOMI, PERRLA NECK: Neck supple, no JVD or bruit CARDIOVASCULAR: Heart regular, no murmurs LUNGS/CHEST: Chest clear to auscultation. No rales, rhonchi, wheezing ABDOMEN: Soft, nontender, nondistended. No masses. Normal bowel sounds. Landa catheter is noted EXTREMITIES: 2+ edema in the lower EXTR SKIN: Skin exam normal without any rashes MUSCULOSKELETAL: Able to move her legs NEUROLOGICAL : No neurological deficits Objective Labs 03/01/25 04:46 03/01/25 04:46 ABG Interpretation ABG results: 02/19/25 17:02 VBG pH 7.53 VBG pCO2 30 L VBG pO2 65 H VBG Base Excess 2 Assessment & Plan Assessment and plan (1) Atrial fibrillation: Status: Acute (2) GI bleed: Status: Acute (3) Elevated troponin: Status: Acute (4) Coagulopathy: Status: Acute Additional Assessment & Plan Additional Plan: 79-year-old female with PMHx of A-fib, CHF, HTN, presenting with 1 week of dark stool followed by roughly 2 days of black/watery diarrhea. Prerenal ADITYA--ischemic ATN-needing dialysis. Added diuretics. Check labs for tomorrow. Patient did patient has Landa catheter for urinary retention. Outpatient dialysis TTS scheduled. Acute GI bleed anemia Hematochezia Rectal bleed A total of 9 units of PRBCs have been transfused with 3 FFP's as well as 4 platelets. EGD revealed esophageal ulcers with large amounts of blood as well as a metallic structure embedded in the duodenal bulb. CT showed intramural hematoma near thoracic aortic, old finding. Noted Dr Thomas did not recommend any surgical intervention. Currently her hemoglobin has been stable. No active bleed. constipation --lactulose was given. History of CHF, on home 3 L oxygen//patient noted to have pulmonary hypertension Will add diuretics, on dialysis Echo showed EF 55 to 60%, mild LVH. Right heart cath showed pulmonary hypertension. Patient might need sildenafil as an outpatient. A. fib--rate controlled. On amiodarone. Eliquis cannot be given due to recent GI bleed. Hypothyroidism Chronic, on home LEVO 175 mcg daily.
[2025-03-02] MEDS: LACTULOSE SYRUP 20 GM/30 ML UDC PO (11:21)
--- NOTE | 2025-03-02 13:44 | PD.IMPROG ---
Documentation for date of: 03/02/25 Subjective Subjective Interval history: Hemoglobin hematocrit 9.3 and 29.2 No further active GI bleed Exam Vital Signs Temp Pulse Resp BP Pulse Ox O2 Del Method O2 Flow Rate 96.8 F 84 18 111/72 99 Nasal Cannula 1 03/02/25 12:00 03/02/25 12:00 03/02/25 12:00 03/02/25 12:00 03/02/25 12:00 03/02/25 12:00 03/02/25 12:00 Objective Labs 03/01/25 04:46 03/01/25 04:46 Impressions Impression: Upper GI bleed secondary to mucosal oozing of blood corrected after DIC was corrected continue current management ABG Interpretation ABG results: 02/19/25 17:02 VBG pH 7.53 VBG pCO2 30 L VBG pO2 65 H VBG Base Excess 2 Assessment & Plan A&P Narrative pulmonary HTN plan for Right heart cath stable hemodynamics Time Spent With Patient Time: Total time spent is greater than 50% in coordination of care (as documented) at patient's floor/unit and/or counseling patient:
[2025-03-02] MEDS: Furosemide 40 MG TABLET PO (14:29)
--- NOTE | 2025-03-02 16:37 | PC.NURSE ---
Pt complaining of not being able to have a BM. Dr. Street notified and ordered soap enema. Pt verbalized does not want to have enema and will wait until tmmr to try to have bowel movement.
[2025-03-02] MEDS: MELATONIN 3 MG TABLET PO (20:20)
[2025-03-02] MEDS: PANTOPRAZOLE 40 MG TABLET PO (20:20)
[2025-03-02] MEDS: ONDANSETRON INJ 2 MG/ML INJ 2 ML 4 MG IV (23:19)
[2025-03-03] VITALS (7 sets, daily range): BP systolic 105–119; BP diastolic 67–72; PULSE 79–96; RESP 12–19; TEMP 36.3–36.9; O2SAT 99–100; BMI 25.9
[2025-03-03] MEDS: DiphenhydrAMINE 25 MG CAPSULE PO ×3 (00:31→12:53)
[2025-03-03] MEDS: ACETAMINOPHEN 325 MG TABLET 650 MG PO ×3 (00:32→12:52)
[2025-03-03] MEDS: LEVOTHYROXINE SODIUM 100 MCG TABLET 200 MCG PO (05:46)
[2025-03-03 06:02] LABS: Basophils # (Auto) 0.1 Thou/mm3 (0.0-0.2); Basophils % (Auto) 1 % (0-2.5); Eosinophils # (Auto) 0.2 Thou/mm3 (0.0-0.5); Eosinophils % (Auto) 4 % (0-10); Hematocrit 28.7 % (36.0-46.0); Hemoglobin 8.9 g/dL (12.0-16.0); Immature Granulocytes % (Auto) 4 % (0-0); Lymphocytes # (Auto) 2.2 Thou/mm3 (1.0-4.8); Lymphocytes % (Auto) 40 % (10-50); Mean Corpuscular Hemoglobin 28.6 pg (25.0-35.0); Mean Corpuscular Volume 92 fL (80-100); Monocytes # (Auto) 1.4 Thou/mm3 (0.0-0.8); Monocytes % (Auto) 25 % (0-12); Neutrophils # (Auto) 1.5 Thou/mm3 (1.8-7.7); Neutrophils % (Auto) 27 % (37-80); Nucleated Red Blood Cell % 0 /100 WBC (0); Platelet Count 375 Thou/mm3 (140-440); RDW Standard Deviation 57.8 fL (36.4-46.3); Red Blood Count 3.11 Miln/mm3 (4.00-5.20); White Blood Count 5.5 Thou/mm3 (3.6-11.0)
[2025-03-03 06:30] LABS: Albumin, Serum 2.9 gm/dL (3.4-4.8); Anion Gap 10 (7-16); BUN/Creatinine Ratio 21 Ratio (12-20); Blood Urea Nitrogen 38 mg/dL (9-23); Calcium 7.8 mg/dL (8.3-10.6); Calcium (Corrected) 8.7 mg/dL (8.5-10.1); Carbon Dioxide 25.9 mMol/L (20.0-31.0); Chloride 100 mMol/L (98-107); Creatinine (Component) 1.8 mg/dL (0.6-1.3); Estimated Creatinine Clearance 25.8 mL/min (>60); Glucose 91 mg/dL (74-106); Osmolality,Calculated 280 (275-295); Phosphorous 1.4 mg/dL (2.4-5.1); Potassium 3.4 mMol/L (3.4-5.1); Sodium 136 mMol/L (136-145); eGFR 28 See Note
[2025-03-03 06:42] LABS: Erythropoietin (EPO)* 12.6 mIU/mL (2.6-18.5)
[2025-03-03] MEDS: LACTULOSE SYRUP 20 GM/30 ML UDC PO (08:17)
[2025-03-03] MEDS: SUCRALFATE SUSP 1 GM/10 ML UDC PO (08:18)
[2025-03-03] MEDS: Furosemide 40 MG TABLET PO (08:18)
[2025-03-03] MEDS: FOLIC ACID 1 MG TABLET 5 MG PO (08:18)
[2025-03-03] MEDS: PANTOPRAZOLE 40 MG TABLET PO (08:19)
[2025-03-03] MEDS: AMIODARONE HCL 200 MG TABLET PO (08:19)
--- NOTE | 2025-03-03 08:52 | PD.RESPRO ---
Documentation for date of: 03/03/25 Subjective Subjective Interval history: Ms. Ayobu is a pleasant 79-year-old female with PMHx of A-fib on ELIQUIS( under Dr. Parrish), CHF, HTN, Hypothyroidism, CKD, RA on Enbrel brought in by ambulance following 1.5 days of dark/watery stool and rectal bleed. She noted 1 week of dark stool, followed by dark and watery diarrhea that approximately 2 days ago. Denied fall or trauma, fever, chills, abnormal weight loss or gain, palpitations, chest pain, shortness of breath, cough, abdominal pain, nausea or vomiting, dysuria or hematuria. She was admitted at [facility] and airlifted to [place] for GLF for which she sustained a right eye injury, currently being followed up by ophthalmology in [place]. She did not report any fracture or other injuries. At the time, endoscopy was done, patient unsure why but state was normal. They had recommended colonoscopy but she states unable to do prep as she lives alone at home. Additionally, she states she takes home LASIX but was discontinued during admission at [facility] for fall risk concerns. She reports 3 weeks of increased bilateral extremity swelling and shortness of breath despite using her home 3 L oxygen. 02/22/25 examined at bedside in ICU. No acute overnight events. Renal function showing creatinine 1.6, BUN 27, GFR 32. In total she has received PRBCs 8 units, FFP 3 units, PLT 4 units, with Hgb currently stable at 8.2, although still having dark/bloody bowel movements. Remains asymptomatic. Vitals stable. Denies fever, chills, headaches, chest pain, sob, cough, GI or urinary symptoms. Will plan for hemodialysis today, goal to remove 2-3 L of fluids. If tolerating, will order 1 unit PRBCs as well. 02/23/2025 patient got downgraded from ICU to telemetry. Patient had 1 black stool. Denies any chest pain. Requesting to get physical therapy. Blood pressure 115/73, heart rate 84. Hemoglobin stable at 9.7, platelets 41,000. Sodium 137, potassium 3.9, bicarbonate 29, BUN 22, creatinine 1.5, glucose 103, calcium 8.8, magnesium 1.5, total bilirubin 2.4, albumin 2.8. Urine output still seems marginal. 03/02/2025 patient currently seen in telemetry. Denies any bowel movements for the last 2 days. Blood pressure stable at 111/72, heart rate 84. No new labs today. Labs for tomorrow ordered. Supposed to be discharged yesterday postdialysis, unfortunately could not get transportation and discharge was held. Will plan for discharge on Monday. Lactulose ordered for her constipation 03/03/2025 patient is going to be discharged to rehab today. Please see discharge summary from 03/01/2025. Exam Vital Signs Temp Pulse Resp BP Pulse Ox O2 Del Method O2 Flow Rate 98.1 F 87 13 114/71 100 Nasal Cannula 2 03/03/25 08:00 03/03/25 08:19 03/03/25 08:00 03/03/25 08:19 03/03/25 08:00 03/03/25 08:00 03/03/25 04:00 Narrative Exam GENERAL APPEARANCE: Patient seems to be comfortable, adequately hydrated and nourished. HEENT: EOMI, PERRLA NECK: Neck supple, no JVD or bruit CARDIOVASCULAR: Heart regular, no murmurs LUNGS/CHEST: Chest clear to auscultation. No rales, rhonchi, wheezing ABDOMEN: Soft, nontender, nondistended. No masses. Normal bowel sounds. Landa catheter is noted EXTREMITIES: 2+ edema in the lower EXTR SKIN: Skin exam normal without any rashes MUSCULOSKELETAL: Able to move her legs NEUROLOGICAL : No neurological deficits Objective Labs 03/03/25 04:36 03/03/25 04:36 Labs: Laboratory Results - last 24 hr 02/26/25 03/03/25 04:23 04:36 WBC 5.5 D RBC 3.11 L Hgb 8.9 L Hct 28.7 L MCV 92 MCH 28.6 MCHC 31.0 RDW Std Deviation 57.8 H Plt Count 375 D Neut % (Auto) 27 L Lymph % (Auto) 40 [place] % (Auto) 25 H Eos % (Auto) 4 Baso % (Auto) 1 Neut # (Auto) 1.5 L Lymph # (Auto) 2.2 [place] # (Auto) 1.4 H Eos # (Auto) 0.2 Baso # (Auto) 0.1 Immature Gran # (Auto) 0.20 H Absolute Nucleated RBC 0.00 Immature Gran % 4 H Nucleated RBC % 0 Sodium 136 Potassium 3.4 Chloride 100 Carbon Dioxide 25.9 Anion Gap 10 BUN 38 H Creatinine 1.8 H Estim Creat Clear Calc 25.8 L eGFR 28 L BUN/Creatinine Ratio 21 H Glucose 91 Calculated Osmolality 280 Calcium 7.8 L Corrected Calcium 8.7 Phosphorus 1.4 L Erythropoietin 12.6 Albumin 2.9 L ABG Interpretation ABG results: 02/19/25 17:02 VBG pH 7.53 VBG pCO2 30 L VBG pO2 65 H VBG Base Excess 2 Quality Measures Quality Measures VTE prophylaxis Advance care planning discussed with:: patient Assessment & Plan Assessment Current Active Medications: Generic Name Dose Route Start Last Admin Trade Name Freq PRN Reason Stop Dose Admin Acetaminophen 650 mg 02/18/25 06:03 Acetaminophen Supp 650 Mg Supp WI 03/20/25 06:02 Q4HR PRN PAIN SCALE 1-3 (mild Acetaminophen 650 mg 02/18/25 09:38 03/03/25 06:29 Acetaminophen 325 Mg Tablet PO 03/20/25 09:37 650 mg Q6HR PRN Administration PAIN 1-6 (mild-mod Amiodarone HCl 200 mg 02/21/25 21:00 03/03/25 08:19 Amiodarone Hcl 200 Mg Tablet PO 03/23/25 20:59 200 mg BID EULALIA Administration Diphenhydramine HCl 25 mg 02/24/25 17:21 03/03/25 06:29 Diphenhydramine 25 Mg Capsule PO 03/26/25 17:20 25 mg Q6HR PRN Administration ITCHING Folic Acid 5 mg 02/28/25 09:00 03/03/25 08:18 Folic Acid 1 Mg Tablet PO 03/22/25 10:29 5 mg QDAY EULALIA Administration Furosemide 40 mg 03/02/25 14:20 03/03/25 08:18 Furosemide 40 Mg Tablet PO 04/01/25 14:19 40 mg QDAY EULALIA Administration Heparin Sodium (Porcine) 3,500 unit 02/26/25 17:48 02/28/25 12:55 Heparin Sod Inj 1000 Unit/Ml Vial 10 Ml INDWELLCAT 03/12/25 17:47 3,500 unit X1 PRN Administration DIALYSIS Lactulose 20 gm 03/02/25 11:15 03/03/25 08:17 Lactulose Syrup 20 Gm/30 Ml Udc PO 04/01/25 11:14 20 gm QDAY EULALIA Administration Protocol Levothyroxine Sodium 200 mcg 03/03/25 06:00 03/03/25 05:46 Levothyroxine Sodium 100 Mcg Tablet PO 04/02/25 05:59 200 mcg ACBR EULALIA Administration Melatonin 3 mg 02/28/25 22:50 03/02/25 20:20 Melatonin 3 Mg Tablet PO 03/30/25 22:49 3 mg HS EULALIA Administration Ondansetron HCl 4 mg 02/18/25 22:24 03/02/25 23:19 Ondansetron Inj 2 Mg/Ml Inj 2 Ml IV 03/20/25 22:23 4 mg Q8HR PRN Administration NAUSEA OR VOMITING Protocol Pantoprazole Sodium 40 mg 03/02/25 14:15 03/03/25 08:19 Pantoprazole 40 Mg Tablet PO 04/01/25 14:14 40 mg BID EULALIA Administration Sucralfate 1 gm 02/27/25 22:00 03/03/25 08:18 Sucralfate Susp 1 Gm/10 Ml Udc PO 03/21/25 13:59 1 gm AC EULALIA Administration Plan 79-year-old female with PMHx of A-fib, CHF, HTN, presenting with 1 week of dark stool followed by roughly 2 days of black/watery diarrhea. Prerenal ADITYA--ischemic ATN - needing dialysis. Renal function stable, CR 1.8. No electrolyte abnormalities. On LASIX 40 daily, urine output 660 overnight, edema improving. Check labs for tomorrow. Patient did patient has Landa catheter for urinary retention. Outpatient dialysis TS scheduled. Acute GI bleed anemia Hematochezia Rectal bleed A total of 9 units of PRBCs have been transfused with 3 FFP's as well as 4 platelets. EGD revealed esophageal ulcers with large amounts of blood as well as a metallic structure embedded in the duodenal bulb. CT showed intramural hematoma near thoracic aortic, old finding. Noted Dr Thomas did not recommend any surgical intervention. Currently her hemoglobin has been stable. No active bleed. constipation --lactulose was given. Hemoglobin 8.9 today Constipation No BM in 3 days despite SUCRALFATE and LACTULOSE. Ordered enema x 1. History of CHF, on home 3 L oxygen//patient noted to have pulmonary hypertension Will add diuretics, on dialysis Echo showed EF 55 to 60%, mild LVH. Right heart cath showed pulmonary hypertension. Patient might need sildenafil as an outpatient. A. fib--rate controlled. On amiodarone. Eliquis cannot be given due to recent GI bleed. Hypothyroidism Chronic, on home LEVO 175 mcg daily. Attending Provider Attestation/Addendum Patient seen and examined with resident physician Dr. Vora. Note reviewed, agree with findings and recommendations. Patient is going to be discharged today to rehab. Will do twice weekly dialysis and wait for renal recovery.
--- NOTE | 2025-03-03 09:08 | PC.SS ---
Follow up note: Pt will dc to [facility].
--- NOTE | 2025-03-03 11:31 | PC.NURSE ---
Spoke with Dr. Street regarding discharge, per MD Street pt is ok to DC to SNF.
--- NOTE | 2025-03-03 11:59 | PC.SS ---
Follow up note: SS spoke to Moira from [facility] who states they do not have insurance authorization from [facility] and insurance authorization must be initiated by [facility]. SS has called and spoke to Alicia from [facility] who is reviewing patient's information to check if she meets criteria for SNF. Alicia is aware [facility] is accepting. SS spoke to bedside nurse, Caitlin who states pt had bowel movement last night.
--- NOTE | 2025-03-03 14:47 | PC.SS ---
SS was informed by [employer] they have provided insurance authorization to [facility]. SS has called and confirmed with Ashleigh at [facility] insurance authorization has been provided. [facility] will provide transportation at 4pm. Bedside nurse, Caitlin is aware and will inform pt. CALI is aware.
--- NOTE | 2025-03-03 15:36 | PC.NURSE ---
Report called to MAGDALENA Douglas from [facility] at this time
--- NOTE | 2025-03-03 15:55 | PC.NURSE ---
Sign Language Interpreter called d/t belongings in safe, concession cashier came up and pt signed for belongings
--- NOTE | 2025-03-03 17:30 | PD.IMPROG ---
Documentation for date of: 03/03/25 Subjective Subjective Interval history: Hemoglobin hematocrit 8.9 and 28.7 Exam Vital Signs Temp Pulse Resp BP Pulse Ox O2 Del Method O2 Flow Rate 98.2 F 91 19 119/72 99 Nasal Cannula 2 03/03/25 16:00 03/03/25 16:00 03/03/25 16:00 03/03/25 16:00 03/03/25 16:00 03/03/25 16:00 03/03/25 16:00 Objective Labs 03/03/25 04:36 03/03/25 04:36 Labs: Laboratory Results - last 24 hr 02/26/25 03/03/25 04:23 04:36 WBC 5.5 D RBC 3.11 L Hgb 8.9 L Hct 28.7 L MCV 92 MCH 28.6 MCHC 31.0 RDW Std Deviation 57.8 H Plt Count 375 D Neut % (Auto) 27 L Lymph % (Auto) 40 [place] % (Auto) 25 H Eos % (Auto) 4 Baso % (Auto) 1 Neut # (Auto) 1.5 L Lymph # (Auto) 2.2 [place] # (Auto) 1.4 H Eos # (Auto) 0.2 Baso # (Auto) 0.1 Immature Gran # (Auto) 0.20 H Absolute Nucleated RBC 0.00 Immature Gran % 4 H Nucleated RBC % 0 Sodium 136 Potassium 3.4 Chloride 100 Carbon Dioxide 25.9 Anion Gap 10 BUN 38 H Creatinine 1.8 H Estim Creat Clear Calc 25.8 L eGFR 28 L BUN/Creatinine Ratio 21 H Glucose 91 Calculated Osmolality 280 Calcium 7.8 L Corrected Calcium 8.7 Phosphorus 1.4 L Erythropoietin 12.6 Albumin 2.9 L Impressions Impression: Mucosal oozing of blood improved downward trending hemoglobin hematocrit continue to monitor ABG Interpretation ABG results: 02/19/25 17:02 VBG pH 7.53 VBG pCO2 30 L VBG pO2 65 H VBG Base Excess 2 Assessment & Plan A&P Narrative pulmonary HTN plan for Right heart cath stable hemodynamics Time Spent With Patient Time: Total time spent is greater than 50% in coordination of care (as documented) at patient's floor/unit and/or counseling patient:
== END 2025-03-03 16:18 | disposition skilled nursing facility (03) | DRG 380 ==
LOC: SERX 04:44 → SERHOLD 06:53 → S2NX 14:31 → S2SX 18:54 → S2NX 02-19 13:40 → S2SX 02-19 13:40 → S2NX 02-22 17:17
PROVIDERS: Internal Medicine; Specialist; Student in an Organized Health Care Education/Training Program; Admitting Provider Student in an Organized Health Care Education/Training Program; Emergency Provider Emergency Medicine; PCP Internal Medicine; Visit Provider Student in an Organized Health Care Education/Training Program
PROC: (CPT 43239; principal; 2025-02-18 16:45)
DX: K22.11 Ulcer of esophagus with bleeding (principal); D65 Disseminated intravascular coagulation [defibrination syndrome]; I21.A1 Myocardial infarction type 2; J18.9 Pneumonia, unspecified organism; N17.0 Acute kidney failure with tubular necrosis; R57.1 Hypovolemic shock; D62 Acute posthemorrhagic anemia; I13.0 Hypertensive heart and chronic kidney disease with heart failure and stage 1 through stage 4 chronic kidney disease, or unspecified chronic kidney disease; I48.20 Chronic atrial fibrillation, unspecified; E87.1 Hypo-osmolality and hyponatremia; D68.9 Coagulation defect, unspecified; R18.8 Other ascites; E87.20 Acidosis, unspecified; K56.7 Ileus, unspecified; I50.9 Heart failure, unspecified; N18.9 Chronic kidney disease, unspecified; E03.9 Hypothyroidism, unspecified; M06.9 Rheumatoid arthritis, unspecified; I95.9 Hypotension, unspecified; E83.42 Hypomagnesemia; R19.7 Diarrhea, unspecified; I27.20 Pulmonary hypertension, unspecified; I71.21 Aneurysm of the ascending aorta, without rupture; K29.81 Duodenitis with bleeding; K74.60 Unspecified cirrhosis of liver; E78.5 Hyperlipidemia, unspecified; Z79.01 Long term (current) use of anticoagulants; T18.3XXA Foreign body in small intestine, initial encounter; T45.1X5A Adverse effect of antineoplastic and immunosuppressive drugs, initial encounter; K29.71 Gastritis, unspecified, with bleeding; K31.9 Disease of stomach and duodenum, unspecified; Z60.2 Problems related to living alone; W44.9XXA Unspecified foreign body entering into or through a natural orifice, initial encounter; Z79.899 Other long term (current) drug therapy; Z99.81 Dependence on supplemental oxygen; Z79.890 Hormone replacement therapy; Z66 Do not resuscitate; Z87.891 Personal history of nicotine dependence; H54.61 Unqualified visual loss, right eye, normal vision left eye
CPT/HCPCS: 36415; 36430; 36600; 71045; 71250; 74018; 74176; 76705; 76937; 77001; 78278; 80053; 80069; 80074; 81001; 82140; 82150; 82668; 82728; 82803; 82945; 83540; 83550; 83605; 83615; 83690; 83735; 83880; 84100; 84145; 84157; 84484; 85007; 85014; 85018; 85025; 85027; 85379; 85384; 85610; 85730; 86580; 86850; 86900; 86901; 86923; 86927; 86965; 87040; 87070; 87075; 87081; 87086; 87205; 89051; 93005; 93306; 96365; 96366; 96367; 96368; 96372; 96375; 97162; 99152; 99153; 99291; 99292; A4216; A4641; A4649; A9560; C1750; C1769; C1894; J0171; J0283; J0456; J0461; J0613; J0690; J0696; J1100; J1642; J1643; J1938; J1940; J2060; J2250; J2310; J2354; J2371; J2405; J2470; J2550; J3010; J3411; J3430; J3475; J3480; J3490; J7030; J7040; J7050; J7168; P9016; P9035; P9047; P9060; Q4081; A9270

== ENCOUNTER 2025-03-06 04:59 | Emergency (ER) | payer OTHER, SELFPAY ==
[2025-03-06 05:08] VITALS: PULSE 97; RESP 18; O2SAT 97
[2025-03-06 05:09] VITALS: BP 133/81; PULSE 97; RESP 18; TEMP 36.9; O2SAT 96
--- NOTE | 2025-03-06 05:09 | PD.EDGIBLD ---
ED GI Bleed RME/HPI General Chief complaint: GI Bleed Stated complaint: POSSIBLE GI BLEED Time Seen by Provider: 03/06/25 05:09 Arrival date/time: 03/06/25 04:59 RME / HPI RME / HPI Narrative: This section includes all my notes and documentations, including HPI, PE, and ED course. Jeremie Martínez MD HPI: 79-year-old female here from a local senior living with bright red blood in stools noted by the staff just prior to arrival. No tarry stools noted. Patient is not aware. No abdominal pain. No nausea or vomiting. No fever or chills. Reports severe vaginal pain for over a week. Was recently admitted here for GI bleed with severe anemia, discharge several days ago. No other complaints. ROS: All negative except as documented in HPI. Physical Exam: General: Alert and oriented. No acute distress when remaining still. Eyes: Conjunctivae and lids clear. ENT: No nasal congestion. Neck: Supple. Heart: RRR. Lungs: No respiratory distress. Good air movement. No rhonchi, wheezing, rales. Abdomen: Soft and nontender. Normal bowel sounds. No distension. No rebound or guarding. Skin: Warm and dry. Neuro: Alert and oriented X 3. Genitalia: Ulcers noted, varying in size and shape. Blisters noted, varying size and shape. Patient is asking for help with her severe vaginal pain. I ordered morphine and diagnostic tests. At 6 AM on 03/06/2025, the care of the patient was transferred to Dr Baron. Jeremie Martínez MD Related Data Home Medications ?Medication ?Instructions ?Recorded ?Confirmed Chrom Janki/Brindall Mccrary 1 tab PO TID ##0 04/26/16 (Garcinia Cambogia Tablet) Fluticasone Propionate 1 spry IH PRN PRN ALLERGY ##0 04/26/16 amlodipine 5 mg tablet (Norvasc) 5 mg PO QDAY #0 tabs 04/26/16 loratadine 10 mg tablet (Claritin) 10 mg PO QDAY #0 tabs 04/26/16 Lactobacillus rhamnosus GG 10 1 cap PO QDAY #0 caps 09/21/16 billion cell capsule (Culturelle) biotin 800 mcg tablet 800 mcg PO QDAY #0 tabs 09/21/16 cyanocobalamin (vitamin B-12) 100 100 mcg PO QDAY #0 tabs 09/21/16 mcg tablet (Vitamin B-12) Previous Rx's ?Medication ?Instructions ?Recorded amiodarone 200 mg tablet 200 mg PO BID #1 tab 02/27/25 folic acid 1 mg tablet 5 mg (5 x 1 mg) PO QDAY #1 tab 02/27/25 levothyroxine 175 mcg capsule 175 mcg PO QDAY #1 cap 02/27/25 pantoprazole 40 mg tablet,delayed 40 mg PO BID #1 tab 02/27/25 release (Protonix) sucralfate 100 mg/mL oral 1 g (10 mL) PO TID #1 mL 02/27/25 suspension Allergies Allergy/AdvReac Type Severity Reaction Status Date / Time Dust Allergy Severe ASTHMA Uncoded 03/06/25 05:07 ATTACK Course Quality Measures none Orders Category Date Time Status Saline [Insert IV] NOW Care 03/06/25 05:19 Active Morphine Inj Med 03/06/25 05:18 Once 4 mg IVP X1 ONE Ondansetron Inj [Zofran Inj] Med 03/06/25 05:18 Once 4 mg IV X1 ONE Sodium Chloride 0.9% 1000 ml [Ns] 1,000 ml Med 03/06/25 05:18 Ordered IV 999 mls/hr Vital Signs Vital signs: Vital Signs Temperature 98.4 F 03/06/25 05:09 Pulse Rate 97 03/06/25 05:09 Respiratory Rate 18 03/06/25 05:09 Blood Pressure 133/81 H 03/06/25 05:09 Pulse Oximetry (%) 96 03/06/25 05:09 Oxygen Delivery Method Room Air 03/06/25 05:09 GI Bleed Patient data External records reviewed:: [facility] previous records and Detention records Clinical information provided by:: patient and EMS Social determinants that could affect healthcare access:: other (specify) (Advanced age.) Patient has the following chronic illnesses:: GI bleed and atrial fibrillation and hypertension and ESRD How is presenting disease/condition affected by chronic disease/condition?: exacerbated by Evaluation data The following diagnostics were reviewed and interpreted by me:: other (specify) (Diagnostic tests ordered but pending.) Lab and/or radiology exams considered but not ordered:: None Interpretation Summary: No diagnostic test results. Medications / Prescriptions Medications or Prescriptions considered but not ordered:: None Medication administrations:: Medication Administration History Sodium Chloride (Ns) 1,000 mls @ 999 mls/hr IV .Q1H1M ONE Stop: 03/06/25 06:18 Morphine Sulfate (Morphine Sulf Inj 10 Mg/Ml Vial) 4 mg IVP X1 ONE Stop: 03/06/25 05:19 Ondansetron HCl (Ondansetron Inj 2 Mg/Ml Inj 2 Ml) 4 mg IV X1 ONE; Protocol Stop: 03/06/25 05:19 I ordered IV fluid and Zofran and morphine. Consultations Consultation(s) initiated? (list below): No Diagnosis GI bleed differential diagnosis: hemorrhoids, infectious diarrhea, esophageal varices, gastritis, Ramila-Narayan syndrome, Upper gastrointestinal hemorrhage, Lower gastrointestinal hemorrhage, hematochezia, melena and anal fissure Most likely diagnosis given after review of the tests above:: Diagnostic test results pending. Admission Indicated Admission indicated?: not indicated Explain why admission is indicated or not indicated:: Diagnostic test results pending. Admission Request Was there a request for admission?: No Disposition Plan Disposition Plan: other (specify) (Care of the patient was transferred to Dr Baron.) Discharge Plan Prescriptions/Referrals Prescriptions/Med Rec: No Action amlodipine [Norvasc] 5 MG tablet 5 mg PO QDAY Qty: 0 loratadine [Claritin] 10 MG tablet 10 mg PO QDAY Qty: 0 Chrom Janki/Brindall Mccrary (Garcinia Cambogia Tablet) 1 EACH tablet 1 tab PO TID Qty: 0 Fluticasone Propionate 16 GM SPRAY 1 spry IH PRN PRN (Reason: ALLERGY) Qty: 0 cyanocobalamin (vitamin B-12) [Vitamin B-12] 100 MCG tablet 100 mcg PO QDAY Qty: 0 biotin 800 MCG tablet 800 mcg PO QDAY Qty: 0 Lactobacillus rhamnosus GG [Culturelle] 1 CAP capsule 1 cap PO QDAY Qty: 0 amiodarone 200 mg Tablet 200 mg PO BID Qty: 1 0RF sucralfate 100 mg/mL Suspension 1 g PO TID Qty: 1 0RF folic acid 1 mg Tablet 5 mg PO QDAY Qty: 1 0RF levothyroxine 175 mcg capsule 175 mcg PO QDAY Qty: 1 0RF pantoprazole [Protonix] 40 mg tablet,delayed release (DR/EC) 40 mg PO BID Qty: 1 0RF Problem List Clinical Impression: Rectal bleed Patient/Caregiver Discharge Instructions Print Language: Kazakh
[2025-03-06 05:36] VITALS: BP 116/80; PULSE 82; RESP 16; O2SAT 93
[2025-03-06] MEDS: MORPHINE SULF INJ 10 MG/ML VIAL 4 MG IVP (05:37)
[2025-03-06] MEDS: ONDANSETRON INJ 2 MG/ML INJ 2 ML 4 MG IV (05:37)
[2025-03-06] MEDS: SODIUM CHLORIDE 0.9% 1000 ML 1,000 ML 999 ML IV (05:38)
[2025-03-06 05:54] VITALS: BMI 23.5
[2025-03-06 06:00] VITALS: BP 107/66; PULSE 81; RESP 16; O2SAT 94
--- NOTE | 2025-03-06 06:05 | PD.EDADDENDU ---
Emergency Room Addendum Addendum Narrative: 0600: Care assumed from Dr. Martínez, the previous shift emergency physician. Past medical, surgical, social and family history reviewed. Vitals and home medications reviewed. I will assume the care of the patient at this time, pending labs and final disposition. Please refer to the emergency department record for history and examination from initial visit.?The following addendum documentation note is intended to reflect any pending information, findings, or radiology results not included in the patient?s initial chart. Patient reports she left the hospital 5 days ago and during that time there were no further changes in stool. Noticed more burning sharp vaginal pain yesterday. This morning had an episode of melanotic stool and was transferred here for further evaluation/management. Per the vaginal exam performed by the previous provider, there were multiple mucosal lacerations noted. I reviewed patients EMR along with receiving additional information from the patient. Patient was critically ill, admitted to the ICU requiring massive blood transfusion which caused DIC and increased bleeding. Underwent endoscopy showing several ulcers from the esophageal junction down to duodenum and a large amount of blood in the stomach. Was also noted to have a safety-pin imbedded in the wall of the duodenum that was unable to be removed during endoscopy and general surgery was consulted. At that point, they thought patients Methotrexate for her rheumatoid arthritis was the cause of bleeding and was stopped. It appeared the bleeding had slowed down and was discharged back to the nursing facility. Patient also reports history of atrial fibrillation on Eliquis . Patient states she no longer takes Methotrexate or any anticoagulations. On my examination patient is well appearing, no abdominal tenderness noted. 0823: I spoke with patients PCP Dr. Street. Discussed PMHx, HPI, ED course, and lab results. Does feel the patient most likely needs another endoscopy. However, we currently do not have GI and would require transfer. 0828: I spoke with GI Dr. Mcdonald. Discussed PMHx, HPI, ED course, and lab results. States he is not available to consult, advised transferring. 0942: I spoke with GI Dr. De at [facility]. Discussed patients PMHx, HPI, ED course, and lab results. He also had similar recommendations to what GI Dr. Mendoza previously mentioned during last admission. Recommended repeating EGD, colonoscopy, and see if there is something systemic. States at [facility] they do not have RBC nuclear scan or capsule endoscopy and is declining transfer at this time. States if the patient does require further evaluation/treatment to transfer to a facility with capsule endoscopy capabilities. 1000: Discussed GI Dr. De recommendations and patient states she does not want to be transferred too far. Advised we would be repeating the H/H and if it is not dropping, we can discharge her back to NH with recommendations to be referred to see GI for capsule endoscopy. If the second H/H drops, patient is agreeable with txfer otherwise will follow up on outpatient basis. 1138: Repeat H/H 9.4/29.7. Discussed results with the patient and aware of plan to discharge back to NH with instructions to follow up with PCP for referral to see GI for capsule endoscopy. Patient is requesting [facility] for burning vaginal pain. I also recommended she follow up with rhuematologist regarding stopping Methotrexate. Patient is in agreement with plan.
[2025-03-06 06:11] LABS: Basophils # (Auto) 0.3 Thou/mm3 (0.0-0.2); Basophils % (Auto) 2 % (0-2.5); Eosinophils # (Auto) 0.3 Thou/mm3 (0.0-0.5); Eosinophils % (Auto) 3 % (0-10); Hematocrit 31.2 % (36.0-46.0); Immature Granulocytes % (Auto) 17 % (0-0); Immature Granulocytes Auto 1.93 Thou/mm3 (0.00-0.00); Lymphocytes # (Auto) 2.4 Thou/mm3 (1.0-4.8); Lymphocytes % (Auto) 21 % (10-50); Mean Corpuscular HGB Conc 32.1 g/dl (31.0-37.0); Mean Corpuscular Hemoglobin 28.7 pg (25.0-35.0); Mean Corpuscular Volume 89 fL (80-100); Monocytes # (Auto) 2.2 Thou/mm3 (0.0-0.8); Monocytes % (Auto) 19 % (0-12); Neutrophils # (Auto) 4.4 Thou/mm3 (1.8-7.7); Neutrophils % (Auto) 38 % (37-80); Nucleated Red Blood Cell # 0.02 Thou/mm3 (0.00-0.00); Nucleated Red Blood Cell % 0 /100 WBC (0); Platelet Count 631 Thou/mm3 (140-440); RDW Standard Deviation 55.4 fL (36.4-46.3); Red Blood Count 3.49 Miln/mm3 (4.00-5.20); White Blood Count 11.5 Thou/mm3 (3.6-11.0)
[2025-03-06 06:23] LABS: INR 1.1 (0.9-1.3); Partial Thromboplastin Time 36.5 Seconds (22.0-36.0)
--- NOTE | 2025-03-06 06:37 | PC.NURSE ---
when pt arrived, she co severe pain to R groin. After morphine given pt states total relief. 0 on 0-10 scale. pt now resting quietly.
[2025-03-06 06:48] LABS: Alanine Aminotransferase 7 U/L (10-49); Albumin, Serum 3.1 gm/dL (3.4-4.8); Albumin/Globulin Ratio 1.2 (1.2-2.2); Alkaline Phosphatase 178 U/L (46-116); Anion Gap 7 (7-16); Aspartate Amino Transferase 16 U/L (0-34); BUN/Creatinine Ratio 21 Ratio (12-20); Bilirubin,Direct 0.9 mg/dL (0.0-0.3); Bilirubin,Total 1.6 mg/dL (0.3-1.2); Blood Urea Nitrogen 32 mg/dL (9-23); Calcium 8.3 mg/dL (8.3-10.6); Carbon Dioxide 26.8 mMol/L (20.0-31.0); Chloride 100 mMol/L (98-107); Creatinine (Component) 1.5 mg/dL (0.6-1.3); Estimated Creatinine Clearance 29.1 mL/min (>60); Free T4 (Free Thyroxine) 0.89 ng/dL (0.89-1.76); Globulin 2.5 gm/dL (2.3-3.5); Glucose 88 mg/dL (74-106); Magnesium 1.7 mg/dL (1.6-2.6); Osmolality,Calculated 274 (275-295); Potassium 4.1 mMol/L (3.4-5.1); Sodium 134 mMol/L (136-145); Thyroid Stimulating Hormone 1.69 uIU/mL (0.55-4.78); Total Protein 5.6 gm/dL (5.7-8.2); Troponin I 0.039 ng/mL (0.0-0.045); eGFR 35 See Note
[2025-03-06] MEDS: PANTOPRAZOLE/NS 80MG IV PREMIX 80 MG/100 ML BAG 400 MG IV (07:30)
--- NOTE | 2025-03-06 07:40 | PC.NURSE ---
PT RESTING W/EYES CLOSED UPON ASSUMPTION OF CARE, CONNECTED TO 2L O2 VIA NC. DENIES ANY PAIN OR DISCOMFORT AT THIS TIME. PT IN AGREEMENT W/POC
[2025-03-06] MEDS: PANTOPRAZOLE/NS 80MG IV PREMIX 80 MG/100 ML BAG 10 MG IV (07:53)
[2025-03-06 08:31] LABS: Collection Type, Urine Clean Catch
[2025-03-06 08:55] LABS: Bacteria,Urine 1+; Bilirubin,Urine Negative (Negative); Blood,Urine 3+ (Negative); Budding Yeast,Urine Present; Color,Urine Yellow (Lt Yel-Yel); Glucose, Urine Negative (Negative); Hyaline Casts,Urine < 1 /hpf (0-1); Ketones,Urine Negative (Negative); Leukocyte Esterase,Urine Positive (Negative); Nitrite,Urine Negative (Negative); Protein,Urine 1+ (Neg - Trace); RBC,Urine 235 /hpf (0-3); Specific Gravity,Urine 1.022 (1.001-1.035); Squamous Epithelial Cell,Urine 2 /hpf (0-5); Urobilinogen,Urine Negative mg/dL (0.0-1.0); WBC,Urine 190 /hpf (0-5)
[2025-03-06 08:59] LABS: Clarity,Urine Hazy (Clear/Hazy); Culture Indicated,Urine Yes
--- NOTE | 2025-03-06 09:14 | PC.CC ---
Addendum entered by Mago Capps RN 03/06/25 12:04: Per Dr. Baron, transfer cancelled Addendum entered by Mago Capps RN 03/06/25 11:41: Per Dr. Baron transfer is on hold for further lab tests. Addendum entered by Mago Capps RN 03/06/25 10:04: Spoke to Ashleigh at [facility] transfer center, chart faxed, call transferred to ER provider Addendum entered by Mago Capps RN 03/06/25 09:40: Ashleigh from [facility] called back at this time call transferred to Dr. Baron Original Note: Spoke to Charge Nurse Justin initiating transfer order placed by Dr. Baron, VM left for Shadi, chart faxed will wait for call back
[2025-03-06 10:39] LABS: Hematocrit 29.7 % (36.0-46.0); Hemoglobin 9.4 g/dL (12.0-16.0)
[2025-03-06 10:42] VITALS: BP 124/74; PULSE 90; RESP 19; TEMP 37; O2SAT 99
[2025-03-06 12:00] VITALS: BP 120/70; PULSE 92; RESP 17; TEMP 36.8; O2SAT 98
[2025-03-06] MEDS: HYDROcodone/APAP 5/325 TABLET 1 TAB PO (12:02)
--- NOTE | 2025-03-06 12:10 | PC.NURSE ---
CALLED FACILITY AT THIS TIME TO PROVIDE UPDATE, DISCHARGE EDUCATION , AND SET UP TRANSPORTATION BACK TO FACILITY. SPOKE W/NURSE MEKHI WHO WILL CALL BACK WITH A TRANSPORT TIME
== END 2025-03-06 14:05 | disposition home or self-care (01) ==
PROVIDERS: Emergency Medicine; Emergency Provider Emergency Medicine; PCP Internal Medicine
DX: K92.1 Melena (principal); R10.2 Pelvic and perineal pain; N76.5 Ulceration of vagina
CPT/HCPCS: 36415; 80053; 81001; 82248; 83735; 84439; 84443; 84484; 85014; 85018; 85025; 85610; 85730; 87086; 96361; 96365; 96366; 99284; J2270; J2405; J3490; J7030; A9270

== ENCOUNTER 2025-03-06 20:10 | Emergency (ER) | payer OTHER, SELFPAY ==
[2025-03-06 20:17] VITALS: BP 119/76; PULSE 96; RESP 16; TEMP 36.9; O2SAT 99; BMI 23.5
[2025-03-06 20:36] VITALS: PULSE 84; RESP 18; O2SAT 95
[2025-03-06 20:59] VITALS: BP 124/77; PULSE 98; RESP 17; TEMP 36.3; O2SAT 97
--- NOTE | 2025-03-06 21:13 | EKG_ITS ---
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
--- NOTE | 2025-03-06 21:14 | EDNOTE_ITS ---
ED GI Bleed RME/HPI General Chief complaint: GI Bleed Stated complaint: RECTAL BLEEDING Time Seen by Provider: 03/06/25 20:57 Arrival date/time: 03/06/25 20:10 RME / HPI RME / HPI Narrative: 79-year-old female patient with significant history of lower GI bleed, chronic A-fib, not taking any Eliquis was brought in by EMS for evaluation regarding hematochezia. Patient was discharged in this hospital 3 days ago for hematochezia and coffee-ground vomitus. This morning when the SLIDE MACHINE TENDER changed her diaper she was noted to have melanotic stool/hematochezia. Was seen here earlier today and was discharged home for outpatient capsule endoscopy. Few minutes prior to your visit, patient developed another episode of melanotic stool. Patient denies any abdominal pain. Denies any other complaints no medication was taken prior to arrival. Related Data Home Medications ?Medication ?Instructions ?Recorded ?Confirmed Chrom Janki/Brindall Mccrary 1 tab PO TID ##0 04/26/16 (Garcinia Cambogia Tablet) Fluticasone Propionate 1 spry IH PRN PRN ALLERGY ## 0 04/26/16 amlodipine 5 mg tablet (Norvasc) 5 mg PO QDAY #0 tabs 04/26/16 loratadine 10 mg tablet (Claritin) 10 mg PO QDAY #0 ta bs 04/26/16 Lactobacillus rhamnosus GG 10 1 cap PO QDAY #0 caps billion cell capsule (Culturelle) biotin 800 mcg tablet 800 mcg PO QDAY #0 tabs 01/05 cyanocobalamin (vitamin B-12) 100 100 mcg PO QDAY #0 t abs 09/21/16 mcg tablet (Vitamin B-12) Previous Rx's ?Medication ?Instructions ?Recorded amiodarone 200 mg tablet 200 mg PO BID #1 tab 5 folic acid 1 mg tablet 5 mg (5 x 1 mg) PO QDAY #1 t ab 02/27/25 levothyroxine 175 mcg capsule 175 mcg PO QDAY #1 cap 0 02/27/25 pantoprazole 40 mg tablet,delayed 40 mg PO BID #1 tab 02/27/25 release (Protonix) sucralfate 100 mg/mL oral 1 g (10 mL) PO TID #1 mL 09/13 suspension Allergies Allergy/AdvReac Type Severity Reaction Status Date / Time Iodinated Contrast Media Allergy Verified 03/06/25 06:00 Dust Allergy Severe ASTHMA Uncoded 03/06/25 05:07 ATTACK Review of Systems Review of Systems Narrative Review of Systems: Review of system reviewed and within normal limits except mentioned in HPI ED Exam Narrative Physical exam: VITAL SIGNS: Reviewed. GENERAL APPEARANCE: Alert and interactive, follows commands, no acute distress, HEAD AND FACE: Non-traumatic. ENT: PERRL, pink conjunctivitis, eyelid no trauma, Mucous membrane moist. NECK: Supple, nontender, no nuchal rigidity. CHEST: No tenderness, no crepitus, no paradoxical movement, no retractions. LUNGS: Clear, well ventilated, symmetric, no rales, no wheezing, no ronchi, no stridor, good breath sounds bilaterally. HEART: Regular rate, regular rhythm, no murmur, no gallops. ABDOMEN: Soft, positive bowel sounds, nondistended, no guarding, nontender, no rebound, no masses, RECTAL: Bright red blood noted on the rectum. GENITAL: Deferred. NEUROLOGICAL: Gross motor function intact sensory function intact, Appropriate for age. MUSCULOSKELETAL: low back nontender, full range of motion. EXTREMITIES: Nontender, full range of motion. SKIN: Color pink, dry, no rash, no lacerations, no abrasions, no contusions. LYMPHATICS: Deferred. Course Quality Measures none Orders Category Date Time Status EKG (ED ONLY) *Do not use* NOW Care 03/06/25 21:13 Completed Occult Blood,Stool (Nursing) NOW Care 03/06/25 21:08 Active EKG (ED Only) Stat Exams 03/06/25 21:13 Draft CBC Stat Lab 03/06/25 22:08 Completed Comprehensive Metabolic Panel Stat Lab 03/06/25 22:08 Received Partial Thromboplastin Time Stat Lab 03/06/25 22:08 Completed Prothrombin Time with INR Stat Lab 03/06/25 22:08 Completed Morphine Inj Med 03/06/25 21:14 Discontinued 4 mg IVP X1 ONE Ondansetron Inj [Zofran Inj] Med 03/06/25 21:14 Discontinued 4 mg IV X1 ONE Pantoprazole Inj [Protonix Inj] Med 03/06/25 21:14 Discontinued 80 mg IV X1 ONE Vital Signs Vital signs: Vital Signs Temperature 98.4 F 03/06/25 20:17 Pulse Rate 96 03/06/25 20:17 Respiratory Rate 16 03/06/25 20:17 Blood Pressure 119/76 03/06/25 20:17 Pulse Oximetry (%) 99 03/06/25 20:17 Oxygen Delivery Method Nasal Cannula 03/06/25 20:17 Oxygen Flow Rate 2 03/06/25 20:17 GI Bleed [facility] Narrative [facility] Narrative:: 79-year-old female patient with significant history of lower GI bleed, chronic A-fib, not taking any Eliquis was brought in by EMS for evaluation regarding hematochezia. Patient was discharged in this hospital 3 days ago for hematochezia and coffee-ground vomitus. This morning when the SLIDE MACHINE TENDER changed her diaper she was noted to have melanotic stool/hematochezia. Was seen here earlier today and was discharged home for outpatient capsule endoscopy. Few minutes prior to your visit, patient developed another episode of melanotic stool. Patient denies any abdominal pain. Denies any other complaints no medication was taken prior to arrival. EKG as interpreted by me showed chronic A-fib, ventricular rate of 91 bpm, no ST segment elevation or depression noted. Hemoglobin was noted to be 9.0, hematocrit of 28.6, earlier today it was 9.4 patient is not showing any hypotension. Prior to discharge look at her diaper, I did not notice any blood. Plan of care discussed with her, including transfer to higher level of care with capability of capsule endoscopy however patient re fused. And wanted to go back to residential. Risks and benefits discussed with her. Advised her to come back to the emergency room right away if she decided to be transferred somewhere else. Patient data External records reviewed:: None Clinical information provided by:: patient Social determinants that could affect healthcare access:: none Patient has the following chronic illnesses:: Chronic A-fib, history of lower GI bleed How is presenting disease/condition affected by chronic disease/condition?: exacerbated by Evaluation data The following diagnostics were reviewed and interpreted by me:: lab results and EKG tracing(s) Lab and/or radiology exams considered but not ordered:: None Interpretation Summary: See results in MDM Medications / Prescriptions Medications or Prescriptions considered but not ordered:: None Medication administrations:: Medication Administration History Discontinued Medications Morphine Sulfate (Morphine Sulf Inj 10 Mg/Ml Vial) 4 mg IVP X1 ONE Stop: 03/06/25 21:15 Last Admin: 03/06/25 21:51 Dose: 4 mg Documented By: EF Ondansetron HCl (Ondansetron Inj 2 Mg/Ml Inj 2 Ml) 4 mg IV X1 ONE; Protocol Stop: 03/06/25 21:15 Last Admin: 03/06/25 21:51 Dose: 4 mg Documented By: EF Pantoprazole Sodium (Pantoprazole Inj 40 Mg Vial) 80 mg IV X1 ONE Stop: 03/06/25 21:15 Last Admin: 03/06/25 21:51 Dose: 80 mg Documented By: EF Protonix IV, Zofran and morphine Consultations Consultation(s) initiated? (list below): No Diagnosis GI bleed differential diagnosis: hemorrhoids, Lower gastrointestinal hemorrhage and hematochezia Most likely diagnosis given after review of the tests above:: Hematochezia Admission Indicated Admission indicated?: not indicated Admission Request Was there a request for admission?: No Disposition Plan Disposition Plan: Discharge Discharge Attestation Discharge Attestation: Patient condition: Stable Discharge Plan Plan Patient Disposition: HOME (Self Care) Disposition Comment: Stable Prescriptions/Referrals Prescriptions/Med Rec: No Action amlodipine [Norvasc] 5 MG tablet 5 mg PO QDAY Qty: 0 loratadine [Claritin] 10 MG tablet 10 mg PO QDAY Qty: 0 Chrom Janki/Brindall Mccrary (Garcinia Cambogia Tablet) 1 EACH tablet 1 tab PO TID Qty: 0 Fluticasone Propionate 16 GM SPRAY 1 spry IH PRN PRN (Reason: ALLERGY) Qty: 0 cyanocobalamin (vitamin B-12) [Vitamin B-12] 100 MCG tablet 100 mcg PO QDAY Qty: 0 biotin 800 MCG tablet 800 mcg PO QDAY Qty: 0 Lactobacillus rhamnosus GG [Culturelle] 1 CAP capsule 1 cap PO QDAY Qty: 0 amiodarone 200 mg Tablet 200 mg PO BID Qty: 1 0RF sucralfate 100 mg/mL Suspension 1 g PO TID Qty: 1 0RF folic acid 1 mg Tablet 5 mg PO QDAY Qty: 1 0RF levothyroxine 175 mcg capsule 175 mcg PO QDAY Qty: 1 0RF pantoprazole [Protonix] 40 mg tablet,delayed release (DR/EC) 40 mg PO BID Qty: 1 0RF Problem List Clinical Impression: Hematochezia Patient/Caregiver Discharge Instructions Discharge Activity: activity as tolerated Education Materials: Anatomy of the Digestive System Additional Instructions: Thank you for the opportunity for serving you today. You are stable for discharged . You are advised to: Today I advise you to be transferred to another facility with capability of Capsule Endoscopy However You Wanted to Go Back to the Facility. Follow-up with your PCP in 1 to 2 days and as per referral to GI specialist for capsule endoscopy, repeat colonoscopy and repeat endoscopy. Return to ED for worsening of symptoms, worsening rectal bleeding, dizziness, hypotension Print Language: Spanish Stand Alone Forms: Shandra Award Info., Patient Portal Info Letter PA/PATTIE Supervising Physician PA/PATTIE Supervising Physician: MD Tanya
[2025-03-06] MEDS: PANTOPRAZOLE INJ 40 MG VIAL 80 MG IV (21:51)
[2025-03-06] MEDS: MORPHINE SULF INJ 10 MG/ML VIAL 4 MG IVP (21:51)
[2025-03-06] MEDS: ONDANSETRON INJ 2 MG/ML INJ 2 ML 4 MG IV (21:51)
--- NOTE | 2025-03-06 21:56 | PC.NURSE ---
patient states she goes to dialysis monday,,monday
[2025-03-06 22:00] VITALS: BP 105/61; PULSE 85; RESP 16; O2SAT 80
[2025-03-06 22:22] LABS: Basophils # (Auto) 0.2 Thou/mm3 (0.0-0.2); Basophils % (Auto) 2 % (0-2.5); Eosinophils # (Auto) 0.3 Thou/mm3 (0.0-0.5); Eosinophils % (Auto) 2 % (0-10); Hematocrit 28.6 % (36.0-46.0); Immature Granulocytes % (Auto) 14 % (0-0); Immature Granulocytes Auto 1.86 Thou/mm3 (0.00-0.00); Lymphocytes # (Auto) 2.1 Thou/mm3 (1.0-4.8); Lymphocytes % (Auto) 16 % (10-50); Mean Corpuscular HGB Conc 31.5 g/dl (31.0-37.0); Mean Corpuscular Hemoglobin 28.8 pg (25.0-35.0); Mean Corpuscular Volume 92 fL (80-100); Monocytes # (Auto) 2.5 Thou/mm3 (0.0-0.8); Monocytes % (Auto) 19 % (0-12); Neutrophils # (Auto) 6.2 Thou/mm3 (1.8-7.7); Neutrophils % (Auto) 47 % (37-80); Nucleated Red Blood Cell % 0 /100 WBC (0); Platelet Count 689 Thou/mm3 (140-440); RDW Standard Deviation 57.7 fL (36.4-46.3); Red Blood Count 3.12 Miln/mm3 (4.00-5.20); White Blood Count 13.1 Thou/mm3 (3.6-11.0)
[2025-03-06 22:33] LABS: INR 1.2 (0.9-1.3); Partial Thromboplastin Time 37.1 Seconds (22.0-36.0); Prothrombin Time 12.6 Seconds (9.0-12.2)
[2025-03-06 22:49] LABS: Alanine Aminotransferase 7 U/L (10-49); Albumin, Serum 2.9 gm/dL (3.4-4.8); Albumin/Globulin Ratio 1.2 (1.2-2.2); Alkaline Phosphatase 158 U/L (46-116); Aspartate Amino Transferase 15 U/L (0-34); BUN/Creatinine Ratio 22 Ratio (12-20); Bilirubin,Total 1.4 mg/dL (0.3-1.2); Blood Urea Nitrogen 31 mg/dL (9-23); Calcium 7.8 mg/dL (8.3-10.6); Calcium (Corrected) 8.7 mg/dL (8.5-10.1); Carbon Dioxide 25.1 mMol/L (20.0-31.0); Creatinine (Component) 1.4 mg/dL (0.6-1.3); Estimated Creatinine Clearance 31.2 mL/min (>60); Globulin 2.4 gm/dL (2.3-3.5); Glucose 104 mg/dL (74-106); Total Protein 5.3 gm/dL (5.7-8.2); eGFR 38 See Note
[2025-03-06 22:55] LABS: Anion Gap 7 (7-16); Chloride 102 mMol/L (98-107); Osmolality,Calculated 274 (275-295); Potassium 4.2 mMol/L (3.4-5.1); Sodium 134 mMol/L (136-145)
[2025-03-06 23:00] VITALS: BP 108/74; PULSE 87; RESP 16; O2SAT 99
[2025-03-07] VITALS: BP 106/64; PULSE 83; RESP 12; TEMP 36.7; O2SAT 99
== END 2025-03-07 00:43 | disposition home or self-care (01) ==
LOC: SERX 23:19
PROVIDERS: Nurse Practitioner Family; Emergency Provider Emergency Medicine
DX: K92.1 Melena (principal); I48.20 Chronic atrial fibrillation, unspecified; I44.4 Left anterior fascicular block
CPT/HCPCS: 36415; 80053; 85025; 85610; 85730; 93005; 96374; 96375; 99284; J2270; J2405; J2470

== ENCOUNTER 2025-03-14 15:12 | Inpatient (IN) | payer OTHER, MEDICARE, SELFPAY ==
[2025-03-14] VITALS (7 sets, daily range): BP systolic 109–133; BP diastolic 74–87; PULSE 85–101; RESP 16–22; TEMP 36.6–36.8; O2SAT 92–100; BMI 25.2
--- NOTE | 2025-03-14 15:55 | EKG_ITS ---
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1945 Requested By: Sabrina Mandujano Order Number: [id number] Reading MD: Sabrina Mandujano Measurements Intervals [place] Rate: 92 P: [place]: QRS: -71 QRSD: 112 T: 137 QT: 387 QTc: 481 Interpretive Statements ATRIAL FIBRILLATION LOW QRS VOLTAGE IN PRECORDIAL LEADS [QRS DEFLECTION < 1.0 mV IN CHEST LEADS] LEFT ANTERIOR FASCICULAR BLOCK [QRS AXIS <= -45, QR IN I, RS IN II] POSSIBLE ANTERIOR MYOCARDIAL INFARCTION , PROBABLY OLD [30 ms Q WAVE IN V3/V4, OR R < 0.2 mV IN V4] Compared to ECG 03/06/2025 21:20:13 Low QRS voltage now present Myocardial infarct finding still present /store/S0/[id number]/[id number]
[2025-03-14 16:23] LABS: Basophils # (Auto) 0.3 Thou/mm3 (0.0-0.2); Basophils % (Auto) 1 % (0-2.5); Eosinophils # (Auto) 0.2 Thou/mm3 (0.0-0.5); Eosinophils % (Auto) 1 % (0-10); Hematocrit 26.5 % (36.0-46.0); Immature Granulocytes % (Auto) 6 % (0-0); Lymphocytes % (Auto) 8 % (10-50); Mean Corpuscular HGB Conc 32.5 g/dl (31.0-37.0); Mean Corpuscular Hemoglobin 29.3 pg (25.0-35.0); Mean Corpuscular Volume 90 fL (80-100); Monocytes % (Auto) 8 % (0-12); Neutrophils # (Auto) 17.7 Thou/mm3 (1.8-7.7); Neutrophils % (Auto) 75 % (37-80); Nucleated Red Blood Cell # 0.17 Thou/mm3 (0.00-0.00); Nucleated Red Blood Cell % 1 /100 WBC (0); Platelet Count 617 Thou/mm3 (140-440); RDW Standard Deviation 55.8 fL (36.4-46.3); Red Blood Count 2.94 Miln/mm3 (4.00-5.20); White Blood Count 23.5 Thou/mm3 (3.6-11.0)
--- NOTE | 2025-03-14 16:35 | XR_ITS ---
Examination: CT abdomen and pelvis without contrast. Coronal 3-D reconstructions. Sagittal 2-D reconstructions. Date and time of exam:March 14, 2025 1736 hours Comparison February 20, 2025 INDICATIONS: Rectal bleeding beginning one month ago, diagnoses cirrhosis CTDI: vol (mGy): 9.92 DLP: (mGycm): 561 Technique: Axial images of the abdomen have been obtained, 3 mm slice thickness Intravenous contrast material has not been administered. Low dose protocols were performed. One or more of the following dose reduction techniques were used; automated exposure control, adjustment of the mA and/or KV according to patient size, use of iterative reconstruction technique. Findings: Moderate enlargement cardiac contour Bibasilar pneumonia with moderate bilateral pleural effusions Cirrhosis, liver nodular in contour with moderate ascites Spleen is not enlarged No pancreatic mass Gallbladder is not diagnostically visualized No hydronephrosis Abdominal aortic calcification no aneurysmal dilatation No bowel obstruction Moderate stool in the rectum Diffuse significant thickening of the rectal wall Urinary bladder is contracted around a Landa catheter Anasarca Severe osteopenia with advanced degenerative disc disease L4-L5 IMPRESSION: Moderate enlargement cardiac contour with vascular congestion Bibasilar pneumonia with moderate bilateral pleural effusions Cirrhosis Moderate ascites Anasarca Moderate stool in the rectum Diffuse significant thickening of the rectal wall, differential would include proctitis, rectal tumor not excluded, recommend direct inspection
[2025-03-14 16:37] LABS: Hemoglobin 8.6 g/dL (12.0-16.0)
[2025-03-14 16:39] LABS: INR 1.1 (0.9-1.3); Partial Thromboplastin Time 36.8 Seconds (22.0-36.0); Prothrombin Time 12.3 Seconds (9.0-12.2)
--- NOTE | 2025-03-14 16:44 | PD.EDGIBLD ---
ED GI Bleed RME/HPI General Chief complaint: GI Bleed Stated complaint: GI BLEED Time Seen by Provider: 03/14/25 15:43 Arrival date/time: 03/14/25 15:12 RME / HPI RME / HPI Narrative: 79 year old female with history of atrial fibrillation, CHF, hypertension, hypothyroidism, CKD, rheumatoid arthritis presents to the ED [facility] from [facility] for GI bleed today. Per medics. [place] staff reported patient has had blood in stool since 03/06/2025 and evaluated here 2 days ago. However, during that time patient had refused transfer and was sent back to SNF. While in the ED, patient reports blood in stool, abdominal distention, and constipation. No other associated symptoms reported. Denies fever, chills, sweating. Denies chest pain, cough, shortness of breath. Denies vomiting, diarrhea. Denies dysuria, urinary frequency and urgency. Related Data Home Medications ?Medication ?Instructions ?Recorded ?Confirmed Chrom Janki/Brindall Mccrary 1 tab PO TID ##0 04/26/16 03/15/25 (Garcinia Cambogia Tablet) Fluticasone Propionate 1 spry IH PRN PRN ALLERGY ##0 04/26/16 03/15/25 amlodipine 5 mg tablet (Norvasc) 5 mg PO QDAY #0 tabs 04/26/16 03/15/25 loratadine 10 mg tablet (Claritin) 10 mg PO QDAY #0 tabs 04/26/16 03/15/25 Lactobacillus rhamnosus GG 10 1 cap PO QDAY #0 caps 09/21/16 03/15/25 billion cell capsule (Culturelle) biotin 800 mcg tablet 800 mcg PO QDAY #0 tabs 09/21/16 03/15/25 cyanocobalamin (vitamin B-12) 100 100 mcg PO QDAY #0 tabs 09/21/16 03/15/25 mcg tablet (Vitamin B-12) bisacodyl 10 mg rectal suppository 10 mg DC PRN PRN constipation 03/15/25 03/15/25 (Dulcolax (bisacodyl)) diphenhydramine HCl 25 mg capsule 25 mg PO Q12H PRN allergy 03/15/25 03/15/25 (Allergy (diphenhydramine)) hydroxyzine HCl 25 mg tablet 25 mg PO Q12H PRN itching 03/15/25 03/15/25 melatonin 3 mg tablet 6 mg PO HS PRN sleep 03/15/25 03/15/25 mirtazapine 7.5 mg tablet 7.5 mg PO QDAY 03/15/25 03/15/25 pantoprazole 40 mg tablet,delayed 40 mg PO QDAY 03/15/25 03/15/25 release (Protonix) tramadol 50 mg tablet 50 mg PO Q12H PRN pain 03/15/25 03/15/25 Previous Rx's ?Medication ?Instructions ?Recorded amiodarone 200 mg tablet 200 mg PO BID #1 tab 02/27/25 folic acid 1 mg tablet 5 mg (5 x 1 mg) PO QDAY #1 tab 02/27/25 levothyroxine 175 mcg capsule 175 mcg PO QDAY #1 cap 02/27/25 sucralfate 100 mg/mL oral 1 g (10 mL) PO TID #1 mL 02/27/25 suspension Allergies Allergy/AdvReac Type Severity Reaction Status Date / Time Iodinated Contrast Media Allergy Verified 03/06/25 06:00 Dust Allergy Severe ASTHMA Uncoded 03/06/25 05:07 ATTACK Review of Systems Review of Systems Narrative Review of Systems: GEN: No fever, no chills, no weight loss EYES: No discharge, no visual changes, no pain HEENT: No ear pain, no congestion, no sore throat PULM: No shortness of breath, no cough, no congestion CV: No chest pain, no dyspnea on exertion, no palpitations GI: No nausea, no vomiting, no diarrhea, +pain, +constipation, +blood in stool : No frequency, no urgency, no dysuria MUSC/SKEL: No joint pain, no back pain SKIN: No rash NEURO: No weakness, no headache Past Medical History Past Medical History CARDIAC: Positive Cardiac Disorders, Atrial Fibrillation and Hypertension RESPIRATORY: Positive Asthma GASTROINTESTINAL: Positive Gastrointestinal Bleed GENITOURINARY: Positive Renal Disease MUSCULOSKELETAL: Positive Arthritis OTHER HISTORY: Positive Blood Transfusions Social History SMOKING STATUS: Never smoker ED Exam Narrative Physical exam: GENERAL APPEARANCE: alert and oriented x 4, well-developed, well-nourished, no acute distress HEENT: Normocephalic, atraumatic; pupils equal, round, reactive to light; EOMI; mucous membranes pink, moist; oropharynx clear NECK: Supple LUNGS: CTABL; no wheezes, no rales, no rhonchi HEART: Regular rate, regular rhythm; normal S1, S2; no murmurs ABDOMEN: non distended; normal BS; soft, no tenderness, no guarding, no rebound; no masses, no organomegaly, no hernia RECTAL: Stool brown and strongly guaiac positive. BACK: no CVA tenderness EXTREMITIES: atraumatic; no edema NEUROLOGIC: awake; alert and oriented x4; cranial nerves II-XII grossly intact; no focal sensory or motor deficits PSYCHIATRIC: appropriate mood and affect SKIN: warm, dry, normal color; no rashes Course Quality Measures none Orders Category Date Time Status [employer] NOW Care 03/14/25 15:55 Active EKG (ED ONLY) *Do not use* NOW Care 03/14/25 15:[address] abdomen pelvis wo con Stat Exams 03/14/25 16:35 Completed EKG (ED Only) Stat Exams 03/14/25 15:55 Draft B-Type Natriuretic Peptide Stat Lab 03/14/25 16:16 Completed Blood Culture (Lab) Stat Lab 03/14/25 16:48 Results CBC Stat Lab 03/14/25 16:16 Completed Comprehensive Metabolic Panel Stat Lab 03/14/25 16:16 Completed Lactate (Lactic Acid) Stat Lab 03/14/25 16:40 Completed Lactic Acid, 3 HR Stat Lab 03/14/25 21:00 Completed Lipase Stat Lab 03/14/25 16:16 Completed Magnesium Stat Lab 03/14/25 16:16 Completed Partial Thromboplastin Time Stat Lab 03/14/25 16:16 Completed Procalcitonin Stat Lab 03/14/25 16:40 Completed Prothrombin Time with INR Stat Lab 03/14/25 16:16 Completed Troponin I Stat Lab 03/14/25 16:16 Completed Type and Screen Stat Lab 03/14/25 16:16 Completed UA, C/S IF [Urinalysis, C/S if Indicated] Stat Lab 03/14/25 23:13 Completed Urine Culture Stat Lab 03/14/25 23:13 Received Vital Signs Vital signs: Vital Signs Temperature 97.8 F 03/14/25 15:15 Pulse Rate 87 03/14/25 15:15 Respiratory Rate 22 H 03/14/25 15:15 Blood Pressure 116/76 03/14/25 15:15 Pulse Oximetry (%) 99 03/14/25 15:15 Oxygen Delivery Method Nasal Cannula 03/14/25 15:15 Oxygen Flow Rate 6 03/14/25 15:15 GI Bleed MDM Narrative MDM Narrative:: Haley Elizondo am scribing for and in the presence of Dr. Astudillo. Patient data External records reviewed:: [facility] previous records (I reviewed ED visit on 03/06/2025 also for GI bleed ) and [facility] records (I reviewed pmhx, medication list, and outpatient labs from [facility] ) Clinical information provided by:: patient and EMS Social determinants that could affect healthcare access:: housing (SNF) Patient has the following chronic illnesses:: atrial fibrillation, CHF, hypertension, hypothyroidism, CKD, rheumatoid arthritis How is presenting disease/condition affected by chronic disease/condition?: exacerbated by Evaluation data The following diagnostics were reviewed and interpreted by me:: lab results and EKG tracing(s) (EKG @ 16:56 hours. Atrial fibrillation, rate controlled, HR 92, Q-wave in V1 and V2, mild IVCD ) Lab and/or radiology exams considered but not ordered:: None Interpretation Summary: Ordering Physician: Sabrina Astudillo MD Date of Service: 03/14/25 Procedure(s): CT abdomen pelvis wo con Accession Number(s): [id number] cc: Duarte Leonardo MD; NO PRIMARY/FAMILY,PHYSICIAN; Sabrina Astudillo MD~ Examination: CT abdomen and pelvis without contrast. Coronal 3-D reconstructions. Sagittal 2-D reconstructions. Date and time of exam:March 14, 2025 1736 hours Comparison February 20, 2025 INDICATIONS: Rectal bleeding beginning one month ago, diagnoses cirrhosis CTDI: vol (mGy): 9.92 DLP: (mGycm): 561 Technique: Axial images of the abdomen have been obtained, 3 mm slice thickness Intravenous contrast material has not been administered. Low dose protocols were performed. One or more of the following dose reduction techniques were used; automated exposure control, adjustment of the mA and/or KV according to patient size, use of iterative reconstruction technique. Findings: Moderate enlargement cardiac contour Bibasilar pneumonia with moderate bilateral pleural effusions Cirrhosis, liver nodular in contour with moderate ascites Spleen is not enlarged No pancreatic mass Gallbladder is not diagnostically visualized No hydronephrosis Abdominal aortic calcification no aneurysmal dilatation No bowel obstruction Moderate stool in the rectum Diffuse significant thickening of the rectal wall Urinary bladder is contracted around a Landa catheter Anasarca Severe osteopenia with advanced degenerative disc disease L4-L5 IMPRESSION: Moderate enlargement cardiac contour with vascular congestion Bibasilar pneumonia with moderate bilateral pleural effusions Cirrhosis Moderate ascites Anasarca Moderate stool in the rectum Diffuse significant thickening of the rectal wall, differential would include proctitis, rectal tumor not excluded, recommend direct inspection Dictated By: Duarte Leonardo MD Signed By: <Electronically signed by Duarte Leonardo MD in OV> 03/14/25 1834 Medications / Prescriptions Medications or Prescriptions considered but not ordered:: None Medication administrations:: Medication Administration History Acetaminophen (Acetaminophen 325 Mg Tablet) 650 mg PO Q6HR PRN PRN Reason: PAIN OR FEVER > 101 Stop: 04/14/25 07:25 Last Admin: 03/15/25 07:56 Dose: 650 mg Documented By: TAMMY Amiodarone HCl (Amiodarone Hcl 200 Mg Tablet) 200 mg PO BID [facility] Stop: 04/13/25 20:59 Last Admin: 03/15/25 08:06 Dose: 200 mg Documented By: Admin: 03/14/25 21:02 Dose: 200 mg Documented By: MARLYN Amlodipine Besylate (Amlodipine Besylate 5 Mg Tablet) 5 mg PO QDAY [facility] Stop: 04/14/25 08:59 Last Admin: 03/15/25 08:08 Dose: Not Given Documented By: TAMMY Non-Admin Reason: patient going to dialysis Fluticasone Propionate (Fluticasone Lit Capulin 0.05% 16 Gm Btl) 1 spray NASAL QDAY PRN PRN Reason: ALLERGY Stop: 04/13/25 20:27 Folic Acid (Folic Acid 1 Mg Tablet) 5 mg PO QDAY [facility] Stop: 04/14/25 08:59 Last Admin: 03/15/25 08:04 Dose: 5 mg Documented By: TAMMY Heparin Sodium (Porcine) (Heparin Sod Inj 1000 Unit/Ml Vial 10 Ml) 3,500 unit INDWELLCAT PRN PRN PRN Reason: DIALYSIS Stop: 03/29/25 08:36 Last Admin: 03/15/25 12:05 Dose: 3,500 unit Documented By: MM Co-signed By: TAMMY Albumin Human (Albuminar-25 Ivpb) 25 gm in 100 mls @ 100 mls/min IV PRN PRN PRN Reason: DIALYSIS Last Admin: 03/15/25 09:08 Dose: 100 mls/min Documented By: ALEK Piperacillin/Tazobactam/Dextrose (Zosyn) 3.375 gm in 50 mls @ 12.5 mls/hr IV Q8HR EULALIA Stop: 03/22/25 21:59 Lactobacillus Rhamnosus (Lactobacillus Rhamnosus 1 Cap) 1 cap PO QDAY EULALIA Stop: 04/14/25 08:59 Last Admin: 03/15/25 08:07 Dose: 1 cap Documented By: TAMMY Levothyroxine Sodium 125 mcg/ (Levothyroxine Sodium 50 mcg) 175 mcg PO ACBR EULALIA Stop: 04/14/25 05:59 Last Admin: 03/15/25 05:40 Dose: 175 mcg Documented By: AM Loratadine (Loratadine 10 Mg Tablet) 10 mg PO QDAY EULALIA Stop: 04/14/25 08:59 Last Admin: 03/15/25 08:07 Dose: 10 mg Documented By: TAMMY Non-Formulary Medication (Biotin) 800 mcg PO QDAY EULALIA Stop: 04/14/25 08:59 Last Admin: 03/15/25 08:08 Dose: Not Given Documented By: TAMMY Non-Admin Reason: Medication Not Available Non-Formulary Medication (Chrom Janki/Brindall Mccrary (Garcinia Cambogia Tablet)) 1 tab PO TID EULALIA Stop: 04/13/25 21:59 Last Admin: 03/15/25 14:30 Dose: Not Given Documented By: TAMMY Non-Admin Reason: Medication Not Available Admin: 03/15/25 07:22 Dose: Not Given Documented By: AM Non-Admin Reason: Medication Not Available Non-Formulary Medication (Cyanocobalamin (Vitamin B-12) [Vitamin B-12]) 100 mcg PO QDAY EULALIA Stop: 04/14/25 08:59 Last Admin: 03/15/25 08:07 Dose: Not Given Documented By: TAMMY Non-Admin Reason: Medication Not Available Pantoprazole Sodium (Pantoprazole Inj 40 Mg Vial) 40 mg IVP BID EULALIA Stop: 04/13/25 20:59 Last Admin: 03/15/25 08:07 Dose: 40 mg Documented By: Admin: 03/14/25 21:13 Dose: 40 mg Documented By: DB Discontinued Medications Epoetin Timothy (Epoetin Timothy Inj 1,000 Unit/0.05 Ml Unit) 10,000 unit SC X1 ONE Stop: 03/15/25 11:01 Last Admin: 03/15/25 11:07 Dose: 10,000 unit Documented By: MM Fentanyl Citrate (Fentanyl Cit Inj 50 Mcg/Ml Amp 2ml) Confirm Administered Dose 100 mcg .ROUTE .STK-MED ONE Stop: 03/15/25 14:05 Piperacillin/Tazobactam/Dextrose (Zosyn) 2.25 gm in 50 mls @ 100 mls/hr IV Q8HR EULALIA Stop: 03/21/25 21:59 Last Admin: 03/15/25 13:23 Dose: 100 mls/hr Documented By: Admin: 03/15/25 06:25 Dose: Not Given Documented By: AM Non-Admin Reason: Medication Not Available Admin: 03/14/25 22:00 Dose: Not Given Documented By: GB Non-Admin Reason: Medication Not Available Midazolam HCl (Midazolam Inj 1 Mg/Ml Vial 2 Ml) Confirm Administered Dose 4 mg .ROUTE .STK-MED ONE Stop: 03/15/25 14:05 Midazolam HCl (Midazolam Inj 1 Mg/Ml Vial 2 Ml) 2 mg IV Q2M PRN PRN Reason: Moderate Sedation Stop: 03/15/25 16:28 Polyethylene Glycol/Electrolytes (Na Swann/Nahco3/Pito/Peg (Golytely) 4,000 Ml Btl) 4,000 ml PO X1 ONE Stop: 03/15/25 14:29 Last Admin: 03/15/25 14:49 Dose: 4,000 ml Documented By: TAMMY See above Consultations Consultation(s) initiated? (list below): Yes Consultation #1 (Physician, Specialty, Details): I spoke with patients PCP Dr. Street. Discussed patients PMHx, HPI, ED course, exam findings, labs, and radiology results. She accepts the patient for admission. Time: 18:14 Consultation #2 (Physician, Specialty, Details): I spoke with GI Dr. Mendoza. Discussed patients HPI, PMHx, lab and radiology results. He agrees to consult. Time: 18:16 Diagnosis GI bleed differential diagnosis: hemorrhoids, Upper gastrointestinal hemorrhage, Lower gastrointestinal hemorrhage, hematochezia and anal fissure Most likely diagnosis given after review of the tests above:: GI bleed Admission Indicated Admission indicated?: indicated Admission Request Was there a request for admission?: Yes Admission Attestation Admission request attestation: Discussed case with [] from Hospitalist service regarding admission. Discussed patients ED course, exam findings, labs, and radiology results. The Hospitalist [agrees,declines] to accept the patient for admission. Disposition Plan Disposition Plan: Admit Discharge Plan Plan Patient Disposition: Admit Acute Care w/in Hospital Problem List Clinical Impression: GI bleed
[2025-03-14 16:50] LABS: B-Type Natriuretic Peptide 1823 pg/mL (0-100)
[2025-03-14 16:57] LABS: Alanine Aminotransferase < 7 U/L (10-49); Albumin, Serum 3.3 gm/dL (3.4-4.8); Albumin/Globulin Ratio 1.1 (1.2-2.2); Alkaline Phosphatase 210 U/L (46-116); Anion Gap 8 (7-16); Aspartate Amino Transferase 16 U/L (0-34); BUN/Creatinine Ratio 15 Ratio (12-20); Bilirubin,Total 1.3 mg/dL (0.3-1.2); Blood Urea Nitrogen 25 mg/dL (9-23); Calcium 8.4 mg/dL (8.3-10.6); Carbon Dioxide 23.9 mMol/L (20.0-31.0); Chloride 99 mMol/L (98-107); Creatinine (Component) 1.7 mg/dL (0.6-1.3); Estimated Creatinine Clearance 25.7 mL/min (>60); Glucose 131 mg/dL (74-106); Lipase 57 U/L (12-53); Magnesium 1.6 mg/dL (1.6-2.6); Osmolality,Calculated 269 (275-295); Potassium 4.3 mMol/L (3.4-5.1); Sodium 131 mMol/L (136-145); Total Protein 6.3 gm/dL (5.7-8.2); Troponin I 0.028 ng/mL (0.0-0.045); eGFR 30 See Note
[2025-03-14 16:57] LABS: Lactate (Lactic Acid) 2.2 mMol/L (0.4-2.0)
[2025-03-14 17:23] LABS: Procalcitonin 0.35 ng/ml (0.0-0.49)
[2025-03-14 19:54] LABS: Reflex Lactate? Y
--- NOTE | 2025-03-14 20:00 | PD.RESHP ---
Documentation for date of: 03/14/25 HPI History of Present Illness Chief complaint: GIB History of present illness: Ms. 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 Patient was seen in the ED and she states that she has had a couple of episodes of dark stools in the nursing facility. She denies any pain however she is fatigued and weak with mild SOB. She was recently in our ED on 03/06/25 for similar episode, however we did not have GI services at the time and when given the option to be transferred out for intervention the patient declined and was discharged back to nursing facility. She denies any other associated symptoms. In the ED patient was stable with BP of 116/76, pulse 87, RR 22, Temp 97.8, O2 Sat 99 on 6L NC CBC was significant for a WBC of 23.5, hemoglobin of 8.6 and a platelet count of 617. CMP was significant for sodium of 131 with a BUN of 25 and a creatinine of 1.7 from a baseline of 1.4. BNP was slightly elevated at 1823. UA was positive for UTI with a turbid urine and WBCs of 857 with 2+ urine bacteria and positive leukocyte esterase. Imaging of the abdomen and pelvis CT revealed vascular congestion with bibasilar pneumonia and moderate bilateral pleural effusions, cirrhosis, moderate ascites, anasarca and moderate stools in the rectum with diffuse thickening of the rectal wall. GI was consulted and patient was placed n.p.o. in preparation for possible endoscopy in the morning. Patient will be admitted for further management of her upper GI bleed as well as administration of her session of dialysis during hospitalization. Review of Systems Review of Systems Systems Reviewed: All systems reviewed, normal except as documented Exam Vital Signs Temp Pulse Resp BP Pulse Ox O2 Del Method O2 Flow Rate 98.0 F 85 18 104/61 99 Nasal Cannula 2 03/15/25 07:57 03/15/25 09:37 03/15/25 07:57 03/15/25 09:37 03/15/25 07:57 03/15/25 07:57 03/15/25 07:57 Narrative Exam Constitutional: Pale looking elderly female in no acute distress CVS: RRR, S1 and S2 present, no murmurs, rubs or gallops . There is a dialysis catheter on the right chest wall without tenderness or erythema RESP: CTAB, no SOB, no rales, rhonchi or wheezing. No respiratory Distress GI: Normal BS, Nontender/Nondistended. MSK: Full range of motion, No trauma or deformities or masses. 4+ pitting edema bilateral lower extremities Skin: Warm to touch, Dry. No rashes or lesions. No hematomas Neuro: wildlife and game protector II-XII grossly intact. Sensation grossly intact. Psych: (AAO) x3 . Appropriate mood and affect. Results: Labs 03/15/25 06:30 03/15/25 06:30 Labs: Short CBC 03/14/25 03/15/25 03/15/25 Range/Units 16:16 01:10 06:30 WBC 23.5 H 21.3 H (3.6-11.0) Thou/mm3 Hgb 8.6 L 7.9 L 8.0 L (12.0-16.0) g/dL Hct 26.5 L 24.5 L 24.6 L (36.0-46.0) % Plt Count 617 H D 478 H D (140-440) Thou/mm3 BMP 03/14/25 03/15/25 16:16 06:30 Sodium 131 L 130 L Potassium 4.3 4.3 Chloride 99 95 L Carbon Dioxide 23.9 25.8 BUN 25 H 26 H Creatinine 1.7 H 1.6 H Glucose 131 H 90 Calcium 8.4 8.5 Cardiac Enzymes 03/14/25 Range/Units 16:16 Troponin I 0.028 (0.0-0.045) ng/mL Liver Function 03/14/25 03/15/25 Range/Units 16:16 06:30 Total Bilirubin 1.3 H 1.5 H (0.3-1.2) mg/dL AST 16 14 (0-34) U/L ALT < 7 L < 7 L (10-49) U/L Alkaline Phosphatase 210 H 184 H D (46-116) U/L Albumin 3.3 L 3.1 L (3.4-4.8) gm/dL Urine 04/25/25 04/25/25 04/25/25 Range/Units 23:13 23:13 23:13 Urine Color Drk-Yellow A Drk-Yellow A (Lt Yel-Yel) Urine Clarity Turbid A Turbid A (Clear/Hazy) Urine pH 6.0 (5.0-7.0) Ur Specific [place] (1.001-1.035) Urine Protein (Neg - Trace) Urine Glucose (UA) (Negative) 03/14/25 03/14/25 03/14/25 Range/Units 23:13 23:13 23:13 Urine Color (Lt Yel-Yel) Urine Clarity (Clear/Hazy) Urine pH 6.0 (5.0-7.0) Ur Specific [place] 1.022 1.022 (1.001-1.035) Urine Protein 1+ A 1+ A (Neg - Trace) Urine Glucose (UA) Negative (Negative) 03/14/25 Range/Units 23:13 Urine Color (Lt Yel-Yel) Urine Clarity (Clear/Hazy) Urine pH (5.0-7.0) Ur Specific [place] (1.001-1.035) Urine Protein (Neg - Trace) Urine Glucose (UA) Negative (Negative) Quality Measures Quality Measures none Advance care planning discussed with:: patient Medications Home Medications and Allergies Home Medications ?Medication ?Instructions ?Recorded ?Confirmed ?Type Chrom Janki/Brindall Mccrary 1 tab PO TID ##0 04/26/16 03/15/25 History (Garcinia Cambogia Tablet) Fluticasone Propionate 1 spry IH PRN PRN ALLERGY ##0 04/26/16 03/15/25 History amlodipine 5 mg tablet (Norvasc) 5 mg PO QDAY #0 tabs 04/26/16 03/15/25 History loratadine 10 mg tablet (Claritin) 10 mg PO QDAY #0 tabs 04/26/16 03/15/25 History Lactobacillus rhamnosus GG 10 1 cap PO QDAY #0 caps 09/21/16 03/15/25 History billion cell capsule (Culturelle) biotin 800 mcg tablet 800 mcg PO QDAY #0 tabs 09/21/16 03/15/25 History cyanocobalamin (vitamin B-12) 100 100 mcg PO QDAY #0 tabs 09/21/16 03/15/25 History mcg tablet (Vitamin B-12) bisacodyl 10 mg rectal suppository 10 mg SD PRN PRN constipation 03/15/25 03/15/25 History (Dulcolax (bisacodyl)) diphenhydramine HCl 25 mg capsule 25 mg PO Q12H PRN allergy 03/15/25 03/15/25 History (Allergy (diphenhydramine)) hydroxyzine HCl 25 mg tablet 25 mg PO Q12H PRN itching 03/15/25 03/15/25 History melatonin 3 mg tablet 6 mg PO HS PRN sleep 03/15/25 03/15/25 History mirtazapine 7.5 mg tablet 7.5 mg PO QDAY 03/15/25 03/15/25 History pantoprazole 40 mg tablet,delayed 40 mg PO QDAY 03/15/25 03/15/25 History release (Protonix) tramadol 50 mg tablet 50 mg PO Q12H PRN pain 03/15/25 03/15/25 History Allergies Allergy/AdvReac Type Severity Reaction Status Date / Time Iodinated Contrast Media Allergy Verified 03/06/25 06:00 Dust Allergy Severe ASTHMA Uncoded 03/06/25 05:07 ATTACK Visit Medications Acetaminophen (Acetaminophen 325 Mg Tablet) 650 mg PO Q6HR PRN PRN Reason: PAIN OR FEVER > 101 Stop: 04/14/25 07:25 Last Admin: 03/15/25 07:56 Dose: 650 mg Amiodarone HCl (Amiodarone Hcl 200 Mg Tablet) 200 mg PO BID [facility] Stop: 04/13/25 20:59 Last Admin: 03/15/25 08:06 Dose: 200 mg Amlodipine Besylate (Amlodipine Besylate 5 Mg Tablet) 5 mg PO QDAY [facility] Stop: 04/14/25 08:59 Last Admin: 03/15/25 08:08 Dose: Not Given Epoetin Timothy (Epoetin Timothy Inj 1,000 Unit/0.05 Ml Unit) 10,000 unit SC X1 ONE Stop: 03/15/25 11:01 Fluticasone Propionate (Fluticasone Lit [place] 0.05% 16 Gm Btl) 1 spray NASAL QDAY PRN PRN Reason: ALLERGY Stop: 04/13/25 20:27 Folic Acid (Folic Acid 1 Mg Tablet) 5 mg PO QDAY [facility] Stop: 04/14/25 08:59 Last Admin: 03/15/25 08:04 Dose: 5 mg Heparin Sodium (Porcine) (Heparin Sod Inj 1000 Unit/Ml Vial 10 Ml) 3,500 unit INDWELLCAT PRN PRN PRN Reason: DIALYSIS Stop: 03/29/25 08:36 Piperacillin/Tazobactam/Dextrose (Zosyn) 2.25 gm in 50 mls @ 100 mls/hr IV Q8HR EULALIA Stop: 03/21/25 21:59 Last Admin: 03/15/25 06:25 Dose: Not Given Albumin Human (Albuminar-25 Ivpb) 25 gm in 100 mls @ 100 mls/min IV PRN PRN PRN Reason: DIALYSIS Last Admin: 03/15/25 09:08 Dose: 100 mls/min Lactobacillus Rhamnosus (Lactobacillus Rhamnosus 1 Cap) 1 cap PO QDAY EULALIA Stop: 04/14/25 08:59 Last Admin: 03/15/25 08:07 Dose: 1 cap Levothyroxine Sodium 125 mcg/ (Levothyroxine Sodium 50 mcg) 175 mcg PO ACBR EULALIA Stop: 04/14/25 05:59 Last Admin: 03/15/25 05:40 Dose: 175 mcg Loratadine (Loratadine 10 Mg Tablet) 10 mg PO QDAY EULALIA Stop: 04/14/25 08:59 Last Admin: 03/15/25 08:07 Dose: 10 mg Non-Formulary Medication (Biotin) 800 mcg PO QDAY [facility] Stop: 04/14/25 08:59 Last Admin: 03/15/25 08:08 Dose: Not Given Non-Formulary Medication (Chrom Janki/Brindall Mccrary (Garcinia Cambogia Tablet)) 1 tab PO TID EULALIA Stop: 04/13/25 21:59 Last Admin: 03/15/25 07:22 Dose: Not Given Non-Formulary Medication (Cyanocobalamin (Vitamin B-12) [Vitamin B-12]) 100 mcg PO QDAY EULALIA Stop: 04/14/25 08:59 Last Admin: 03/15/25 08:07 Dose: Not Given Pantoprazole Sodium (Pantoprazole Inj 40 Mg Vial) 40 mg IVP BID [facility] Stop: 04/13/25 20:59 Last Admin: 03/15/25 08:07 Dose: 40 mg Assessment & Plan Plan 79 yo female with PMH of A-fib NOT on ELIQUIS, CHF, HTN, Hypothyroidism, CKD with urinary retention on HD, RA admitted for acute GI bleed #GI bleed Likely upper GI bleed Patient presented with several bloody bowel movements at the nursing facility and strongly positive fecal occult blood Patient was previously discharged with a hemoglobin of 10 which dropped down to 7.9 and this presentation GI was consulted in the ED Plan: ? Type and screen ? 1 unit of PRBCs ordered to transfuse now ? Protonix IV twice daily ? NPO in preparation for endoscopy ? Appreciate GI recommendations ? Will monitor hemoglobin #Acute hypoxic respiratory failure # HFpEF with EF of 55 to 60% Patient presented with hypoxia requiring 6 L of nasal cannula to saturate 99% BNP was elevated at 1823 which is limiting considering she has urinary retention Imaging reveals pleural effusions and vascular congestion and there is 4+ pitting edema on physical examination bilaterally lower extremities Plan: ? Will remove fluids through hemodialysis in the a.m. ? Strict MARTÍNEZ's ? Fluid restriction to 1500 cc/day #ADITYA on CKD on hemodialysis (Monday) Patient was recently discharged on hemodialysis due to her urinary retention and CKD She presents with 4+ pitting edema and vascular congestion as well as pleural effusions on CT scans Plan: ? Will perform hemodialysis in the a.m. ? Strict MARTÍNEZ's ? Avoid nephrotoxic medications ? Will follow daily CMP # UTI Patient's urine was strongly positive for UTI with WBCs in the 800s with 2+ bacteria and leukocyte esterase positivity Patient was started on Zosyn in the ED Plan: ? Continue Zosyn ? Follow-up on urine cultures and blood cultures ? Will downgrade antibiotics pending speciation #Hypertension Restarted patient's home amlodipine 5 mg p.o. daily #Hypothyroidism Restarted patient home dose of levothyroxine 120 5 in the morning before breakfast #A-fib Currently rate controlled Continue amiodarone 200 mg p.o. twice daily Health maintenance plan: Dispo: Patient will remain in telemetry for further management of her GI bleed and acute hypoxic respiratory failure Code: DNR/DNI DVT PPx: None GI PPx: Protonix 40 IV twice daily FEN: N.p.o. until EGD Attending Provider Attestation/Addendum Patient seen and examined with resident physician Dr. Bourgeois. Note reviewed, agree with findings and recommendations. Patient admitted with GI bleed. Serial monitoring of H&H ordered. Dialysis scheduled for tomorrow. Noted she is in fluid overload. IV fluids were not given. Continue with IV Protonix. Dr. Mendoza was consulted.
--- NOTE | 2025-03-14 20:49 | PD.IMCONS ---
HPI Data of Consult Requesting Physician: Ruth Street MD Primary Care Provider: Physician No Primary/Family Consult Narrative Reason for consult: Occult GI bleeding stool Hemoccult positive stool. H/H 8.6/26.5 History of present illness: 79 years old female sent from [facility] to the emergency room because of the blood in the stool which has been ongoing since 03/06/2025 She was sent back to the SNF during that visit as she did not accept the transfer and her GI coverage was not available Her presenting hemoglobin hematocrit is 8.6 and 26.5 Rectal examination by the ER physician shows brown stool Hemoccult positive During the previous hospitalization on 02/18/2025 patient had undergone upper endoscopy which showed diffuse mucosal oozing of the blood At that time patient was also in DIC cc:: cc: Ruth Street MD Review of Systems Review of Systems ROS Unobtainable: unobtainable due to medical condition Past Medical History Surgical History OTHER SURGICAL HX: Atrial fibrillation chronic not on any anticoagulation at the moment congestive heart failure Essential hypertension hypothyroidism Rheumatoid arthritis CKD Meds Home Medications and Allergies Home Medications ?Medication ?Instructions ?Recorded ?Confirmed ?Type Chrom Janki/Brindall Mccrary 1 tab PO TID ##0 04/26/16 History (Garcinia Cambogia Tablet) Fluticasone Propionate 1 spry IH PRN PRN ALLERGY ##0 04/26/16 History amlodipine 5 mg tablet (Norvasc) 5 mg PO QDAY #0 tabs 04/26/16 History loratadine 10 mg tablet (Claritin) 10 mg PO QDAY #0 tabs 04/26/16 History Lactobacillus rhamnosus GG 10 1 cap PO QDAY #0 caps 09/21/16 History billion cell capsule (Culturelle) biotin 800 mcg tablet 800 mcg PO QDAY #0 tabs 09/21/16 History cyanocobalamin (vitamin B-12) 100 100 mcg PO QDAY #0 tabs 09/21/16 History mcg tablet (Vitamin B-12) Allergies Allergy/AdvReac Type Severity Reaction Status Date / Time Iodinated Contrast Media Allergy Verified 03/06/25 06:00 Dust Allergy Severe ASTHMA Uncoded 03/06/25 05:07 ATTACK Exam Vital Signs Temp Pulse Resp BP Pulse Ox O2 Del Method O2 Flow Rate 97.8 F 96 16 109/74 96 Nasal Cannula 3 03/14/25 18:16 03/14/25 20:33 03/14/25 20:33 03/14/25 20:33 03/14/25 20:33 03/14/25 20:33 03/14/25 18:16 Constitutional Comments: Chronically ill-appearing Routine Respiratory Exam Comments: Normal to auscultation Routine Abdominal Exam Comments: Soft nontender Results Labs 03/14/25 16:16 03/14/25 16:16 Labs: Short CBC 03/14/25 Range/Units 16:16 WBC 23.5 H (3.6-11.0) Thou/mm3 Hgb 8.6 L (12.0-16.0) g/dL Hct 26.5 L (36.0-46.0) % Plt Count 617 H D (140-440) Thou/mm3 BMP 03/14/25 16:16 Sodium 131 L Potassium 4.3 Chloride 99 Carbon Dioxide 23.9 BUN 25 H Creatinine 1.7 H Glucose 131 H Calcium 8.4 Cardiac Enzymes 03/14/25 Range/Units 16:16 Troponin I 0.028 (0.0-0.045) ng/mL Liver Function 03/14/25 Range/Units 16:16 Total Bilirubin 1.3 H (0.3-1.2) mg/dL AST 16 (0-34) U/L ALT < 7 L (10-49) U/L Alkaline Phosphatase 210 H (46-116) U/L Albumin 3.3 L (3.4-4.8) gm/dL Assessment and Plan Additional Assessment & Plan Additional Plan: # Occult GI bleeding most likely mucosal oozing of blood on the previous endoscopy Plan repeat endoscopy Tomorrow morning to evaluate the cause of bleeding IV Protonix serial CBC Will follow the patient Other medical problems include Cirrhosis liver most likely cryptogenic Thickening of the rectal wall most likely under distention Stool impaction left colon A-fib Congestive heart failure Hypothyroidism Rheumatoid arthritis CKD Thank you very much for the opportunity to participate in the care of this patient
[2025-03-14] MEDS: AMIODARONE HCL 200 MG TABLET PO (21:02)
[2025-03-14 21:07] LABS: Lactic Acid, 3 HR 1.1 mMol/L (0.4-2.0)
[2025-03-14] MEDS: PANTOPRAZOLE INJ 40 MG VIAL IVP (21:13)
--- NOTE | 2025-03-14 21:17 | PC.NURSE ---
MD Mendoza at bedside speaking to pt. MD menjivar with pt eating. Pt req nish which she was provided with and is tolerating well.
[2025-03-14 23:25] LABS: Collection Type, Urine Catheter; Collection Type, Urine Clean Catch
[2025-03-14 23:39] LABS: Bacteria,Urine 2+; Bilirubin,Urine Negative (Negative); Blood,Urine 1+ (Negative); Calcium Oxalate Crystals,Urine 1+; Color,Urine Drk-Yellow (Lt Yel-Yel); Glucose, Urine Negative (Negative); Hyaline Casts,Urine 1 /hpf (0-1); Ketones,Urine Negative (Negative); Leukocyte Esterase,Urine Positive (Negative); Nitrite,Urine Negative (Negative); Protein,Urine 1+ (Neg - Trace); RBC,Urine 25 /hpf (0-3); Specific Gravity,Urine 1.022 (1.001-1.035); Squamous Epithelial Cell,Urine < 1 /hpf (0-5); WBC,Urine 857 /hpf (0-5)
[2025-03-14 23:41] LABS: Bacteria,Urine 2+; Bilirubin,Urine Negative (Negative); Blood,Urine 1+ (Negative); Clarity,Urine Turbid (Clear/Hazy); Color,Urine Drk-Yellow (Lt Yel-Yel); Glucose, Urine Negative (Negative); Ketones,Urine Negative (Negative); Leukocyte Esterase,Urine Positive (Negative); Nitrite,Urine Negative (Negative); Protein,Urine 1+ (Neg - Trace); RBC,Urine 20 /hpf (0-3); Specific Gravity,Urine 1.022 (1.001-1.035); Squamous Epithelial Cell,Urine 1 /hpf (0-5); WBC,Urine 932 /hpf (0-5)
[2025-03-14 23:42] LABS: Culture Indicated,Urine Yes
[2025-03-15] VITALS (33 sets, daily range): BP systolic 101–128; BP diastolic 59–77; PULSE 65–98; RESP 15–18; TEMP 36.1–36.7; O2SAT 94–99; BMI 25.2
[2025-03-15 01:20] LABS: Hematocrit 24.5 % (36.0-46.0)
[2025-03-15 01:27] LABS: Hemoglobin 7.9 g/dL (12.0-16.0)
[2025-03-15] MEDS: LEVOTHYROXINE SODIUM 125 MCG, LEVOTHYROXINE SODIUM 50 MCG 175 MCG PO (05:40)
[2025-03-15 07:26] LABS: Basophils # (Auto) 0.2 Thou/mm3 (0.0-0.2); Basophils % (Auto) 1 % (0-2.5); Eosinophils # (Auto) 0.3 Thou/mm3 (0.0-0.5); Eosinophils % (Auto) 1 % (0-10); Hematocrit 24.6 % (36.0-46.0); Immature Granulocytes % (Auto) 7 % (0-0); Lymphocytes # (Auto) 2.5 Thou/mm3 (1.0-4.8); Lymphocytes % (Auto) 12 % (10-50); Mean Corpuscular HGB Conc 32.5 g/dl (31.0-37.0); Mean Corpuscular Hemoglobin 29.3 pg (25.0-35.0); Mean Corpuscular Volume 90 fL (80-100); Monocytes # (Auto) 2.1 Thou/mm3 (0.0-0.8); Monocytes % (Auto) 10 % (0-12); Neutrophils # (Auto) 14.8 Thou/mm3 (1.8-7.7); Neutrophils % (Auto) 69 % (37-80); Nucleated Red Blood Cell # 0.05 Thou/mm3 (0.00-0.00); Nucleated Red Blood Cell % 0 /100 WBC (0); Platelet Count 478 Thou/mm3 (140-440); RDW Standard Deviation 53.1 fL (36.4-46.3); Red Blood Count 2.73 Miln/mm3 (4.00-5.20); White Blood Count 21.3 Thou/mm3 (3.6-11.0)
[2025-03-15 07:34] LABS: Alanine Aminotransferase < 7 U/L (10-49); Albumin, Serum 3.1 gm/dL (3.4-4.8); Albumin/Globulin Ratio 1.1 (1.2-2.2); Alkaline Phosphatase 184 U/L (46-116); Anion Gap 9 (7-16); Aspartate Amino Transferase 14 U/L (0-34); BUN/Creatinine Ratio 16 Ratio (12-20); Bilirubin,Total 1.5 mg/dL (0.3-1.2); Blood Urea Nitrogen 26 mg/dL (9-23); Calcium 8.5 mg/dL (8.3-10.6); Calcium (Corrected) 9.2 mg/dL (8.5-10.1); Carbon Dioxide 25.8 mMol/L (20.0-31.0); Chloride 95 mMol/L (98-107); Creatinine (Component) 1.6 mg/dL (0.6-1.3); Estimated Creatinine Clearance 27.3 mL/min (>60); Globulin 2.7 gm/dL (2.3-3.5); Glucose 90 mg/dL (74-106); Osmolality,Calculated 265 (275-295); Potassium 4.3 mMol/L (3.4-5.1); Sodium 130 mMol/L (136-145); Total Protein 5.8 gm/dL (5.7-8.2); eGFR 32 See Note
[2025-03-15] MEDS: ACETAMINOPHEN 325 MG TABLET 650 MG PO ×2 (07:56→20:47)
[2025-03-15] MEDS: FOLIC ACID 1 MG TABLET 5 MG PO (08:04)
[2025-03-15] MEDS: AMIODARONE HCL 200 MG TABLET PO ×2 (08:06→20:46)
[2025-03-15] MEDS: PANTOPRAZOLE INJ 40 MG VIAL IVP ×2 (08:07→20:39)
[2025-03-15] MEDS: lorataDINE 10 MG TABLET PO (08:07)
[2025-03-15] MEDS: LACTOBACILLUS RHAMNOSUS 1 CAP PO (08:07)
--- NOTE | 2025-03-15 09:07 | PC.NURSE ---
BP LOW PT DENIES ALL S/S OF HYPOTENSION WILL ADMIN PRN ALBUMIN AND CONT. TO MONITOR
[2025-03-15] MEDS: ALBUMIN HUMAN 25% IVPB 25 GM/100 ML BTL IV (09:08)
--- NOTE | 2025-03-15 09:10 | PC.SS ---
Patient Anne Marie Ayoub is a 79 Year old female admitted for GI Bleed. SS met with patient at bedside to conduct initial assessment. Patient currently resides at [facility]. Patient reports she needs assistance completing ADL's. Patient does require the use of oxygen at night.? Patient?s surrogate medical decision maker is son, Jerry Ayoub .? Patient?s PCP is Dr. Street.? Patient will return back to [facility] when medically cleared.? No further intervention required at this time, social sciences research scientist will be available to address any further concerns.? Next of Kin: Thang Ayoub Discharge Plan: [facility]
--- NOTE | 2025-03-15 09:24 | PC.SS ---
Chart accessed to confirm patient was admitted. Information requested by Ashleigh Tipton from [facility]. Ashleigh [facility] to meet with patient at bedside.
--- NOTE | 2025-03-15 09:31 | PC.NURSE ---
BP TRENDING DOWN AGAIN, PT REMAINS ASYMPTOMATIC AND DENIES ALL COMPLAINTS OF HYPOTENSION UF GOAL LOWERED TO 2.5L TOLERATED WILL CONT. TO MONITOR
--- NOTE | 2025-03-15 10:32 | PC.NURSE ---
TRANSFUSED 1 UNIT PRBC, UF GOAL INCREASED TOLERATED WILL CONT. TO MONITOR
[2025-03-15] MEDS: EPOETIN ALFA INJ 1,000 UNIT/0.05 ML UNIT 10000 UNIT SC (11:07)
[2025-03-15] MEDS: HEPARIN SOD INJ 1000 UNIT/ML VIAL 10 ML 3500 UNIT INDWELLCAT (12:05)
[2025-03-15 12:25] LABS: Hematocrit 26.1 % (36.0-46.0)
[2025-03-15 12:29] LABS: Hemoglobin 8.7 g/dL (12.0-16.0)
[2025-03-15] MEDS: PIPER/TAZO 2.25 GM 2.25 GM/50 ML BAG IV (13:23)
[2025-03-15] MEDS: NA SU/NAHCO3/KC/PEG (Golytely) 4,000 ML BTL 4000 ML PO (14:49)
--- NOTE | 2025-03-15 15:10 | ESPR_ITS ---
Documentation for date of: 03/15/25 Subjective Subjective Interval history: Ms. 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 Patient was seen in the ED and she states that she has had a couple of episodes of dark stools in the nursing facility. She denies any pain however she is fatigued and weak with mild SOB. She was recently in our ED on 03/06/25 for similar episode, however we did not have GI services at the time and when given the option to be transferred out for intervention the patient declined and was discharged back to nursing facility. She denies any other associated symptoms. In the ED patient was stable with BP of 116/76, pulse 87, RR 22, Temp 97.8, O2 Sat 99 on 6L NC CBC was significant for a WBC of 23.5, hemoglobin of 8.6 and a platelet count of 617. CMP was significant for sodium of 131 with a BUN of 25 and a creatinine of 1.7 from a baseline of 1.4. BNP was slightly elevated at 1823. UA was positive for UTI with a turbid urine and WBCs of 857 with 2+ urine bacteria and positive leukocyte esterase. Imaging of the abdomen and pelvis CT revealed vascular congestion with bibasilar pneumonia and moderate bilateral pleural effusions, cirrhosis, moderate ascites, anasarca and moderate stools in the rectum with diffuse thickening of the rectal wall. GI was consulted and patient was placed n.p.o. in preparation for possible endoscopy in the morning. Patient will be admitted for further management of her upper GI bleed as well as administration of her session of dialysis during hospitalization. 03/15/25: Patient seen and examined in telemetry today. There were no major overnight events the patient is doing okay this morning. She received hemodialysis for about 3 hours removing about 2 L of fluid. Patient will undergo endoscopy for her GI bleed and will advance diet as tolerated once she completes it. Exam Vital Signs Temp Pulse Resp BP Pulse Ox O2 Del Method O2 Flow Rate 97.7 F 90 18 112/70 97 Nasal Cannula 3 03/15/25 12:00 03/15/25 14:19 03/15/25 14:19 03/15/25 14:19 03/15/25 14:19 03/15/25 12:00 03/15/25 14:19 Narrative Exam Constitutional: Pale looking elderly female in no acute distress CVS: RRR, S1 and S2 present, no murmurs, rubs or gallops . There is a dialysis catheter on the right chest wall without tenderness or erythema RESP: CTAB, no SOB, no rales, rhonchi or wheezing. No respiratory Distress GI: Normal BS, Nontender/Nondistended. MSK: Full range of motion, No trauma or deformities or masses. 4+ pitting edema bilateral lower extremities Skin: Warm to touch, Dry. No rashes or lesions. 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 Sensation grossly intact. Psych: (AAO) x3 . Appropriate mood and affect. Objective Labs 03/16/25 05:25 03/16/25 05:25 Labs: Laboratory Results - last 24 hr 03/14/25 03/14/25 03/14/25 16:16 16:40 21:00 WBC 23.5 H RBC 2.94 L Hgb 8.6 L Hct 26.5 L MCV 90 MCH 29.3 MCHC 32.5 RDW Std Deviation 55.8 H Plt Count 617 H D Neut % (Auto) 75 Lymph % (Auto) 8 L Esmeralda % (Auto) 8 Eos % (Auto) 1 Baso % (Auto) 1 Neut # (Auto) 17.7 H Lymph # (Auto) 2.0 Esmeralda # (Auto) 2.0 H Eos # (Auto) 0.2 Baso # (Auto) 0.3 H Immature Gran # (Auto) 1.50 H Absolute Nucleated RBC 0.17 H Immature Gran % 6 H Nucleated RBC % 1 H PT 12.3 H INR 1.1 APTT 36.8 H Sodium 131 L Potassium 4.3 Chloride 99 Carbon Dioxide 23.9 Anion Gap 8 BUN 25 H Creatinine 1.7 H Estim Creat Clear Calc 25.7 L eGFR 30 L BUN/Creatinine Ratio 15 Glucose 131 H Calculated Osmolality 269 L Lactic Acid 2.2 H 1.1 Calcium 8.4 Corrected Calcium 9.0 Magnesium 1.6 Total Bilirubin 1.3 H AST 16 ALT < 7 L Alkaline Phosphatase 210 H Troponin I 0.028 B-Natriuretic Peptide 1823 H* Total Protein 6.3 Albumin 3.3 L Globulin 3.0 Albumin/Globulin Ratio 1.1 L Lipase 57 H Procalcitonin 0.35 Ur Collection Type Urine Color Urine Clarity Urine pH Ur Specific [place] Urine Protein Urine Glucose (UA) Urine Ketones Urine Blood Urine Nitrite Urine Bilirubin Urine Urobilinogen (Auto) Ur Leukocyte Esterase Urine RBC Urine WBC Ur Squamous Epith Cells Calcium Oxalate Crystal Urine Bacteria Hyaline Casts Ur Culture Indicated? Blood Type A Positive Antibody Screen NEGATIVE Crossmatch See Detail Blood Bank Wristband ID Yes 03/14/25 03/14/25 03/14/25 23:13 23:13 23:13 WBC RBC Hgb Hct MCV MCH MCHC RDW Std Deviation Plt Count Neut % (Auto) Lymph % (Auto) Esmeralda % (Auto) Eos % (Auto) Baso % (Auto) Neut # (Auto) Lymph # (Auto) Esmeralda # (Auto) Eos # (Auto) Baso # (Auto) Immature Gran # (Auto) Absolute Nucleated RBC Immature Gran % Nucleated RBC % PT INR APTT Sodium Potassium Chloride Carbon Dioxide Anion Gap BUN Creatinine Estim Creat Clear Calc eGFR BUN/Creatinine Ratio Glucose Calculated Osmolality Lactic Acid Calcium Corrected Calcium Magnesium Total Bilirubin AST ALT Alkaline Phosphatase Troponin I B-Natriuretic Peptide Total Protein Albumin Globulin Albumin/Globulin Ratio Lipase Procalcitonin Ur Collection Type Clean Catch Catheter Urine Color Drk-Yellow A Drk-Yellow A Urine Clarity Turbid A Urine pH Ur Specific [place] Urine Protein Urine Glucose (UA) Urine Ketones Urine Blood Urine Nitrite Urine Bilirubin Urine Urobilinogen (Auto) Ur Leukocyte Esterase Urine RBC Urine WBC Ur Squamous Epith Cells Calcium Oxalate Crystal Urine Bacteria Hyaline Casts Ur Culture Indicated? Blood Type Antibody Screen Crossmatch Blood Bank Wristband ID 03/14/25 03/14/25 03/14/25 23:13 23:13 23:13 WBC RBC Hgb Hct MCV MCH MCHC RDW Std Deviation Plt Count Neut % (Auto) Lymph % (Auto) Esmeralda % (Auto) Eos % (Auto) Baso % (Auto) Neut # (Auto) Lymph # (Auto) Esmeralda # (Auto) Eos # (Auto) Baso # (Auto) Immature Gran # (Auto) Absolute Nucleated RBC Immature Gran % Nucleated RBC % PT INR APTT Sodium Potassium Chloride Carbon Dioxide Anion Gap BUN Creatinine Estim Creat Clear Calc eGFR BUN/Creatinine Ratio Glucose Calculated Osmolality Lactic Acid Calcium Corrected Calcium Magnesium Total Bilirubin AST ALT Alkaline Phosphatase Troponin I B-Natriuretic Peptide Total Protein Albumin Globulin Albumin/Globulin Ratio Lipase Procalcitonin Ur Collection Type Urine Color Urine Clarity Turbid A Urine pH 6.0 6.0 Ur Specific [place] 1.022 1.022 Urine Protein 1+ A Urine Glucose (UA) Urine Ketones Urine Blood Urine Nitrite Urine Bilirubin Urine Urobilinogen (Auto) Ur Leukocyte Esterase Urine RBC Urine WBC Ur Squamous Epith Cells Calcium Oxalate Crystal Urine Bacteria Hyaline Casts Ur Culture Indicated? Blood Type Antibody Screen Crossritch Blood [employer] Wristband ID 03/14/25 03/14/25 03/14/25 23:13 23:13 23:13 WBC RBC Hgb Hct MCV MCH MCHC RDW Std Deviation Plt Count Neut % (Auto) Lymph % (Auto) Esmeralda % (Auto) Eos % (Auto) Baso % (Auto) Neut # (Auto) Lymph # (Auto) Esmer[place]da # (Auto) Eos # (Auto) Baso # (Auto) Immature Gran # (Auto) Absolute Nucleated RBC Immature Gran % Nucleated RBC % PT INR APTT Sodium Potassium Chloride Carbon Dioxide Anion Gap BUN Creatinine Estim Creat Clear Calc eGFR BUN/Creatinine Ratio Glucose Calculated Osmolality Lactic Acid Calcium Corrected Calcium Magnesium Total Bilirubin AST ALT Alkaline Phosphatase Troponin I B-Natriuretic Peptide Total Protein Albumin Globulin Albumin/Globulin Ratio Lipase Procalcitonin Ur Collection Type Urine Color Urine Clarity Urine pH Ur Specific [place] Urine Protein 1+ A Urine Glucose (UA) Negative Negative Urine Ketones Negative Negative Urine Blood 1+ A Urine Nitrite Urine Bilirubin Urine Urobilinogen (Auto) Ur Leukocyte Esterase Urine RBC Urine WBC Ur Squamous Epith Cells Calcium Oxalate Crystal Urine Bacteria Hyaline Casts Ur Culture Indicated? Blood Type Antibody Screen Crossritch Blood [facility] Wristband ID 03/14/25 03/14/25 03/14/25 23:13 23:13 23:13 WBC RBC Hgb Hct MCV MCH MCHC RDW Std Deviation Plt Count Neut % (Auto) Lymph % (Auto) Esmeralda % (Auto) Eos % (Auto) Baso % (Auto) Neut # (Auto) Lymph # (Auto) Esmer[place]da # (Auto) Eos # (Auto) Baso # (Auto) Immature Gran # (Auto) Absolute Nucleated RBC Immature Gran % Nucleated RBC % PT INR APTT Sodium Potassium Chloride Carbon Dioxide Anion Gap BUN Creatinine Estim Creat Clear Calc eGFR BUN/Creatinine Ratio Glucose Calculated Osmolality Lactic Acid Calcium Corrected Calcium Magnesium Total Bilirubin AST ALT Alkaline Phosphatase Troponin I B-Natriuretic Peptide Total Protein Albumin Globulin Albumin/Globulin Ratio Lipase Procalcitonin Ur Collection Type Urine Color Urine Clarity Urine pH Ur Specific [place] Urine Protein Urine Glucose (UA) Urine Ketones Urine Blood 1+ A Urine Nitrite Negative Negative Urine Bilirubin Negative Negative Urine Urobilinogen (Auto) 2.0 Ur Leukocyte Esterase Urine RBC Urine WBC Ur Squamous Epith Cells Calcium Oxalate Crystal Urine Bacteria Hyaline Casts Ur Culture Indicated? Blood Type Antibody Screen Crossmatch Blood Bank Wristband ID 03/14/25 03/14/25 03/14/25 23:13 23:13 23:13 WBC RBC Hgb Hct MCV MCH MCHC RDW Std Deviation Plt Count Neut % (Auto) Lymph % (Auto) Esmeralda % (Auto) Eos % (Auto) Baso % (Auto) Neut # (Auto) Lymph # (Auto) Esmer[place]da # (Auto) Eos # (Auto) Baso # (Auto) Immature Gran # (Auto) Absolute Nucleated RBC Immature Gran % Nucleated RBC % PT INR APTT Sodium Potassium Chloride Carbon Dioxide Anion Gap BUN Creatinine Estim Creat Clear Calc eGFR BUN/Creatinine Ratio Glucose Calculated Osmolality Lactic Acid Calcium Corrected Calcium Magnesium Total Bilirubin AST ALT Alkaline Phosphatase Troponin I B-Natriuretic Peptide Total Protein Albumin Globulin Albumin/Globulin Ratio Lipase Procalcitonin Ur Collection Type Urine Color Urine Clarity Urine pH Ur Specific [place] Urine Protein Urine Glucose (UA) Urine Ketones Urine Blood Urine Nitrite Urine Bilirubin Urine Urobilinogen (Auto) 2.0 Ur Leukocyte Esterase Positive Positive Urine RBC 20 H 25 H Urine WBC 932 H Ur Squamous Epith Cells Calcium Oxalate Crystal Urine Bacteria Hyaline Casts Ur Culture Indicated? Blood Type Antibody Screen Crossritch Blood Bank Wristband ID 03/14/25 03/14/25 03/14/25 23:13 23:13 23:13 WBC RBC Hgb Hct MCV MCH MCHC RDW Std Deviation Plt Count Neut % (Auto) Lymph % (Auto) Esmeralda % (Auto) Eos % (Auto) Baso % (Auto) Neut # (Auto) Lymph # (Auto) [place]mer[place] # (Auto) Eos # (Auto) Baso # (Auto) Immature Gran # (Auto) Absolute Nucleated RBC Immature Gran % Nucleated RBC % PT INR APTT Sodium Potassium Chloride Carbon Dioxide Anion Gap BUN Creatinine Estim Creat Clear Calc eGFR BUN/Creatinine Ratio Glucose Calculated Osmolality Lactic Acid Calcium Corrected Calcium Magnesium Total Bilirubin AST ALT Alkaline Phosphatase Troponin I B-Natriuretic Peptide Total Protein Albumin Globulin Albumin/Globulin Ratio Lipase Procalcitonin Ur Collection Type Urine Color Urine Clarity Urine pH Ur Specific [place] Urine Protein Urine Glucose (UA) Urine Ketones Urine Blood Urine Nitrite Urine Bilirubin Urine Urobilinogen (Auto) Ur Leukocyte Esterase Urine RBC Urine WBC 857 H Ur Squamous Epith Cells 1 < 1 Calcium Oxalate Crystal 1+ A Urine Bacteria 2+ A 2+ A Hyaline Casts 1 Ur Culture Indicated? Yes Blood Type Antibody Screen Crossmatch Blood Bank Wristband ID 03/15/25 03/15/25 03/15/25 01:10 06:30 12:06 WBC 21.3 H RBC 2.73 L Hgb 7.9 L 8.0 L 8.7 L Hct 24.5 L 24.6 L 26.1 L MCV 90 MCH 29.3 MCHC 32.5 RDW Std Deviation 53.1 H Plt Count 478 H D Neut % (Auto) 69 Lymph % (Auto) 12 Esmeralda % (Auto) 10 Eos % (Auto) 1 Baso % (Auto) 1 Neut # (Auto) 14.8 H Lymph # (Auto) 2.5 Esmeralda # (Auto) 2.1 H Eos # (Auto) 0.3 Baso # (Auto) 0.2 Immature Gran # (Auto) 1.40 H Absolute Nucleated RBC 0.05 H Immature Gran % 7 H Nucleated RBC % 0 PT INR APTT Sodium 130 L Potassium 4.3 Chloride 95 L Carbon Dioxide 25.8 Anion Gap 9 BUN 26 H Creatinine 1.6 H Estim Creat Clear Calc 27.3 L eGFR 32 L BUN/Creatinine Ratio 16 Glucose 90 Calculated Osmolality 265 L Lactic Acid Calcium 8.5 Corrected Calcium 9.2 Magnesium Total Bilirubin 1.5 H AST 14 ALT < 7 L Alkaline Phosphatase 184 H D Troponin I B-Natriuretic Peptide Total Protein 5.8 Albumin 3.1 L Globulin 2.7 Albumin/Globulin Ratio 1.1 L Lipase Procalcitonin Ur Collection Type Urine Color Urine Clarity Urine pH Ur Specific [place] Urine Protein Urine Glucose (UA) Urine Ketones Urine Blood Urine Nitrite Urine Bilirubin Urine Urobilinogen (Auto) Ur Leukocyte Esterase Urine RBC Urine WBC Ur Squamous Epith Cells Calcium Oxalate Crystal Urine Bacteria Hyaline Casts Ur Culture Indicated? Blood Type Antibody Screen Crossmatch Blood Bank Wristband ID Quality Measures Quality Measures none Advance care planning discussed with:: patient Assessment & Plan Assessment Current Active Medications: Generic Name Dose Route Start Last Admin Trade Name Freq PRN Reason Stop Dose Admin Acetaminophen 650 mg 03/15/25 07:26 03/15/25 07:56 Acetaminophen 325 Mg Tablet PO 04/14/25 07:25 650 mg Q6HR PRN Administration PAIN OR FEVER > 101 Amiodarone HCl 200 mg 03/14/25 21:00 03/15/25 08:06 Amiodarone Hcl 200 Mg Tablet PO 04/13/25 20:59 200 mg BID EULALIA Administration Amlodipine Besylate 5 mg 03/15/25 09:00 03/15/25 08:08 Amlodipine Besylate 5 Mg Tablet PO 04/14/25 08:59 Not Given QDAY EULALIA Fluticasone Propionate 1 spray 03/14/25 20:28 Fluticasone Lit [place] 0.05% 16 Gm Btl NASAL 04/13/25 20:27 QDAY PRN ALLERGY Folic Acid 5 mg 03/15/25 09:00 03/15/25 08:04 Folic Acid 1 Mg Tablet PO 04/14/25 08:59 5 mg QDAY EULALIA Administration Heparin Sodium (Porcine) 3,500 unit 03/15/25 08:37 03/15/25 12:05 Heparin Sod Inj 1000 Unit/Ml Vial 10 Ml INDWELLCAT 03/29/25 08:36 3,500 unit PRN PRN Administration DIALYSIS Albumin Human 25 gm in 100 mls @ 100 mls/min 03/15/25 08:37 03/15/25 09:08 Albuminar-25 Ivpb IV 100 mls/min PRN PRN Administration DIALYSIS Piperacillin/Tazobactam/Dextrose 3.375 gm in 50 mls @ 12.5 mls/hr 03/15/25 22:00 Zosyn IV 03/22/25 21:59 Q8HR EULALIA Lactobacillus Rhamnosus 1 cap 03/15/25 09:00 03/15/25 08:07 Lactobacillus Rhamnosus 1 Cap PO 04/14/25 08:59 1 cap QDAY EULALIA Administration Levothyroxine Sodium 125 mcg/ 175 mcg 03/15/25 06:00 03/15/25 05:40 Levothyroxine Sodium 50 mcg PO 04/14/25 05:59 175 mcg ACBR EULALIA Administration Loratadine 10 mg 03/15/25 09:00 03/15/25 08:07 Loratadine 10 Mg Tablet PO 04/14/25 08:59 10 mg QDAY EULALIA Administration Non-Formulary Medication 800 mcg 03/15/25 09:00 03/15/25 08:08 Biotin PO 04/14/25 08:59 Not Given QDAY EULALIA Non-Formulary Medication 1 tab 03/14/25 22:00 03/15/25 14:30 Chrom Janki/Brindall Mccrary (Garcinia Cambogia Tablet) PO 04/13/25 21:59 Not Given TID EULALIA Non-Formulary Medication 100 mcg 03/15/25 09:00 03/15/25 08:07 Cyanocobalamin (Vitamin B-12) [Vitamin B-12] PO 04/14/25 08:59 Not Given QDAY EULALIA Pantoprazole Sodium 40 mg 03/14/25 21:00 03/15/25 08:07 Pantoprazole Inj 40 Mg Vial IVP 04/13/25 20:59 40 mg BID EULALIA Administration Plan 79 yo female with PMH of A-fib NOT on ELIQUIS, CHF, HTN, Hypothyroidism, CKD with urinary retention on HD, RA admitted for acute GI bleed #GI bleed Likely upper GI bleed Patient presented with several bloody bowel movements at the nursing facility and strongly positive fecal occult blood Patient was previously discharged with a hemoglobin of 10 which dropped down to 7.9 and this presentation GI was consulted in the ED Plan: ? Type and screen ? 1 unit of PRBCs ordered to transfuse now ? Protonix IV twice daily ? NPO in preparation for endoscopy ? Appreciate GI recommendations ? Will monitor hemoglobin #Acute hypoxic respiratory failure # HFpEF with EF of 55 to 60% Patient presented with hypoxia requiring 6 L of nasal cannula to saturate 99% BNP was elevated at 1823 which is limiting considering she has urinary retention Imaging reveals pleural effusions and vascular congestion and there is 4+ pitting edema on physical examination bilaterally lower extremities Plan: ? Will remove fluids through hemodialysis in the a.m. ? Strict MARTÍNEZ's ? Fluid restriction to 1500 cc/day #ADITYA on CKD on hemodialysis (Monday) Patient was recently discharged on hemodialysis due to her urinary retention and CKD She presents with 4+ pitting edema and vascular congestion as well as pleural effusions on CT scans Plan: ? Will perform hemodialysis in the a.m. ? Strict MARTÍNEZ's ? Avoid nephrotoxic medications ? Will follow daily CMP # UTI Patient's urine was strongly positive for UTI with WBCs in the 800s with 2+ bacteria and leukocyte esterase positivity Patient was started on Zosyn in the ED Plan: ? Continue Zosyn ? Follow-up on urine cultures and blood cultures ? Will downgrade antibiotics pending speciation #Hypertension Restarted patient's home amlodipine 5 mg p.o. daily #Hypothyroidism Restarted patient home dose of levothyroxine 120 5 in the morning before breakfast #A-fib Currently rate controlled Continue amiodarone 200 mg p.o. twice daily Health maintenance plan: Dispo: Patient will remain in telemetry for further management of her GI bleed and acute hypoxic respiratory failure Code: DNR/DNI DVT PPx: None GI PPx: Protonix 40 IV twice daily FEN: N.p.o. until EGD I discussed patient's care with attending physician, Dr Jad Bourgeois PGY3 Attending Provider Attestation/Addendum Patient seen and examined with resident physician Dr. Bourgeois. Note reviewed, agree with findings and recommendations. Patient currently seen on dialysis. Tolerating dialysis without any problems. Hemodialysis for 3 hours, 2K, ultrafiltration 2-3 L, Epogen 6000, no heparin ordered. Plan of care discussed with the dialysis nurse. Please see dialysis flowsheet for further details. 1 unit PRBC will be given today Patient going for endoscopy postdialysis. Plan of care discussed with Dr. Mendoza.
[2025-03-15] MEDS: PIPER/TAZO 3.375 GM PREMIX 3.375 GM/50 ML BAG IV (21:11)
[2025-03-16] VITALS (21 sets, daily range): BP systolic 107–129; BP diastolic 69–87; PULSE 82–101; RESP 12–22; TEMP 36.1–36.8; O2SAT 90–98
[2025-03-16] MEDS: ACETAMINOPHEN 325 MG TABLET 650 MG PO (03:46)
[2025-03-16] MEDS: LEVOTHYROXINE SODIUM 125 MCG, LEVOTHYROXINE SODIUM 50 MCG 175 MCG PO (05:16)
[2025-03-16] MEDS: PIPER/TAZO 3.375 GM PREMIX 3.375 GM/50 ML BAG IV ×2 (05:20→21:09)
[2025-03-16 06:33] LABS: Basophils # (Auto) 0.2 Thou/mm3 (0.0-0.2); Basophils % (Auto) 1 % (0-2.5); Eosinophils # (Auto) 0.1 Thou/mm3 (0.0-0.5); Eosinophils % (Auto) 1 % (0-10); Hematocrit 26.2 % (36.0-46.0); Immature Granulocytes % (Auto) 5 % (0-0); Immature Granulocytes Auto 0.93 Thou/mm3 (0.00-0.00); Lymphocytes # (Auto) 1.6 Thou/mm3 (1.0-4.8); Lymphocytes % (Auto) 9 % (10-50); Mean Corpuscular HGB Conc 33.2 g/dl (31.0-37.0); Mean Corpuscular Hemoglobin 29.7 pg (25.0-35.0); Mean Corpuscular Volume 89 fL (80-100); Monocytes # (Auto) 1.7 Thou/mm3 (0.0-0.8); Monocytes % (Auto) 9 % (0-12); Neutrophils # (Auto) 13.7 Thou/mm3 (1.8-7.7); Neutrophils % (Auto) 75 % (37-80); Nucleated Red Blood Cell # 0.07 Thou/mm3 (0.00-0.00); Nucleated Red Blood Cell % 0 /100 WBC (0); Platelet Count 418 Thou/mm3 (140-440); RDW Standard Deviation 52.3 fL (36.4-46.3); Red Blood Count 2.93 Miln/mm3 (4.00-5.20); White Blood Count 18.2 Thou/mm3 (3.6-11.0)
[2025-03-16 06:35] LABS: Hemoglobin 8.7 g/dL (12.0-16.0)
[2025-03-16 06:37] LABS: Alanine Aminotransferase < 7 U/L (10-49); Albumin, Serum 3.1 gm/dL (3.4-4.8); Albumin/Globulin Ratio 1.1 (1.2-2.2); Alkaline Phosphatase 173 U/L (46-116); Anion Gap 10 (7-16); Aspartate Amino Transferase 17 U/L (0-34); BUN/Creatinine Ratio 16 Ratio (12-20); Bilirubin,Total 1.9 mg/dL (0.3-1.2); Blood Urea Nitrogen 24 mg/dL (9-23); Calcium 8.2 mg/dL (8.3-10.6); Calcium (Corrected) 8.9 mg/dL (8.5-10.1); Carbon Dioxide 26.1 mMol/L (20.0-31.0); Chloride 95 mMol/L (98-107); Creatinine (Component) 1.5 mg/dL (0.6-1.3); Estimated Creatinine Clearance 30.8 mL/min (>60); Globulin 2.9 gm/dL (2.3-3.5); Glucose 110 mg/dL (74-106); Osmolality,Calculated 267 (275-295); Potassium 3.7 mMol/L (3.4-5.1); Sodium 131 mMol/L (136-145); eGFR 35 See Note
--- NOTE | 2025-03-16 09:10 | PD.NEPHPROG ---
Documentation for date of: 03/16/25 Subjective Subjective Interval history: Ms. 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 Patient was seen in the ED and she states that she has had a couple of episodes of dark stools in the nursing facility. She denies any pain however she is fatigued and weak with mild SOB. She was recently in our ED on 03/06/25 for similar episode, however we did not have GI services at the time and when given the option to be transferred out for intervention the patient declined and was discharged back to nursing facility. She denies any other associated symptoms. In the ED patient was stable with BP of 116/76, pulse 87, RR 22, Temp 97.8, O2 Sat 99 on 6L NC CBC was significant for a WBC of 23.5, hemoglobin of 8.6 and a platelet count of 617. CMP was significant for sodium of 131 with a BUN of 25 and a creatinine of 1.7 from a baseline of 1.4. BNP was slightly elevated at 1823. UA was positive for UTI with a turbid urine and WBCs of 857 with 2+ urine bacteria and positive leukocyte esterase. Imaging of the abdomen and pelvis CT revealed vascular congestion with bibasilar pneumonia and moderate bilateral pleural effusions, cirrhosis, moderate ascites, anasarca and moderate stools in the rectum with diffuse thickening of the rectal wall. GI was consulted and patient was placed n.p.o. in preparation for possible endoscopy in the morning. Patient will be admitted for further management of her upper GI bleed as well as administration of her session of dialysis during hospitalization. 03/15/25: Patient seen and examined in telemetry today. There were no major overnight events the patient is doing okay this morning. She received hemodialysis for about 3 hours removing about 2 L of fluid. Patient will undergo endoscopy for her GI bleed and will advance diet as tolerated once she completes it. 03/16/2025 patient currently seen in telemetry. Going for colonoscopy today. Hemoglobin stable. Next dialysis scheduled for Monday. Made herself DNR/DNI. Review of Systems Review of Systems Narrative Review of Systems: Denies any chest pain. Does have some shortness of breath. No black stools. Exam Vital Signs Temp Pulse Resp BP Pulse Ox O2 Del Method O2 Flow Rate 36.6 C 89 20 122/78 98 Nasal Cannula 1.5 03/16/25 08:00 03/16/25 08:25 03/16/25 08:00 03/16/25 08:25 03/16/25 08:00 03/16/25 08:00 03/16/25 08:00 Narrative Exam Constitutional: Pale looking elderly female in no acute distress Right eye legally blind CVS: RRR, S1 and S2 present, no murmurs, rubs or gallops . There is a dialysis catheter on the right chest wall without tenderness or erythema RESP: CTAB, no SOB, no rales, rhonchi or wheezing. No respiratory Distress GI: Normal BS, Nontender/Nondistended. MSK: Full range of motion, No trauma or deformities or masses. 2+ pitting edema bilateral lower extremities Skin: Warm to touch, Dry. No rashes or lesions. No hematomas Neuro: personal service workers II-XII grossly intact. Sensation grossly intact. Psych: (AAO) x3 . Appropriate mood and affect. Objective Labs 03/17/25 05:15 03/17/25 05:15 Labs: Laboratory Results - last 24 hr 03/14/25 03/15/25 03/16/25 16:16 12:06 05:25 WBC 18.2 H RBC 2.93 L Hgb 8.7 L 8.7 L Hct 26.1 L 26.2 L MCV 89 MCH 29.7 MCHC 33.2 RDW Std Deviation 52.3 H Plt Count 418 D Neut % (Auto) 75 Lymph % (Auto) 9 L [place] % (Auto) 9 Eos % (Auto) 1 Baso % (Auto) 1 Neut # (Auto) 13.7 H Lymph # (Auto) 1.6 [place] # (Auto) 1.7 H Eos # (Auto) 0.1 Baso # (Auto) 0.2 Immature Gran # (Auto) 0.93 H Absolute Nucleated RBC 0.07 H Immature Gran % 5 H Nucleated RBC % 0 Sodium 131 L Potassium 3.7 D Chloride 95 L Carbon Dioxide 26.1 Anion Gap 10 BUN 24 H Creatinine 1.5 H Estim Creat Clear Calc 30.8 L eGFR 35 L BUN/Creatinine Ratio 16 Glucose 110 H Calculated Osmolality 267 L Calcium 8.2 L Corrected Calcium 8.9 Total Bilirubin 1.9 H AST 17 ALT < 7 L Alkaline Phosphatase 173 H Total Protein 6.0 Albumin 3.1 L Globulin 2.9 Albumin/Globulin Ratio 1.1 L Blood Type A Positive Antibody Screen NEGATIVE Crossmatch See Detail Blood Bank Wristband ID Yes Assessment & Plan Additional Assessment & Plan Additional Plan: 79 yo female with PMH of A-fib NOT on ELIQUIS, CHF, HTN, Hypothyroidism, CKD with urinary retention on HD, RA admitted for acute GI bleed #GI bleed Likely upper GI bleed Patient presented with several bloody bowel movements at the nursing facility and strongly positive fecal occult blood Patient was previously discharged with a hemoglobin of 10 which dropped down to 7.9 and this presentation GI was consulted in the ED Plan: ? ? Protonix IV twice daily ? Had endoscopy yesterday. Colonoscopy pending today ? Appreciate GI recommendations ? Will monitor hemoglobin #Acute hypoxic respiratory failure # HFpEF with EF of 55 to 60% Patient presented with hypoxia requiring 6 L of nasal cannula to saturate 99% BNP was elevated at 1823 which is limiting considering she has urinary retention Imaging reveals pleural effusions and vascular congestion and there is 4+ pitting edema on physical examination bilaterally lower extremities Plan: ? Removed 3 L yesterday with dialysis ? Strict MARTÍNEZ's ? Fluid restriction to 1500 cc/day #ADITYA on CKD on hemodialysis (Monday) Patient was recently discharged on hemodialysis due to her urinary retention and CKD She presents with 4+ pitting edema and vascular congestion as well as pleural effusions on CT scans Plan: ? Next dialysis scheduled for Monday ? Strict MARTÍNEZ's ? Avoid nephrotoxic medications ? Will follow daily CMP # UTI Patient's urine was strongly positive for UTI with WBCs in the 800s with 2+ bacteria and leukocyte esterase positivity Patient was started on Zosyn in the ED Plan: ? Continue Zosyn ? Follow-up on urine cultures and blood cultures ? Will downgrade antibiotics pending speciation #Hypertension Restarted patient's home amlodipine 5 mg p.o. daily #Hypothyroidism Restarted patient home dose of levothyroxine 120 5 in the morning before breakfast #A-fib Currently rate controlled Continue amiodarone 200 mg p.o. twice daily Health maintenance plan: Dispo: Patient will remain in telemetry for further management of her GI bleed and acute hypoxic respiratory failure Code: DNR/DNI DVT PPx: None GI PPx: Protonix 40 IV twice daily FEN: Clear liquid diet
--- NOTE | 2025-03-16 15:53 | PC.NURSE ---
Pt was taken to colonoscopy
[2025-03-16] MEDS: PANTOPRAZOLE INJ 40 MG VIAL IVP (20:39)
[2025-03-16] MEDS: AMIODARONE HCL 200 MG TABLET PO (20:39)
[2025-03-16] MEDS: LORazepam 0.5 MG TABLET PO (20:40)
[2025-03-17] VITALS (10 sets, daily range): BP systolic 109–123; BP diastolic 67–77; PULSE 85–100; RESP 15–24; TEMP 35.9–36.6; O2SAT 90–98; BMI 13.0
[2025-03-17] MEDS: ACETAMINOPHEN 325 MG TABLET 650 MG PO ×3 (04:03→20:25)
[2025-03-17] MEDS: PIPER/TAZO 3.375 GM PREMIX 3.375 GM/50 ML BAG IV ×3 (05:25→21:06)
[2025-03-17] MEDS: LEVOTHYROXINE SODIUM 125 MCG, LEVOTHYROXINE SODIUM 50 MCG 175 MCG PO (05:25)
[2025-03-17 05:45] LABS: Basophils # (Auto) 0.2 Thou/mm3 (0.0-0.2); Basophils % (Auto) 1 % (0-2.5); Eosinophils # (Auto) 0.1 Thou/mm3 (0.0-0.5); Eosinophils % (Auto) 0 % (0-10); Hematocrit 25.6 % (36.0-46.0); Immature Granulocytes % (Auto) 4 % (0-0); Lymphocytes # (Auto) 1.9 Thou/mm3 (1.0-4.8); Lymphocytes % (Auto) 10 % (10-50); Mean Corpuscular HGB Conc 33.6 g/dl (31.0-37.0); Mean Corpuscular Hemoglobin 29.9 pg (25.0-35.0); Mean Corpuscular Volume 89 fL (80-100); Monocytes # (Auto) 1.9 Thou/mm3 (0.0-0.8); Monocytes % (Auto) 10 % (0-12); Neutrophils # (Auto) 14.3 Thou/mm3 (1.8-7.7); Neutrophils % (Auto) 75 % (37-80); Nucleated Red Blood Cell # 0.06 Thou/mm3 (0.00-0.00); Nucleated Red Blood Cell % 0 /100 WBC (0); Platelet Count 402 Thou/mm3 (140-440); RDW Standard Deviation 52.1 fL (36.4-46.3); Red Blood Count 2.88 Miln/mm3 (4.00-5.20); White Blood Count 19.1 Thou/mm3 (3.6-11.0)
[2025-03-17 05:51] LABS: Hemoglobin 8.6 g/dL (12.0-16.0)
[2025-03-17 06:04] LABS: Alanine Aminotransferase < 7 U/L (10-49); Albumin/Globulin Ratio 1.1 (1.2-2.2); Alkaline Phosphatase 150 U/L (46-116); Anion Gap 9 (7-16); Aspartate Amino Transferase 13 U/L (0-34); BUN/Creatinine Ratio 15 Ratio (12-20); Bilirubin,Total 1.3 mg/dL (0.3-1.2); Blood Urea Nitrogen 23 mg/dL (9-23); Calcium (Corrected) 8.8 mg/dL (8.5-10.1); Carbon Dioxide 26.8 mMol/L (20.0-31.0); Chloride 96 mMol/L (98-107); Creatinine (Component) 1.5 mg/dL (0.6-1.3); Estimated Creatinine Clearance 30.8 mL/min (>60); Globulin 2.8 gm/dL (2.3-3.5); Glucose 115 mg/dL (74-106); Osmolality,Calculated 269 (275-295); Sodium 132 mMol/L (136-145); Total Protein 5.8 gm/dL (5.7-8.2); eGFR 35 See Note
[2025-03-17] MEDS: LACTOBACILLUS RHAMNOSUS 1 CAP PO (08:11)
[2025-03-17] MEDS: PANTOPRAZOLE INJ 40 MG VIAL IVP ×2 (08:11→20:20)
[2025-03-17] MEDS: AMIODARONE HCL 200 MG TABLET PO ×2 (08:12→20:20)
[2025-03-17] MEDS: amLODIPine BESYLATE 5 MG TABLET PO (08:12)
[2025-03-17] MEDS: FOLIC ACID 1 MG TABLET 5 MG PO (08:12)
[2025-03-17] MEDS: POTASSIUM CHL 10 mEq IVPB 10 MEQ/100 ML BAG 50 MEQ IV (08:13)
[2025-03-17] MEDS: lorataDINE 10 MG TABLET PO (08:13)
[2025-03-17 08:15] LABS: Magnesium 1.5 mg/dL (1.6-2.6); Phosphorous 3.5 mg/dL (2.4-5.1)
[2025-03-17] MEDS: POTASSIUM CHLORIDE 10% 20 MEQ/15 ML UDC 40 MEQ GT (08:21)
--- NOTE | 2025-03-17 08:51 | ESDS_ITS ---
Planned Discharge Date 03/17/25 DS: Providers Provider Date of admission: 03/14/25 19:59 Primary care physician: Physician No Primary/Family Admitting Provider: Ruth Street MD Attending Provider on Admission: Ruth Street MD Consults: 03/14/25 20:00 Consult to Gastroenterology Stat Comment: gi bleed Consulting Provider: Kimmy Mendoza 03/15/25 03:30 Referral Wound Care Routine Comment: BILATERAL BUTTOCKS 03/16/25 16:32 Referral Wound Care Urgent Comment: Please assess skin to buttock area Attending Provider on DC: Hao Bourgeois MD Discharging Provider: Hao Bourgeois MD DS: Diagnosis Problem List Completed Was Problem List Reviewed/Reconciled?: Yes Hospital Course Hospital Course Hospital course: Ms. Ayoub is a 79 yo female with PMH of A-fib NOT on ELIQUIS, CHF, HTN, Hypothyroidism, CKD with urinary retention on HD, RA that was recently discharged from our facility due to severe GI bleed is returning with episodes o f blood per rectum. Patient was seen in the ED and she states that she has had a couple of episodes of dark stools in the nursing facility. She denies any pain however she is fatigued and weak with mild SOB. She was recently in our ED on 03/06/25 for similar episode, however we did not have GI services at the time and when given the option to be transferred out for intervention the patient declined and was discharged back to nursing facility. She denies any other associated symptoms. In the ED patient was stable with BP of 116/76, pulse 87, and hemoglobin of 8.6 and a platelet count of 617. Patient received 1 unit of PRBC during her stay. Patient was also found to have a mild ADITYA on her CKD. Her UA was strongly positive for UTI which grew ESBL E. coli that was sensitive to Augmentin. During her stay patient received an upper endoscopy as well as a colonoscopy which did not show any delmar bleeding. Patient's episode of dark stools was likely residual from previous admission. Patient's hemoglobin remained stable throughout her stay and she had another nonbloody bowel movement during her stay. Patient is stable to be discharged back to facility. Problems addressed during this stay #GI bleed #Acute hypoxic respiratory failure # HFpEF with EF of 55 to 60% #ADITYA on CKD on hemodialysis (Monday) # UTI #Hypertension #Hypothyroidism #A-fib Plan: Patient can be discharged back to facility She can continue taking all previous medications as prescribed Patient to take augmentin twice a day for 4 more days to complete her regimen for UTI Patient can follow up with PCP in 1-2 weeks Patient can return to the ER if her symptoms worsen of she experiences new symptoms. If patient continues to have any more dark stools or bloody bowel movements she could benefit from pill endoscopy. Thank you for allowing us to care for the patient during her time at [facility] I discussed patient's care with attending physician, Dr Jad Bourgeois PGY3 Status at Discharge Cognitive/behavioral status at discharge: stable Functional status at discharge: wheelchair bound Overall status at discharge: patient is not back to baseline Time Spent with Patient Time attestation: Total time spent providing and/or coordinating discharge services: Time spent: Greater than 30 minutes Exam Vital Signs Temp Pulse Resp BP Pulse Ox O2 Del Method O2 Flow Rate 97.0 F 87 19 123/74 90 L Nasal Cannula 3.5 03/17/25 07:55 03/17/25 08:12 03/17/25 07:55 03/17/25 08:12 03/17/25 07:55 03/17/25 07:55 03/17/25 07:55 Narrative Exam Constitutional: Pale looking elderly female in no acute distress CVS: RRR, S1 and S2 present, no murmurs, rubs or gallops . There is a dialysis catheter on the right chest wall without tenderness or erythema RESP: CTAB, no SOB, no rales, rhonchi or wheezing. No respiratory Distress GI: Normal BS, Nontender/Nondistended. MSK: Full range of motion, No trauma or deformities or masses. 4+ pitting edema bilateral lower extremities Skin: Warm to touch, Dry. No rashes or lesions. No hematomas Neuro: shank archer II-XII grossly intact. Sensation grossly intact. Psych: (AAO) x3 . Appropriate mood and affect. Discharge Plan Plan Patient Disposition: Xfer Skilled Nsg Fac (SNF) Patient condition on transfer: Stable Care Plan Goals: Patient can be discharged back to facility She can continue taking all previous medications as prescribed Patient to take augmentin twice a day for 4 more days to complete her regimen for UTI Patient can follow up with PCP in 1-2 weeks Patient can return to the ER if her symptoms worsen of she experiences new symptoms. Prescriptions/Referrals Prescriptions/Med Rec: New amoxicillin-pot clavulanate 500-125 mg tablet 1 tab PO BID 4 Days Qty: 9 0RF Continued amlodipine [Norvasc] 5 MG tablet 5 mg PO QDAY Qty: 0 loratadine [Claritin] 10 MG tablet 10 mg PO QDAY Qty: 0 Chrom Janki/Brindall Mccrary (Garcinia Cambogia Tablet) 1 EACH tablet 1 tab PO TID Qty: 0 Fluticasone Propionate 16 GM SPRAY 1 spry IH PRN PRN (Reason: ALLERGY) Qty: 0 cyanocobalamin (vitamin B-12) [Vitamin B-12] 100 MCG tablet 100 mcg PO QDAY Qty: 0 biotin 800 MCG tablet 800 mcg PO QDAY Qty: 0 Culturelle 1 CAP capsule 1 cap PO QDAY Qty: 0 amiodarone 200 mg Tablet 200 mg PO BID Qty: 1 0RF sucralfate 100 mg/mL Suspension 1 g PO TID Qty: 1 0RF folic acid 1 mg Tablet 5 mg PO QDAY Qty: 1 0RF levothyroxine 175 mcg capsule 175 mcg PO QDAY Qty: 1 0RF diphenhydramine HCl [Allergy (diphenhydramine)] 25 mg capsule 25 mg PO Q12H PRN (Reason: allergy) bisacodyl [Dulcolax (bisacodyl)] 10 mg suppository 10 mg [place] PRN PRN (Reason: constipation) Rx Instructions: if MOM is ineffective hydroxyzine HCl 25 mg tablet 25 mg PO Q12H PRN (Reason: itching) melatonin 3 mg tablet 6 mg PO HS PRN (Reason: sleep) mirtazapine 7.5 mg tablet 7.5 mg PO QDAY tramadol 50 mg tablet 50 mg PO Q12H PRN (Reason: pain) pantoprazole [Protonix] 40 mg tablet,delayed release (DR/EC) 40 mg PO QDAY Referrals: No Primary/Family,Physician [Primary Care Provider] - Patient/Caregiver Discharge Instructions Education Materials: Bleeding Gastrointestinal, AFL/Afib, Urinary Tract Infections in Women Print Language: Hungarian Stand Alone Forms: Shandra Award Info., Patient Portal Info Letter Discharge Order Discharge Orders: Discharge (Routine); Ordered 03/17/25 Ordered By: Hao Bourgeois Quality Discharge Quality Measures VTE prophylaxis MD Attestestation MD Attestation Patient seen and examined with resident physician Dr. Bourgeois. Note reviewed, agree with findings and recommendations. No active bleed. Patient made herself DNR/DNI. Did not want any hospice at this point. Wants to go back to rehab with Landa catheter. She is on dialysis 3 times weekly TTS. Supposed to be discharged today-certified social workers in health care called me that rehab requesting an extra day for authorization. Will hold discharge today.
[2025-03-17] MEDS: Magnesium Sulfate 2 GM Ivpb 2 GM/50 ML BAG IV (09:08)
--- NOTE | 2025-03-17 10:37 | CHAP ---
Patient expressed gratitude for visit and prayer.
[2025-03-17] MEDS: POTASSIUM CHLORIDE 10% 20 MEQ/15 ML UDC GT (11:13)
--- NOTE | 2025-03-17 12:05 | PC.SS ---
SS attempted to contact pt son, Jerry Ayoub to inform him of DC back to [facility]. No answer, VM left.
--- NOTE | 2025-03-17 14:35 | PC.SS ---
SS spoke to Ashleigh at [facility] who informed SS that pt will require a new auth being it has been 3 days of hospitalization. SS spoke to Alicia at [facility] [phone] wh stated pt will need a new PT eval. SS called RN, Latonya and informed her of need for PT order to be put in by Dr. Street. Alicia also stated pt is at risk of no auth due to pt refusing PT services at [facility].
--- NOTE | 2025-03-17 14:38 | PC.SS ---
SS canceled transport with [facility]. SS spoke to
--- NOTE | 2025-03-17 18:58 | PD.IMPROG ---
Documentation for date of: 03/17/25 Subjective Subjective Interval history: Hemoglobin hematocrit 8.6 and 25.6 Patient in the process of getting discharged Colonoscopy showed a transverse colon polyp endoscopic resected diverticulosis: Internal hemorrhoids Upper endoscopy showed gastritis and esophagitis Upon discharge patient can be followed by the PCP Exam Vital Signs Temp Pulse Resp BP Pulse Ox O2 Del Method O2 Flow Rate 97.4 F 85 24 H 112/70 97 Nasal Cannula 3.5 03/17/25 16:00 03/17/25 16:00 03/17/25 16:00 03/17/25 16:00 03/17/25 16:00 03/17/25 16:00 03/17/25 16:00 Objective Labs 03/17/25 05:15 03/17/25 05:15 Labs: Laboratory Results - last 24 hr 03/17/25 05:15 WBC 19.1 H RBC 2.88 L Hgb 8.6 L Hct 25.6 L MCV 89 MCH 29.9 MCHC 33.6 RDW Std Deviation 52.1 H Plt Count 402 Neut % (Auto) 75 Lymph % (Auto) 10 [place] % (Auto) 10 Eos % (Auto) 0 Baso % (Auto) 1 Neut # (Auto) 14.3 H Lymph # (Auto) 1.9 [place] # (Auto) 1.9 H Eos # (Auto) 0.1 Baso # (Auto) 0.2 Immature Gran # (Auto) 0.70 H Absolute Nucleated RBC 0.06 H Immature Gran % 4 H Nucleated RBC % 0 Sodium 132 L Potassium 3.0 L D Chloride 96 L Carbon Dioxide 26.8 Anion Gap 9 BUN 23 Creatinine 1.5 H Estim Creat Clear Calc 30.8 L eGFR 35 L BUN/Creatinine Ratio 15 Glucose 115 H Calculated Osmolality 269 L Calcium 8.0 L Corrected Calcium 8.8 Phosphorus 3.5 Magnesium 1.5 L Total Bilirubin 1.3 H D AST 13 ALT < 7 L Alkaline Phosphatase 150 H D Total Protein 5.8 Albumin 3.0 L Globulin 2.8 Albumin/Globulin Ratio 1.1 L Impressions Impression: Gastritis Esophagitis Transverse colon polyp endoscopically resected Diverticulosis sigmoid and descending colon Plan As in HPI Assessment & Plan A&P Narrative # Occult GI bleeding most likely mucosal oozing of blood on the previous endoscopy Plan repeat endoscopy Tomorrow morning to evaluate the cause of bleeding IV Protonix serial CBC Will follow the patient Other medical problems include 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
[2025-03-18] VITALS (29 sets, daily range): BP systolic 106–134; BP diastolic 65–90; PULSE 83–113; RESP 16–34; TEMP 36.1–37.1; O2SAT 92–100; BMI 25.4
[2025-03-18] MEDS: ACETAMINOPHEN 325 MG TABLET 650 MG PO ×3 (03:20→21:08)
[2025-03-18] MEDS: LEVOTHYROXINE SODIUM 125 MCG, LEVOTHYROXINE SODIUM 50 MCG 175 MCG PO (05:18)
[2025-03-18] MEDS: PIPER/TAZO 3.375 GM PREMIX 3.375 GM/50 ML BAG IV ×3 (05:18→21:10)
[2025-03-18 05:42] LABS: Basophils # (Auto) 0.2 Thou/mm3 (0.0-0.2); Basophils % (Auto) 1 % (0-2.5); Eosinophils # (Auto) 0.5 Thou/mm3 (0.0-0.5); Eosinophils % (Auto) 2 % (0-10); Hematocrit 27.2 % (36.0-46.0); Immature Granulocytes % (Auto) 3 % (0-0); Immature Granulocytes Auto 0.65 Thou/mm3 (0.00-0.00); Lymphocytes # (Auto) 2.5 Thou/mm3 (1.0-4.8); Lymphocytes % (Auto) 11 % (10-50); Mean Corpuscular HGB Conc 33.1 g/dl (31.0-37.0); Mean Corpuscular Hemoglobin 30.1 pg (25.0-35.0); Mean Corpuscular Volume 91 fL (80-100); Monocytes # (Auto) 1.9 Thou/mm3 (0.0-0.8); Monocytes % (Auto) 8 % (0-12); Neutrophils # (Auto) 16.8 Thou/mm3 (1.8-7.7); Neutrophils % (Auto) 75 % (37-80); Nucleated Red Blood Cell # 0.03 Thou/mm3 (0.00-0.00); Nucleated Red Blood Cell % 0 /100 WBC (0); Platelet Count 438 Thou/mm3 (140-440); Red Blood Count 2.99 Miln/mm3 (4.00-5.20); White Blood Count 22.4 Thou/mm3 (3.6-11.0)
[2025-03-18 06:34] LABS: Alanine Aminotransferase < 7 U/L (10-49); Albumin, Serum 3.1 gm/dL (3.4-4.8); Alkaline Phosphatase 155 U/L (46-116); Anion Gap 10 (7-16); Aspartate Amino Transferase 15 U/L (0-34); BUN/Creatinine Ratio 17 Ratio (12-20); Bilirubin,Total 1.5 mg/dL (0.3-1.2); Blood Urea Nitrogen 27 mg/dL (9-23); Calcium (Corrected) 8.7 mg/dL (8.5-10.1); Carbon Dioxide 23.9 mMol/L (20.0-31.0); Chloride 98 mMol/L (98-107); Creatinine (Component) 1.6 mg/dL (0.6-1.3); Estimated Creatinine Clearance 28.8 mL/min (>60); Glucose 132 mg/dL (74-106); Magnesium 1.8 mg/dL (1.6-2.6); Osmolality,Calculated 271 (275-295); Potassium 3.8 mMol/L (3.4-5.1); Sodium 132 mMol/L (136-145); Total Protein 6.1 gm/dL (5.7-8.2); eGFR 32 See Note
--- NOTE | 2025-03-18 08:04 | PC.SS ---
Update: Plan is for the patient to receive dialysis today.
[2025-03-18] MEDS: LORazepam 0.5 MG TABLET PO ×2 (08:58→21:08)
--- NOTE | 2025-03-18 09:03 | PC.NURSE ---
Pt stating she is anxious, Lorazipam 0.5 mg given.
--- NOTE | 2025-03-18 09:12 | PD.NEPHDC ---
Planned Discharge Date 03/18/25 DS: Providers Provider Date of admission: 03/14/25 19:59 Primary care physician: Physician No Primary/Family Admitting Provider: Ruth Street MD Attending Provider on Admission: Ruth Street MD Consults: 03/14/25 20:00 Consult to Gastroenterology Stat Comment: gi bleed Consulting Provider: Kimmy Mendoza 03/15/25 03:30 Referral Wound Care Routine Comment: BILATERAL BUTTOCKS 03/16/25 16:32 Referral Wound Care Urgent Comment: Please assess skin to buttock area 03/17/25 14:36 Referral Physical Therapy Stat Comment: Physician Instructions: Attending Provider on DC: Ruth Street MD Discharging Provider: Ruth Street MD Discharge Diagnosis Discharge Diagnosis (1) Elevated troponin: Status: Acute Assessment & Plan: GI bleed #Acute hypoxic respiratory failure # HFpEF with EF of 55 to 60% #ADITYA on CKD on hemodialysis (Monday) # UTI #Hypertension #Hypothyroidism #A-fib Hospital Course Hospital Course Hospital course: Ms. 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 Patient was seen in the ED and she states that she has had a couple of episodes of dark stools in the nursing facility. She denies any pain however she is fatigued and weak with mild SOB. She was recently in our ED on 03/06/25 for similar episode, however we did not have GI services at the time and when given the option to be transferred out for intervention the patient declined and was discharged back to nursing facility. She denies any other associated symptoms. In the ED patient was stable with BP of 116/76, pulse 87, RR 22, Temp 97.8, O2 Sat 99 on 6L NC CBC was significant for a WBC of 23.5, hemoglobin of 8.6 and a platelet count of 617. CMP was significant for sodium of 131 with a BUN of 25 and a creatinine of 1.7 from a baseline of 1.4. BNP was slightly elevated at 1823. UA was positive for UTI with a turbid urine and WBCs of 857 with 2+ urine bacteria and positive leukocyte esterase. Imaging of the abdomen and pelvis CT revealed vascular congestion with bibasilar pneumonia and moderate bilateral pleural effusions, cirrhosis, moderate ascites, anasarca and moderate stools in the rectum with diffuse thickening of the rectal wall. GI was consulted and patient was placed n.p.o. in preparation for possible endoscopy in the morning. Patient will be admitted for further management of her upper GI bleed as well as administration of her session of dialysis during hospitalization. 03/15/25: Patient seen and examined in telemetry today. There were no major overnight events the patient is doing okay this morning. She received hemodialysis for about 3 hours removing about 2 L of fluid. Patient will undergo endoscopy for her GI bleed and will advance diet as tolerated once she completes it. 03/16/2025 patient currently seen in telemetry. Going for colonoscopy today. Hemoglobin stable. Next dialysis scheduled for Monday. Made herself DNR/DNI. Time Spent with Patient Time attestation: Total time spent providing and/or coordinating discharge services:35 minutes Exam Vital Signs Temp Pulse Resp BP Pulse Ox O2 Del Method O2 Flow Rate 36.6 C 104 H 20 121/74 95 Nasal Cannula 4 03/18/25 08:19 03/18/25 09:00 03/18/25 08:19 03/18/25 09:00 03/18/25 08:19 03/18/25 08:00 03/18/25 08:19 Narrative Exam Constitutional: Pale looking elderly female in no acute distress CVS: RRR, S1 and S2 present, no murmurs, rubs or gallops . There is a dialysis catheter on the right chest wall without tenderness or erythema RESP: CTAB, no SOB, no rales, rhonchi or wheezing. No respiratory Distress GI: Normal BS, Nontender/Nondistended. MSK: Full range of motion, No trauma or deformities or masses. 4+ pitting edema bilateral lower extremities Skin: Warm to touch, Dry. No rashes or lesions. No hematomas Neuro: pastoral assistant II-XII grossly intact. Sensation grossly intact. Psych: (AAO) x3 . Appropriate mood and affect. Discharge Plan Plan Patient Disposition: Xfer Skilled Nsg Fac (SNF) Patient condition on transfer: Stable Care Plan Goals: Patient can be discharged back to facility She can continue taking all previous medications as prescribed Patient to take augmentin twice a day for 4 more days to complete her regimen for UTI Patient can follow up with PCP in 1-2 weeks Patient can return to the ER if her symptoms worsen of she experiences new symptoms. Prescriptions/Referrals Prescriptions/Med Rec: New amoxicillin-pot clavulanate 500-125 mg tablet 1 tab PO BID 4 Days Qty: 9 0RF Continued amlodipine [Norvasc] 5 MG tablet 5 mg PO QDAY Qty: 0 loratadine [Claritin] 10 MG tablet 10 mg PO QDAY Qty: 0 Chrom Janki/Brindall Mccrary (Garcinia Cambogia Tablet) 1 EACH tablet 1 tab PO TID Qty: 0 Fluticasone Propionate 16 GM SPRAY 1 spry IH PRN PRN (Reason: ALLERGY) Qty: 0 cyanocobalamin (vitamin B-12) [Vitamin B-12] 100 MCG tablet 100 mcg PO QDAY Qty: 0 biotin 800 MCG tablet 800 mcg PO QDAY Qty: 0 Culturelle 1 CAP capsule 1 cap PO QDAY Qty: 0 amiodarone 200 mg Tablet 200 mg PO BID Qty: 1 0RF sucralfate 100 mg/mL Suspension 1 g PO TID Qty: 1 0RF folic acid 1 mg Tablet 5 mg PO QDAY Qty: 1 0RF levothyroxine 175 mcg capsule 175 mcg PO QDAY Qty: 1 0RF diphenhydramine HCl [Allergy (diphenhydramine)] 25 mg capsule 25 mg PO Q12H PRN (Reason: allergy) bisacodyl [Dulcolax (bisacodyl)] 10 mg suppository 10 mg [place] PRN PRN (Reason: constipation) Rx Instructions: if MOM is ineffective hydroxyzine HCl 25 mg tablet 25 mg PO Q12H PRN (Reason: itching) melatonin 3 mg tablet 6 mg PO HS PRN (Reason: sleep) mirtazapine 7.5 mg tablet 7.5 mg PO QDAY tramadol 50 mg tablet 50 mg PO Q12H PRN (Reason: pain) pantoprazole [Protonix] 40 mg tablet,delayed release (DR/EC) 40 mg PO QDAY Referrals: No Primary/Family,Physician [Primary Care Provider] - Patient/Caregiver Discharge Instructions Education Materials: Bleeding Gastrointestinal, AFL/Afib, Urinary Tract Infections in Women Print Language: Paraguayan Stand Alone Forms: Shandra Award Info., Patient Portal Info Letter Discharge Order Discharge Orders: Discharge (Routine); Ordered 03/17/25 Ordered By: Hao Bourgeois
--- NOTE | 2025-03-18 09:14 | PC.NURSE ---
Ven[place]os pressure to high, lines reversed.
[2025-03-18] MEDS: ALBUTEROL/IPRATROPIUM (Duoneb) RT SOL 3 ML NEBU INH (09:54)
--- NOTE | 2025-03-18 10:14 | PC.NURSE ---
Rt here to give pt. a breathing tx.
--- NOTE | 2025-03-18 10:36 | PC.SS ---
PAPER WRAPPING MACHINE OPERATOR attempted phone contact with [facility] staff, Alicia ([facility] [phone]); to confirm that [facility] has reviewed patient's physical therapy evaluation and made a decision if authorization to return to SNF will be granted. No response PAPER WRAPPING MACHINE OPERATOR left message requesting return call.
--- NOTE | 2025-03-18 11:23 | PC.SS ---
PROFESSOR OF BUSINESS ADMINISTRATION conducted phone contact with [facility] staffAlicia ([facility] [phone]); to confirm that [facility] has granted authorization for patient to return to [facility]. PROFESSOR OF BUSINESS ADMINISTRATION to schedule ambulance transport.
--- NOTE | 2025-03-18 12:32 | XR_ITS ---
Examination: AP chest single view Technique one AP portable semiupright chest single view Exam date and time: March 18, 2025 12:56 PM INDICATIONS: Shortness of breath gastrointestinal bleeding this week. FINDINGS: Mild to moderate CHF Moderate enlargement cardiac contour Prominent vascular congestion with perihilar and basilar edema Moderate right large left pleural effusions Left axillary surgical clips Right internal jugular dialysis catheter tip SVC IMPRESSION: Mild to moderate CHF
[2025-03-18] MEDS: HEPARIN SOD INJ 1000 UNIT/ML VIAL 10 ML 3500 UNIT INDWELLCAT (12:40)
--- NOTE | 2025-03-18 12:42 | PC.SS ---
Update: Chest X-Ray has been ordered for the patient. Patient has returned from dialysis session. Patient currently on 5L oxygen.
[2025-03-18] MEDS: AMIODARONE HCL 200 MG TABLET PO ×2 (12:54→21:08)
[2025-03-18] MEDS: PANTOPRAZOLE INJ 40 MG VIAL IVP ×2 (12:54→21:09)
[2025-03-18] MEDS: LACTOBACILLUS RHAMNOSUS 1 CAP PO (12:55)
[2025-03-18] MEDS: FOLIC ACID 1 MG TABLET 5 MG PO (12:55)
[2025-03-18] MEDS: lorataDINE 10 MG TABLET PO (12:55)
[2025-03-18] MEDS: amLODIPine BESYLATE 5 MG TABLET PO (12:56)
--- NOTE | 2025-03-18 13:14 | PD.NEPHPROG ---
Documentation for date of: 03/18/25 Subjective Subjective Interval history: Ms. 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 Patient was seen in the ED and she states that she has had a couple of episodes of dark stools in the nursing facility. She denies any pain however she is fatigued and weak with mild SOB. She was recently in our ED on 03/06/25 for similar episode, however we did not have GI services at the time and when given the option to be transferred out for intervention the patient declined and was discharged back to nursing facility. She denies any other associated symptoms. In the ED patient was stable with BP of 116/76, pulse 87, RR 22, Temp 97.8, O2 Sat 99 on 6L NC CBC was significant for a WBC of 23.5, hemoglobin of 8.6 and a platelet count of 617. CMP was significant for sodium of 131 with a BUN of 25 and a creatinine of 1.7 from a baseline of 1.4. BNP was slightly elevated at 1823. UA was positive for UTI with a turbid urine and WBCs of 857 with 2+ urine bacteria and positive leukocyte esterase. Imaging of the abdomen and pelvis CT revealed vascular congestion with bibasilar pneumonia and moderate bilateral pleural effusions, cirrhosis, moderate ascites, anasarca and moderate stools in the rectum with diffuse thickening of the rectal wall. GI was consulted and patient was placed n.p.o. in preparation for possible endoscopy in the morning. Patient will be admitted for further management of her upper GI bleed as well as administration of her session of dialysis during hospitalization. 03/15/25: Patient seen and examined in telemetry today. There were no major overnight events the patient is doing okay this morning. She received hemodialysis for about 3 hours removing about 2 L of fluid. Patient will undergo endoscopy for her GI bleed and will advance diet as tolerated once she completes it. 03/18/2025 patient currently seen in telemetry. Status post endoscopy and colonoscopy with no active bleed. Currently on dialysis. Complaining of significant shortness of breath. Gave breathing treatments, increase her oxygen requirements to 5 L. Will remove 4 L with dialysis today. Chest x-ray showed significant fluid overload. Hold discharge today. Made herself DNR/DNI. Review of Systems Review of Systems Narrative Review of Systems: Denies any chest pain. Does have significant shortness of breath. No black stools. Exam Vital Signs Temp Pulse Resp BP Pulse Ox O2 Del Method O2 Flow Rate 36.3 C 104 H 18 127/81 92 L Nasal Cannula 6 03/18/25 11:46 03/18/25 12:56 03/18/25 11:46 03/18/25 12:56 03/18/25 11:46 03/18/25 08:00 03/18/25 11:46 Narrative Exam Constitutional: Patient currently seems to be in respiratory distress. On dialysis. CVS: RRR, S1 and S2 present, no murmurs, rubs or gallops . There is a dialysis catheter on the right chest wall without tenderness or erythema RESP: Bilateral crackles noted GI: Normal BS, Nontender/Nondistended. MSK: Full range of motion, No trauma or deformities or masses. 4+ pitting edema bilateral lower extremities Skin: Warm to touch, Dry. No rashes or lesions. No hematomas Neuro: workforce consultant II-XII grossly intact. Sensation grossly intact. Psych: (AAO) x3 . Appropriate mood and affect. Objective Labs 03/18/25 04:25 03/18/25 04:25 Labs: Laboratory Results - last 24 hr 03/18/25 04:25 WBC 22.4 H RBC 2.99 L Hgb 9.0 L Hct 27.2 L MCV 91 MCH 30.1 MCHC 33.1 RDW Std Deviation 55.0 H Plt Count 438 D Neut % (Auto) 75 Lymph % (Auto) 11 [place] % (Auto) 8 Eos % (Auto) 2 Baso % (Auto) 1 Neut # (Auto) 16.8 H Lymph # (Auto) 2.5 Carter # (Auto) 1.9 H Eos # (Auto) 0.5 Baso # (Auto) 0.2 Immature Gran # (Auto) 0.65 H Absolute Nucleated RBC 0.03 H Immature Gran % 3 H Nucleated RBC % 0 Sodium 132 L Potassium 3.8 D Chloride 98 Carbon Dioxide 23.9 Anion Gap 10 BUN 27 H Creatinine 1.6 H Estim Creat Clear Calc 28.8 L eGFR 32 L BUN/Creatinine Ratio 17 Glucose 132 H Calculated Osmolality 271 L Calcium 8.0 L Corrected Calcium 8.7 Phosphorus 3.0 Magnesium 1.8 Total Bilirubin 1.5 H AST 15 ALT < 7 L Alkaline Phosphatase 155 H Total Protein 6.1 Albumin 3.1 L Globulin 3.0 Albumin/Globulin Ratio 1.0 L Assessment & Plan Assessment and plan (1) Elevated troponin: Status: Acute Additional Assessment & Plan Additional Plan: 79 yo female with PMH of A-fib NOT on ELIQUIS, CHF, HTN, Hypothyroidism, CKD with urinary retention on HD, RA admitted for acute GI bleed #GI bleed Likely upper GI bleed Patient presented with several bloody bowel movements at the nursing facility and strongly positive fecal occult blood Patient was previously discharged with a hemoglobin of 10 which dropped down to 7.9 and this presentation GI was consulted in the ED Plan: ? ? Protonix IV twice daily ?Status post endoscopy and colonoscopy ? Appreciate GI recommendations ? Will monitor hemoglobin #Acute hypoxic respiratory failure # HFpEF with EF of 55 to 60% Patient presented with hypoxia requiring 5 L of nasal cannula to saturate 99% BNP was elevated at 1823 which is limiting considering she has urinary retention Imaging reveals pleural effusions and vascular congestion and there is 4+ pitting edema on physical examination bilaterally lower extremities Plan: ?Will remove 4 L with dialysis today ? Strict MARTÍNEZ's ? Fluid restriction to 1500 cc/day #ADITYA on CKD on hemodialysis (Monday) Patient was recently discharged on hemodialysis due to her urinary retention and CKD She presents with 4+ pitting edema and vascular congestion as well as pleural effusions on CT scans Plan: Patient currently seen on dialysis. Tolerating dialysis without any problems. Hemodialysis for 3 hours, 2K, ultrafiltration 4 L, Epogen 6000, no heparin ordered. Plan of care discussed with the dialysis nurse. Please see dialysis flowsheet for further details. ? Strict MARTÍNEZ's ? Avoid nephrotoxic medications ? Will follow daily CMP # UTI Patient's urine was strongly positive for UTI with WBCs in the 800s with 2+ bacteria and leukocyte esterase positivity Patient was started on Zosyn in the ED Plan: ? Continue Zosyn ? Follow-up on urine cultures and blood cultures ? Will downgrade antibiotics pending speciation #Hypertension Restarted patient's home amlodipine 5 mg p.o. daily #Hypothyroidism Restarted patient home dose of levothyroxine 120 5 in the morning before breakfast #A-fib Currently rate controlled Continue amiodarone 200 mg p.o. twice daily Health maintenance plan: Dispo: Patient will remain in telemetry for further management of her GI bleed and acute hypoxic respiratory failure Code: DNR/DNI DVT PPx: SCD GI PPx: Protonix 40 IV twice daily FEN: Cardiac diet
[2025-03-18] MEDS: FUROSEMIDE INJ 10 MG/ML 4ML VIAL 40 MG IVP (13:41)
--- NOTE | 2025-03-18 19:53 | ESPR_ITS ---
Documentation for date of: 03/18/25 Subjective Subjective Interval history: Hemoglobin hematocrit 9.0 and 27.2 Patient is in the process of being discharged Exam Vital Signs Temp Pulse Resp BP Pulse Ox O2 Del Method O2 Flow Rate 98.7 F 100 20 106/71 96 Nasal Cannula 5 03/18/25 16:00 03/18/25 16:00 03/18/25 16:00 03/18/25 16:00 03/18/25 16:00 03/18/25 16:00 03/18/25 16:00 Objective Labs 03/18/25 04:25 03/18/25 04:25 Labs: Laboratory Results - last 24 hr 03/18/25 04:25 WBC 22.4 H RBC 2.99 L Hgb 9.0 L Hct 27.2 L MCV 91 MCH 30.1 MCHC 33.1 RDW Std Deviation 55.0 H Plt Count 438 D Neut % (Auto) 75 Lymph % (Auto) 11 [place] % (Auto) 8 Eos % (Auto) 2 Baso % (Auto) 1 Neut # (Auto) 16.8 H Lymph # (Auto) 2.5 [place] # (Auto) 1.9 H Eos # (Auto) 0.5 Baso # (Auto) 0.2 Immature Gran # (Auto) 0.65 H Absolute Nucleated RBC 0.03 H Immature Gran % 3 H Nucleated RBC % 0 Sodium 132 L Potassium 3.8 D Chloride 98 Carbon Dioxide 23.9 Anion Gap 10 BUN 27 H Creatinine 1.6 H Estim Creat Clear Calc 28.8 L eGFR 32 L BUN/Creatinine Ratio 17 Glucose 132 H Calculated Osmolality 271 L Calcium 8.0 L Corrected Calcium 8.7 Phosphorus 3.0 Magnesium 1.8 Total Bilirubin 1.5 H AST 15 ALT < 7 L Alkaline Phosphatase 155 H Total Protein 6.1 Albumin 3.1 L Globulin 3.0 Albumin/Globulin Ratio 1.0 L Impressions Impression: Gastritis Esophagitis Diverticulosis left colon Internal hemorrhoid Plan Upon discharge to be followed by the PCP No GI follow-up necessary Assessment & Plan A&P Narrative # Occult GI bleeding most likely mucosal oozing of blood on the previous endoscopy Plan repeat endoscopy Tomorrow morning to evaluate the cause of bleeding IV Protonix serial CBC Will follow the patient Other medical problems include 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
[2025-03-19] VITALS (28 sets, daily range): BP systolic 96–129; BP diastolic 61–76; PULSE 76–112; RESP 13–21; TEMP 36.1–36.8; O2SAT 90–100
[2025-03-19] MEDS: MELATONIN 3 MG TABLET PO (01:20)
[2025-03-19] MEDS: PIPER/TAZO 3.375 GM PREMIX 3.375 GM/50 ML BAG IV ×3 (06:09→21:14)
[2025-03-19] MEDS: LEVOTHYROXINE SODIUM 125 MCG, LEVOTHYROXINE SODIUM 50 MCG 175 MCG PO (06:09)
--- NOTE | 2025-03-19 08:49 | ESPR_ITS ---
Documentation for date of: 03/19/25 Subjective Subjective Interval history: Ms. 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 Patient was seen in the ED and she states that she has had a couple of episodes of dark stools in the nursing facility. She denies any pain however she is fatigued and weak with mild SOB. She was recently in our ED on 03/06/25 for similar episode, however we did not have GI services at the time and when given the option to be transferred out for intervention the patient declined and was discharged back to nursing facility. She denies any other associated symptoms. In the ED patient was stable with BP of 116/76, pulse 87, RR 22, Temp 97.8, O2 Sat 99 on 6L NC CBC was significant for a WBC of 23.5, hemoglobin of 8.6 and a platelet count of 617. CMP was significant for sodium of 131 with a BUN of 25 and a creatinine of 1.7 from a baseline of 1.4. BNP was slightly elevated at 1823. UA was positive for UTI with a turbid urine and WBCs of 857 with 2+ urine bacteria and positive leukocyte esterase. Imaging of the abdomen and pelvis CT revealed vascular congestion with bibasilar pneumonia and moderate bilateral pleural effusions, cirrhosis, moderate ascites, anasarca and moderate stools in the rectum with diffuse thickening of the rectal wall. GI was consulted and patient was placed n.p.o. in preparation for possible endoscopy in the morning. Patient will be admitted for further management of her upper GI bleed as well as administration of her session of dialysis during hospitalization. 03/15/25: Patient seen and examined in telemetry today. There were no major overnight events the patient is doing okay this morning. She received hemodialysis for about 3 hours removing about 2 L of fluid. Patient will undergo endoscopy for her GI bleed and will advance diet as tolerated once she completes it. 03/18/2025 patient currently seen in telemetry. Status post endoscopy and colonoscopy with no active bleed. Currently on dialysis. Complaining of significant shortness of breath. Gave breathing treatments, increase her oxygen requirements to 5 L. Will remove 4 L with dialysis today. Chest x-ray showed significant fluid overload. Hold discharge today. Made herself DNR/DNI. 03/19/2025 patient seen and examined in telemetry today. There were no major overnight events and patient was doing okay this morning. Patient continues to have vascular congestion with crackles in bilateral lung torrez. Her oxygen demand has improved though as she is now saturating 99% on 3 L nasal cannula. Will perform dialysis today again and attempt to remove more fluid off of the patient she also has 2+ pitting edema. Will hold her 1 more day and likely discharge her tomorrow. Exam Vital Signs Temp Pulse Resp BP Pulse Ox O2 Del Method O2 Flow Rate 96.9 F 82 13 129/74 100 Nasal Cannula 3 03/19/25 04:00 03/19/25 04:00 03/19/25 04:00 03/19/25 04:00 03/19/25 04:00 03/18/25 20:00 03/18/25 22:34 Narrative Exam Constitutional: Patient currently seems to be in respiratory distress. On dialysis. CVS: RRR, S1 and S2 present, no murmurs, rubs or gallops . There is a dialysis catheter on the right chest wall without tenderness or erythema RESP: Bilateral crackles noted GI: Normal BS, Nontender/Nondistended. MSK: Full range of motion, No trauma or deformities or masses. 2+ pitting edema bilateral lower extremities Skin: Warm to touch, Dry. No rashes or lesions. No hematomas Neuro: nuclear medicine technologist II-XII grossly intact. Sensation grossly intact. Psych: (AAO) x3 . Appropriate mood and affect. Objective Labs 03/20/25 05:00 03/20/25 05:00 Quality Measures Quality Measures VTE prophylaxis Advance care planning discussed with:: patient Assessment & Plan Assessment Current Active Medications: Generic Name Dose Route Start Last Admin Trade Name Freq PRN Reason Stop Dose Admin Acetaminophen 650 mg 03/15/25 07:26 03/18/25 21:08 Acetaminophen 325 Mg Tablet PO 04/14/25 07: 650 mg Q6HR PRN Administration PAIN OR FEVER > 101 Albuterol/Ipratropium 3 ml 03/18/25 09:26 03/18/25 09:54 Albuterol/Ipratropium (Duoneb) Rt Emily 3 Ml Nebu INH 04/17/25 10:59 3 ml Q4HRRT PRN Administration RESPIRATORY DISTRESS Amiodarone HCl 200 mg 03/14/25 21:00 03/18/25 21:08 Amiodarone Hcl 200 Mg Tablet PO 04/13/25 20:59 200 mg BID EULALIA Administration Amlodipine Besylate 5 mg 03/15/25 09:00 03/18/25 12:56 Amlodipine Besylate 5 Mg Tablet PO 04/14/25 08:59 5 mg QDAY EULALIA Administration Fluticasone Propionate 1 spray 03/14/25 20:28 Fluticasone Lit [place] 0.05% 16 Gm Btl NASAL 04/13/25 20:27 QDAY PRN ALLERGY Folic Acid 5 mg 03/15/25 09:00 03/18/25 12:55 Folic Acid 1 Mg Tablet PO 04/14/25 08:59 5 mg QDAY EULALIA Administration Furosemide 40 mg 03/18/25 13:15 03/18/25 13:41 Furosemide Inj 10 Mg/Ml 4ml Vial IVP 04/17/25 13:14 40 mg QDAY EULALIA Administration Heparin Sodium (Porcine) 3,500 unit 03/15/25 08:37 03/18/25 12:40 Heparin Sod Inj 1000 Unit/Ml Vial 10 Ml INDWELLCAT 03/29/25 08:36 3,500 unit PRN PRN Administration DIALYSIS Albumin Human 25 gm in 100 mls @ 100 mls/min 03/15/25 08:37 03/15/25 09:08 Albuminar-25 Ivpb IV 100 mls/min PRN PRN Administration DIALYSIS Piperacillin/Tazobactam/Dextrose 3.375 gm in 50 mls @ 12.5 mls/hr 03/15/25 22:00 03/19/25 06:09 Zosyn IV 03/22/25 21:59 12.5 mls/hr Q8HR EULALIA Administration Lactobacillus Rhamnosus 1 cap 03/15/25 09:00 03/18/25 12:55 Lactobacillus Rhamnosus 1 Cap PO 04/14/25 08:59 1 cap QDAY EULALIA Administration Levothyroxine Sodium 125 mcg/ 175 mcg 03/15/25 06:00 03/19/25 06:09 Levothyroxine Sodium 50 mcg PO 04/14/25 05:59 175 mcg ACBR EULALIA Administration Loratadine 10 mg 03/15/25 09:00 03/18/25 12:55 Loratadine 10 Mg Tablet PO 04/14/25 08:59 10 mg QDAY EULALIA Administration Lorazepam 0.5 mg 03/16/25 20:11 03/18/25 21:08 Lorazepam 0.5 Mg Tablet PO 03/21/25 20:59 0.5 mg HS PRN Administration SLEEPLESSNESS Non-Formulary Medication 800 mcg 03/15/25 09:00 03/18/25 12:48 Biotin PO 04/14/25 08:59 Not Given QDAY EULALIA Non-Formulary Medication 1 tab 03/14/25 22:00 03/18/25 18:09 Chrom Janki/Brindall Mccrary (Garcinia Cambogia Tablet) PO 04/13/25 21:59 Not Given TID EULALIA Non-Formulary Medication 100 mcg 03/15/25 09:00 03/18/25 12:49 Cyanocobalamin (Vitamin B-12) [Vitamin B-12] PO 04/14/25 08:59 Not Given QDAY EULALIA Pantoprazole Sodium 40 mg 03/14/25 21:00 03/18/25 21:09 Pantoprazole Inj 40 Mg Vial IVP 04/13/25 20:59 40 mg BID EULALIA Administration Plan 79 yo female with PMH of A-fib NOT on ELIQUIS, CHF, HTN, Hypothyroidism, CKD with urinary retention on HD, RA admitted for acute GI bleed #Acute hypoxic respiratory failure # HFpEF with EF of 55 to 60% Patient presented with hypoxia requiring 5 L of nasal cannula to saturate 99% BNP was elevated at 1823 which is limiting considering she has urinary retention Imaging reveals pleural effusions and vascular congestion and there is 4+ pitting edema on physical examination bilaterally lower extremities 03/19/25 plan: Patient continues to require 3 L's O2 on nasal cannula. She has bilateral crackles and 2+ pitting edema Plan: ?Will perform hemodialysis today once again ? Strict MARTÍNEZ's ? Fluid restriction to 1500 cc/day #GI bleed?resolved Likely upper GI bleed Patient presented with several bloody bowel movements at the nursing facility and strongly positive fecal occult blood Patient was previously discharged with a hemoglobin of 10 which dropped down to 7.9 and this presentation GI was consulted in the ED Plan: ? ? Protonix PO twice daily ?Status post endoscopy and colonoscopy ? Appreciate GI recommendations ? Will monitor hemoglobin #ADITYA on CKD on hemodialysis (Monday) Patient was recently discharged on hemodialysis due to her urinary retention and CKD She presents with 4+ pitting edema and vascular congestion as well as pleural effusions on CT scans Plan: Patient currently seen on dialysis. Tolerating dialysis without any problems. Plan of care discussed with the dialysis nurse. Please see dialysis flowsheet for further details. ? Strict MARTÍNEZ's ? Avoid nephrotoxic medications ? Will follow daily CMP # UTI Patient's urine was strongly positive for UTI with WBCs in the 800s with 2+ bacteria and leukocyte esterase positivity Patient was started on Zosyn in the ED Plan: ? Continue Zosyn ? Follow-up on urine cultures and blood cultures ? Will downgrade antibiotics pending speciation #Hypertension Restarted patient's home amlodipine 5 mg p.o. daily #Hypothyroidism Restarted patient home dose of levothyroxine 120 5 in the morning before breakfast #A-fib Currently rate controlled Continue amiodarone 200 mg p.o. twice daily Health maintenance plan: Dispo: Patient will remain in telemetry for further management of her GI bleed and acute hypoxic respiratory failure Code: DNR/DNI DVT PPx: SCD GI PPx: Protonix 40 po twice daily FEN: Cardiac diet I discussed patient's care with attending physician, Dr Jad Bourgeois PGY3 Attending Provider Attestation/Addendum Patient seen and examined with resident physician Dr. Bourgeois. Note reviewed, agree with findings and recommendations. Patient currently seen on dialysis. Tolerating dialysis without any problems. Hemodialysis for 3 hours, 2K, ultrafiltration 2-3 L, Epogen 6000, no heparin ordered. Plan of care discussed with the dialysis nurse. Please see dialysis flowsheet for further details. Noted significant shortness of breath. Hold discharge today
[2025-03-19] MEDS: FUROSEMIDE INJ 10 MG/ML 4ML VIAL 40 MG IVP (09:33)
[2025-03-19] MEDS: amLODIPine BESYLATE 5 MG TABLET PO (09:34)
[2025-03-19] MEDS: lorataDINE 10 MG TABLET PO (09:34)
[2025-03-19] MEDS: LACTOBACILLUS RHAMNOSUS 1 CAP PO (09:34)
[2025-03-19] MEDS: FOLIC ACID 1 MG TABLET 5 MG PO (09:34)
[2025-03-19] MEDS: AMIODARONE HCL 200 MG TABLET PO ×2 (09:34→20:48)
[2025-03-19] MEDS: ACETAMINOPHEN 325 MG TABLET 650 MG PO ×2 (09:40→20:48)
--- NOTE | 2025-03-19 11:42 | PC.SS ---
Update: Plan is for the patient to obtain dialysis today. Possible d/c tomorrow to SNF.
--- NOTE | 2025-03-19 11:50 | PD.IMPROG ---
Documentation for date of: 03/19/25 Subjective Subjective Interval history: Patient evaluated Hemoglobin hematocrit at 9.0 and 27.2 Exam Vital Signs Temp Pulse Resp BP Pulse Ox O2 Del Method O2 Flow Rate 97.4 F 86 21 H 116/66 98 Nasal Cannula 3 03/19/25 08:00 03/19/25 09:34 03/19/25 08:00 03/19/25 09:34 03/19/25 08:00 03/19/25 08:00 03/19/25 08:00 Objective Labs 03/18/25 04:25 03/18/25 04:25 Impressions Impression: # Gastritis # Esophagitis # Internal hemorrhoids # Diverticulosis: Continue present management Assessment & Plan A&P Narrative # Occult GI bleeding most likely mucosal oozing of blood on the previous endoscopy Plan repeat endoscopy Tomorrow morning to evaluate the cause of bleeding IV Protonix serial CBC Will follow the patient Other medical problems include 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
--- NOTE | 2025-03-19 16:38 | PC.NURSE ---
BP LOW PT DENIES ALL S/S OF HYPOTENSION WILL ADMIN PRN ALBUMIN AND CONT. TO MONITOR
[2025-03-19] MEDS: ALBUMIN HUMAN 25% IVPB 25 GM/100 ML BTL IV (16:39)
--- NOTE | 2025-03-19 16:46 | PC.NURSE ---
BP CONT. TO TREND DOWN, PT REMAINS ASYMPTOMATIC, UF GOAL LOWERED TO 1.5L TOLERATED WILL CONT. TO MONITOR
--- NOTE | 2025-03-19 17:31 | PC.NURSE ---
BP CONT. TO DROP, PT REMAINS ASYMPTOMATIC UF GOAL LOWERED TO 1 L TOLERATED WILL CONT. TO MONITOR
[2025-03-19] MEDS: HEPARIN SOD INJ 1000 UNIT/ML VIAL 10 ML 3500 UNIT INDWELLCAT (19:36)
[2025-03-19] MEDS: PANTOPRAZOLE 40 MG TABLET PO (20:48)
[2025-03-19] MEDS: LORazepam 0.5 MG TABLET PO (20:48)
[2025-03-20] VITALS (24 sets, daily range): BP systolic 100–120; BP diastolic 58–77; PULSE 73–96; RESP 14–28; TEMP 35.9–36.7; O2SAT 94–99; BMI 25.2
[2025-03-20] MEDS: ACETAMINOPHEN 325 MG TABLET 650 MG PO ×2 (04:59→18:07)
[2025-03-20] MEDS: PIPER/TAZO 3.375 GM PREMIX 3.375 GM/50 ML BAG IV ×3 (05:00→21:09)
[2025-03-20] MEDS: LEVOTHYROXINE SODIUM 125 MCG, LEVOTHYROXINE SODIUM 50 MCG 175 MCG PO (05:00)
[2025-03-20 06:19] LABS: Basophils # (Auto) 0.2 Thou/mm3 (0.0-0.2); Basophils % (Auto) 1 % (0-2.5); Eosinophils # (Auto) 0.6 Thou/mm3 (0.0-0.5); Eosinophils % (Auto) 2 % (0-10); Hematocrit 23.3 % (36.0-46.0); Immature Granulocytes % (Auto) 2 % (0-0); Immature Granulocytes Auto 0.33 Thou/mm3 (0.00-0.00); Lymphocytes # (Auto) 2.4 Thou/mm3 (1.0-4.8); Lymphocytes % (Auto) 11 % (10-50); Mean Corpuscular HGB Conc 32.6 g/dl (31.0-37.0); Mean Corpuscular Hemoglobin 29.3 pg (25.0-35.0); Mean Corpuscular Volume 90 fL (80-100); Monocytes % (Auto) 9 % (0-12); Neutrophils # (Auto) 17.1 Thou/mm3 (1.8-7.7); Neutrophils % (Auto) 76 % (37-80); Nucleated Red Blood Cell # 0.02 Thou/mm3 (0.00-0.00); Nucleated Red Blood Cell % 0 /100 WBC (0); Platelet Count 305 Thou/mm3 (140-440); RDW Standard Deviation 59.7 fL (36.4-46.3); Red Blood Count 2.59 Miln/mm3 (4.00-5.20); White Blood Count 22.5 Thou/mm3 (3.6-11.0)
[2025-03-20 06:20] LABS: Hemoglobin 7.6 g/dL (12.0-16.0)
[2025-03-20 06:57] LABS: Alanine Aminotransferase < 7 U/L (10-49); Albumin, Serum 3.1 gm/dL (3.4-4.8); Albumin/Globulin Ratio 1.1 (1.2-2.2); Alkaline Phosphatase 122 U/L (46-116); Anion Gap 10 (7-16); Aspartate Amino Transferase 18 U/L (0-34); BUN/Creatinine Ratio 17 Ratio (12-20); Bilirubin,Total 1.5 mg/dL (0.3-1.2); Blood Urea Nitrogen 25 mg/dL (9-23); Calcium 8.1 mg/dL (8.3-10.6); Calcium (Corrected) 8.8 mg/dL (8.5-10.1); Carbon Dioxide 26.1 mMol/L (20.0-31.0); Chloride 93 mMol/L (98-107); Creatinine (Component) 1.5 mg/dL (0.6-1.3); Estimated Creatinine Clearance 30.8 mL/min (>60); Globulin 2.9 gm/dL (2.3-3.5); Glucose 95 mg/dL (74-106); Magnesium 1.5 mg/dL (1.6-2.6); Osmolality,Calculated 263 (275-295); Potassium 3.6 mMol/L (3.4-5.1); Sodium 129 mMol/L (136-145); eGFR 35 See Note
[2025-03-20] MEDS: FOLIC ACID 1 MG TABLET 5 MG PO (08:10)
[2025-03-20] MEDS: AMIODARONE HCL 200 MG TABLET PO ×2 (08:11→20:18)
[2025-03-20] MEDS: amLODIPine BESYLATE 5 MG TABLET PO (08:11)
[2025-03-20] MEDS: FUROSEMIDE INJ 10 MG/ML 4ML VIAL 40 MG IVP (08:11)
[2025-03-20] MEDS: lorataDINE 10 MG TABLET PO (08:11)
[2025-03-20] MEDS: LACTOBACILLUS RHAMNOSUS 1 CAP PO (08:11)
[2025-03-20] MEDS: PANTOPRAZOLE 40 MG TABLET PO ×2 (08:11→20:18)
[2025-03-20] MEDS: FLUTICASONE NAS SPRAY 0.05% 16 GM BTL 1 SPRAY NASAL (08:17)
--- NOTE | 2025-03-20 08:44 | PD.RESDS ---
Planned Discharge Date 03/20/25 DS: Providers Provider Date of admission: 03/14/25 19:59 Primary care physician: Physician No Primary/Family Admitting Provider: Ruth Street MD Attending Provider on Admission: Ruth Street MD Consults: 03/14/25 20:00 Consult to Gastroenterology Stat Comment: gi bleed Consulting Provider: Kimmy Mendoza 03/15/25 03:30 Referral Wound Care Routine Comment: BILATERAL BUTTOCKS 03/16/25 16:32 Referral Wound Care Urgent Comment: Please assess skin to buttock area 03/17/25 14:36 Referral Physical Therapy Stat Comment: Physician Instructions: Attending Provider on DC: Ruth Street MD Discharging Provider: Mendoza Hernandez MD DS: Diagnosis Problem List Completed Was Problem List Reviewed/Reconciled?: Yes Hospital Course Hospital Course Hospital course: 79 yo female with PMH of A-fib NOT on ELIQUIS, CHF, HTN, Hypothyroidism, CKD with 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 Patient found to have UTI, treated appropriate with IV antibiotics. GI was consulted, patient received endoscopy which showed gastritis without bleeding, colonoscopy showed diverticulosis without bleed, hemorrhoids, 1 moderate-sized polyp which was removed. During course of stay patient is treated for acute hypoxic respiratory failure secondary to CHF exacerbation, fluid removed via dialysis. Patient showed improvement in all symptoms during length of stay. Patient cleared for discharge from GI perspective. Patient medically stable and cleared for discharge. Discharge plan: Patient can be discharged back to facility She can continue taking all previous medications as prescribed Patient to take augmentin twice a day for 4 more days to complete her regimen for UTI Patient can follow up with PCP in 1-2 weeks Patient can return to the ER if her symptoms worsen of she experiences new symptoms. Diagnoses: #Acute hypoxic respiratory failure # HFpEF with EF of 55 to 60% #GI bleed?resolved #ADITYA on CKD on hemodialysis (Monday) # UTI #Hypertension #Hypothyroidism #A-fib Plan of care discussed with attending Dr. Street. Mendoza Hernandez MD PGY?1 Status at Discharge Overall status at discharge: patient is progressing back to baseline Time Spent with Patient Time attestation: Total time spent providing and/or coordinating discharge services: Time spent: Greater than 30 minutes Exam Vital Signs Temp Pulse Resp BP Pulse Ox O2 Del Method O2 Flow Rate 96.8 F 96 15 108/69 96 Nasal Cannula 3 03/20/25 08:00 03/20/25 08:11 03/20/25 08:00 03/20/25 08:11 03/20/25 08:00 03/20/25 08:00 03/20/25 08:00 Narrative Exam Constitutional: Patient currently resting comfortably CVS: RRR, S1 and S2 present, no murmurs, rubs or gallops. There is a dialysis catheter on the right chest wall without tenderness or erythema RESP: Bilateral crackles noted, improved GI: Normal BS, Nontender/Nondistended. MSK: Full range of motion, No trauma or deformities or masses. 2+ pitting edema bilateral lower extremities Skin: Warm to touch, Dry. No rashes or lesions. 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 Sensation grossly intact. Psych: (AAO) x3 . Appropriate mood and affect. Discharge Plan Plan Patient Disposition: Xfer Skilled Nsg Fac (SNF) Patient condition on transfer: Stable Care Plan Goals: Patient can be discharged back to facility She can continue taking all previous medications as prescribed Patient to take augmentin twice a day for 4 more days to complete her regimen for UTI Patient can follow up with PCP in 1-2 weeks Patient can return to the ER if her symptoms worsen of she experiences new symptoms. Prescriptions/Referrals Prescriptions/Med Rec: New amoxicillin-pot clavulanate 500-125 mg tablet 1 tab PO BID 4 Days Qty: 9 0RF Continued amlodipine [Norvasc] 5 MG tablet 5 mg PO QDAY Qty: 0 loratadine [Claritin] 10 MG tablet 10 mg PO QDAY Qty: 0 Chrom Janki/Brindall Mccrary (Garcinia Cambogia Tablet) 1 EACH tablet 1 tab PO TID Qty: 0 Fluticasone Propionate 16 GM SPRAY 1 spry IH PRN PRN (Reason: ALLERGY) Qty: 0 cyanocobalamin (vitamin B-12) [Vitamin B-12] 100 MCG tablet 100 mcg PO QDAY Qty: 0 biotin 800 MCG tablet 800 mcg PO QDAY Qty: 0 Culturelle 1 CAP capsule 1 cap PO QDAY Qty: 0 amiodarone 200 mg Tablet 200 mg PO BID Qty: 1 0RF sucralfate 100 mg/mL Suspension 1 g PO TID Qty: 1 0RF folic acid 1 mg Tablet 5 mg PO QDAY Qty: 1 0RF levothyroxine 175 mcg capsule 175 mcg PO QDAY Qty: 1 0RF diphenhydramine HCl [Allergy (diphenhydramine)] 25 mg capsule 25 mg PO Q12H PRN (Reason: allergy) bisacodyl [Dulcolax (bisacodyl)] 10 mg suppository 10 mg [place] PRN PRN (Reason: constipation) Rx Instructions: if MOM is ineffective hydroxyzine HCl 25 mg tablet 25 mg PO Q12H PRN (Reason: itching) melatonin 3 mg tablet 6 mg PO HS PRN (Reason: sleep) mirtazapine 7.5 mg tablet 7.5 mg PO QDAY tramadol 50 mg tablet 50 mg PO Q12H PRN (Reason: pain) pantoprazole [Protonix] 40 mg tablet,delayed release (DR/EC) 40 mg PO QDAY Referrals: No Primary/Family,Physician [Primary Care Provider] - Patient/Caregiver Discharge Instructions Discharge Activity: activity as tolerated Education Materials: Bleeding Gastrointestinal, AFL/Afib, Urinary Tract Infections in Women Print Language: Belarusian Stand Alone Forms: Shandra Award Info., Patient Portal Info Letter Discharge Order Discharge Orders: Discharge (Routine); Ordered 03/20/25 Ordered By: Mendoza Hernandez Quality Discharge Quality Measures VTE prophylaxis
--- NOTE | 2025-03-20 11:00 | PC.SS ---
SCALE TANK OPERATOR received phone call from [facility] staff, Frandy; requesting update on patient's discharge plan. SCALE TANK OPERATOR relayed that d/c orders present, plan to transition patient to SNF following dialysis session.
[2025-03-20] MEDS: Magnesium Sulfate 2 GM Ivpb 2 GM/50 ML BAG IV (12:23)
--- NOTE | 2025-03-20 13:00 | PD.RESPRO ---
Documentation for date of: 03/20/25 Subjective Subjective Interval history: Ms. 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 Patient was seen in the ED and she states that she has had a couple of episodes of dark stools in the nursing facility. She denies any pain however she is fatigued and weak with mild SOB. She was recently in our ED on 03/06/25 for similar episode, however we did not have GI services at the time and when given the option to be transferred out for intervention the patient declined and was discharged back to nursing facility. She denies any other associated symptoms. In the ED patient was stable with BP of 116/76, pulse 87, RR 22, Temp 97.8, O2 Sat 99 on 6L NC CBC was significant for a WBC of 23.5, hemoglobin of 8.6 and a platelet count of 617. CMP was significant for sodium of 131 with a BUN of 25 and a creatinine of 1.7 from a baseline of 1.4. BNP was slightly elevated at 1823. UA was positive for UTI with a turbid urine and WBCs of 857 with 2+ urine bacteria and positive leukocyte esterase. Imaging of the abdomen and pelvis CT revealed vascular congestion with bibasilar pneumonia and moderate bilateral pleural effusions, cirrhosis, moderate ascites, anasarca and moderate stools in the rectum with diffuse thickening of the rectal wall. GI was consulted and patient was placed n.p.o. in preparation for possible endoscopy in the morning. Patient will be admitted for further management of her upper GI bleed as well as administration of her session of dialysis during hospitalization. 03/15/25: Patient seen and examined in telemetry today. There were no major overnight events the patient is doing okay this morning. She received hemodialysis for about 3 hours removing about 2 L of fluid. Patient will undergo endoscopy for her GI bleed and will advance diet as tolerated once she completes it. 03/18/2025 patient currently seen in telemetry. Status post endoscopy and colonoscopy with no active bleed. Currently on dialysis. Complaining of significant shortness of breath. Gave breathing treatments, increase her oxygen requirements to 5 L. Will remove 4 L with dialysis today. Chest x-ray showed significant fluid overload. Hold discharge today. Made herself DNR/DNI. 03/19/2025 patient seen and examined in telemetry today. There were no major overnight events and patient was doing okay this morning. Patient continues to have vascular congestion with crackles in bilateral lung torrez. Her oxygen demand has improved though as she is now saturating 99% on 3 L nasal cannula. Will perform dialysis today again and attempt to remove more fluid off of the patient she also has 2+ pitting edema. Will hold her 1 more day and likely discharge her tomorrow. 03/20/2025: Patient seen and examined in telemetry. No overnight events. Patient doing subjectively well, appears to have improvement in volume overload. Initially was planning to discharge today, however patient was recently in the same dialysis room has another patient who is on isolation precautions for Burkholderia cepacia, potential infection. Tests are pending, will keep patient until results are in. Exam Vital Signs Temp Pulse Resp BP Pulse Ox O2 Del Method O2 Flow Rate 96.7 F L 86 14 109/68 99 Nasal Cannula 3 03/20/25 12:00 03/20/25 12:00 03/20/25 12:00 03/20/25 12:00 03/20/25 12:00 03/20/25 12:03/20/25 12:00 Narrative Exam Constitutional: Calm and comfortable. CVS: RRR, S1 and S2 present, no murmurs, rubs or gallops . There is a dialysis catheter on the right chest wall without tenderness or erythema RESP: Bilateral crackles noted, improved GI: Normal BS, Nontender/Nondistended. MSK: Full range of motion, No trauma or deformities or masses. 2+ pitting edema bilateral lower extremities Skin: Warm to touch, Dry. No rashes or lesions. 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 Sensation grossly intact. Psych: (AAO) x3 . Appropriate mood and affect. Objective Labs 03/20/25 05:00 03/20/25 05:00 Labs: Laboratory Results - last 24 hr 03/20/25 05:00 WBC 22.5 H RBC 2.59 L Hgb 7.6 L Hct 23.3 L MCV 90 MCH 29.3 MCHC 32.6 RDW Std Deviation 59.7 H Plt Count 305 D Neut % (Auto) 76 Lymph % (Auto) 11 Gregg % (Auto) 9 Eos % (Auto) 2 Baso % (Auto) 1 Neut # (Auto) 17.1 H Lymph # (Auto) 2.4 Gregg # (Auto) 2.0 H Eos # (Auto) 0.6 H Baso # (Auto) 0.2 Immature Gran # (Auto) 0.33 H Absolute Nucleated RBC 0.02 H Immature Gran % 2 H Nucleated RBC % 0 Sodium 129 L Potassium 3.6 Chloride 93 L Carbon Dioxide 26.1 Anion Gap 10 BUN 25 H Creatinine 1.5 H Estim Creat Clear Calc 30.8 L eGFR 35 L BUN/Creatinine Ratio 17 Glucose 95 Calculated Osmolality 263 L Calcium 8.1 L Corrected Calcium 8.8 Phosphorus 3.0 Magnesium 1.5 L Total Bilirubin 1.5 H AST 18 ALT < 7 L Alkaline Phosphatase 122 H D Total Protein 6.0 Albumin 3.1 L Globulin 2.9 Albumin/Globulin Ratio 1.1 L Quality Measures Quality Measures VTE prophylaxis Advance care planning discussed with:: patient Assessment & Plan Assessment Current Active Medications: Generic Name Dose Route Start Last Admin Trade Name Freq PRN Reason Stop Dose Admin Acetaminophen 650 mg 03/15/25 07:26 03/20/25 04:59 Acetaminophen 325 Mg Tablet PO 04/14/25 07:25 650 mg Q6HR PRN Administration PAIN OR FEVER > 101 Albuterol/Ipratropium 3 ml 03/18/25 09:26 03/18/25 09:54 Albuterol/Ipratropium (Duoneb) Rt Emily 3 Ml Nebu INH 04/17/25 10:59 3 ml Q4HRRT PRN Administration RESPIRATORY DISTRESS Amiodarone HCl 200 mg 03/14/25 21:00 03/20/25 08:11 Amiodarone Hcl 200 Mg Tablet PO 04/13/25 20:59 200 mg BID EULALIA Administration Amlodipine Besylate 5 mg 03/15/25 09:00 03/20/25 08:11 Amlodipine Besylate 5 Mg Tablet PO 04/14/25 08:59 5 mg QDAY EULALIA Administration Epoetin Timothy 10,000 unit 03/20/25 13:00 Epoetin Timothy Inj 1,000 Unit/0.05 Ml Unit SC 03/20/25 13:01 X1 ONE Fluticasone Propionate 1 spray 03/14/25 20:28 03/20/25 08:17 Fluticasone Lit [place] 0.05% 16 Gm Btl NASAL 04/13/25 20:27 1 spray QDAY PRN Administration ALLERGY Folic Acid 5 mg 03/15/25 09:00 03/20/25 08:10 Folic Acid 1 Mg Tablet PO 04/14/25 08:59 5 mg QDAY EULALIA Administration Furosemide 40 mg 03/18/25 13:15 03/20/25 08:11 Furosemide Inj 10 Mg/Ml 4ml Vial IVP 04/17/25 13:14 40 mg QDAY EULALIA Administration Heparin Sodium (Porcine) 3,500 unit 03/15/25 08:37 03/19/25 19:36 Heparin Sod Inj 1000 Unit/Ml Vial 10 Ml INDWELLCAT 03/29/25 08:36 3,500 unit PRN PRN Administration DIALYSIS Albumin Human 25 gm in 100 mls @ 100 mls/min 03/15/25 08:37 03/19/25 16:39 Albuminar-25 Ivpb IV 100 mls/min PRN PRN Administration DIALYSIS Piperacillin/Tazobactam/Dextrose 3.375 gm in 50 mls @ 12.5 mls/hr 03/15/25 22:00 03/20/25 05:00 Zosyn IV 03/22/25 21:59 12.5 mls/hr Q8HR EULALIA Administration Magnesium Sulfate 2 gm in 50 mls @ 25 mls/hr 03/20/25 12:05 03/20/25 12:23 Magnesium Sulfate Ivpb IV 03/20/25 14:04 25 mls/hr X1 ONE Administration Lactobacillus Rhamnosus 1 cap 03/15/25 09:00 03/20/25 08:11 Lactobacillus Rhamnosus 1 Cap PO 04/14/25 08:59 1 cap QDAY EULALIA Administration Levothyroxine Sodium 125 mcg/ 175 mcg 03/15/25 06:00 03/20/25 05:00 Levothyroxine Sodium 50 mcg PO 04/14/25 05:59 175 mcg ACBR EULALIA Administration Loratadine 10 mg 03/15/25 09:00 03/20/25 08:11 Loratadine 10 Mg Tablet PO 04/14/25 08:59 10 mg QDAY EULALIA Administration Lorazepam 0.5 mg 03/16/25 20:11 03/19/25 20:48 Lorazepam 0.5 Mg Tablet PO 03/21/25 20:59 0.5 mg HS PRN Administration SLEEPLESSNESS Non-Formulary Medication 800 mcg 03/15/25 09:00 03/20/25 08:19 Biotin PO 04/14/25 08:59 Not Given QDAY EULALIA Non-Formulary Medication 1 tab 03/14/25 22:00 03/20/25 05:41 Chrom Janki/Brindall Mccrary (Garcinia Cambogia Tablet) PO 04/13/25 21:59 Not Given TID EULALIA Non-Formulary Medication 100 mcg 03/15/25 09:00 03/20/25 08:19 Cyanocobalamin (Vitamin B-12) [Vitamin B-12] PO 04/14/25 08:59 Not Given QDAY EULALIA Pantoprazole Sodium 40 mg 03/19/25 21:00 03/20/25 08:11 Pantoprazole 40 Mg Tablet PO 04/18/25 20:59 40 mg BID EULALIA Administration Plan 79 yo female with PMH of A-fib NOT on ELIQUIS, CHF, HTN, Hypothyroidism, 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 - Follow test results for infection #Acute hypoxic respiratory failure #HFpEF with EF of 55 to 60% Patient presented with hypoxia requiring 5 L of nasal cannula to saturate 99% BNP was elevated at 1823 which is limiting considering she has urinary retention Imaging reveals pleural effusions and vascular congestion and there is 4+ pitting edema on physical examination bilaterally lower extremities 03/19/25 plan: Patient continues to require 3 L's O2 on nasal cannula. She has bilateral crackles and 2+ pitting edema ? Will perform dialysis as per usual schedule ? Strict MARTÍNEZ's ? Fluid restriction to 1500 cc/day #GI bleed?resolved Likely upper GI bleed Patient presented with several bloody bowel movements at the nursing facility and strongly positive fecal occult blood Patient was previously discharged with a hemoglobin of 10 which dropped down to 7.9 and this presentation GI was consulted in the ED Plan: ? Protonix PO twice daily ? Status post endoscopy and colonoscopy ? Appreciate GI recommendations ? Will monitor hemoglobin #ADITYA on CKD on hemodialysis (Monday) Patient was recently discharged on hemodialysis due to her urinary retention and CKD She presents with 4+ pitting edema and vascular congestion as well as pleural effusions on CT scans Patient currently seen on dialysis. Tolerating dialysis without any problems. Plan of care discussed with the dialysis nurse. Please see dialysis flowsheet for further details. ? Strict MARTÍNEZ's ? Avoid nephrotoxic medications ? Will follow daily CMP #UTI Patient's urine was strongly positive for UTI with WBCs in the 800s with 2+ bacteria and leukocyte esterase positivity Patient was started on Zosyn in the ED ? Continue Zosyn ? Follow-up on urine cultures and blood cultures ? Will downgrade antibiotics pending speciation #Hypertension Restarted patient's home amlodipine 5 mg p.o. daily #Hypothyroidism Restarted patient home dose of levothyroxine 120 5 in the morning before breakfast #A-fib Currently rate controlled Continue amiodarone 200 mg p.o. twice daily Code: DNR/DNI DVT PPx: SCD GI PPx: Protonix 40 po twice daily FEN: Cardiac diet Plan of care discussed with attending Dr. Street. Mendoza Hernandez MD PGY?1 Attending Provider Attestation/Addendum Patient currently seen and examined with resident physician Dr. Hernandez. Note reviewed, agree with findings and recommendations. Patient currently seen on dialysis. Tolerating dialysis without any problems. Hemodialysis for 3 hours, 2K, ultrafiltration 3-3.5 L, Epogen 6000, no heparin ordered. Plan of care discussed with the dialysis nurse. Please see dialysis flowsheet for further details. Discharge held for potential contamination with another patient with Burkholderia cepacia. Possible discharge tomorrow if county clears. Patient clinically stable.
--- NOTE | 2025-03-20 14:35 | PC.SS ---
Update: Patient?s discharge has been held due to potential infection for Burkholderia cepacia. Tests are pending.
--- NOTE | 2025-03-20 14:48 | PC.SS ---
CONTENT PRODUCER attempted phone contact with [facility] staff to provide update that patient's discharge to SNF has been held. No response, CONTENT PRODUCER left voicemail with update.
--- NOTE | 2025-03-20 15:11 | PC.SS ---
Update: Patient receiving dialysis session today.
[2025-03-20] MEDS: EPOETIN ALFA INJ 1,000 UNIT/0.05 ML UNIT 10000 UNIT SC (16:27)
[2025-03-20] MEDS: HEPARIN SOD INJ 1000 UNIT/ML VIAL 10 ML 3500 UNIT INDWELLCAT (16:28)
--- NOTE | 2025-03-20 19:16 | PD.IMPROG ---
Documentation for date of: 03/20/25 Subjective Subjective Interval history: Patient evaluated Hemoglobin hematocrit 7.6 and 22.3 Do not point trending but no signs of any active bleeding Exam Vital Signs Temp Pulse Resp BP Pulse Ox O2 Del Method O2 Flow Rate 96.9 F 84 18 107/72 97 Nasal Cannula 2 03/20/25 16:50 03/20/25 16:50 03/20/25 16:50 03/20/25 16:50 03/20/25 16:50 03/20/25 16:00 03/20/25 16:50 Objective Labs 03/20/25 05:00 03/20/25 05:00 Labs: Laboratory Results - last 24 hr 03/20/25 05:00 WBC 22.5 H RBC 2.59 L Hgb 7.6 L Hct 23.3 L MCV 90 MCH 29.3 MCHC 32.6 RDW Std Deviation 59.7 H Plt Count 305 D Neut % (Auto) 76 Lymph % (Auto) 11 Garden % (Auto) 9 Eos % (Auto) 2 Baso % (Auto) 1 Neut # (Auto) 17.1 H Lymph # (Auto) 2.4 Garden # (Auto) 2.0 H Eos # (Auto) 0.6 H Baso # (Auto) 0.2 Immature Gran # (Auto) 0.33 H Absolute Nucleated RBC 0.02 H Immature Gran % 2 H Nucleated RBC % 0 Sodium 129 L Potassium 3.6 Chloride 93 L Carbon Dioxide 26.1 Anion Gap 10 BUN 25 H Creatinine 1.5 H Estim Creat Clear Calc 30.8 L eGFR 35 L BUN/Creatinine Ratio 17 Glucose 95 Calculated Osmolality 263 L Calcium 8.1 L Corrected Calcium 8.8 Phosphorus 3.0 Magnesium 1.5 L Total Bilirubin 1.5 H AST 18 ALT < 7 L Alkaline Phosphatase 122 H D Total Protein 6.0 Albumin 3.1 L Globulin 2.9 Albumin/Globulin Ratio 1.1 L Impressions Impression: Gastritis Esophagitis Transverse colon polyp tubular adenoma on histopathology Downward trending hemoglobin hematocrit Monitor CBC Assessment & Plan A&P Narrative # Occult GI bleeding most likely mucosal oozing of blood on the previous endoscopy Plan repeat endoscopy Tomorrow morning to evaluate the cause of bleeding IV Protonix serial CBC Will follow the patient Other medical problems include 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
[2025-03-21] VITALS (13 sets, daily range): BP systolic 101–119; BP diastolic 65–73; PULSE 75–96; RESP 12–23; TEMP 36.1–36.3; O2SAT 94–100
[2025-03-21] MEDS: LEVOTHYROXINE SODIUM 125 MCG, LEVOTHYROXINE SODIUM 50 MCG 175 MCG PO (05:15)
[2025-03-21] MEDS: PIPER/TAZO 3.375 GM PREMIX 3.375 GM/50 ML BAG IV ×3 (05:15→22:40)
[2025-03-21] MEDS: ACETAMINOPHEN 325 MG TABLET 650 MG PO ×2 (05:22→10:06)
[2025-03-21 06:39] LABS: Basophils # (Auto) 0.2 Thou/mm3 (0.0-0.2); Basophils % (Auto) 1 % (0-2.5); Eosinophils # (Auto) 0.6 Thou/mm3 (0.0-0.5); Eosinophils % (Auto) 3 % (0-10); Hematocrit 24.6 % (36.0-46.0); Immature Granulocytes % (Auto) 2 % (0-0); Lymphocytes # (Auto) 2.2 Thou/mm3 (1.0-4.8); Lymphocytes % (Auto) 11 % (10-50); Mean Corpuscular HGB Conc 32.9 g/dl (31.0-37.0); Mean Corpuscular Hemoglobin 29.6 pg (25.0-35.0); Mean Corpuscular Volume 90 fL (80-100); Monocytes # (Auto) 1.7 Thou/mm3 (0.0-0.8); Monocytes % (Auto) 9 % (0-12); Neutrophils # (Auto) 15.1 Thou/mm3 (1.8-7.7); Neutrophils % (Auto) 75 % (37-80); Nucleated Red Blood Cell # 0.03 Thou/mm3 (0.00-0.00); Nucleated Red Blood Cell % 0 /100 WBC (0); Platelet Count 322 Thou/mm3 (140-440); RDW Standard Deviation 60.4 fL (36.4-46.3); Red Blood Count 2.74 Miln/mm3 (4.00-5.20); White Blood Count 20.2 Thou/mm3 (3.6-11.0)
[2025-03-21 06:42] LABS: Hemoglobin 8.2 g/dL (12.0-16.0)
[2025-03-21 07:40] LABS: Alanine Aminotransferase 8 U/L (10-49); Albumin, Serum 2.9 gm/dL (3.4-4.8); Alkaline Phosphatase 138 U/L (46-116); Anion Gap 11 (7-16); Aspartate Amino Transferase 20 U/L (0-34); BUN/Creatinine Ratio 19 Ratio (12-20); Bilirubin,Total 1.5 mg/dL (0.3-1.2); Blood Urea Nitrogen 31 mg/dL (9-23); Calcium 7.8 mg/dL (8.3-10.6); Calcium (Corrected) 8.7 mg/dL (8.5-10.1); Carbon Dioxide 27.4 mMol/L (20.0-31.0); Chloride 94 mMol/L (98-107); Creatinine (Component) 1.6 mg/dL (0.6-1.3); Estimated Creatinine Clearance 26.3 mL/min (>60); Globulin 2.8 gm/dL (2.3-3.5); Glucose 76 mg/dL (74-106); Osmolality,Calculated 270 (275-295); Potassium 3.6 mMol/L (3.4-5.1); Sodium 132 mMol/L (136-145); Total Protein 5.7 gm/dL (5.7-8.2); eGFR 32 See Note
--- NOTE | 2025-03-21 09:07 | PD.RESPRO ---
Documentation for date of: 03/21/25 Subjective Subjective Interval history: Ms. 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 Patient was seen in the ED and she states that she has had a couple of episodes of dark stools in the nursing facility. She denies any pain however she is fatigued and weak with mild SOB. She was recently in our ED on 03/06/25 for similar episode, however we did not have GI services at the time and when given the option to be transferred out for intervention the patient declined and was discharged back to nursing facility. She denies any other associated symptoms. In the ED patient was stable with BP of 116/76, pulse 87, RR 22, Temp 97.8, O2 Sat 99 on 6L NC CBC was significant for a WBC of 23.5, hemoglobin of 8.6 and a platelet count of 617. CMP was significant for sodium of 131 with a BUN of 25 and a creatinine of 1.7 from a baseline of 1.4. BNP was slightly elevated at 1823. UA was positive for UTI with a turbid urine and WBCs of 857 with 2+ urine bacteria and positive leukocyte esterase. Imaging of the abdomen and pelvis CT revealed vascular congestion with bibasilar pneumonia and moderate bilateral pleural effusions, cirrhosis, moderate ascites, anasarca and moderate stools in the rectum with diffuse thickening of the rectal wall. GI was consulted and patient was placed n.p.o. in preparation for possible endoscopy in the morning. Patient will be admitted for further management of her upper GI bleed as well as administration of her session of dialysis during hospitalization. 03/15/25: Patient seen and examined in telemetry today. There were no major overnight events the patient is doing okay this morning. She received hemodialysis for about 3 hours removing about 2 L of fluid. Patient will undergo endoscopy for her GI bleed and will advance diet as tolerated once she completes it. 03/18/2025 patient currently seen in telemetry. Status post endoscopy and colonoscopy with no active bleed. Currently on dialysis. Complaining of significant shortness of breath. Gave breathing treatments, increase her oxygen requirements to 5 L. Will remove 4 L with dialysis today. Chest x-ray showed significant fluid overload. Hold discharge today. Made herself DNR/DNI. 03/19/2025 patient seen and examined in telemetry today. There were no major overnight events and patient was doing okay this morning. Patient continues to have vascular congestion with crackles in bilateral lung torrez. Her oxygen demand has improved though as she is now saturating 99% on 3 L nasal cannula. Will perform dialysis today again and attempt to remove more fluid off of the patient she also has 2+ pitting edema. Will hold her 1 more day and likely discharge her tomorrow. 03/20/2025: Patient seen and examined in telemetry. No overnight events. Patient doing subjectively well, appears to have improvement in volume overload. Initially was planning to discharge today, however patient was recently in the same dialysis room has another patient who is on isolation precautions for Burkholderia cepacia, potential infection. Tests are pending, will keep patient until results are in. 03/21/2025: Patient seen and examined in telemetry. No overnight events. Patient is doing well, complaining of dry nose and cough. Added glycopyrollate and petroleum jelly. Patient remains on contact isolation, pending test results. WBC is down to 20.2, sodium improved to 132. BUN 31, creatinine 1.6, EGFR 32. Exam Vital Signs Temp Pulse Resp BP Pulse Ox O2 Del Method O2 Flow Rate 97.4 F 94 12 113/67 99 Nasal Cannula 2 03/21/25 08:00 03/21/25 08:00 03/21/25 08:00 03/21/25 08:00 03/21/25 08:00 03/21/25 08:00 03/21/25 08:00 Narrative Exam Constitutional: Calm and comfortable. CVS: RRR, S1 and S2 present, no murmurs, rubs or gallops . There is a dialysis catheter on the right chest wall without tenderness or erythema RESP: Bilateral crackles noted, improved GI: Normal BS, Nontender/Nondistended. MSK: Full range of motion, No trauma or deformities or masses. 1+ pitting edema bilateral lower extremities Skin: Warm to touch, Dry. No rashes or lesions. 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 Sensation grossly intact. Psych: (AAO) x3 . Appropriate mood and affect. Objective Labs 03/21/25 04:40 03/21/25 04:40 Labs: Laboratory Results - last 24 hr 03/21/25 04:40 WBC 20.2 H RBC 2.74 L Hgb 8.2 L Hct 24.6 L MCV 90 MCH 29.6 MCHC 32.9 RDW Std Deviation 60.4 H Plt Count 322 Neut % (Auto) 75 Lymph % (Auto) 11 Larue % (Auto) 9 Eos % (Auto) 3 Baso % (Auto) 1 Neut # (Auto) 15.1 H Lymph # (Auto) 2.2 Larue # (Auto) 1.7 H Eos # (Auto) 0.6 H Baso # (Auto) 0.2 Immature Gran # (Auto) 0.40 H Absolute Nucleated RBC 0.03 H Immature Gran % 2 H Nucleated RBC % 0 Sodium 132 L Potassium 3.6 Chloride 94 L Carbon Dioxide 27.4 Anion Gap 11 BUN 31 H Creatinine 1.6 H Estim Creat Clear Calc 26.3 L eGFR 32 L BUN/Creatinine Ratio 19 Glucose 76 Calculated Osmolality 270 L Calcium 7.8 L Corrected Calcium 8.7 Total Bilirubin 1.5 H AST 20 ALT 8 L Alkaline Phosphatase 138 H Total Protein 5.7 Albumin 2.9 L Globulin 2.8 Albumin/Globulin Ratio 1.0 L Quality Measures Quality Measures VTE prophylaxis Advance care planning discussed with:: patient Assessment & Plan Assessment Current Active Medications: Generic Name Dose Route Start Last Admin Trade Name Freq PRN Reason Stop Dose Admin Acetaminophen 650 mg 03/15/25 07:26 03/21/25 05:22 Acetaminophen 325 Mg Tablet PO 04/14/25 07:25 650 mg Q6HR PRN Administration PAIN OR FEVER > 101 Albuterol/Ipratropium 3 ml 03/18/25 09:26 03/18/25 09:54 Albuterol/Ipratropium (Duoneb) Rt Emily 3 Ml Nebu INH 04/17/25 10:59 3 ml Q4HRRT PRN Administration RESPIRATORY DISTRESS Amiodarone HCl 200 mg 03/14/25 21:00 03/20/25 20:18 Amiodarone Hcl 200 Mg Tablet PO 04/13/25 20:59 200 mg BID EULALIA Administration Amlodipine Besylate 5 mg 03/15/25 09:00 03/20/25 08:11 Amlodipine Besylate 5 Mg Tablet PO 04/14/25 08:59 5 mg QDAY EULALIA Administration Fluticasone Propionate 1 spray 03/14/25 20:28 03/20/25 08:17 Fluticasone Lit [place] 0.05% 16 Gm Btl NASAL 04/13/25 20:27 1 spray QDAY PRN Administration ALLERGY Folic Acid 5 mg 03/15/25 09:00 03/20/25 08:10 Folic Acid 1 Mg Tablet PO 04/14/25 08:59 5 mg QDAY EULALIA Administration Furosemide 40 mg 03/18/25 13:15 03/20/25 08:11 Furosemide Inj 10 Mg/Ml 4ml Vial IVP 04/17/25 13:14 40 mg QDAY EULALIA Administration Glycopyrrolate 1 mg 03/21/25 09:00 Glycopyrrolate 1 Mg Tablet PO 04/20/25 08:59 BID EULALIA Heparin Sodium (Porcine) 3,500 unit 03/15/25 08:37 03/20/25 16:28 Heparin Sod Inj 1000 Unit/Ml Vial 10 Ml INDWELLCAT 03/29/25 08:36 3,500 unit PRN PRN Administration DIALYSIS Albumin Human 25 gm in 100 mls @ 100 mls/min 03/15/25 08:37 03/19/25 16:39 Albuminar-25 Ivpb IV 100 mls/min PRN PRN Administration DIALYSIS Piperacillin/Tazobactam/Dextrose 3.375 gm in 50 mls @ 12.5 mls/hr 03/15/25 22:00 03/21/25 05:15 Zosyn IV 03/22/25 21:59 12.5 mls/hr Q8HR EULALIA Administration Lactobacillus Rhamnosus 1 cap 03/15/25 09:00 03/20/25 08:11 Lactobacillus Rhamnosus 1 Cap PO 04/14/25 08:59 1 cap QDAY EULALIA Administration Levothyroxine Sodium 125 mcg/ 175 mcg 03/15/25 06:00 03/21/25 05:15 Levothyroxine Sodium 50 mcg PO 04/14/25 05:59 175 mcg ACBR EULALIA Administration Loratadine 10 mg 03/15/25 09:00 03/20/25 08:11 Loratadine 10 Mg Tablet PO 04/14/25 08:59 10 mg QDAY EULALIA Administration Lorazepam 0.5 mg 03/16/25 20:11 03/19/25 20:48 Lorazepam 0.5 Mg Tablet PO 03/21/25 20:59 0.5 mg HS PRN Administration SLEEPLESSNESS Non-Formulary Medication 800 mcg 03/15/25 09:00 03/20/25 08:19 Biotin PO 04/14/25 08:59 Not Given QDAY EULALIA Non-Formulary Medication 1 tab 03/14/25 22:00 03/21/25 05:11 Chrom Janki/Brindall Mccrary (Garcinia Cambogia Tablet) PO 04/13/25 21:59 Not Given TID EULALIA Non-Formulary Medication 100 mcg 03/15/25 09:00 03/20/25 08:19 Cyanocobalamin (Vitamin B-12) [Vitamin B-12] PO 04/14/25 08:59 Not Given QDAY EULALIA Pantoprazole Sodium 40 mg 03/19/25 21:00 03/20/25 20:18 Pantoprazole 40 Mg Tablet PO 04/18/25 20:59 40 mg BID EULALIA Administration Plan 79 yo female with PMH of A-fib NOT on ELIQUIS, CHF, HTN, Hypothyroidism, 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 - Follow test results for infection #Acute hypoxic respiratory failure #HFpEF with EF of 55 to 60% Patient presented with hypoxia requiring 5 L of nasal cannula to saturate 99% BNP was elevated at 1823 which is limiting considering she has urinary retention Imaging reveals pleural effusions and vascular congestion and there is 4+ pitting edema on physical examination bilaterally lower extremities 03/19/25 plan: Patient continues to require 3 L's O2 on nasal cannula. She has bilateral crackles and 2+ pitting edema ? Will perform dialysis as per usual schedule ? Strict MARTÍNEZ's ? Fluid restriction to 1500 cc/day #GI bleed?resolved Likely upper GI bleed Patient presented with several bloody bowel movements at the nursing facility and strongly positive fecal occult blood Patient was previously discharged with a hemoglobin of 10 which dropped down to 7.9 and this presentation GI was consulted in the ED Plan: ? Protonix PO twice daily ? Status post endoscopy and colonoscopy ? Appreciate GI recommendations ? Will monitor hemoglobin #ADITYA on CKD on hemodialysis (Monday) Patient was recently discharged on hemodialysis due to her urinary retention and CKD She presents with 4+ pitting edema and vascular congestion as well as pleural effusions on CT scans Patient currently seen on dialysis. Tolerating dialysis without any problems. Plan of care discussed with the dialysis nurse. Please see dialysis flowsheet for further details. ? Strict MARTÍNEZ's ? Avoid nephrotoxic medications ? Will follow daily CMP #UTI - E. Coli Patient's urine was strongly positive for UTI with WBCs in the 800s with 2+ bacteria and leukocyte esterase positivity Patient was started on Zosyn in the ED ? Continue Zosyn ? Follow-up on urine cultures and blood cultures ? Will downgrade antibiotics pending speciation #Hypertension Restarted patient's home amlodipine 5 mg p.o. daily #Hypothyroidism Restarted patient home dose of levothyroxine 125 in the morning before breakfast #A-fib Currently rate controlled Continue amiodarone 200 mg p.o. twice daily Code: DNR/DNI DVT PPx: SCD GI PPx: Protonix 40 po twice daily FEN: Cardiac diet Plan of care discussed with attending Dr. Street. Mendoza Hernandez MD PGY?1 Attending Provider Attestation/Addendum Patient currently seen and examined with resident physician Dr. Hernandez. Note reviewed, agree with findings and recommendations. Patient currently seen in telemetry. Still having shortness of breath and cough chest congestion. Will add glycopyrrolate. Next dialysis scheduled for tomorrow. Discharge held for potential contamination with another patient with Burkholderia cepacia. Possible discharge tomorrow if county clears. Patient clinically stable.
[2025-03-21] MEDS: amLODIPine BESYLATE 5 MG TABLET PO ×2 (10:02→10:03)
[2025-03-21] MEDS: FUROSEMIDE INJ 10 MG/ML 4ML VIAL 40 MG IVP (10:03)
[2025-03-21] MEDS: PANTOPRAZOLE 40 MG TABLET PO ×2 (10:05→20:02)
[2025-03-21] MEDS: AMIODARONE HCL 200 MG TABLET PO ×2 (10:05→20:02)
[2025-03-21] MEDS: FOLIC ACID 1 MG TABLET 5 MG PO (10:06)
[2025-03-21] MEDS: GLYCOPYRROLATE 1 MG TABLET PO ×2 (10:06→20:02)
--- NOTE | 2025-03-21 10:48 | CHAP ---
Patient expressed gratitude for visit and coversation.
[2025-03-21] MEDS: lorataDINE 10 MG TABLET PO (12:19)
[2025-03-21] MEDS: LACTOBACILLUS RHAMNOSUS 1 CAP PO (12:19)
--- NOTE | 2025-03-21 16:09 | PC.SS ---
WAITER AND CASHIER informed by bedside nurse orders for patient's discharge present. Bedside nurse informed WAITER AND CASHIER that infection control confirmed with the SNF that the patient could return.
--- NOTE | 2025-03-21 16:11 | PC.SS ---
SOLAR ENERGY SPECIALIST conducted phone contact with infection control staff, Flory; who informed SOLAR ENERGY SPECIALIST that [facility] nurse, Liz; had spoke to the [facility] infection prevention nurse regarding patient's status. Per infection control staff, [facility] has agreed to have patient return to facility to be tested on Monday. [facility] to submit test kit to [facility].
--- NOTE | 2025-03-21 16:13 | PC.SS ---
CREW CLERK spoke to [facility] parachute inspector who informed CREW CLERK that the patient cannot return to the facility due to facility not possessing an isolation room. Per DON, discussion between [facility] nurse and facility infection prevention nurse occurred prior to confirmation of available isolation room. [facility] requesting update on testing status once completed. CREW CLERK updated infection control nurse and bedside nurse.
--- NOTE | 2025-03-21 16:21 | PD.IMPROG ---
Documentation for date of: 03/21/25 Subjective Subjective Interval history: Patient evaluated Hemoglobin hematocrit 8.2 and 24.6 Exam Vital Signs Temp Pulse Resp BP Pulse Ox O2 Del Method O2 Flow Rate 97.2 F 94 20 119/73 94 L Nasal Cannula 1 03/21/25 12:00 03/21/25 12:00 03/21/25 12:00 03/21/25 12:00 03/21/25 12:00 03/21/25 12:00 03/21/25 12:00 Objective Labs 03/21/25 04:40 03/21/25 04:40 Labs: Laboratory Results - last 24 hr 03/21/25 04:40 WBC 20.2 H RBC 2.74 L Hgb 8.2 L Hct 24.6 L MCV 90 MCH 29.6 MCHC 32.9 RDW Std Deviation 60.4 H Plt Count 322 Neut % (Auto) 75 Lymph % (Auto) 11 Graham % (Auto) 9 Eos % (Auto) 3 Baso % (Auto) 1 Neut # (Auto) 15.1 H Lymph # (Auto) 2.2 Graham # (Auto) 1.7 H Eos # (Auto) 0.6 H Baso # (Auto) 0.2 Immature Gran # (Auto) 0.40 H Absolute Nucleated RBC 0.03 H Immature Gran % 2 H Nucleated RBC % 0 Sodium 132 L Potassium 3.6 Chloride 94 L Carbon Dioxide 27.4 Anion Gap 11 BUN 31 H Creatinine 1.6 H Estim Creat Clear Calc 26.3 L eGFR 32 L BUN/Creatinine Ratio 19 Glucose 76 Calculated Osmolality 270 L Calcium 7.8 L Corrected Calcium 8.7 Total Bilirubin 1.5 H AST 20 ALT 8 L Alkaline Phosphatase 138 H Total Protein 5.7 Albumin 2.9 L Globulin 2.8 Albumin/Globulin Ratio 1.0 L Impressions Impression: Gastritis Esophagitis Diverticulosis: Colonic polyp Continue to monitor CBC Assessment & Plan A&P Narrative # Occult GI bleeding most likely mucosal oozing of blood on the previous endoscopy Plan repeat endoscopy Tomorrow morning to evaluate the cause of bleeding IV Protonix serial CBC Will follow the patient Other medical problems include 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
[2025-03-21] MEDS: LORazepam 0.5 MG TABLET PO (20:02)
[2025-03-22] VITALS (25 sets, daily range): BP systolic 106–129; BP diastolic 45–87; PULSE 59–98; RESP 12–21; TEMP 36.1–36.8; O2SAT 94–100; BMI 24.5
[2025-03-22] MEDS: LEVOTHYROXINE SODIUM 125 MCG, LEVOTHYROXINE SODIUM 50 MCG 175 MCG PO (05:11)
[2025-03-22] MEDS: PIPER/TAZO 3.375 GM PREMIX 3.375 GM/50 ML BAG IV ×2 (05:11→16:28)
[2025-03-22 05:38] LABS: Basophils # (Auto) 0.2 Thou/mm3 (0.0-0.2); Basophils % (Auto) 1 % (0-2.5); Eosinophils # (Auto) 0.7 Thou/mm3 (0.0-0.5); Eosinophils % (Auto) 3 % (0-10); Hematocrit 23.9 % (36.0-46.0); Immature Granulocytes % (Auto) 2 % (0-0); Immature Granulocytes Auto 0.36 Thou/mm3 (0.00-0.00); Lymphocytes # (Auto) 2.1 Thou/mm3 (1.0-4.8); Lymphocytes % (Auto) 10 % (10-50); Mean Corpuscular HGB Conc 33.5 g/dl (31.0-37.0); Mean Corpuscular Hemoglobin 29.5 pg (25.0-35.0); Mean Corpuscular Volume 88 fL (80-100); Monocytes # (Auto) 1.9 Thou/mm3 (0.0-0.8); Monocytes % (Auto) 9 % (0-12); Neutrophils # (Auto) 15.4 Thou/mm3 (1.8-7.7); Neutrophils % (Auto) 75 % (37-80); Nucleated Red Blood Cell # 0.02 Thou/mm3 (0.00-0.00); Nucleated Red Blood Cell % 0 /100 WBC (0); Platelet Count 358 Thou/mm3 (140-440); RDW Standard Deviation 58.3 fL (36.4-46.3); Red Blood Count 2.71 Miln/mm3 (4.00-5.20); White Blood Count 20.7 Thou/mm3 (3.6-11.0)
[2025-03-22 05:53] LABS: Alanine Aminotransferase 10 U/L (10-49); Alkaline Phosphatase 142 U/L (46-116); Anion Gap 11 (7-16); Aspartate Amino Transferase 23 U/L (0-34); BUN/Creatinine Ratio 18 Ratio (12-20); Bilirubin,Total 1.3 mg/dL (0.3-1.2); Blood Urea Nitrogen 30 mg/dL (9-23); Calcium 7.7 mg/dL (8.3-10.6); Calcium (Corrected) 8.5 mg/dL (8.5-10.1); Carbon Dioxide 27.4 mMol/L (20.0-31.0); Chloride 92 mMol/L (98-107); Creatinine (Component) 1.7 mg/dL (0.6-1.3); Estimated Creatinine Clearance 24.7 mL/min (>60); Globulin 3.1 gm/dL (2.3-3.5); Glucose 106 mg/dL (74-106); Magnesium 1.5 mg/dL (1.6-2.6); Osmolality,Calculated 267 (275-295); Phosphorous 3.1 mg/dL (2.4-5.1); Potassium 3.5 mMol/L (3.4-5.1); Sodium 130 mMol/L (136-145); Total Protein 6.1 gm/dL (5.7-8.2); eGFR 30 See Note
[2025-03-22] MEDS: ACETAMINOPHEN 325 MG TABLET 650 MG PO ×2 (08:36→20:25)
[2025-03-22] MEDS: Magnesium Sulfate 4 GM Ivpb 4 GM/50 ML BAG IV (09:59)
--- NOTE | 2025-03-22 10:42 | ESPR_ITS ---
Documentation for date of: 03/22/25 Subjective Subjective Interval history: Ms. 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 Patient was seen in the ED and she states that she has had a couple of episodes of dark stools in the nursing facility. She denies any pain however she is fatigued and weak with mild SOB. She was recently in our ED on 03/06/25 for similar episode, however we did not have GI services at the time and when given the option to be transferred out for intervention the patient declined and was discharged back to nursing facility. She denies any other associated symptoms. In the ED patient was stable with BP of 116/76, pulse 87, RR 22, Temp 97.8, O2 Sat 99 on 6L NC CBC was significant for a WBC of 23.5, hemoglobin of 8.6 and a platelet count of 617. CMP was significant for sodium of 131 with a BUN of 25 and a creatinine of 1.7 from a baseline of 1.4. BNP was slightly elevated at 1823. UA was positive for UTI with a turbid urine and WBCs of 857 with 2+ urine bacteria and positive leukocyte esterase. Imaging of the abdomen and pelvis CT revealed vascular congestion with bibasilar pneumonia and moderate bilateral pleural effusions, cirrhosis, moderate ascites, anasarca and moderate stools in the rectum with diffuse thickening of the rectal wall. GI was consulted and patient was placed n.p.o. in preparation for possible endoscopy in the morning. Patient will be admitted for further management of her upper GI bleed as well as administration of her session of dialysis during hospitalization. 03/15/25: Patient seen and examined in telemetry today. There were no major overnight events the patient is doing okay this morning. She received hemodialysis for about 3 hours removing about 2 L of fluid. Patient will undergo endoscopy for her GI bleed and will advance diet as tolerated once she completes it. 03/18/2025 patient currently seen in telemetry. Status post endoscopy and colonoscopy with no active bleed. Currently on dialysis. Complaining of significant shortness of breath. Gave breathing treatments, increase her oxygen requirements to 5 L. Will remove 4 L with dialysis today. Chest x-ray showed significant fluid overload. Hold discharge today. Made herself DNR/DNI. 03/19/2025 patient seen and examined in telemetry today. There were no major overnight events and patient was doing okay this morning. Patient continues to have vascular congestion with crackles in bilateral lung torrez. Her oxygen demand has improved though as she is now saturating 99% on 3 L nasal cannula. Will perform dialysis today again and attempt to remove more fluid off of the patient she also has 2+ pitting edema. Will hold her 1 more day and likely discharge her tomorrow. 03/20/2025: Patient seen and examined in telemetry. No overnight events. Patient doing subjectively well, appears to have improvement in volume overload. Initially was planning to discharge today, however patient was recently in the same dialysis room has another patient who is on isolation precautions for Burkholderia cepacia, potential infection. Tests are pending, will keep patient until results are in. 03/21/2025: Patient seen and examined in telemetry. No overnight events. Patient is doing well, complaining of dry nose and cough. Added glycopyrollate and petroleum jelly. Patient remains on contact isolation, pending test results. WBC is down to 20.2, sodium improved to 132. BUN 31, creatinine 1.6, EGFR 32. 03/22/2025: Patient seen and examined in telemetry. No overnight events. Patient is doing well, reports cough and dryness have improved with treatment. Patient will need to remain until Monday when public health officials will be able to perform the test. WBC 20.7, sodium 130, BUN 30, creatinine 1.7, EGFR 30. Magnesium 1.5, repleted with 4 units. Plan for hemodialysis with 2 L fluid removal today. Exam Vital Signs Temp Pulse Resp BP Pulse Ox O2 Del Method O2 Flow Rate 97.0 F 94 16 129/79 95 Nasal Cannula 3 03/22/25 08:00 03/22/25 08:00 03/22/25 08:00 03/22/25 08:00 03/22/25 08:00 03/22/25 08:00 03/22/25 08:00 Narrative Exam Constitutional: Calm and comfortable. CVS: RRR, S1 and S2 present, no murmurs, rubs or gallops . There is a dialysis catheter on the right chest wall without tenderness or erythema RESP: Bilateral crackles noted, improved GI: Normal BS, Nontender/Nondistended. MSK: Full range of motion, No trauma or deformities or masses. 1+ pitting edema bilateral lower extremities Skin: Warm to touch, Dry. No rashes or lesions. 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 Sensation grossly intact. Psych: (AAO) x3 . Appropriate mood and affect. Objective Labs 03/23/25 05:44 03/23/25 05:44 Labs: Laboratory Results - last 24 hr 03/22/25 04:09 WBC 20.7 H RBC 2.71 L Hgb 8.0 L Hct 23.9 L MCV 88 MCH 29.5 MCHC 33.5 RDW Std Deviation 58.3 H Plt Count 358 D Neut % (Auto) 75 Lymph % (Auto) 10 [place] % (Auto) 9 Eos % (Auto) 3 Baso % (Auto) 1 Neut # (Auto) 15.4 H Lymph # (Auto) 2.1 [place] # (Auto) 1.9 H Eos # (Auto) 0.7 H Baso # (Auto) 0.2 Immature Gran # (Auto) 0.36 H Absolute Nucleated RBC 0.02 H Immature Gran % 2 H Nucleated RBC % 0 Sodium 130 L Potassium 3.5 Chloride 92 L Carbon Dioxide 27.4 Anion Gap 11 BUN 30 H Creatinine 1.7 H Estim Creat Clear Calc 24.7 L eGFR 30 L BUN/Creatinine Ratio 18 Glucose 106 Calculated Osmolality 267 L Calcium 7.7 L Corrected Calcium 8.5 Phosphorus 3.1 Magnesium 1.5 L Total Bilirubin 1.3 H AST 23 ALT 10 Alkaline Phosphatase 142 H Total Protein 6.1 Albumin 3.0 L Globulin 3.1 Albumin/Globulin Ratio 1.0 L Quality Measures Quality Measures VTE prophylaxis Advance care planning discussed with:: patient Assessment & Plan Assessment Current Active Medications: Generic Name Dose Route Start Last Admin Trade Name Freq PRN Reason Stop Dose Admin Acetaminophen 650 mg 03/15/25 07:26 03/22/25 08:36 Acetaminophen 325 Mg Tablet PO 04/14/25 07:25 650 mg Q6HR PRN Administration PAIN OR FEVER > 101 Albuterol/Ipratropium 3 ml 03/18/25 09:26 03/18/25 09:54 Albuterol/Ipratropium (Duoneb) Rt Emily 3 Ml Nebu INH 04/17/25 10:59 3 ml Q4HRRT PRN Administration RESPIRATORY DISTRESS Amiodarone HCl 200 mg 03/14/25 21:00 03/21/25 20:02 Amiodarone Hcl 200 Mg Tablet PO 04/13/25 20:59 200 mg BID EULALIA Administration Amlodipine Besylate 5 mg 03/15/25 09:00 03/21/25 10:03 Amlodipine Besylate 5 Mg Tablet PO 04/14/25 08:59 5 mg QDAY EULALIA Administration Fluticasone Propionate 1 spray 03/14/25 20:28 03/20/25 08:17 Fluticasone Lit Brady 0.05% 16 Gm Btl NASAL 04/13/25 20:27 1 spray QDAY PRN Administration ALLERGY Folic Acid 5 mg 03/15/25 09:00 03/21/25 10:06 Folic Acid 1 Mg Tablet PO 04/14/25 08:59 5 mg QDAY EULALIA Administration Furosemide 40 mg 03/18/25 13:15 03/21/25 10:03 Furosemide Inj 10 Mg/Ml 4ml Vial IVP 04/17/25 13:14 40 mg QDAY EULALIA Administration Glycopyrrolate 1 mg 03/21/25 09:00 03/21/25 20:02 Glycopyrrolate 1 Mg Tablet PO 04/20/25 08:59 1 mg BID EULALIA Administration Heparin Sodium (Porcine) 3,500 unit 03/15/25 08:37 03/20/25 16:28 Heparin Sod Inj 1000 Unit/Ml Vial 10 Ml INDWELLCAT 03/29/25 08:36 3,500 unit PRN PRN Administration DIALYSIS Albumin Human 25 gm in 100 mls @ 100 mls/min 03/15/25 08:37 03/21/25 19:24 Albuminar-25 Ivpb IV Infused PRN PRN Infusion DIALYSIS Piperacillin/Tazobactam/Dextrose 3.375 gm in 50 mls @ 12.5 mls/hr 03/15/25 22:00 03/22/25 05:11 Zosyn IV 03/22/25 21:59 12.5 mls/hr Q8HR EULALIA Administration Magnesium Sulfate 4 gm in 50 mls @ 12.5 mls/hr 03/22/25 08:25 03/22/25 09:59 Magnesium Sulfate Ivpb IV 03/22/25 12:24 12.5 mls/hr X1 ONE Administration Lactobacillus Rhamnosus 1 cap 03/15/25 09:00 03/21/25 12:19 Lactobacillus Rhamnosus 1 Cap PO 04/14/25 08:59 1 cap QDAY EULALIA Administration Levothyroxine Sodium 125 mcg/ 175 mcg 03/15/25 06:00 03/22/25 05:11 Levothyroxine Sodium 50 mcg PO 04/14/25 05:59 175 mcg ACBR EULALIA Administration Loratadine 10 mg 03/15/25 09:00 03/21/25 12:19 Loratadine 10 Mg Tablet PO 04/14/25 08:59 10 mg QDAY EULALIA Administration Non-Formulary Medication 800 mcg 03/15/25 09:00 03/22/25 08:30 Biotin PO 04/14/25 08:59 Not Given QDAY EULALIA Non-Formulary Medication 1 tab 03/14/25 22:00 03/22/25 08:30 Chrom Janki/Brindall Mccrary (Garcinia Cambogia Tablet) PO 04/13/25 21:59 Not Given TID EULALIA Non-Formulary Medication 100 mcg 03/15/25 09:00 03/22/25 08:30 Cyanocobalamin (Vitamin B-12) [Vitamin B-12] PO 04/14/25 08:59 Not Given QDAY EULALIA Pantoprazole Sodium 40 mg 03/19/25 21:00 03/21/25 20:02 Pantoprazole 40 Mg Tablet PO 04/18/25 20:59 40 mg BID EULALIA Administration Plan 79 yo female with PMH of A-fib NOT on ELIQUIS, CHF, HTN, Hypothyroidism, 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 - Public health officials will be here on Monday - Follow test results for infection #Acute hypoxic respiratory failure #HFpEF with EF of 55 to 60% Patient presented with hypoxia requiring 5 L of nasal cannula to saturate 99% BNP was elevated at 1823 which is limiting considering she has urinary retention Imaging reveals pleural effusions and vascular congestion and there is 4+ pitting edema on physical examination bilaterally lower extremities 03/19/25 plan: Patient continues to require 3 L's O2 on nasal cannula. She has bilateral crackles and 2+ pitting edema ? Will perform dialysis as per usual schedule ? Strict MARTÍNEZ's ? Fluid restriction to 1500 cc/day #GI bleed?resolved Likely upper GI bleed Patient presented with several bloody bowel movements at the nursing facility and strongly positive fecal occult blood Patient was previously discharged with a hemoglobin of 10 which dropped down to 7.9 and this presentation GI was consulted in the ED Plan: ? Protonix PO twice daily ? Status post endoscopy and colonoscopy ? Appreciate GI recommendations ? Will monitor hemoglobin #ADITYA on CKD on hemodialysis (Monday) Patient was recently discharged on hemodialysis due to her urinary retention and CKD She presents with 4+ pitting edema and vascular congestion as well as pleural effusions on CT scans Patient currently seen on dialysis. Tolerating dialysis without any problems. Plan of care discussed with the dialysis nurse. Please see dialysis flowsheet for further details. ? Strict MARTÍNEZ's ? Avoid nephrotoxic medications ? Will follow daily CMP #UTI - E. Coli Patient's urine was strongly positive for UTI with WBCs in the 800s with 2+ bacteria and leukocyte esterase positivity Patient was started on Zosyn in the ED ? Continue Zosyn ? Follow-up on urine cultures and blood cultures ? Will downgrade antibiotics pending speciation #Hypertension Restarted patient's home amlodipine 5 mg p.o. daily #Hypothyroidism Restarted patient home dose of levothyroxine 125 in the morning before breakfast #A-fib Currently rate controlled Continue amiodarone 200 mg p.o. twice daily Code: DNR/DNI DVT PPx: SCD GI PPx: Protonix 40 po twice daily FEN: Cardiac diet Plan of care discussed with attending Dr. Street. Mendoza Hernandez MD PGY?1 Attending Provider Attestation/Addendum Patient currently seen and examined with resident physician Dr. Hernandez. Note reviewed, agree with findings and recommendations. Patient currently seen in telemetry. Still having shortness of breath and cough chest congestion. added glycopyrrolate-helped Discharge held for potential contamination with another patient with Burkholderia cepacia. Patient currently seen on dialysis. Tolerating dialysis without any problems. Hemodialysis for 3 hours, 2K, ultrafiltration 2-3 L, Epogen 6000, no heparin ordered. Plan of care discussed with the dialysis nurse. Please see dialysis flowsheet for further details.
--- NOTE | 2025-03-22 15:25 | ESPR_ITS ---
Documentation for date of: 03/22/25 Subjective Subjective Interval history: Patient evaluated Hemoglobin hematocrit 8.0 and 23.9 Exam Vital Signs Temp Pulse Resp BP Pulse Ox O2 Del Method O2 Flow Rate 97.3 F 70 18 106/63 97 Nasal Cannula 2 03/22/25 12:56 03/22/25 15:15 03/22/25 12:56 03/22/25 15:15 03/22/25 12:56 03/22/25 12:00 03/22/25 12:56 Constitutional Comments: Chronically ill-appearing Routine Abdominal Exam Comments: Soft nontender Objective Labs 03/22/25 04:09 03/22/25 04:09 Labs: Laboratory Results - last 24 hr 03/22/25 04:09 WBC 20.7 H RBC 2.71 L Hgb 8.0 L Hct 23.9 L MCV 88 MCH 29.5 MCHC 33.5 RDW Std Deviation 58.3 H Plt Count 358 D Neut % (Auto) 75 Lymph % (Auto) 10 [place] % (Auto) 9 Eos % (Auto) 3 Baso % (Auto) 1 Neut # (Auto) 15.4 H Lymph # (Auto) 2.1 [place] # (Auto) 1.9 H Eos # (Auto) 0.7 H Baso # (Auto) 0.2 Immature Gran # (Auto) 0.36 H Absolute Nucleated RBC 0.02 H Immature Gran % 2 H Nucleated RBC % 0 Sodium 130 L Potassium 3.5 Chloride 92 L Carbon Dioxide 27.4 Anion Gap 11 BUN 30 H Creatinine 1.7 H Estim Creat Clear Calc 24.7 L eGFR 30 L BUN/Creatinine Ratio 18 Glucose 106 Calculated Osmolality 267 L Calcium 7.7 L Corrected Calcium 8.5 Phosphorus 3.1 Magnesium 1.5 L Total Bilirubin 1.3 H AST 23 ALT 10 Alkaline Phosphatase 142 H Total Protein 6.1 Albumin 3.0 L Globulin 3.1 Albumin/Globulin Ratio 1.0 L Impressions Impression: Acute posthemorrhagic anemia Gastritis Esophagitis Continue current management Assessment & Plan A&P Narrative # Occult GI bleeding most likely mucosal oozing of blood on the previous endoscopy Plan repeat endoscopy Tomorrow morning to evaluate the cause of bleeding IV Protonix serial CBC Will follow the patient Other medical problems include 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
[2025-03-22] MEDS: HEPARIN SOD INJ 1000 UNIT/ML VIAL 10 ML 3500 UNIT INDWELLCAT (16:06)
[2025-03-22] MEDS: POTASSIUM CHLORIDE 20 mEq TABCR PO (16:28)
[2025-03-22] MEDS: GLYCOPYRROLATE 1 MG TABLET PO (20:16)
[2025-03-22] MEDS: AMIODARONE HCL 200 MG TABLET PO (20:17)
[2025-03-22] MEDS: PANTOPRAZOLE 40 MG TABLET PO (20:17)
[2025-03-22] MEDS: LORazepam 0.5 MG TABLET PO (20:17)
[2025-03-23] VITALS (15 sets, daily range): BP systolic 111–132; BP diastolic 66–96; PULSE 78–93; RESP 16–21; TEMP 36.1–36.6; O2SAT 92–99; BMI 24.0
[2025-03-23 07:00] LABS: Basophils # (Auto) 0.2 Thou/mm3 (0.0-0.2); Basophils % (Auto) 1 % (0-2.5); Eosinophils # (Auto) 0.8 Thou/mm3 (0.0-0.5); Eosinophils % (Auto) 5 % (0-10); Hematocrit 25.6 % (36.0-46.0); Immature Granulocytes % (Auto) 2 % (0-0); Immature Granulocytes Auto 0.29 Thou/mm3 (0.00-0.00); Lymphocytes % (Auto) 12 % (10-50); Mean Corpuscular HGB Conc 32.4 g/dl (31.0-37.0); Mean Corpuscular Hemoglobin 29.7 pg (25.0-35.0); Mean Corpuscular Volume 92 fL (80-100); Monocytes # (Auto) 1.7 Thou/mm3 (0.0-0.8); Monocytes % (Auto) 10 % (0-12); Neutrophils # (Auto) 11.8 Thou/mm3 (1.8-7.7); Neutrophils % (Auto) 71 % (37-80); Nucleated Red Blood Cell % 0 /100 WBC (0); Platelet Count 371 Thou/mm3 (140-440); RDW Standard Deviation 62.3 fL (36.4-46.3); Red Blood Count 2.79 Miln/mm3 (4.00-5.20); White Blood Count 16.7 Thou/mm3 (3.6-11.0)
[2025-03-23 07:05] LABS: Hemoglobin 8.3 g/dL (12.0-16.0)
[2025-03-23 07:39] LABS: Alanine Aminotransferase 9 U/L (10-49); Albumin, Serum 3.2 gm/dL (3.4-4.8); Albumin/Globulin Ratio 0.9 (1.2-2.2); Alkaline Phosphatase 158 U/L (46-116); Anion Gap 10 (7-16); Aspartate Amino Transferase 20 U/L (0-34); BUN/Creatinine Ratio 19 Ratio (12-20); Bilirubin,Total 1.2 mg/dL (0.3-1.2); Blood Urea Nitrogen 31 mg/dL (9-23); Calcium 7.9 mg/dL (8.3-10.6); Calcium (Corrected) 8.5 mg/dL (8.5-10.1); Carbon Dioxide 25.5 mMol/L (20.0-31.0); Chloride 93 mMol/L (98-107); Creatinine (Component) 1.6 mg/dL (0.6-1.3); Estimated Creatinine Clearance 26.3 mL/min (>60); Globulin 3.4 gm/dL (2.3-3.5); Glucose 118 mg/dL (74-106); Magnesium 2.2 mg/dL (1.6-2.6); Osmolality,Calculated 264 (275-295); Phosphorous 3.1 mg/dL (2.4-5.1); Potassium 3.5 mMol/L (3.4-5.1); Sodium 128 mMol/L (136-145); Total Protein 6.6 gm/dL (5.7-8.2); eGFR 32 See Note
[2025-03-23] MEDS: LACTOBACILLUS RHAMNOSUS 1 CAP PO (09:43)
[2025-03-23] MEDS: FOLIC ACID 1 MG TABLET 5 MG PO (09:44)
[2025-03-23] MEDS: lorataDINE 10 MG TABLET PO (09:44)
[2025-03-23] MEDS: PANTOPRAZOLE 40 MG TABLET PO ×2 (09:44→22:04)
[2025-03-23] MEDS: GLYCOPYRROLATE 1 MG TABLET PO ×2 (09:44→22:04)
[2025-03-23] MEDS: LEVOTHYROXINE SODIUM 125 MCG, LEVOTHYROXINE SODIUM 50 MCG 175 MCG PO (09:46)
[2025-03-23] MEDS: ACETAMINOPHEN 325 MG TABLET 650 MG PO ×2 (09:47→22:03)
[2025-03-23] MEDS: AMIODARONE HCL 200 MG TABLET PO ×2 (09:47→22:03)
[2025-03-23] MEDS: FUROSEMIDE INJ 10 MG/ML 4ML VIAL 40 MG IVP (09:50)
[2025-03-23] MEDS: amLODIPine BESYLATE 5 MG TABLET PO (09:51)
--- NOTE | 2025-03-23 12:09 | PD.NEPHPROG ---
Documentation for date of: 03/23/25 Subjective Subjective Interval history: Ms. 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 Patient was seen in the ED and she states that she has had a couple of episodes of dark stools in the nursing facility. She denies any pain however she is fatigued and weak with mild SOB. She was recently in our ED on 03/06/25 for similar episode, however we did not have GI services at the time and when given the option to be transferred out for intervention the patient declined and was discharged back to nursing facility. She denies any other associated symptoms. In the ED patient was stable with BP of 116/76, pulse 87, RR 22, Temp 97.8, O2 Sat 99 on 6L NC CBC was significant for a WBC of 23.5, hemoglobin of 8.6 and a platelet count of 617. CMP was significant for sodium of 131 with a BUN of 25 and a creatinine of 1.7 from a baseline of 1.4. BNP was slightly elevated at 1823. UA was positive for UTI with a turbid urine and WBCs of 857 with 2+ urine bacteria and positive leukocyte esterase. Imaging of the abdomen and pelvis CT revealed vascular congestion with bibasilar pneumonia and moderate bilateral pleural effusions, cirrhosis, moderate ascites, anasarca and moderate stools in the rectum with diffuse thickening of the rectal wall. GI was consulted and patient was placed n.p.o. in preparation for possible endoscopy in the morning. Patient will be admitted for further management of her upper GI bleed as well as administration of her session of dialysis during hospitalization. 03/15/25: Patient seen and examined in telemetry today. There were no major overnight events the patient is doing okay this morning. She received hemodialysis for about 3 hours removing about 2 L of fluid. Patient will undergo endoscopy for her GI bleed and will advance diet as tolerated once she completes it. 03/18/2025 patient currently seen in telemetry. Status post endoscopy and colonoscopy with no active bleed. Currently on dialysis. Complaining of significant shortness of breath. Gave breathing treatments, increase her oxygen requirements to 5 L. Will remove 4 L with dialysis today. Chest x-ray showed significant fluid overload. Hold discharge today. Made herself DNR/DNI. 03/23/2025 patient currently seen in telemetry. Still having some shortness of breath. I gave her Robinul and the cough is better. Awaiting [facility] recommendations regarding exposure to bacteria. Review of Systems Review of Systems Narrative Review of Systems: Denies any chest pain. Does have significant shortness of breath. No black stools. Significant leg weakness. Denies any nausea, vomiting Exam Vital Signs Temp Pulse Resp BP Pulse Ox O2 Del Method O2 Flow Rate 36.3 C 81 19 120/78 99 Nasal Cannula 2 03/23/25 08:00 03/23/25 09:51 03/23/25 08:56 03/23/25 09:51 03/23/25 08:56 03/23/25 08:00 03/23/25 08:56 Narrative Exam Constitutional: Patient currently seems to be in respiratory distress. On dialysis. CVS: RRR, S1 and S2 present, no murmurs, rubs or gallops . There is a dialysis catheter on the right chest wall without tenderness or erythema RESP: Bilateral crackles noted GI: Normal BS, Nontender/Nondistended. MSK: Full range of motion, No trauma or deformities or masses. 4+ pitting edema bilateral lower extremities Skin: Warm to touch, Dry. No rashes or lesions. 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 Sensation grossly intact. Psych: (AAO) x3 . Appropriate mood and affect. Objective Labs 03/23/25 05:44 03/23/25 05:44 Labs: Laboratory Results - last 24 hr 03/23/25 05:44 WBC 16.7 H RBC 2.79 L Hgb 8.3 L Hct 25.6 L MCV 92 MCH 29.7 MCHC 32.4 RDW Std Deviation 62.3 H Plt Count 371 Neut % (Auto) 71 Lymph % (Auto) 12 [place] % (Auto) 10 Eos % (Auto) 5 Baso % (Auto) 1 Neut # (Auto) 11.8 H Lymph # (Auto) 2.0 [place] # (Auto) 1.7 H Eos # (Auto) 0.8 H Baso # (Auto) 0.2 Immature Gran # (Auto) 0.29 H Absolute Nucleated RBC 0.00 Immature Gran % 2 H Nucleated RBC % 0 Sodium 128 L Potassium 3.5 Chloride 93 L Carbon Dioxide 25.5 Anion Gap 10 BUN 31 H Creatinine 1.6 H Estim Creat Clear Calc 26.3 L eGFR 32 L BUN/Creatinine Ratio 19 Glucose 118 H Calculated Osmolality 264 L Calcium 7.9 L Corrected Calcium 8.5 Phosphorus 3.1 Magnesium 2.2 Total Bilirubin 1.2 AST 20 ALT 9 L Alkaline Phosphatase 158 H Total Protein 6.6 Albumin 3.2 L Globulin 3.4 Albumin/Globulin Ratio 0.9 L Assessment & Plan Assessment and plan (1) Elevated troponin: Status: Acute Additional Assessment & Plan Additional Plan: 79 yo female with PMH of A-fib NOT on ELIQUIS, CHF, HTN, Hypothyroidism, CKD with urinary retention on HD, RA admitted for acute GI bleed #GI bleed Likely upper GI bleed Patient presented with several bloody bowel movements at the nursing facility and strongly positive fecal occult blood Patient was previously discharged with a hemoglobin of 10 which dropped down to 7.9 and this presentation GI was consulted in the ED Plan: ? ? Protonix IV twice daily ?Status post endoscopy and colonoscopy ? Appreciate GI recommendations ? Will monitor hemoglobin #Acute hypoxic respiratory failure # HFpEF with EF of 55 to 60% Patient presented with hypoxia requiring 5 L of nasal cannula to saturate 99% BNP was elevated at 1823 which is limiting considering she has urinary retention Imaging reveals pleural effusions and vascular congestion and there is 2+ pitting edema on physical examination bilaterally lower extremities Plan: ?Will remove fluid with dialysis-next dialysis scheduled for Monday ? Strict MARTÍNEZ's ? Fluid restriction to 1500 cc/day #ADITYA on CKD on hemodialysis (Monday) Patient was recently discharged on hemodialysis due to her urinary retention and CKD She presents with 4+ pitting edema and vascular congestion as well as pleural effusions on CT scans Plan: ? Strict MARTÍNEZ's ? Avoid nephrotoxic medications ? Will follow daily CMP # UTI Patient's urine was strongly positive for UTI with WBCs in the 800s with 2+ bacteria and leukocyte esterase positivity Patient was started on Zosyn in the ED Plan: ? Continue Zosyn ? Follow-up on urine cultures and blood cultures ? Will downgrade antibiotics pending speciation #Hypertension Restarted patient's home amlodipine 5 mg p.o. daily #Hypothyroidism Restarted patient home dose of levothyroxine 120 5 in the morning before breakfast #A-fib Currently rate controlled Continue amiodarone 200 mg p.o. twice daily Health maintenance plan: Dispo: Patient will remain in telemetry for further management of her GI bleed and acute hypoxic respiratory failure Code: DNR/DNI DVT PPx: SCD GI PPx: Protonix 40 IV twice daily FEN: Cardiac diet
--- NOTE | 2025-03-23 19:23 | PD.IMPROG ---
Documentation for date of: 03/23/25 Subjective Subjective Interval history: Patient evaluated Hemoglobin hematocrit 8.3 and 25.6 Exam Vital Signs Temp Pulse Resp BP Pulse Ox O2 Del Method O2 Flow Rate 97.2 F 85 20 112/73 95 Nasal Cannula 2 03/23/25 16:00 03/23/25 18:58 03/23/25 18:58 03/23/25 16:00 03/23/25 18:58 03/23/25 16:00 03/23/25 18:58 Objective Labs 03/23/25 05:44 03/23/25 05:44 Labs: Laboratory Results - last 24 hr 03/23/25 05:44 WBC 16.7 H RBC 2.79 L Hgb 8.3 L Hct 25.6 L MCV 92 MCH 29.7 MCHC 32.4 RDW Std Deviation 62.3 H Plt Count 371 Neut % (Auto) 71 Lymph % (Auto) 12 [place] % (Auto) 10 Eos % (Auto) 5 Baso % (Auto) 1 Neut # (Auto) 11.8 H Lymph # (Auto) 2.0 [place] # (Auto) 1.7 H Eos # (Auto) 0.8 H Baso # (Auto) 0.2 Immature Gran # (Auto) 0.29 H Absolute Nucleated RBC 0.00 Immature Gran % 2 H Nucleated RBC % 0 Sodium 128 L Potassium 3.5 Chloride 93 L Carbon Dioxide 25.5 Anion Gap 10 BUN 31 H Creatinine 1.6 H Estim Creat Clear Calc 26.3 L eGFR 32 L BUN/Creatinine Ratio 19 Glucose 118 H Calculated Osmolality 264 L Calcium 7.9 L Corrected Calcium 8.5 Phosphorus 3.1 Magnesium 2.2 Total Bilirubin 1.2 AST 20 ALT 9 L Alkaline Phosphatase 158 H Total Protein 6.6 Albumin 3.2 L Globulin 3.4 Albumin/Globulin Ratio 0.9 L Impressions Impression: #. 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
[2025-03-23] MEDS: LORazepam 0.5 MG TABLET PO (22:13)
[2025-03-24] VITALS (11 sets, daily range): BP systolic 116–124; BP diastolic 72–77; PULSE 73–92; RESP 12–23; TEMP 36–36.4; O2SAT 92–95; BMI 24.0
[2025-03-24] MEDS: DiphenhydrAMINE 25 MG CAPSULE PO (02:24)
--- NOTE | 2025-03-24 03:12 | PC.NURSE ---
Patient called and stated she had an itchy back. She had some irritation and redness to his back. We applied lotion and I notified Dr. Brooks and he ordered her a benadryl.
[2025-03-24] MEDS: LEVOTHYROXINE SODIUM 125 MCG, LEVOTHYROXINE SODIUM 50 MCG 175 MCG PO (05:53)
[2025-03-24] MEDS: ACETAMINOPHEN 325 MG TABLET 650 MG PO ×2 (05:53→21:28)
[2025-03-24 05:59] LABS: Basophils # (Auto) 0.1 Thou/mm3 (0.0-0.2); Basophils % (Auto) 1 % (0-2.5); Eosinophils # (Auto) 0.7 Thou/mm3 (0.0-0.5); Eosinophils % (Auto) 4 % (0-10); Hematocrit 24.8 % (36.0-46.0); Immature Granulocytes % (Auto) 2 % (0-0); Lymphocytes # (Auto) 1.9 Thou/mm3 (1.0-4.8); Lymphocytes % (Auto) 12 % (10-50); Mean Corpuscular HGB Conc 31.5 g/dl (31.0-37.0); Mean Corpuscular Hemoglobin 29.2 pg (25.0-35.0); Mean Corpuscular Volume 93 fL (80-100); Monocytes # (Auto) 1.5 Thou/mm3 (0.0-0.8); Monocytes % (Auto) 10 % (0-12); Neutrophils # (Auto) 10.7 Thou/mm3 (1.8-7.7); Neutrophils % (Auto) 71 % (37-80); Nucleated Red Blood Cell % 0 /100 WBC (0); Platelet Count 389 Thou/mm3 (140-440); RDW Standard Deviation 63.7 fL (36.4-46.3); Red Blood Count 2.67 Miln/mm3 (4.00-5.20); White Blood Count 15.1 Thou/mm3 (3.6-11.0)
[2025-03-24 06:13] LABS: Hemoglobin 7.8 g/dL (12.0-16.0)
[2025-03-24 06:43] LABS: Alanine Aminotransferase 10 U/L (10-49); Albumin/Globulin Ratio 0.9 (1.2-2.2); Alkaline Phosphatase 169 U/L (46-116); Anion Gap 10 (7-16); Aspartate Amino Transferase 20 U/L (0-34); BUN/Creatinine Ratio 19 Ratio (12-20); Bilirubin,Total 1.1 mg/dL (0.3-1.2); Blood Urea Nitrogen 29 mg/dL (9-23); Calcium 7.8 mg/dL (8.3-10.6); Calcium (Corrected) 8.6 mg/dL (8.5-10.1); Carbon Dioxide 27.6 mMol/L (20.0-31.0); Chloride 91 mMol/L (98-107); Creatinine (Component) 1.5 mg/dL (0.6-1.3); Globulin 3.3 gm/dL (2.3-3.5); Glucose 109 mg/dL (74-106); Osmolality,Calculated 265 (275-295); Potassium 3.5 mMol/L (3.4-5.1); Sodium 129 mMol/L (136-145); Total Protein 6.3 gm/dL (5.7-8.2); eGFR 35 See Note
[2025-03-24] MEDS: lorataDINE 10 MG TABLET PO (08:31)
[2025-03-24] MEDS: GLYCOPYRROLATE 1 MG TABLET PO ×2 (08:31→21:23)
[2025-03-24] MEDS: LACTOBACILLUS RHAMNOSUS 1 CAP PO (08:31)
[2025-03-24] MEDS: LORazepam 0.5 MG TABLET PO ×2 (08:31→21:22)
[2025-03-24] MEDS: amLODIPine BESYLATE 5 MG TABLET PO (08:31)
[2025-03-24] MEDS: FUROSEMIDE INJ 10 MG/ML 4ML VIAL 40 MG IVP (08:32)
[2025-03-24] MEDS: PANTOPRAZOLE 40 MG TABLET PO ×2 (08:32→21:22)
[2025-03-24] MEDS: FOLIC ACID 1 MG TABLET 5 MG PO (08:32)
[2025-03-24] MEDS: AMIODARONE HCL 200 MG TABLET PO ×2 (08:32→21:22)
--- NOTE | 2025-03-24 09:38 | PD.RESPRO ---
Documentation for date of: 03/24/25 Subjective Subjective Interval history: Ms. 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 Patient was seen in the ED and she states that she has had a couple of episodes of dark stools in the nursing facility. She denies any pain however she is fatigued and weak with mild SOB. She was recently in our ED on 03/06/25 for similar episode, however we did not have GI services at the time and when given the option to be transferred out for intervention the patient declined and was discharged back to nursing facility. She denies any other associated symptoms. In the ED patient was stable with BP of 116/76, pulse 87, RR 22, Temp 97.8, O2 Sat 99 on 6L NC CBC was significant for a WBC of 23.5, hemoglobin of 8.6 and a platelet count of 617. CMP was significant for sodium of 131 with a BUN of 25 and a creatinine of 1.7 from a baseline of 1.4. BNP was slightly elevated at 1823. UA was positive for UTI with a turbid urine and WBCs of 857 with 2+ urine bacteria and positive leukocyte esterase. Imaging of the abdomen and pelvis CT revealed vascular congestion with bibasilar pneumonia and moderate bilateral pleural effusions, cirrhosis, moderate ascites, anasarca and moderate stools in the rectum with diffuse thickening of the rectal wall. GI was consulted and patient was placed n.p.o. in preparation for possible endoscopy in the morning. Patient will be admitted for further management of her upper GI bleed as well as administration of her session of dialysis during hospitalization. 03/18/2025 patient currently seen in telemetry. Status post endoscopy and colonoscopy with no active bleed. Currently on dialysis. Complaining of significant shortness of breath. Gave breathing treatments, increase her oxygen requirements to 5 L. Will remove 4 L with dialysis today. Chest x-ray showed significant fluid overload. Hold discharge today. Made herself DNR/DNI. 03/22/2025: Patient seen and examined in telemetry. No overnight events. Patient is doing well, reports cough and dryness have improved with treatment. Patient will need to remain until Monday when public health officials will be able to perform the test. WBC 20.7, sodium 130, BUN 30, creatinine 1.7, EGFR 30. Magnesium 1.5, repleted with 4 units. Plan for hemodialysis with 2 L fluid removal today. 03/23/2025 patient currently seen in telemetry. Still having some shortness of breath. I gave her Robinul and the cough is better. Awaiting [facility] recommendations regarding exposure to bacteria. 03/24/2025: Patient seen and examioned at bedside, resting comfortably. ++anxiety- gave ativan Denies shortness of breath, chest pain, fevers, chills. Cough is improved. Expert [facility] officials today for testing for exposure. Exam Vital Signs Temp Pulse Resp BP Pulse Ox O2 Del Method O2 Flow Rate 96.8 F 82 16 121/77 95 Nasal Cannula 2 03/24/25 08:00 03/24/25 08:32 03/24/25 08:00 03/24/25 08:32 03/24/25 08:00 03/24/25 08:00 03/24/25 08:00 Narrative Exam Constitutional: Calm and comfortable. CVS: RRR, S1 and S2 present, no murmurs, rubs or gallops . There is a dialysis catheter on the right chest wall without tenderness or erythema RESP: Bilateral crackles noted, mild GI: Normal BS, Nontender/Nondistended. MSK: Full range of motion, No trauma or deformities or masses. 2+ pitting edema bilateral lower extremities Skin: Warm to touch, Dry. No rashes or lesions. 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 Sensation grossly intact. Psych: (AAO) x3 . Appropriate mood and affect. Objective Labs 03/24/25 05:09 03/24/25 05:09 Labs: Laboratory Results - last 24 hr 03/24/25 05:09 WBC 15.1 H RBC 2.67 L Hgb 7.8 L Hct 24.8 L MCV 93 MCH 29.2 MCHC 31.5 RDW Std Deviation 63.7 H Plt Count 389 Neut % (Auto) 71 Lymph % (Auto) 12 [place] % (Auto) 10 Eos % (Auto) 4 Baso % (Auto) 1 Neut # (Auto) 10.7 H Lymph # (Auto) 1.9 [place] # (Auto) 1.5 H Eos # (Auto) 0.7 H Baso # (Auto) 0.1 Immature Gran # (Auto) 0.30 H Absolute Nucleated RBC 0.00 Immature Gran % 2 H Nucleated RBC % 0 Sodium 129 L Potassium 3.5 Chloride 91 L Carbon Dioxide 27.6 Anion Gap 10 BUN 29 H Creatinine 1.5 H Estim Creat Clear Calc 28.0 L eGFR 35 L BUN/Creatinine Ratio 19 Glucose 109 H Calculated Osmolality 265 L Calcium 7.8 L Corrected Calcium 8.6 Phosphorus 3.0 Magnesium 2.0 Total Bilirubin 1.1 AST 20 ALT 10 Alkaline Phosphatase 169 H Total Protein 6.3 Albumin 3.0 L Globulin 3.3 Albumin/Globulin Ratio 0.9 L Quality Measures Quality Measures VTE prophylaxis Advance care planning discussed with:: patient Assessment & Plan Assessment Current Active Medications: Generic Name Dose Route Start Last Admin Trade Name Freq PRN Reason Stop Dose Admin Acetaminophen 650 mg 03/15/25 07:26 03/24/25 05:53 Acetaminophen 325 Mg Tablet PO 04/14/25 07:25 650 mg Q6HR PRN Administration PAIN OR FEVER > 101 Albuterol/Ipratropium 3 ml 03/18/25 09:26 03/18/25 09:54 Albuterol/Ipratropium (Duoneb) Rt Emily 3 Ml Nebu INH 04/17/25 10:59 3 ml Q4HRRT PRN Administration RESPIRATORY DISTRESS Amiodarone HCl 200 mg 03/14/25 21:00 03/24/25 08:32 Amiodarone Hcl 200 Mg Tablet PO 04/13/25 20:59 200 mg BID EULALIA Administration Amlodipine Besylate 5 mg 03/15/25 09:00 03/24/25 08:31 Amlodipine Besylate 5 Mg Tablet PO 04/14/25 08:59 5 mg QDAY EULALIA Administration Fluticasone Propionate 1 spray 03/14/25 20:28 03/20/25 08:17 Fluticasone Lit [place] 0.05% 16 Gm Btl NASAL 04/13/25 20:27 1 spray QDAY PRN Administration ALLERGY Folic Acid 5 mg 03/15/25 09:00 03/24/25 08:32 Folic Acid 1 Mg Tablet PO 04/14/25 08:59 5 mg QDAY EULALIA Administration Furosemide 40 mg 03/18/25 13:15 03/24/25 08:32 Furosemide Inj 10 Mg/Ml 4ml Vial IVP 04/17/25 13:14 40 mg QDAY EULALIA Administration Glycopyrrolate 1 mg 03/21/25 09:00 03/24/25 08:31 Glycopyrrolate 1 Mg Tablet PO 04/20/25 08:59 1 mg BID EULALIA Administration Heparin Sodium (Porcine) 3,500 unit 03/15/25 08:37 03/22/25 16:06 Heparin Sod Inj 1000 Unit/Ml Vial 10 Ml INDWELLCAT 03/29/25 08:36 3,500 unit PRN PRN Administration DIALYSIS Albumin Human 25 gm in 100 mls @ 100 mls/min 03/15/25 08:37 03/21/25 19:24 Albuminar-25 Ivpb IV Infused PRN PRN Infusion DIALYSIS Lactobacillus Rhamnosus 1 cap 03/15/25 09:00 03/24/25 08:31 Lactobacillus Rhamnosus 1 Cap PO 04/14/25 08:59 1 cap QDAY EULALIA Administration Levothyroxine Sodium 125 mcg/ 175 mcg 03/15/25 06:00 03/24/25 05:53 Levothyroxine Sodium 50 mcg PO 04/14/25 05:59 175 mcg ACBR EULALIA Administration Loratadine 10 mg 03/15/25 09:00 03/24/25 08:31 Loratadine 10 Mg Tablet PO 04/14/25 08:59 10 mg QDAY EULALIA Administration Lorazepam 0.5 mg 03/24/25 08:12 03/24/25 08:31 Lorazepam 0.5 Mg Tablet PO 03/29/25 08:59 0.5 mg BID PRN Administration ANXIETY Non-Formulary Medication 800 mcg 03/15/25 09:00 03/24/25 08:32 Biotin PO 04/14/25 08:59 Not Given QDAY EULALIA Non-Formulary Medication 1 tab 03/14/25 22:00 03/24/25 05:52 Chrom Janki/Brindall Mccrary (Garcinia Cambogia Tablet) PO 04/13/25 21:59 Not Given TID EULALIA Non-Formulary Medication 100 mcg 03/15/25 09:00 03/24/25 08:33 Cyanocobalamin (Vitamin B-12) [Vitamin B-12] PO 04/14/25 08:59 Not Given QDAY EULALIA Pantoprazole Sodium 40 mg 03/19/25 21:00 03/24/25 08:32 Pantoprazole 40 Mg Tablet PO 04/18/25 20:59 40 mg BID EULALIA Administration Plan 79 yo female with PMH of A-fib NOT on ELIQUIS, CHF, HTN, Hypothyroidism, 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 - Public health officials will be here on Monday - Follow test results for infection #Acute hypoxic respiratory failure #HFpEF with EF of 55 to 60% Patient presented with hypoxia requiring 5 L of nasal cannula to saturate 99% BNP was elevated at 1823 which is limiting considering she has urinary retention Imaging reveals pleural effusions and vascular congestion and there is 4+ pitting edema on physical examination bilaterally lower extremities 03/19/25 plan: Patient continues to require 3 L's O2 on nasal cannula. She has bilateral crackles and 2+ pitting edema ? Will perform dialysis as per usual schedule ? Strict MARTÍNEZ's ? Fluid restriction to 1500 cc/day #GI bleed?resolved Likely upper GI bleed Patient presented with several bloody bowel movements at the nursing facility and strongly positive fecal occult blood Patient was previously discharged with a hemoglobin of 10 which dropped down to 7.9 and this presentation GI was consulted in the ED ? Protonix PO twice daily ? Status post endoscopy and colonoscopy ? Appreciate GI recommendations ? Will monitor hemoglobin #ADITYA on CKD on hemodialysis (Monday) Patient was recently discharged on hemodialysis due to her urinary retention and CKD She presents with 4+ pitting edema and vascular congestion as well as pleural effusions on CT scans Patient currently seen on dialysis. Tolerating dialysis without any problems. Plan of care discussed with the dialysis nurse. Please see dialysis flowsheet for further details. ? Strict MARTÍNEZ's ? Avoid nephrotoxic medications ? Will follow daily CMP #UTI - E. Coli, treated Patient's urine was strongly positive for UTI with WBCs in the 800s with 2+ bacteria and leukocyte esterase positivity Patient was started on Zosyn in the ED ? Completed 1 week of Zosyn #Hypertension Restarted patient's home amlodipine 5 mg p.o. daily #Hypothyroidism Restarted patient home dose of levothyroxine 125 in the morning before breakfast #A-fib Currently rate controlled Continue amiodarone 200 mg p.o. twice daily Code: DNR/DNI DVT PPx: SCD GI PPx: Protonix 40 po twice daily FEN: Cardiac diet Plan of care discussed with attending Dr. Street. Mendoza Hernandez MD PGY?1 Attending Provider Attestation/Addendum Patient currently seen and examined with resident physician Dr. Hernandez. Note reviewed, agree with findings and recommendations. Patient currently seen in telemetry. Still having mild shortness of breath and cough is better. added glycopyrrolate-helped Discharge held for potential contamination with another patient with Burkholderia cepacia. HD in am Anxiety- added lorazepam
--- NOTE | 2025-03-24 09:48 | PC.NURSE ---
Pt. is to remain in Contact Precaution until ORNAMENT STITCHER is ruled out.
--- NOTE | 2025-03-24 15:01 | PC.SS ---
SS followed up with floor nurse and swab was delivered by [facility]. It will be sent out and results may be back by Monday.
--- NOTE | 2025-03-24 20:50 | PD.IMPROG ---
Documentation for date of: 03/24/25 Subjective Subjective Interval history: Downward trending hemoglobin hematocrit at 7.8 and 24.8 No signs of any active bleeding Exam Vital Signs Temp Pulse Resp BP Pulse Ox O2 Del Method O2 Flow Rate 96.8 F 76 14 124/77 95 Nasal Cannula 2 03/24/25 16:00 03/24/25 16:00 03/24/25 16:00 03/24/25 16:00 03/24/25 16:00 03/24/25 16:00 03/24/25 16:00 Objective Labs 03/24/25 05:09 03/24/25 05:09 Labs: Laboratory Results - last 24 hr 03/24/25 05:09 WBC 15.1 H RBC 2.67 L Hgb 7.8 L Hct 24.8 L MCV 93 MCH 29.2 MCHC 31.5 RDW Std Deviation 63.7 H Plt Count 389 Neut % (Auto) 71 Lymph % (Auto) 12 [place] % (Auto) 10 Eos % (Auto) 4 Baso % (Auto) 1 Neut # (Auto) 10.7 H Lymph # (Auto) 1.9 [place] # (Auto) 1.5 H Eos # (Auto) 0.7 H Baso # (Auto) 0.1 Immature Gran # (Auto) 0.30 H Absolute Nucleated RBC 0.00 Immature Gran % 2 H Nucleated RBC % 0 Sodium 129 L Potassium 3.5 Chloride 91 L Carbon Dioxide 27.6 Anion Gap 10 BUN 29 H Creatinine 1.5 H Estim Creat Clear Calc 28.0 L eGFR 35 L BUN/Creatinine Ratio 19 Glucose 109 H Calculated Osmolality 265 L Calcium 7.8 L Corrected Calcium 8.6 Phosphorus 3.0 Magnesium 2.0 Total Bilirubin 1.1 AST 20 ALT 10 Alkaline Phosphatase 169 H Total Protein 6.3 Albumin 3.0 L Globulin 3.3 Albumin/Globulin Ratio 0.9 L Impressions Impression: Anemia blood loss Gastritis Esophagitis Diverticulosis left colon Continue to monitor CBC Assessment & Plan A&P Narrative # Occult GI bleeding most likely mucosal oozing of blood on the previous endoscopy Plan repeat endoscopy Tomorrow morning to evaluate the cause of bleeding IV Protonix serial CBC Will follow the patient Other medical problems include 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
[2025-03-25] VITALS (26 sets, daily range): BP systolic 105–131; BP diastolic 50–80; PULSE 68–97; RESP 12–26; TEMP 36.1–36.5; O2SAT 93–99; BMI 23.3
[2025-03-25] MEDS: ACETAMINOPHEN 325 MG TABLET 650 MG PO (05:49)
[2025-03-25] MEDS: LEVOTHYROXINE SODIUM 125 MCG, LEVOTHYROXINE SODIUM 50 MCG 175 MCG PO (05:49)
[2025-03-25] MEDS: LORazepam 0.5 MG TABLET PO ×2 (05:51→20:36)
[2025-03-25] MEDS: FLUTICASONE NAS SPRAY 0.05% 16 GM BTL 1 SPRAY NASAL (06:05)
[2025-03-25 06:18] LABS: Basophils # (Auto) 0.1 Thou/mm3 (0.0-0.2); Basophils % (Auto) 1 % (0-2.5); Eosinophils # (Auto) 0.6 Thou/mm3 (0.0-0.5); Eosinophils % (Auto) 5 % (0-10); Hematocrit 24.8 % (36.0-46.0); Hemoglobin 8.3 g/dL (12.0-16.0); Immature Granulocytes % (Auto) 2 % (0-0); Immature Granulocytes Auto 0.22 Thou/mm3 (0.00-0.00); Lymphocytes # (Auto) 1.4 Thou/mm3 (1.0-4.8); Lymphocytes % (Auto) 10 % (10-50); Mean Corpuscular HGB Conc 33.5 g/dl (31.0-37.0); Mean Corpuscular Hemoglobin 30.1 pg (25.0-35.0); Mean Corpuscular Volume 90 fL (80-100); Monocytes # (Auto) 1.3 Thou/mm3 (0.0-0.8); Monocytes % (Auto) 9 % (0-12); Neutrophils # (Auto) 10.3 Thou/mm3 (1.8-7.7); Neutrophils % (Auto) 74 % (37-80); Nucleated Red Blood Cell % 0 /100 WBC (0); Platelet Count 410 Thou/mm3 (140-440); RDW Standard Deviation 65.6 fL (36.4-46.3); Red Blood Count 2.76 Miln/mm3 (4.00-5.20); White Blood Count 13.8 Thou/mm3 (3.6-11.0)
[2025-03-25 06:42] LABS: Albumin, Serum 3.2 gm/dL (3.4-4.8); Anion Gap 9 (7-16); BUN/Creatinine Ratio 19 Ratio (12-20); Blood Urea Nitrogen 27 mg/dL (9-23); Calcium 8.1 mg/dL (8.3-10.6); Calcium (Corrected) 8.7 mg/dL (8.5-10.1); Carbon Dioxide 27.6 mMol/L (20.0-31.0); Chloride 91 mMol/L (98-107); Creatinine (Component) 1.4 mg/dL (0.6-1.3); Glucose 101 mg/dL (74-106); Osmolality,Calculated 262 (275-295); Phosphorous 3.3 mg/dL (2.4-5.1); Potassium 3.5 mMol/L (3.4-5.1); Sodium 128 mMol/L (136-145); eGFR 38 See Note
[2025-03-25] MEDS: FOLIC ACID 1 MG TABLET 5 MG PO (08:31)
[2025-03-25] MEDS: GLYCOPYRROLATE 1 MG TABLET PO ×2 (08:32→20:17)
[2025-03-25] MEDS: FUROSEMIDE INJ 10 MG/ML 4ML VIAL 40 MG IVP (08:32)
[2025-03-25] MEDS: LACTOBACILLUS RHAMNOSUS 1 CAP PO (08:32)
[2025-03-25] MEDS: AMIODARONE HCL 200 MG TABLET PO ×2 (08:32→20:17)
[2025-03-25] MEDS: lorataDINE 10 MG TABLET PO (08:32)
[2025-03-25] MEDS: PANTOPRAZOLE 40 MG TABLET PO ×2 (08:32→20:17)
--- NOTE | 2025-03-25 09:50 | PD.RESPRO ---
Documentation for date of: 03/25/25 Subjective Subjective Interval history: Ms. 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 Patient was seen in the ED and she states that she has had a couple of episodes of dark stools in the nursing facility. She denies any pain however she is fatigued and weak with mild SOB. She was recently in our ED on 03/06/25 for similar episode, however we did not have GI services at the time and when given the option to be transferred out for intervention the patient declined and was discharged back to nursing facility. She denies any other associated symptoms. In the ED patient was stable with BP of 116/76, pulse 87, RR 22, Temp 97.8, O2 Sat 99 on 6L NC CBC was significant for a WBC of 23.5, hemoglobin of 8.6 and a platelet count of 617. CMP was significant for sodium of 131 with a BUN of 25 and a creatinine of 1.7 from a baseline of 1.4. BNP was slightly elevated at 1823. UA was positive for UTI with a turbid urine and WBCs of 857 with 2+ urine bacteria and positive leukocyte esterase. Imaging of the abdomen and pelvis CT revealed vascular congestion with bibasilar pneumonia and moderate bilateral pleural effusions, cirrhosis, moderate ascites, anasarca and moderate stools in the rectum with diffuse thickening of the rectal wall. GI was consulted and patient was placed n.p.o. in preparation for possible endoscopy in the morning. Patient will be admitted for further management of her upper GI bleed as well as administration of her session of dialysis during hospitalization. 03/18/2025 patient currently seen in telemetry. Status post endoscopy and colonoscopy with no active bleed. Currently on dialysis. Complaining of significant shortness of breath. Gave breathing treatments, increase her oxygen requirements to 5 L. Will remove 4 L with dialysis today. Chest x-ray showed significant fluid overload. Hold discharge today. Made herself DNR/DNI. 03/22/2025: Patient seen and examined in telemetry. No overnight events. Patient is doing well, reports cough and dryness have improved with treatment. Patient will need to remain until Monday when public health officials will be able to perform the test. WBC 20.7, sodium 130, BUN 30, creatinine 1.7, EGFR 30. Magnesium 1.5, repleted with 4 units. Plan for hemodialysis with 2 L fluid removal today. 03/23/2025 patient currently seen in telemetry. Still having some shortness of breath. I gave her Robinul and the cough is better. Awaiting [facility] recommendations regarding exposure to bacteria. 03/24/2025: Patient seen and examioned at bedside, resting comfortably. ++anxiety- gave ativan Denies shortness of breath, chest pain, fevers, chills. Cough is improved. Expect [place] officials today for testing for exposure. 03/25/2025: Patient seen and examined at bedside, resting comfortably. Denies fever, chills, chest pain, shortness of breath, nausea, vomiting. Denies cough or anxiety. Patient received testing by [facility] officials yesterday, however results will not begin until Monday. Continue to monitor and provide scheduled dialysis. Exam Vital Signs Temp Pulse Resp BP Pulse Ox O2 Del Method O2 Flow Rate 97.0 F 81 15 122/70 96 Nasal Cannula 3 03/25/25 08:00 03/25/25 08:33 03/25/25 08:00 03/25/25 08:33 03/25/25 08:00 03/25/25 08:00 03/25/25 08:00 Narrative Exam Constitutional: Calm and comfortable. CVS: RRR, S1 and S2 present, no murmurs, rubs or gallops . There is a dialysis catheter on the right chest wall without tenderness or erythema RESP: Bilateral crackles noted, mild GI: Normal BS, Nontender/Nondistended. MSK: Full range of motion, No trauma or deformities or masses. 2+ pitting edema bilateral lower extremities Skin: Warm to touch, Dry. No rashes or lesions. 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 Sensation grossly intact. Psych: (AAO) x3 . Appropriate mood and affect. Objective Labs 03/27/25 05:20 03/27/25 05:20 Labs: Laboratory Results - last 24 hr 03/25/25 05:33 WBC 13.8 H RBC 2.76 L Hgb 8.3 L Hct 24.8 L MCV 90 MCH 30.1 MCHC 33.5 RDW Std Deviation 65.6 H Plt Count 410 Neut % (Auto) 74 Lymph % (Auto) 10 [place] % (Auto) 9 Eos % (Auto) 5 Baso % (Auto) 1 Neut # (Auto) 10.3 H Lymph # (Auto) 1.4 [place] # (Auto) 1.3 H Eos # (Auto) 0.6 H Baso # (Auto) 0.1 Immature Gran # (Auto) 0.22 H Absolute Nucleated RBC 0.00 Immature Gran % 2 H Nucleated RBC % 0 Sodium 128 L Potassium 3.5 Chloride 91 L Carbon Dioxide 27.6 Anion Gap 9 BUN 27 H Creatinine 1.4 H Estim Creat Clear Calc 30.0 L eGFR 38 L BUN/Creatinine Ratio 19 Glucose 101 Calculated Osmolality 262 L Calcium 8.1 L Corrected Calcium 8.7 Phosphorus 3.3 Albumin 3.2 L Quality Measures Quality Measures VTE prophylaxis Advance care planning discussed with:: patient Assessment & Plan Assessment Current Active Medications: Generic Name Dose Route Start Last Admin Trade Name Freq PRN Reason Stop Dose Admin Acetaminophen 650 mg 03/15/25 07:26 03/25/25 05:49 Acetaminophen 325 Mg Tablet PO 04/14/25 07:25 650 mg Q6HR PRN Administration PAIN OR FEVER > 101 Albuterol/Ipratropium 3 ml 03/18/25 09:26 03/18/25 09:54 Albuterol/Ipratropium (Duoneb) Rt Emily 3 Ml Nebu INH 04/17/25 10:59 3 ml Q4HRRT PRN Administration RESPIRATORY DISTRESS Amiodarone HCl 200 mg 03/14/25 21:00 03/25/25 08:32 Amiodarone Hcl 200 Mg Tablet PO 04/13/25 20:59 200 mg BID EULALIA Administration Amlodipine Besylate 5 mg 03/15/25 09:00 03/25/25 08:33 Amlodipine Besylate 5 Mg Tablet PO 04/14/25 08:59 Not Given QDAY EULALIA Fluticasone Propionate 1 spray 03/14/25 20:28 03/25/25 06:05 Fluticasone Lit [place] 0.05% 16 Gm Btl NASAL 04/13/25 20:27 1 spray QDAY PRN Administration ALLERGY Folic Acid 5 mg 03/15/25 09:00 03/25/25 08:31 Folic Acid 1 Mg Tablet PO 04/14/25 08:59 5 mg QDAY EULALIA Administration Furosemide 40 mg 03/18/25 13:15 03/25/25 08:32 Furosemide Inj 10 Mg/Ml 4ml Vial IVP 04/17/25 13:14 40 mg QDAY EULALIA Administration Glycopyrrolate 1 mg 03/21/25 09:00 03/25/25 08:32 Glycopyrrolate 1 Mg Tablet PO 04/20/25 08:59 1 mg BID EULALIA Administration Heparin Sodium (Porcine) 3,500 unit 03/15/25 08:37 03/22/25 16:06 Heparin Sod Inj 1000 Unit/Ml Vial 10 Ml INDWELLCAT 03/29/25 08:36 3,500 unit PRN PRN Administration DIALYSIS Albumin Human 25 gm in 100 mls @ 100 mls/min 03/15/25 08:37 03/21/25 19:24 Albuminar-25 Ivpb IV Infused PRN PRN Infusion DIALYSIS Lactobacillus Rhamnosus 1 cap 03/15/25 09:00 03/25/25 08:32 Lactobacillus Rhamnosus 1 Cap PO 04/14/25 08:59 1 cap QDAY EULALIA Administration Levothyroxine Sodium 125 mcg/ 175 mcg 03/15/25 06:00 03/25/25 05:49 Levothyroxine Sodium 50 mcg PO 04/14/25 05:59 175 mcg ACBR EULALIA Administration Loratadine 10 mg 03/15/25 09:00 03/25/25 08:32 Loratadine 10 Mg Tablet PO 04/14/25 08:59 10 mg QDAY EULALIA Administration Lorazepam 0.5 mg 03/24/25 08:12 03/25/25 05:51 Lorazepam 0.5 Mg Tablet PO 03/29/25 08:59 0.5 mg BID PRN Administration ANXIETY Non-Formulary Medication 800 mcg 03/15/25 09:00 03/25/25 08:33 Biotin PO 04/14/25 08:59 Not Given QDAY EULALIA Non-Formulary Medication 1 tab 03/14/25 22:00 03/25/25 08:34 Chrom Janki/Brindall Mccrary (Garcinia Cambogia Tablet) PO 04/13/25 21:59 Not Given TID EULALIA Non-Formulary Medication 100 mcg 03/15/25 09:00 03/25/25 08:33 Cyanocobalamin (Vitamin B-12) [Vitamin B-12] PO 04/14/25 08:59 Not Given QDAY [facility] Pantoprazole Sodium 40 mg 03/19/25 21:00 03/25/25 08:32 Pantoprazole 40 Mg Tablet PO 04/18/25 20:59 40 mg BID EULALIA Administration Plan 79 yo female with PMH of A-fib NOT on ELIQUIS, CHF, HTN, Hypothyroidism, 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 [place] officials perform rectal swab for testing on Monday. Will have the results on Monday. - Follow test results for infection #Acute hypoxic respiratory failure #HFpEF with EF of 55 to 60% Patient presented with hypoxia requiring 5 L of nasal cannula to saturate 99% BNP was elevated at 1823 which is limiting considering she has urinary retention Imaging reveals pleural effusions and vascular congestion and there is 4+ pitting edema on physical examination bilaterally lower extremities 03/19/25 plan: Patient continues to require 3 L's O2 on nasal cannula. She has bilateral crackles and 2+ pitting edema ? Will perform dialysis as per usual schedule ? Strict MARTÍNEZ's ? Fluid restriction to 1500 cc/day #GI bleed?resolved Likely upper GI bleed Patient presented with several bloody bowel movements at the nursing facility and strongly positive fecal occult blood Patient was previously discharged with a hemoglobin of 10 which dropped down to 7.9 and this presentation GI was consulted in the ED ? Protonix PO twice daily ? Status post endoscopy and colonoscopy ? Appreciate GI recommendations ? Will monitor hemoglobin #ADITYA on CKD on hemodialysis (Monday) Patient was recently discharged on hemodialysis due to her urinary retention and CKD She presents with 4+ pitting edema and vascular congestion as well as pleural effusions on CT scans Patient currently seen on dialysis. Tolerating dialysis without any problems. Plan of care discussed with the dialysis nurse. Please see dialysis flowsheet for further details. ? Strict MARTÍNEZ's ? Avoid nephrotoxic medications ? Will follow daily CMP #UTI - E. Coli, treated Patient's urine was strongly positive for UTI with WBCs in the 800s with 2+ bacteria and leukocyte esterase positivity Patient was started on Zosyn in the ED ? Completed 1 week of Zosyn #Hypertension Restarted patient's home amlodipine 5 mg p.o. daily #Hypothyroidism Restarted patient home dose of levothyroxine 125 in the morning before breakfast #A-fib Currently rate controlled Continue amiodarone 200 mg p.o. twice daily Code: DNR/DNI DVT PPx: SCD GI PPx: Protonix 40 po twice daily FEN: Cardiac diet Plan of care discussed with attending Dr. Strete. Mendoza Hernandez MD PGY?1 Attending Provider Attestation/Addendum Patient currently seen and examined with resident physician Dr. Hernandez. Note reviewed, agree with findings and recommendations. Patient currently seen in telemetry. Next dialysis scheduled for tomorrow. Dr. Chou will be covering for me.
--- NOTE | 2025-03-25 11:32 | PC.SS ---
TELECASTING ENGINEER informed by nursing staff that patient's friend, Ramon Bonds ; requesting information pertaining to patient's need for contact precaution. TELECASTING ENGINEER met with patient's friend to confirm that medical information cannot be disclosed unless authorized by the patient. TELECASTING ENGINEER met with patient at bedside to discuss friend's request. Patient confirmed that, Ramon Bonds; is her neighbor and verbally agreed for nursing staff to disclose to friend basis for contact precaution. TELECASTING ENGINEER relayed request to the bedside nurse. Bedside nurse to conduct bedside contact with patient and family friend to provide update. TELECASTING ENGINEER updated charge nurse. Patient alert/oriented.
--- NOTE | 2025-03-25 12:10 | PC.SS ---
Patient receiving dialysis session today.
[2025-03-25] MEDS: EPOETIN ALFA INJ 1,000 UNIT/0.05 ML UNIT 10000 UNIT SC (15:52)
[2025-03-25] MEDS: HEPARIN SOD INJ 1000 UNIT/ML VIAL 10 ML 3500 UNIT INDWELLCAT (15:53)
--- NOTE | 2025-03-25 20:09 | ESPR_ITS ---
Documentation for date of: 03/25/25 Subjective Subjective Interval history: Hemoglobin hematocrit 8.3 and 24.7 Relatively stable Exam Vital Signs Temp Pulse Resp BP Pulse Ox O2 Del Method O2 Flow Rate 97.1 F 94 20 122/69 99 Nasal Cannula 3.5 03/25/25 16:07 03/25/25 16:07 03/25/25 16:07 03/25/25 16:07 03/25/25 16:07 03/25/25 16:00 03/25/25 16:07 Objective Labs 03/25/25 05:33 03/25/25 05:33 Labs: Laboratory Results - last 24 hr 03/25/25 05:33 WBC 13.8 H RBC 2.76 L Hgb 8.3 L Hct 24.8 L MCV 90 MCH 30.1 MCHC 33.5 RDW Std Deviation 65.6 H Plt Count 410 Neut % (Auto) 74 Lymph % (Auto) 10 [place] % (Auto) 9 Eos % (Auto) 5 Baso % (Auto) 1 Neut # (Auto) 10.3 H Lymph # (Auto) 1.4 [place] # (Auto) 1.3 H Eos # (Auto) 0.6 H Baso # (Auto) 0.1 Immature Gran # (Auto) 0.22 H Absolute Nucleated RBC 0.00 Immature Gran % 2 H Nucleated RBC % 0 Sodium 128 L Potassium 3.5 Chloride 91 L Carbon Dioxide 27.6 Anion Gap 9 BUN 27 H Creatinine 1.4 H Estim Creat Clear Calc 30.0 L eGFR 38 L BUN/Creatinine Ratio 19 Glucose 101 Calculated Osmolality 262 L Calcium 8.1 L Corrected Calcium 8.7 Phosphorus 3.3 Albumin 3.2 L Impressions Impression: # Gastritis # Esophagitis # Diverticulosis: Left colon Relatively stable hemoglobin hematocrit Continue current management Assessment & Plan A&P Narrative # Occult GI bleeding most likely mucosal oozing of blood on the previous endoscopy Plan repeat endoscopy Tomorrow morning to evaluate the cause of bleeding IV Protonix serial CBC Will follow the patient Other medical problems include 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
[2025-03-26] VITALS (13 sets, daily range): BP systolic 99–123; BP diastolic 56–75; PULSE 73–100; RESP 17–24; TEMP 36.2–36.8; O2SAT 91–98; BMI 23.0; BMI 15.0
[2025-03-26] MEDS: ACETAMINOPHEN 325 MG TABLET 650 MG PO ×2 (02:50→17:59)
[2025-03-26] MEDS: LEVOTHYROXINE SODIUM 125 MCG, LEVOTHYROXINE SODIUM 50 MCG 175 MCG PO (05:10)
[2025-03-26 06:27] LABS: Basophils # (Auto) 0.1 Thou/mm3 (0.0-0.2); Basophils % (Auto) 1 % (0-2.5); Eosinophils # (Auto) 0.4 Thou/mm3 (0.0-0.5); Eosinophils % (Auto) 3 % (0-10); Hematocrit 25.3 % (36.0-46.0); Immature Granulocytes % (Auto) 2 % (0-0); Lymphocytes # (Auto) 1.5 Thou/mm3 (1.0-4.8); Lymphocytes % (Auto) 11 % (10-50); Mean Corpuscular HGB Conc 33.2 g/dl (31.0-37.0); Mean Corpuscular Volume 90 fL (80-100); Monocytes # (Auto) 1.3 Thou/mm3 (0.0-0.8); Monocytes % (Auto) 10 % (0-12); Neutrophils # (Auto) 9.6 Thou/mm3 (1.8-7.7); Neutrophils % (Auto) 73 % (37-80); Nucleated Red Blood Cell % 0 /100 WBC (0); Platelet Count 430 Thou/mm3 (140-440); RDW Standard Deviation 69.1 fL (36.4-46.3); White Blood Count 13.1 Thou/mm3 (3.6-11.0)
[2025-03-26 06:28] LABS: Hemoglobin 8.4 g/dL (12.0-16.0)
[2025-03-26 07:39] LABS: Albumin, Serum 3.3 gm/dL (3.4-4.8); Anion Gap 8 (7-16); BUN/Creatinine Ratio 19 Ratio (12-20); Blood Urea Nitrogen 27 mg/dL (9-23); Calcium 8.3 mg/dL (8.3-10.6); Calcium (Corrected) 8.9 mg/dL (8.5-10.1); Carbon Dioxide 26.1 mMol/L (20.0-31.0); Chloride 93 mMol/L (98-107); Creatinine (Component) 1.4 mg/dL (0.6-1.3); Glucose 108 mg/dL (74-106); Osmolality,Calculated 261 (275-295); Phosphorous 3.1 mg/dL (2.4-5.1); Potassium 3.7 mMol/L (3.4-5.1); Sodium 127 mMol/L (136-145); eGFR 38 See Note
[2025-03-26] MEDS: FOLIC ACID 1 MG TABLET 5 MG PO (09:38)
[2025-03-26] MEDS: GLYCOPYRROLATE 1 MG TABLET PO ×2 (09:39→20:33)
[2025-03-26] MEDS: PANTOPRAZOLE 40 MG TABLET PO (09:39)
[2025-03-26] MEDS: lorataDINE 10 MG TABLET PO (09:39)
[2025-03-26] MEDS: LACTOBACILLUS RHAMNOSUS 1 CAP PO (09:39)
[2025-03-26] MEDS: amLODIPine BESYLATE 5 MG TABLET PO (09:39)
[2025-03-26] MEDS: AMIODARONE HCL 200 MG TABLET PO ×2 (09:43→20:32)
[2025-03-26] MEDS: FLUTICASONE NAS SPRAY 0.05% 16 GM BTL 1 SPRAY NASAL (09:43)
[2025-03-26] MEDS: FUROSEMIDE INJ 10 MG/ML 4ML VIAL 40 MG IVP (09:44)
[2025-03-26] MEDS: LORazepam 0.5 MG TABLET PO ×2 (09:57→20:33)
--- NOTE | 2025-03-26 13:49 | PD.RESPRO ---
Documentation for date of: 03/26/25 Subjective Subjective Interval history: 03/26/2025: No acute overnight events reported. Patient seen and examined in hospital bed reports no concerning symptoms at this time. Patient had hemodialysis session on 03/25 with roughly 2.7 ultrafiltration removed. 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 Will continue to monitor the patient for any acute changes. Exam Vital Signs Temp Pulse Resp BP Pulse Ox O2 Del Method O2 Flow Rate 97.1 F 78 17 116/67 97 Nasal Cannula 3 03/26/25 12:03/26/25 12:03/26/25 12:03/26/25 12:03/26/25 12:03/26/25 12:03/26/25 12:00 Narrative Exam Physical Exam: Constitutional: Calm and comfortable. CVS: RRR, S1 and S2 present, no murmurs, rubs or gallops . There is a dialysis catheter on the right chest wall without tenderness or erythema RESP: Bilateral crackles noted, mild GI: Normal BS, Nontender/Nondistended. MSK: Full range of motion, No trauma or deformities or masses. 2+ pitting edema bilateral lower extremities Skin: Warm to touch, Dry. No rashes or lesions. 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 Sensation grossly intact. Psych: (AAO) x3 . Appropriate mood and affect. Objective Labs 03/27/25 05:20 03/27/25 05:20 Labs: Laboratory Results - last 24 hr 03/26/25 05:35 WBC 13.1 H RBC 2.80 L Hgb 8.4 L Hct 25.3 L MCV 90 MCH 30.0 MCHC 33.2 RDW Std Deviation 69.1 H Plt Count 430 Neut % (Auto) 73 Lymph % (Auto) 11 [place] % (Auto) 10 Eos % (Auto) 3 Baso % (Auto) 1 Neut # (Auto) 9.6 H Lymph # (Auto) 1.5 [place] # (Auto) 1.3 H Eos # (Auto) 0.4 Baso # (Auto) 0.1 Immature Gran # (Auto) 0.20 H Absolute Nucleated RBC 0.00 Immature Gran % 2 H Nucleated RBC % 0 Sodium 127 L Potassium 3.7 Chloride 93 L Carbon Dioxide 26.1 Anion Gap 8 BUN 27 H Creatinine 1.4 H Estim Creat Clear Calc 30.0 L eGFR 38 L BUN/Creatinine Ratio 19 Glucose 108 H Calculated Osmolality 261 L Calcium 8.3 Corrected Calcium 8.9 Phosphorus 3.1 Albumin 3.3 L Quality Measures Quality Measures VTE prophylaxis Advance care planning discussed with:: patient Assessment & Plan Assessment Current Active Medications: Generic Name Dose Route Start Last Admin Trade Name Freq PRN Reason Stop Dose Admin Acetaminophen 650 mg 03/15/25 07:26 03/26/25 02:50 Acetaminophen 325 Mg Tablet PO 04/14/25 07:25 650 mg Q6HR PRN Administration PAIN OR FEVER > 101 Albuterol/Ipratropium 3 ml 03/18/25 09:26 03/18/25 09:54 Albuterol/Ipratropium (Duoneb) Rt Emily 3 Ml Nebu INH 04/17/25 10:59 3 ml Q4HRRT PRN Administration RESPIRATORY DISTRESS Amiodarone HCl 200 mg 03/14/25 21:00 03/26/25 09:43 Amiodarone Hcl 200 Mg Tablet PO 04/13/25 20:59 200 mg BID EULALIA Administration Amlodipine Besylate 5 mg 03/15/25 09:00 03/26/25 09:39 Amlodipine Besylate 5 Mg Tablet PO 04/14/25 08:59 5 mg QDAY EULALIA Administration Fluticasone Propionate 1 spray 03/14/25 20:28 03/26/25 09:43 Fluticasone Lit [place] 0.05% 16 Gm Btl NASAL 04/13/25 20:27 1 spray QDAY PRN Administration ALLERGY Folic Acid 5 mg 03/15/25 09:00 03/26/25 09:38 Folic Acid 1 Mg Tablet PO 04/14/25 08:59 5 mg QDAY EULALIA Administration Furosemide 40 mg 03/18/25 13:15 03/26/25 09:44 Furosemide Inj 10 Mg/Ml 4ml Vial IVP 04/17/25 13:14 40 mg QDAY EULALIA Administration Glycopyrrolate 1 mg 03/21/25 09:00 03/26/25 09:39 Glycopyrrolate 1 Mg Tablet PO 04/20/25 08:59 1 mg BID EULALIA Administration Heparin Sodium (Porcine) 3,500 unit 03/15/25 08:37 03/25/25 15:53 Heparin Sod Inj 1000 Unit/Ml Vial 10 Ml INDWELLCAT 03/29/25 08:36 3,500 unit PRN PRN Administration DIALYSIS Albumin Human 25 gm in 100 mls @ 100 mls/min 03/15/25 08:37 03/21/25 19:24 Albuminar-25 Ivpb IV Infused PRN PRN Infusion DIALYSIS Lactobacillus Rhamnosus 1 cap 03/15/25 09:00 03/26/25 09:39 Lactobacillus Rhamnosus 1 Cap PO 04/14/25 08:59 1 cap QDAY EULALIA Administration Levothyroxine Sodium 125 mcg/ 175 mcg 03/15/25 06:00 03/26/25 05:10 Levothyroxine Sodium 50 mcg PO 04/14/25 05:59 175 mcg ACBR EULALIA Administration Loratadine 10 mg 03/15/25 09:00 03/26/25 09:39 Loratadine 10 Mg Tablet PO 04/14/25 08:59 10 mg QDAY EULALIA Administration Lorazepam 0.5 mg 03/24/25 08:12 03/26/25 09:57 Lorazepam 0.5 Mg Tablet PO 03/29/25 08:59 0.5 mg BID PRN Administration ANXIETY Non-Formulary Medication 800 mcg 03/15/25 09:00 03/26/25 09:44 Biotin PO 04/14/25 08:59 Not Given QDAY EULALIA Non-Formulary Medication 1 tab 03/14/25 22:00 03/26/25 09:42 Chrom Janki/Brindall Mccrary (Garcinia Cambogia Tablet) PO 04/13/25 21:59 Not Given TID EULALIA Non-Formulary Medication 100 mcg 03/15/25 09:00 03/26/25 09:44 Cyanocobalamin (Vitamin B-12) [Vitamin B-12] PO 04/14/25 08:59 Not Given QDAY EULALIA Pantoprazole Sodium 40 mg 03/19/25 21:00 03/26/25 09:39 Pantoprazole 40 Mg Tablet PO 04/18/25 20:59 40 mg BID EULALIA Administration Plan 79 yo female with PMH of A-fib NOT on ELIQUIS, CHF, HTN, Hypothyroidism, 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 Local officials perform rectal swab for testing on Monday. Plan: Will follow-up on results which will be available on Wednesday 03/28 #Acute hypoxic respiratory failure, resolved #HFpEF with EF of 55 to 60% Patient presented with hypoxia requiring 5 L of nasal cannula to saturate 99% BNP was elevated at 1823 which is limiting considering she has urinary retention Imaging reveals pleural effusions and vascular congestion and there is 4+ pitting edema on physical examination bilaterally lower extremities 03/25/2025: Patient had 2.7 L ultrafiltration Patient on minimal supplemental oxygenation Plan: Oxygen as needed Continue dialysis session as scheduled Strict MARTÍNEZ's Fluid restriction to 1500 cc/day #GI bleed?resolved Likely upper GI bleed Patient presented with several bloody bowel movements at the nursing facility and strongly positive fecal occult blood Patient was previously discharged with a hemoglobin of 10 which dropped down to 7.9 and this presentation GI was consulted in the ED Status post endoscopy and colonoscopy; patient has not bleeding at this time Plan: Protonix PO twice daily Will monitor hemoglobin #ADITYA on CKD on hemodialysis (Monday) Patient was recently discharged on hemodialysis due to her urinary retention and CKD She presents with 4+ pitting edema and vascular congestion as well as pleural effusions on CT scans Patient currently seen on dialysis. Tolerating dialysis without any problems. Plan of care discussed with the dialysis nurse. Please see dialysis flowsheet for further details. Plan: Strict MARTÍNEZ's Avoid nephrotoxic medications Will follow daily CMP #UTI - E. Coli, treated Patient's urine was strongly positive for UTI with WBCs in the 800s with 2+ bacteria and leukocyte esterase positivity Patient was started on Zosyn in the ED Completed 1 week of Zosyn Plan: Monitor for any acute changes in symptoms #Hypertension Patient on amlodipine 5 mg Plan: Continue patient's home amlodipine 5 mg p.o. daily #Hypothyroidism Patient on home levothyroxine 125 mcg Plan: Continue home dose #Atrial fibrillation Currently rate controlled Patient on home amiodarone 200 mg p.o. twice daily Plan: Continue amiodarone 200 mg p.o. twice daily Hospital Management: Code: DNR/DNI Lines: PIV, right TNC DVT prophylaxis: SCD GI prophylaxis: Not needed FEN: Cardiac diet Patient seen and assessed with attending Dr. Morgan and senior resident Dr. Sourav Armstrong, PGY-1 Patient examined and case discussed with the team including attending physician . Note reviewed, I agree with the care plan as documented. Plan: Took over care from Dr Street. Medications reconciled. Dispo: awaiting final rectal swab for Burkholderia cepacia, anticipate results on Wednesday 03/28. Please refer to the note above for further details. - Hima Benjamin MD, PGY 2 Disclaimer: The document may contain phonetic/typographic errors due to voice recognition software. These errors are purely due to imperfections in the software program and should not be misconstrued in any way to compromise the substance of the patient's medical care during this visit. Attending Provider Attestation/Addendum 79-year-old female with multiple comorbidities including hypertension, hyperlipidemia, atrial fibrillation on Eliquis, heart failure with preserved EF end-stage renal disease on hemodialysis who initially presented hypoxia and exposure to Burkholderia cepacia pending clearance from [place]. As of now, patient patient back to baseline status post multiple sessions of hemodialysis and once cleared by Co. will discharge the patient.I reviewed above note and agree with findings and plans. I have also personally examined the patient with medicine team and went over assessment and plan with medical team including continuous improvement intern and resident physician.
--- NOTE | 2025-03-26 17:00 | PC.SS ---
Update: Patient pending rectal swab test for Burkholderia cepacia.
--- NOTE | 2025-03-26 21:13 | ESPR_ITS ---
Documentation for date of: 03/26/25 Subjective Subjective Interval history: Patient evaluated hemoglobin hematocrit 8.4 and 25.3 Exam Vital Signs Temp Pulse Resp BP Pulse Ox O2 Del Method O2 Flow Rate 97.3 F 84 22 H 99/56 L 94 L Nasal Cannula 3 03/26/25 20:00 03/26/25 20:32 03/26/25 20:00 03/26/25 20:32 03/26/25 20:00 03/26/25 20:00 03/26/25 20:00 Routine Respiratory Exam Comments: Normal to auscultation Routine Abdominal Exam Comments: Soft nontender Objective Labs 03/26/25 05:35 03/26/25 05:35 Labs: Laboratory Results - last 24 hr 03/26/25 05:35 WBC 13.1 H RBC 2.80 L Hgb 8.4 L Hct 25.3 L MCV 90 MCH 30.0 MCHC 33.2 RDW Std Deviation 69.1 H Plt Count 430 Neut % (Auto) 73 Lymph % (Auto) 11 [place] % (Auto) 10 Eos % (Auto) 3 Baso % (Auto) 1 Neut # (Auto) 9.6 H Lymph # (Auto) 1.5 [place] # (Auto) 1.3 H Eos # (Auto) 0.4 Baso # (Auto) 0.1 Immature Gran # (Auto) 0.20 H Absolute Nucleated RBC 0.00 Immature Gran % 2 H Nucleated RBC % 0 Sodium 127 L Potassium 3.7 Chloride 93 L Carbon Dioxide 26.1 Anion Gap 8 BUN 27 H Creatinine 1.4 H Estim Creat Clear Calc 30.0 L eGFR 38 L BUN/Creatinine Ratio 19 Glucose 108 H Calculated Osmolality 261 L Calcium 8.3 Corrected Calcium 8.9 Phosphorus 3.1 Albumin 3.3 L Impressions Impression: Anemia blood loss Gastritis Esophagitis Diverticulosis: Continue current management Assessment & Plan A&P Narrative # Occult GI bleeding most likely mucosal oozing of blood on the previous endoscopy Plan repeat endoscopy Tomorrow morning to evaluate the cause of bleeding IV Protonix serial CBC Will follow the patient Other medical problems include 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
[2025-03-27] VITALS (25 sets, daily range): BP systolic 106–129; BP diastolic 57–75; PULSE 72–89; RESP 13–22; TEMP 36.1–36.8; O2SAT 94–99; BMI 23.0
[2025-03-27] MEDS: ACETAMINOPHEN 325 MG TABLET 650 MG PO (04:21)
[2025-03-27] MEDS: LEVOTHYROXINE SODIUM 125 MCG, LEVOTHYROXINE SODIUM 50 MCG 175 MCG PO (05:57)
[2025-03-27] MEDS: LORazepam 0.5 MG TABLET PO (05:59)
[2025-03-27 06:49] LABS: Basophils # (Auto) 0.1 Thou/mm3 (0.0-0.2); Basophils % (Auto) 1 % (0-2.5); Eosinophils # (Auto) 0.6 Thou/mm3 (0.0-0.5); Eosinophils % (Auto) 5 % (0-10); Hematocrit 24.1 % (36.0-46.0); Immature Granulocytes % (Auto) 1 % (0-0); Immature Granulocytes Auto 0.18 Thou/mm3 (0.00-0.00); Lymphocytes # (Auto) 1.4 Thou/mm3 (1.0-4.8); Lymphocytes % (Auto) 11 % (10-50); Mean Corpuscular HGB Conc 32.4 g/dl (31.0-37.0); Mean Corpuscular Hemoglobin 30.1 pg (25.0-35.0); Mean Corpuscular Volume 93 fL (80-100); Monocytes # (Auto) 1.3 Thou/mm3 (0.0-0.8); Monocytes % (Auto) 10 % (0-12); Neutrophils # (Auto) 9.1 Thou/mm3 (1.8-7.7); Neutrophils % (Auto) 72 % (37-80); Nucleated Red Blood Cell % 0 /100 WBC (0); Platelet Count 401 Thou/mm3 (140-440); RDW Standard Deviation 71.7 fL (36.4-46.3); Red Blood Count 2.59 Miln/mm3 (4.00-5.20); White Blood Count 12.7 Thou/mm3 (3.6-11.0)
[2025-03-27 06:53] LABS: Hemoglobin 7.8 g/dL (12.0-16.0)
[2025-03-27 07:06] LABS: Albumin, Serum 3.2 gm/dL (3.4-4.8); Anion Gap 6 (7-16); BUN/Creatinine Ratio 21 Ratio (12-20); Blood Urea Nitrogen 29 mg/dL (9-23); Calcium 8.3 mg/dL (8.3-10.6); Calcium (Corrected) 8.9 mg/dL (8.5-10.1); Chloride 92 mMol/L (98-107); Creatinine (Component) 1.4 mg/dL (0.6-1.3); Glucose 108 mg/dL (74-106); Osmolality,Calculated 262 (275-295); Phosphorous 3.1 mg/dL (2.4-5.1); Potassium 3.8 mMol/L (3.4-5.1); Sodium 127 mMol/L (136-145); eGFR 38 See Note
[2025-03-27] MEDS: HEPARIN SOD INJ 1000 UNIT/ML VIAL 10 ML 3500 UNIT INDWELLCAT (10:59)
[2025-03-27] MEDS: FOLIC ACID 1 MG TABLET 5 MG PO (11:36)
[2025-03-27] MEDS: LACTOBACILLUS RHAMNOSUS 1 CAP PO (11:36)
[2025-03-27] MEDS: AMIODARONE HCL 200 MG TABLET PO (11:36)
[2025-03-27] MEDS: amLODIPine BESYLATE 5 MG TABLET PO (11:37)
[2025-03-27] MEDS: lorataDINE 10 MG TABLET PO (11:37)
[2025-03-27] MEDS: GLYCOPYRROLATE 1 MG TABLET PO (11:37)
--- NOTE | 2025-03-27 11:37 | PD.RESPRO ---
Documentation for date of: 03/27/25 Exam Vital Signs Temp Pulse Resp BP Pulse Ox O2 Del Method O2 Flow Rate 98.2 F 74 20 120/58 L 99 Nasal Cannula 3 03/27/25 11:11 03/27/25 11:11 03/27/25 11:11 03/27/25 11:11 03/27/25 11:11 03/27/25 08:00 03/27/25 11:11 Objective Labs 03/27/25 05:20 03/27/25 05:20 Labs: Laboratory Results - last 24 hr 03/27/25 05:20 WBC 12.7 H RBC 2.59 L Hgb 7.8 L Hct 24.1 L MCV 93 MCH 30.1 MCHC 32.4 RDW Std Deviation 71.7 H Plt Count 401 Neut % (Auto) 72 Lymph % (Auto) 11 [place] % (Auto) 10 Eos % (Auto) 5 Baso % (Auto) 1 Neut # (Auto) 9.1 H Lymph # (Auto) 1.4 [place] # (Auto) 1.3 H Eos # (Auto) 0.6 H Baso # (Auto) 0.1 Immature Gran # (Auto) 0.18 H Absolute Nucleated RBC 0.00 Immature Gran % 1 H Nucleated RBC % 0 Sodium 127 L Potassium 3.8 Chloride 92 L Carbon Dioxide 29.0 Anion Gap 6 L BUN 29 H Creatinine 1.4 H Estim Creat Clear Calc 30.0 L eGFR 38 L BUN/Creatinine Ratio 21 H Glucose 108 H Calculated Osmolality 262 L Calcium 8.3 Corrected Calcium 8.9 Phosphorus 3.1 Albumin 3.2 L Quality Measures Quality Measures VTE prophylaxis Assessment & Plan Assessment Current Active Medications: Generic Name Dose Route Start Last Admin Trade Name Freq PRN Reason Stop Dose Admin Acetaminophen 650 mg 03/15/25 07:26 03/27/25 04:21 Acetaminophen 325 Mg Tablet PO 04/14/25 07:25 650 mg Q6HR PRN Administration PAIN OR FEVER > 101 Albuterol/Ipratropium 3 ml 03/18/25 09:26 03/18/25 09:54 Albuterol/Ipratropium (Duoneb) Rt Emily 3 Ml Nebu INH 04/17/25 10:59 3 ml Q4HRRT PRN Administration RESPIRATORY DISTRESS Amiodarone HCl 200 mg 03/14/25 21:00 03/26/25 20:32 Amiodarone Hcl 200 Mg Tablet PO 04/13/25 20:59 200 mg BID EULALIA Administration Amlodipine Besylate 5 mg 03/15/25 09:00 03/26/25 09:39 Amlodipine Besylate 5 Mg Tablet PO 04/14/25 08:59 5 mg QDAY EULALIA Administration Fluticasone Propionate 1 spray 03/27/25 08:30 Fluticasone Lit [place] 0.05% 16 Gm Btl NASAL 04/26/25 08:29 QDAY PRN ALLERGY Folic Acid 5 mg 03/15/25 09:00 03/26/25 09:38 Folic Acid 1 Mg Tablet PO 04/14/25 08:59 5 mg QDAY EULALIA Administration Furosemide 40 mg 03/18/25 13:15 03/26/25 09:44 Furosemide Inj 10 Mg/Ml 4ml Vial IVP 04/17/25 13:14 40 mg QDAY EULALIA Administration Glycopyrrolate 1 mg 03/21/25 09:00 03/26/25 20:33 Glycopyrrolate 1 Mg Tablet PO 04/20/25 08:59 1 mg BID EULALIA Administration Heparin Sodium (Porcine) 3,500 unit 03/15/25 08:37 03/27/25 10:59 Heparin Sod Inj 1000 Unit/Ml Vial 10 Ml INDWELLCAT 03/29/25 08:36 3,500 unit PRN PRN Administration DIALYSIS Albumin Human 25 gm in 100 mls @ 100 mls/min 03/15/25 08:37 03/21/25 19:24 Albuminar-25 Ivpb IV Infused PRN PRN Infusion DIALYSIS Lactobacillus Rhamnosus 1 cap 03/15/25 09:00 03/26/25 09:39 Lactobacillus Rhamnosus 1 Cap PO 04/14/25 08:59 1 cap QDAY EULALIA Administration Levothyroxine Sodium 125 mcg/ 175 mcg 03/15/25 06:00 03/27/25 05:57 Levothyroxine Sodium 50 mcg PO 04/14/25 05:59 175 mcg ACBR EULALIA Administration Loratadine 10 mg 03/15/25 09:00 03/26/25 09:39 Loratadine 10 Mg Tablet PO 04/14/25 08:59 10 mg QDAY EULALIA Administration Lorazepam 0.5 mg 03/24/25 08:12 03/27/25 05:59 Lorazepam 0.5 Mg Tablet PO 03/29/25 08:59 0.5 mg BID PRN Administration ANXIETY Non-Formulary Medication 800 mcg 03/15/25 09:00 03/26/25 09:44 Biotin PO 04/14/25 08:59 Not Given QDAY EULALIA Non-Formulary Medication 1 tab 03/14/25 22:00 03/27/25 06:02 Chrom Janki/Brindall Mccrary (Garcinia Cambogia Tablet) PO 04/13/25 21:59 Not Given TID EULALIA Non-Formulary Medication 100 mcg 03/15/25 09:00 03/26/25 09:44 Cyanocobalamin (Vitamin B-12) [Vitamin B-12] PO 04/14/25 08:59 Not Given QDAY EULALIA
[2025-03-27] MEDS: FUROSEMIDE INJ 10 MG/ML 4ML VIAL 40 MG IVP (11:38)
--- NOTE | 2025-03-27 11:54 | PC.IP ---
Addendum entered by Flory Jain RN 03/27/25 11:58: Bedside RN and SS notified. Original Note: Received email from [facility], PT is negative for REAM CUTTER. Report will be scanned by by lab when received.
--- NOTE | 2025-03-27 12:09 | PC.SS ---
HOTBED OPERATOR informed by bedside nurse that patient has been cleared by [facility]. Test results negative. Patient will not require isolation room upon return to SNF.
--- NOTE | 2025-03-27 12:18 | PC.SS ---
PET NUTRITION SPECIALIST submitted updated clinicals to SNF via [facility].
--- NOTE | 2025-03-27 12:19 | PC.SS ---
Update: Patient participated with dialysis today.
--- NOTE | 2025-03-27 13:15 | ESDS_ITS ---
Planned Discharge Date 03/27/25 DS: Providers Provider Date of admission: 03/14/25 19:59 Primary care physician: Physician No Primary/Family Admitting Provider: Ruth Street MD Attending Provider on Admission: Patti Morgan MD Consults: 03/14/25 20:00 Consult to Gastroenterology Stat Comment: gi bleed Consulting Provider: Kimmy Mendoza 03/15/25 03:30 Referral Wound Care Routine Comment: BILATERAL BUTTOCKS 03/16/25 16:32 Referral Wound Care Urgent Comment: Please assess skin to buttock area 03/17/25 14:36 Referral Physical Therapy Stat Comment: Physician Instructions: Attending Provider on DC: Snian Armstrong MD Discharging Provider: Sinan Armstrong MD DS: Diagnosis Problem List Completed Was Problem List Reviewed/Reconciled?: Yes Hospital Course Hospital Course Hospital course: 79 yo female with PMH of A-fib NOT on ELIQUIS, CHF, HTN, Hypothyroidism, CKD with 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 ?Patient found to have UTI, treated appropriate with IV antibiotics. ?GI was consulted, patient received endoscopy which showed gastritis without bleeding, colonoscopy showed diverticulosis without bleed, hemorrhoids, 1 moderate-sized polyp which was removed. ?During course of stay patient is treated for acute hypoxic respiratory failure secondary to CHF exacerbation, fluid removed via dialysis. ?Patient showed improvement in all symptoms during length of stay. Unfortunately, during dialysis session patient was exposed to carbapenem producing Klebsiella pneumonia via another patient who was in her vicinity. Infection control alongside [facility] representatives obtained a rectal swab sample and contact precautions were initiated. On 03/27 report was given from [place] officials that the patient is negative for carbapenem producing Klebsiella pneumonia. ?Patient cleared for discharge from GI perspective. ?Patient medically stable and cleared for discharge. Patient can be discharged back to facility She can continue taking all previous medications as prescribed Patient to take augmentin twice a day for 4 more days to complete her regimen for UTI Patient can follow up with PCP in 1-2 weeks Patient can return to the ER if her symptoms worsen of she experiences new symptoms. Hospital Diagnosis: #Carbapenem producing Klebsiella pneumonia, negative #Acute hypoxic respiratory failure, resolved #HFpEF with EF of 55 to 60% #GI bleed?resolved #ADITYA on CKD on hemodialysis (Monday) #UTI - E. Coli, treated #Hypertension #Hypothyroidism #Atrial fibrillation Sinan Armstrong, PGY-1 Status at Discharge Overall status at discharge: patient is progressing back to baseline Time Spent with Patient Time attestation: Total time spent providing and/or coordinating discharge services: 45 minutes Time spent: Greater than 30 minutes Exam Vital Signs Temp Pulse Resp BP Pulse Ox O2 Del Method O2 Flow Rate 97.0 F 78 22 H 111/63 98 Nasal Cannula 2 03/27/25 12:03/27/25 12:03/27/25 12:03/27/25 12:03/27/25 12:03/27/25 12:03/27/25 12:00 Narrative Exam Physical Exam: Constitutional: Calm and comfortable. CVS: RRR, S1 and S2 present, no murmurs, rubs or gallops . There is a dialysis catheter on the right chest wall without tenderness or erythema RESP: Bilateral crackles noted, mild GI: Normal BS, Nontender/Nondistended. MSK: Full range of motion, No trauma or deformities or masses. 2+ pitting edema bilateral lower extremities Skin: Warm to touch, Dry. No rashes or lesions. 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 Sensation grossly intact. Psych: (AAO) x3 . Appropriate mood and affect. Discharge Plan Plan Patient Disposition: Xfer Skilled Nsg Fac (SNF) Patient condition on transfer: Stable Care Plan Goals: Patient can be discharged back to facility She can continue taking all previous medications as prescribed Patient to take augmentin twice a day for 4 more days to complete her regimen for UTI Patient can follow up with PCP in 1-2 weeks Patient can return to the ER if her symptoms worsen of she experiences new symptoms. Prescriptions/Referrals Prescriptions/Med Rec: New amoxicillin-pot clavulanate 500-125 mg tablet 1 tab PO BID 4 Days Qty: 9 0RF Continued amlodipine [Norvasc] 5 MG tablet 5 mg PO QDAY Qty: 0 loratadine [Claritin] 10 MG tablet 10 mg PO QDAY Qty: 0 Chrom Janki/Brindall Mccrary (Garcinia Cambogia Tablet) 1 EACH tablet 1 tab PO TID Qty: 0 Fluticasone Propionate 16 GM SPRAY 1 spry IH PRN PRN (Reason: ALLERGY) Qty: 0 cyanocobalamin (vitamin B-12) [Vitamin B-12] 100 MCG tablet 100 mcg PO QDAY Qty: 0 biotin 800 MCG tablet 800 mcg PO QDAY Qty: 0 Culturelle 1 CAP capsule 1 cap PO QDAY Qty: 0 amiodarone 200 mg Tablet 200 mg PO BID Qty: 1 0RF sucralfate 100 mg/mL Suspension 1 g PO TID Qty: 1 0RF folic acid 1 mg Tablet 5 mg PO QDAY Qty: 1 0RF levothyroxine 175 mcg capsule 175 mcg PO QDAY Qty: 1 0RF diphenhydramine HCl [Allergy (diphenhydramine)] 25 mg capsule 25 mg PO Q12H PRN (Reason: allergy) bisacodyl [Dulcolax (bisacodyl)] 10 mg suppository 10 mg IA PRN PRN (Reason: constipation) Rx Instructions: if MOM is ineffective hydroxyzine HCl 25 mg tablet 25 mg PO Q12H PRN (Reason: itching) melatonin 3 mg tablet 6 mg PO HS PRN (Reason: sleep) mirtazapine 7.5 mg tablet 7.5 mg PO QDAY tramadol 50 mg tablet 50 mg PO Q12H PRN (Reason: pain) pantoprazole [Protonix] 40 mg tablet,delayed release (DR/EC) 40 mg PO QDAY Referrals: No Primary/Family,Physician [Primary Care Provider] - Patient/Caregiver Discharge Instructions Discharge Activity: activity as tolerated Education Materials: Bleeding Gastrointestinal, AFL/Afib, Urinary Tract Infections in Women Print Language: Armenian Stand Alone Forms: Shandra Award Info., Patient Portal Info Letter Discharge Order Discharge Orders: Discharge (Routine); Ordered 03/27/25 Ordered By: Hima Benjamin Quality Discharge Quality Measures VTE prophylaxis
[2025-03-27] MEDS: FLUTICASONE NAS SPRAY 0.05% 16 GM BTL 1 SPRAY NASAL (15:15)
--- NOTE | 2025-03-27 15:32 | PC.SS ---
Lab reports have been obtained. Results negative. Copy of results submitted to SNF admissions. SNF informed [facility] that patient will be accepted back to facility. [facility] updated patient.
--- NOTE | 2025-03-27 15:37 | PC.SS ---
[facility] confirmed with [facility] staff that [facility] authorization approved. GEOLOGICAL SCOUT to schedule transport. D/C orders in.
--- NOTE | 2025-03-27 15:46 | PC.SS ---
PRIVATE [employer]SEHOLD WORKER informed by bedside nurse patient de-sating to low 90's. Will schedule transport upon increase in saturation level. Bedside nurse updated.
--- NOTE | 2025-03-27 15:49 | PC.NURSE ---
PT on 2L of O2 and bouncing around 90-91% saturation. Increased to 3L, saturation will not maintain above 93%. Informed Mathew BENOIT that pt's saturation not at a satisfactory number at the SNFs equal to/or less than 3L request. Will update Mathew as needed.
--- NOTE | 2025-03-27 17:09 | PC.SS ---
Ambulance transport scheduled for 06:30 pm today. COMMUNICATION LECTURER notified patient, patient's friend (Ramno), bedside nurse and SNF. [place] to provide transportation.
== END 2025-03-27 16:50 | disposition skilled nursing facility (03) | DRG 368 ==
LOC: SERX 18:21 → SERHOLD 20:06 → S2NX 03-15 03:26
PROVIDERS: Specialist; Student in an Organized Health Care Education/Training Program; Admitting Provider Internal Medicine; Emergency Provider Emergency Medicine; Visit Provider Internal Medicine
PROC: 0DJ08ZZ Inspection of Upper Intestinal Tract, Via Natural or Artificial Opening Endoscopic (ICD-10-PCS; CPT 43239; principal; 2025-03-15 14:00)
PROC: 0DJD8ZZ Inspection of Lower Intestinal Tract, Via Natural or Artificial Opening Endoscopic (ICD-10-PCS; CPT 45378; principal; 2025-03-16 15:00)
DX: K20.91 Esophagitis, unspecified with bleeding (principal); J15.0 Pneumonia due to Klebsiella pneumoniae; J96.01 Acute respiratory failure with hypoxia; N18.6 End stage renal disease; I48.20 Chronic atrial fibrillation, unspecified; I13.2 Hypertensive heart and chronic kidney disease with heart failure and with stage 5 chronic kidney disease, or end stage renal disease; I50.30 Unspecified diastolic (congestive) heart failure; N17.9 Acute kidney failure, unspecified; N39.0 Urinary tract infection, site not specified; R18.8 Other ascites; Z16.12 Extended spectrum beta lactamase (ESBL) resistance; D62 Acute posthemorrhagic anemia; I50.9 Heart failure, unspecified; M06.9 Rheumatoid arthritis, unspecified; I48.91 Unspecified atrial fibrillation; K29.70 Gastritis, unspecified, without bleeding; K57.30 Diverticulosis of large intestine without perforation or abscess without bleeding; E03.9 Hypothyroidism, unspecified; K74.60 Unspecified cirrhosis of liver; K64.8 Other hemorrhoids; E78.5 Hyperlipidemia, unspecified; Z66 Do not resuscitate; Z79.01 Long term (current) use of anticoagulants; Z99.2 Dependence on renal dialysis; Z78.9 Other specified health status; Z79.899 Other long term (current) drug therapy; Z86.2 Personal history of diseases of the blood and blood-forming organs and certain disorders involving the immune mechanism; Z88.8 Allergy status to other drugs, medicaments and biological substances; F41.9 Anxiety disorder, unspecified; B96.20 Unspecified Escherichia coli [E. coli] as the cause of diseases classified elsewhere
CPT/HCPCS: 36415; 71045; 74176; 80053; 80069; 81001; 83605; 83690; 83735; 83880; 84100; 84145; 84484; 85014; 85018; 85025; 85610; 85730; 86850; 86900; 86901; 86923; 87040; 87077; 87081; 87086; 87186; 87811; 93005; 94640; 96374; 97162; 99285; A4217; A4649; A9270; J1643; J1938; J2250; J2470; J2543; J3010; J3475; J3480; P9016; P9047; Q4081